=== PATIENT | male | born 1955 | race Caucasian/White ===

== ENCOUNTER 2020-09-14 10:25 | Outpatient (REF) | payer MEDICARE, SELFPAY ==
--- NOTE | 2020-09-14 10:33 | XR_ITS ---
EXAMINATION: XR CHEST CLINICAL INFORMATION: Cough COMPARISON: January 19, 2019 TECHNIQUE: 2 views of the chest were obtained. FINDINGS: No significant abnormality is noted involving the heart, lungs, mediastinum, bony thorax or soft tissues. XR/XR chest 2V IMPRESSION: No acute disease.
== END 2020-09-14 10:26 | disposition home or self-care (01) ==
LOC: HO.XRAY 10:25
PROVIDERS: PCP Internal Medicine; Visit Provider Internal Medicine
DX: R05 Cough (principal)
CPT/HCPCS: 71046

== ENCOUNTER 2022-08-01 10:34 | Day surgery (SDC) | payer MEDICARE, SELFPAY ==
--- NOTE | 2022-07-31 12:19 | P.CONAN_ITS ---
Documented by User: Kim Aguirre NP 07/31/22 12:21 HPI - Anesthesia Eval Consult details Narrative: 67yo M for Colonoscopy [facility] Active Problems Active Problems: All Active Problems (Updated 04/30/22 @ 13:46 by Ridge Kendall MD) Cough (Acute) Physical exam (Acute) Obesity (Acute) Rash (Acute) Hypertension (Acute) Past Medical History Medical History (Updated 04/30/22 @ 13:46 by Ridge Kendall MD) Hypertension Family History Family History Father Past heart attack Mother CAD (coronary artery disease) Surgical History Surgical History (Updated 07/31/22 @ 12:12 by Josephine Hassan RN) H/O left inguinal hernia repair H/O rectal polypectomy History of excision of pilonidal cyst Social History [facility] Alcohol intake: current Alcohol intake frequency: 0-2 drinks per day Patient Tobacco Use Status: Current everyday Tobacco user Tobacco use type: Cigar Cigarettes Per Day: 2 e-Cigarette/Vaping Use: Never Used Date Education Initiated: 08/01/22 Second Hand Smoke Exposure: No Use of substances other than those prescribed or required for medical reasons: No Are you DNR?: No Advance Directives: No Advance Directives Information Provided: Yes service: No Current occupational status: retired Current occupational exposures/hazards: No Cognitive needs: No Hearing needs: No Vision needs: Yes Meds Allergies Allergy/AdvReac Type Severity Reaction Status Date / Time No Known Allergies Allergy Verified 07/06/22 10:36 Exam Exam Date and Time: July 31, 2022 1219 Assessment and Plan Assessment Anesthesia Assessment: Chart Reviewed Documented by User: Saad Stewart MD 08/01/22 16:07 [facility] Past Medical History Medical History (Updated 04/30/22 @ 13:46 by Ridge Kendall MD) Hypertension Family History Family History Father Past heart attack Mother CAD (coronary artery disease) Family history of problems with anesthesia: No Surgical History Surgical History (Updated 07/31/22 @ 12:12 by Josephine Hassan RN) H/O left inguinal hernia repair H/O rectal polypectomy History of excision of pilonidal cyst History of Problems with Anesthesia: No Social History Social History [facility] Alcohol intake: current Alcohol intake frequency: 0-2 drinks per day Patient Tobacco Use Status: Current everyday Tobacco user Tobacco use type: Cigar Cigarettes Per Day: 2 e-Cigarette/Vaping Use: Never Used Date Education Initiated: 08/01/22 Second Hand Smoke Exposure: No Use of substances other than those prescribed or required for medical reasons: No Are you DNR?: No Advance Directives: No Advance Directives Information Provided: Yes service: No Current occupational status: retired Current occupational exposures/hazards: No Cognitive needs: No Hearing needs: No Vision needs: Yes Meds Allergies Allergy/AdvReac Type Severity Reaction Status Date / Time No Known Allergies Allergy Verified 07/06/22 10:36 Exam Airway Mallampati Class: IV TM Dist: >3cm Neck ROM: Full Loose/Missing/Broken Teeth: Yes (Poor dentition overall ) Heart: S1,S2 Lungs: b/l breath sounds Assessment and Plan Assessment Anesthesia Assessment: Anesthesia Plan Discussed Final Anesthetic Review Family History of Problems with Anesthesia: No History of Problems with Anesthesia: No NPO: Yes ASA Class: III Final Preanesthetic Review: Meds/Allgs Chart Reviewed, Consent Obtained/Reviewed and Anes Risks/Benef Reviewed Patient Risk: Intermediate Procedure Risk: Intermediate Anesthetic Plan Anesthetic Plan: MAC: Disposition: Standard PACU
[2022-08-01 10:52] VITALS: BP 175/100; PULSE 101; RESP 16; TEMP 36.3; O2SAT 96; BMI 30.1
[2022-08-01] MEDS: Lactated Ringers 1,000 ML 100 ML IVCONT (11:10)
--- NOTE | 2022-08-01 12:37 | P.BOP_ITS ---
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 Cecal polyp) Condition: stable Disposition: PACU
[2022-08-01 12:39] VITALS: BP 116/75; PULSE 91; RESP 17; TEMP 36.6; O2SAT 100
[2022-08-01 12:54] VITALS: BP 129/86; PULSE 78; RESP 18; TEMP 36.3; O2SAT 100
--- NOTE | 2022-08-02 00:33 | OP_ITS ---
SURGEON: Jayant Aiken MD INDICATIONS: The patient presents for evaluation of personal history of tubular adenoma of the colon and colorectal cancer screening. Full consent was obtained from him for this, including risks of bleeding and perforation. PREOPERATIVE DIAGNOSIS: POSTOPERATIVE DIAGNOSIS: PROCEDURE PERFORMED: Colonoscopy to cecum and terminal ileum with hot snare polypectomy. ESTIMATED BLOOD LOSS: COMPLICATIONS: ANESTHESIA: Monitored anesthesia care. ASSISTANTS: SPECIMENS: PREOPERATIVE DIAGNOSES: Colorectal cancer screening and personal history of tubular adenoma of the colon. POSTOPERATIVE DIAGNOSES: Colorectal cancer screening and personal history of tubular adenoma of the colon, small colon polyp, diverticulosis and internal hemorrhoids. DESCRIPTION OF PROCEDURE: The patient was placed in the left lateral decubitus position. The digital rectal exam revealed no abnormalities. The Olympus video pediatric colonoscope was entered into the rectum and advanced easily to the cecum. Once in the cecum, I did identify a cecal pouch with appendiceal orifice and a normal-appearing ileocecal valve. The terminal ileum was cannulated and appeared normal. Scope was withdrawn back in the colon. The entire cecum and ileocecal valve appeared normal other than an approximately 6 mm polyp, which was removed by hot snare polypectomy and then recovered by suction. The polypectomy site appeared clean, without any sign of residual polyp nor bleeding. The scope was slowly withdrawn assessing all mucosal surfaces carefully. Preparation was excellent. I did not visualize any other polyps, colitis, or angiodysplasia. There was a mild amount of diverticulosis in the ascending colon and a moderate amount of diverticulosis in the descending and sigmoid colon. In the rectum, scope was retroflexed visualizing internal hemorrhoids, but no other pathology. The rectal mucosa appeared normal. The scope was straightened and withdrawn from the patient. He tolerated the procedure well and was returned to the recovery area in stable condition. IMPRESSION: 1. Colon polyp. 2. Diverticulosis. 3. Internal hemorrhoids. PLAN: The results of the pathology will be checked. I would recommend a repeat colonoscopy in 5 years for further surveillance. He was advised not to use any aspirin or NSAIDs for 1 week. MD KHADAR Sun/ALLIE / [id number]
== END 2022-08-01 13:39 | disposition home or self-care (01) ==
PROVIDERS: PCP Internal Medicine; Visit Provider Internal Medicine
PROC: 0DJD8ZZ Inspection of Lower Intestinal Tract, Via Natural or Artificial Opening Endoscopic (ICD-10-PCS; CPT 45378; principal; 2022-08-01 11:30)
DX: Z12.11 Encounter for screening for malignant neoplasm of colon (principal); Z86.010 Personal history of colon polyps; K63.5 Polyp of colon; K57.30 Diverticulosis of large intestine without perforation or abscess without bleeding; K64.8 Other hemorrhoids; I10 Essential (primary) hypertension; Z79.899 Other long term (current) drug therapy; F17.210 Nicotine dependence, cigarettes, uncomplicated
CPT/HCPCS: 45385; 88302; 88305

== ENCOUNTER 2023-09-30 17:49 | Inpatient (IN) | payer MEDICARE, SELFPAY ==
--- NOTE | ~2023-09-30 | CT_ITS ---
CT ANGIOGRAM NECK WITH CONTRAST CT ANGIOGRAM BRAIN WITH CONTRAST CLINICAL INFORMATION: Syncope. COMPARISON: Head and cervical spine CT 09/30/2023. TECHNIQUE: Test bolus sequences followed by intravenous administration 70 mL of Omnipaque 350. Helical imaging was performed in the axial plane from the thoracic inlet to the skull vertex. Delayed postcontrast imaging of the head was also performed. The data was processed at the vascular technologist workstation for generation of MIP sequences. Angled MIPs and volume rendered reformatted images were also generated at an offline 3D workstation under concurrent supervision. Stenoses are assessed in accordance with NASCET criteria unless otherwise indicated. This CT examination was performed using dose optimization techniques as appropriate, variously including the following: *Automated exposure control *Adjustment of mA and/or kV according to patient size (this includes techniques or standardized protocols for targeted exams where dose is matched to indication/reason for exam; i.e. extremities or head) *Use of iterative reconstruction technique FINDINGS: BRAIN: [There is global cerebral volume loss and there is moderate chronic microangiopathy. There is no intracranial hemorrhage, hydrocephalus, extra-axial surface collection, midline shift, or other herniation pattern. Delgado to white matter differentiation is diffusely maintained without evidence of an evolved acute territorial infarct. The basilar cisterns are preserved. No significant soft tissue abnormality. No acute osseous abnormality. The paranasal sinuses and the mastoid air cells are well aerated.] CERVICAL SOFT TISSUES AND LUNG APICES: The imaged upper lungs are clear. There is advanced multilevel cervical spondylosis. 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 NECK CTA: [There is a classic 3 vessel configuration of the aortic arch. Proximal arch vessels are non-stenotic. The vertebral arteries are codominant. No significant ostial stenosis is visualized on either side. Both vertebral arteries are widely patent throughout their extracranial cervical course. Both common carotid arteries are normal in course and caliber.] There is atherosclerotic calcification involving the carotid bifurcations bilaterally without significant stenosis involving the proximal internal carotid arteries on either side. BRAIN CTA: [There is normal opacification of major intracranial arteries. No focal flow-limiting stenosis nor discrete proximal large artery occlusion. There is a 1.5 mm infundibulum versus aneurysm projecting posteriorly from the communicating segment of the left internal carotid artery. Timing of the contrast bolus allows assessment of the major dural venous sinuses, which all opacify normally] CT/CT angio head neck IMPRESSION: - No acute intracranial findings. [There is global cerebral volume loss and there is moderate chronic microangiopathy. - No significant arterial stenoses and no acute arterial occlusions within the head or neck. - There is a 1.5 mm infundibulum versus aneurysm projecting posteriorly from the communicating segment of the left internal carotid artery. - There is advanced multilevel cervical spondylosis.
--- NOTE | ~2023-09-30 | CT_ITS ---
EXAMINATION: CT HEAD WITHOUT CONTRAST CLINICAL INFORMATION: Fall. Head strike. COMPARISON: CT head dated 03/24/2014. TECHNIQUE: Contiguous axial imaging was performed from the skull base to vertex without intravenous administration of contrast. This CT examination was performed using dose optimization techniques as appropriate, variously including the following: *Automated exposure control *Adjustment of mA and/or kV according to patient size (this includes techniques or standardized protocols for targeted exams where dose is matched to indication/reason for exam; i.e. extremities or head) *Use of iterative reconstruction technique DLP: 1464 mGy-cm FINDINGS: There is no intracranial hemorrhage. There is no evidence of acute/subacute cerebral or cerebellar infarction. There is mild to moderate microvascular ischemic change. There is no midline shift or mass effect. No extra-axial fluid collection. There is mild cerebral atrophy. No hydrocephalus. The calvarium is intact. There is a small inferior right mastoid air cell effusion. There is mild right maxillary sinus mucosal thickening. The orbits are symmetric and within normal limits. CT/CT head/brain wo IV con IMPRESSION: No acute intracranial pathology. Mild to moderate microvascular ischemic change. Mild cerebral atrophy.
--- NOTE | ~2023-09-30 | CT_ITS ---
EXAMINATION: CT CERVICAL SPINE WITHOUT CONTRAST CLINICAL INFORMATION: Fall. Head trauma. COMPARISON: Previous CT March 2014 TECHNIQUE: Axial images through the cervical spine without contrast. Sagittal and coronal reconstructions sedation were performed. This CT examination was performed using dose optimization techniques as appropriate, variously including the following: *Automated exposure control *Adjustment of mA and/or kV according to patient size (this includes techniques or standardized protocols for targeted exams where dose is matched to indication/reason for exam; i.e. extremities or head) *Use of iterative reconstruction technique DLP: 567 mGy-cm FINDINGS: Bone alignment is normal. No fracture or dislocation. There is severe multilevel disc space narrowing and degenerative spondylosis from C3 to C7. There is bilateral facet arthritis, left greater than right. There is new erosive change in left C5 superior facet. There are degenerative changes at the C1 dens articulation. Soft tissues are normal. There is bilateral carotid calcification. Lung apices are clear. CT/CT cervical spine wo IV con IMPRESSION: Severe degenerative changes. No fracture or dislocation Fleischner guidelines were followed.
--- NOTE | 2023-09-30 17:57 | ECG_ITS ---
Test Reason : SYNCOPE Blood Pressure : / mmHG Vent. Rate : 092 BPM Atrial Rate : 000 BPM P-R Int : 000 ms QRS Dur : 088 ms QT Int : 366 ms P-R-T Axes : 000 227 144 degrees QTc Int : 452 ms Normal sinus rhythm with frequent Premature atrial complexes Right superior axis deviation Nonspecific ST abnormality Abnormal ECG No previous ECGs available Referred By: Catie Chopra Electronically Signed By:RADHA DSOUZA MD
--- NOTE | 2023-09-30 18:00 | ED.FALL ---
HPI - Fall General Chief Complaint: Fall Stated Complaint: WIT FALL,+HEADSTRIKE, 3 VODKA BEVS B4 FALL. Time Seen by Provider: 09/30/23 17:52 Source: patient and EMS Mode of arrival: EMS Limitations: no limitations History of Present Illness HPI Narrative: Patient is a 68-year-old male who presents emergency department for evaluation after a witnessed fall, patient fell forward striking his head on to the cabinets and then, no loss of consciousness. Per EMS his sister had reported multiple falls recently at the end of August, beginning of September, 1 about a week ago and then today. Typically he is consuming alcohol at the time that these falls occur. When asked, patient states that his neighbors are usually home and are able to help him up, however they were not today, and sister called EMS. When asking the patient why he falls he states ?sometimes I get dizzy?, he does admit that these dizziness episodes are typically during times that he is consuming alcohol but has happened and times that he is not, with onset over the past 6 months. He states he drinks about 3 vodka drinks daily, denies any history of alcohol withdrawal symptoms/seizure. At this time he has no physical complaints. He denies headache, dizziness, vision changes, neck pain, chest pain, shortness of breath, difficulty breathing, numbness or tingling of the extremities, bladder or bowel dysfunction. Related Data Previous Rx's Medication Instructions Recorded blood pressure test kit-large (BPM #1 ea 06/27/22 2 Advanced BP Monitor kit) lisinopril 40 mg tablet 40 mg PO DAILY #90 tabs 07/12/22 hydrochlorothiazide 12.5 mg capsule 12.5 mg PO DAILY #90 caps 12/18/22 Allergies Allergy/AdvReac Type Severity Reaction Status Date / Time No Known Allergies Allergy Verified 09/30/23 18:08 Review of Systems Review of Systems: Yes all other systems are reviewed and are negative PMFSH Past Medical History Attestation statement: The following information was validated with the patient. Source: old records reviewed Medical History Hypertension Surgical History H/O left inguinal hernia repair H/O rectal polypectomy History of excision of pilonidal cyst Family History Family History Father Past heart attack Mother CAD (coronary artery disease) Social History Social History Housing: Condominium Alcohol intake: current Alcohol intake frequency: 0-2 drinks per day Patient Tobacco Use Status: Current everyday Tobacco user Tobacco use type: Cigar Cigarettes Per Day: 2 Smoked in Last 30 Days: No e-Cigarette/Vaping Use: Never Used Second Hand Smoke Exposure: No Use of substances other than those prescribed or required for medical reasons: No Advance Directives: No Advance Directives Information Provided: Yes Nutrition Risks: No Nutritional Risk service: No Current occupational status: retired Current occupational exposures/hazards: No Cognitive needs: No Hearing needs: No Vision needs: Yes Physical Exam Vital Signs: Vital Signs: Last Vital Signs Temp 98.0 F 09/30/23 22:15 Pulse 124 H 09/30/23 22:15 Resp 14 09/30/23 22:15 BP 110/60 09/30/23 22:15 Pulse Ox 96 09/30/23 22:15 O2 Del Method Room Air 09/30/23 22:15 BMI result Body Mass Index 28.6 Appearance: Alert.?Oriented to person, place and time. No acute distress.?Normal affect. Head: Normocephalic Eyes: Pupils equal, round and reactive to light. EOMI. Conjunctiva and sclera normal? No Olsen sign noted. No raccoon eyes noted ENT: No septal hematoma, nares patent bilaterally. External auditory canal normal tympanic membrane pearly talavera and intact bilaterally. Dentition normal, no fractured teeth. No lesions or lacerations of oropharynx. Uvula midline. Moist mucous membranes. Neck: Normal inspection.? Neck supple.??No palpable tenderness, step-off, deformities. Hard cervical spine collar intact CVS: Heart sounds normal. Normal heart rate and rhythm.? Pulses normal.?? Respiratory: No respiratory distress.? Lung sounds clear to auscultation bilaterally?? Abdomen: Soft and non-tender. Normoactive bowel sounds. ?? Skin: Skin warm and dry.? Normal skin color.? Normal skin turgor.?? Extremities: No lower extremity edema.? Neuro: Moves all extremities spontaneously. Sensation intact bilaterally. CN II-XII intact. No focal neuro deficits. Course Reevaluation(s) Reevaluation #1: EKG interpretation of atrial fibrillation, however does not appear irregularly irregular, my impression is noted to have P waves prior to QRS complexes, rate [address] elevation/ST depression, no prior EKGs available for review. Suspect dizziness to be multifactoral. CBC is without leukocytosis. Alcohol level of 38. Hyponatremia of 128, normal renal function, no hyperglycemia, will obtain serum osmolality, urine sodium and urine osmol, may be secondary to HCTZ, ETOH, v. SIADH. Time: 19:00 Reevaluation #2: Urinalysis without evidence of infection or microscopic hematuria. Spoke with hospitalist, Dr. Limon who accepts patient for admission to medicine service Time: 21:11 Reevaluation #3: Advised by nursing staff that pulses noted to be irregular, a monitor noted to be as high as 130s, upon reviewed does appear irregular on telemetry, obtain repeat EKG which reveals first-degree AV block, does not appear consistent with atrial fibrillation Time: 23:52 Medications Administered Generic Name Dose Route Start Last Admin Trade Name Freq PRN Reason Stop Dose Admin Enoxaparin Sodium 40 mg 09/30/23 22:00 09/30/23 22:30 Enoxaparin Sodium 40 Mg/0.4 Ml Syringe SUBCUT 40 mg Q24H ALEE Administration Phenobarbital Sodium 260 mg 10/01/23 01:00 10/01/23 01:06 Phenobarbital Sodium 130 Mg/Ml Vial Im Q3hx2 IM 10/01/23 04:01 260 mg Q3H ALEE Administration Protocol Sodium Chloride 3 ml 10/01/23 00:00 10/01/23 01:07 0.9 % Sodium Chloride Flush 3 Ml Syringe IVFLUSH 3 ml QSHIFT ALEE Administration Discontinued Medications Generic Name Dose Route Start Last Admin Trade Name Freq PRN Reason Stop Dose Admin Magnesium Sulfate 2 gm in 50 mls @ 25 mls/hr 09/30/23 21:38 10/01/23 00:30 Magnesium Sulfate/H2o IV 09/30/23 23:37 Infused ONCE ONE Infusion Phenobarbital Sodium 351 mg 09/30/23 22:00 09/30/23 22:30 Phenobarbital Sodium 130 Mg/Ml Im Once IM 09/30/23 22:01 351 mg ONCE ONE Administration Protocol Thiamine HCl 100 mg 09/30/23 21:56 09/30/23 22:30 Thiamine Hcl 100 Mg Tablet PO 09/30/23 21:57 100 mg ONCE ONE Administration Medical Decision Making Medical Decision Making [facility] Narrative: Patient is a 68-year-old male with past medical history of hypertension, alcohol use who presents emergency department for evaluation of a witnessed fall as per HPI. Patient without physical complaints, physical examination is benign. However, given has been consuming alcohol plan to obtain CT head and cervical spine to ICH/SDH/fracture/subluxation in addition will obtain serum labs to exclude alternative etiology for dizziness aside from alcohol intoxication; CBC to evaluate for leukocytosis/ anemia, CMP and lipase to evaluate for abnormal electrolytes /abnormal renal function/ abnormal hepatic/biliary function, EKG and troponin to evaluate for ischemia/ACS, toxicology, and Urinalysis. Differential Diagnosis Differential Diagnoses: The differential diagnosis associated with the presentation includes (See narrative above) Admission/Observation Consideration of admission/observation: Escalation of care including admission/observation considered (See course narrative; admit new AFib) Consult Healthcare Provider Management of the patient was discussed with: Hospitalist (See course narrative) Lab Data [facility] Lab Attestation statement: I reviewed the patient's lab results. (See course narrative) 09/30/23 18:45 09/30/23 18:45 Labs: Lab Results 09/30/23 09/30/23 09/30/23 Range/Units 18:45 20:41 20:42 WBC 9.6 (4.8-10.8) X10*3/uL RBC 4.12 L (4.60-5.80) X10*6/uL Hgb 14.1 (14.0-18.0) g/dl Hct 39.5 L (42.0-52.0) % MCV 95.9 (80.0-98.0) fL MCH 34.2 H (27.0-33.0) pg MCHC 35.7 (31.0-36.0) g/dl RDW 11.5 (11.0-16.0) % Plt Count 317 (160-400) X10*3/uL MPV 9.5 (9.4-12.4) fL Immature Gran % (Auto) 0.5 H (0.0-0.4) % Neut % (Auto) 77.5 H (45-73) % Lymph % (Auto) 12.8 L (20-40) % [place] % (Auto) 8.6 (2-11) % Eos % (Auto) 0.3 (0-4) % Baso % (Auto) 0.3 (0-2) % Lymph # (Auto) 1.2 (1.2-4.9) X10*3/uL [place] # (Auto) 0.8 (0.1-1.2) X10*3/uL Eos # (Auto) 0.0 (0.0-0.4) X10*3/uL Baso # (Auto) 0.0 (0.0-0.2) X10*3/uL Abs Immat Gran (auto) 0.05 H (0.00-0.03) X10*3/uL Absolute Neuts (auto) 7.5 (2.0-8.3) x10*3/uL Absolute Nucleated RBC 0.000 (0.0-0.012) X10*3/uL Nucleated RBC % (auto) 0.0 (0.0-0.2) /100WBC Sodium 128 L (135-145) mmol/L Potassium 3.5 (3.3-5.1) mmol/L Chloride 97 (96-108) mmol/L Carbon Dioxide 18 L (22-29) mmol/L Anion Gap 17 (12-20) BUN 9 (9-16) mg/dL Creatinine 0.68 (0.5-1.4) mg/dL Estim Creat Clear Calc 114.2 Estimated GFR > 60 Random Glucose 85 (60-115) mg/dL Osmolality 272 L (281-305) mosm/kg Calcium 9.1 (8.4-10.2) mg/dL Magnesium 1.5 L (1.6-2.6) mg/dL Total Bilirubin 0.3 (0.0-1.0) mg/dL AST 22 (5-37) U/L ALT 18 (0-40) U/L Alkaline Phosphatase 80 (39-117) U/L Troponin I High Sens 13.2 (<3.5-35.0) ng/L Total Protein 6.5 (6.5-8.0) g/dL Albumin 3.8 (3.5-5.0) g/dL Lipase 24 (8-78) U/L Urine Color Yellow Urine Appearance Clear Urine pH 5.5 (5.0-9.0) Ur Specific [place] 1.010 (1.005-1.025) Urine Protein Negative (Neg-Trace) mg/dL Urine Glucose (UA) Negative (Negative) mg/dL Urine Ketones Negative (Negative) mg/dL Urine Blood Negative (Negative) Urine Nitrite Negative (Negative) Ur Leukocyte Esterase Negative (Negative) Urine Osmolality (373-1093) mosm/kg Ur Random Sodium mmol/L Urine Opiates Screen Not Detected (Not Detect) Urine Fentanyl Screen Not Detected (Not Detect) Ur Barbiturates Screen Not Detected (Not Detect) Ur Phencyclidine Scrn Not Detected (Not Detect) Ur Amphetamines Screen Not Detected (Not Detect) U Benzodiazepines Scrn Not Detected (Not Detect) Urine Cocaine Screen Not Detected (Not Detect) U Marijuana (THC) Screen Not Detected (Not Detect) Ethyl Alcohol 38 mg/dL 09/30/23 Range/Units 20:55 WBC (4.8-10.8) X10*3/uL RBC (4.60-5.80) X10*6/uL Hgb (14.0-18.0) g/dl Hct (42.0-52.0) % MCV (80.0-98.0) fL MCH (27.0-33.0) pg MCHC (31.0-36.0) g/dl RDW (11.0-16.0) % Plt Count (160-400) X10*3/uL MPV (9.4-12.4) fL Immature Gran % (Auto) (0.0-0.4) % Neut % (Auto) (45-73) % Lymph % (Auto) (20-40) % [place] % (Auto) (2-11) % Eos % (Auto) (0-4) % Baso % (Auto) (0-2) % Lymph # (Auto) (1.2-4.9) X10*3/uL [place] # (Auto) (0.1-1.2) X10*3/uL Eos # (Auto) (0.0-0.4) X10*3/uL Baso # (Auto) (0.0-0.2) X10*3/uL Abs Immat Gran (auto) (0.00-0.03) X10*3/uL Absolute Neuts (auto) (2.0-8.3) x10*3/uL Absolute Nucleated RBC (0.0-0.012) X10*3/uL Nucleated RBC % (auto) (0.0-0.2) /100WBC Sodium (135-145) mmol/L Potassium (3.3-5.1) mmol/L Chloride (96-108) mmol/L Carbon Dioxide (22-29) mmol/L Anion Gap (12-20) BUN (9-16) mg/dL Creatinine (0.5-1.4) mg/dL Estim Creat Clear Calc Estimated GFR Random Glucose (60-115) mg/dL Osmolality (281-305) mosm/kg Calcium (8.4-10.2) mg/dL Magnesium (1.6-2.6) mg/dL Total Bilirubin (0.0-1.0) mg/dL AST (5-37) U/L ALT (0-40) U/L Alkaline Phosphatase (39-117) U/L Troponin I High Sens (<3.5-35.0) ng/L Total Protein (6.5-8.0) g/dL Albumin (3.5-5.0) g/dL Lipase (8-78) U/L Urine Color Urine Appearance Urine pH (5.0-9.0) Ur Specific [place] (1.005-1.025) Urine Protein (Neg-Trace) mg/dL Urine Glucose (UA) (Negative) mg/dL Urine Ketones (Negative) mg/dL Urine Blood (Negative) Urine Nitrite (Negative) Ur Leukocyte Esterase (Negative) Urine Osmolality 213 L (373-1093) mosm/kg Ur Random Sodium 65.0 mmol/L Urine Opiates Screen (Not Detect) Urine Fentanyl Screen (Not Detect) Ur Barbiturates Screen (Not Detect) Ur Phencyclidine Scrn (Not Detect) Ur Amphetamines Screen (Not Detect) U Benzodiazepines Scrn (Not Detect) Urine Cocaine Screen (Not Detect) U Marijuana (THC) Screen (Not Detect) Ethyl Alcohol mg/dL Independent Interpretation I performed an independent interpretation of an: EKG (Course narrative) and CT Scan Radiology Impression Discussion of test interpretation with radiology: I have reviewed the radiologist's reading. Radiologist Impression: CT/CT head/brain wo IV con IMPRESSION: No acute intracranial pathology. Mild to moderate microvascular ischemic change. Mild cerebral atrophy. CT/CT cervical spine wo IV con IMPRESSION: Severe degenerative changes. No fracture or dislocation Fleischner guidelines were followed. Independent Historian Clinical information obtained from an independent historian. History obtained from or confirmed by: EMS External Record Review External record reviewed: Outpatient record Discharge Plan Discharge Clinical Impression: Fall, Alcohol use disorder, Near syncope Patient Disposition: Admitted As Inpatient
[2023-09-30 18:08] VITALS: BP 140/84; BP 152/64; PULSE 108; PULSE 89; RESP 16; TEMP 36.8; O2SAT 97; O2SAT 99; BMI 28.6
--- NOTE | 2023-09-30 18:16 | PC.NURSE ---
a&ox4. vss and up to date. pt presents to the ED d/t witnessed fall at home by sister. pt was standing when sister heard pt say oh no and he fell to the ground. +headstrike on cabinet, -loc, -thinners. c-collar in place. pt has had an increase in falls lately (09/01, 09/06, 09/22). pt states he was not seen post falls. pt admits to drinking 3 beverages of vodka prior to each fall. pt denies pain/any other sx. pt seen by ED provider/aware of plan of care at this time. ekg performed by tech. airway patent. no sob/wob noted. respirations even and unlabored. sister bedside for support.
--- NOTE | 2023-09-30 18:46 | PC.NURSE ---
labs obtained/sent to lab.
[2023-09-30 18:49] LABS: MANUAL DIFF FLAG NO
[2023-09-30 18:54] LABS: Basophils Percent Auto 0.3 % (0-2); Eosinophils Percent Auto 0.3 % (0-4); Hematocrit 39.5 % (42.0-52.0); Hemoglobin 14.1 g/dl (14.0-18.0); Imm Gran Abs Auto 0.05 X10*3/uL (0.00-0.03); Imm Gran Pct Auto 0.5 % (0.0-0.4); Lymphocytes Absolute Auto 1.2 X10*3/uL (1.2-4.9); Lymphocytes Percent Auto 12.8 % (20-40); Mean Corpuscular HGB Conc 35.7 g/dl (31.0-36.0); Mean Corpuscular Hemoglobin 34.2 pg (27.0-33.0); Mean Corpuscular Volume 95.9 fL (80.0-98.0); Mean Platelet Volume 9.5 fL (9.4-12.4); Monocytes Absolute Auto 0.8 X10*3/uL (0.1-1.2); Monocytes Percent Auto 8.6 % (2-11); Neutrophils Absolute Auto 7.5 x10*3/uL (2.0-8.3); Neutrophils Percent Auto 77.5 % (45-73); Platelet Count 317 X10*3/uL (160-400); Red Blood Count 4.12 X10*6/uL (4.60-5.80); Red Cell Distribution Width 11.5 % (11.0-16.0); White Blood Count 9.6 X10*3/uL (4.8-10.8)
--- NOTE | 2023-09-30 18:56 | PC.NURSE ---
pt to CT at this time.
[2023-09-30 19:00] LABS: Ethanol 38 mg/dL
[2023-09-30 19:05] LABS: Alanine Aminotransferase 18 U/L (0-40); Albumin Level 3.8 g/dL (3.5-5.0); Alkaline Phosphatase 80 U/L (39-117); Anion Gap 17 (12-20); Aspartate Amino Transferase 22 U/L (5-37); Bilirubin Total 0.3 mg/dL (0.0-1.0); Blood Urea Nitrogen 9 mg/dL (9-16); Calcium 9.1 mg/dL (8.4-10.2); Carbon Dioxide 18 mmol/L (22-29); Chloride 97 mmol/L (96-108); Creatinine Clr Calc Pharmacy 114.2; Estimated Glomerular Filt Rate > 60; Glucose Random 85 mg/dL (60-115); Lipase 24 U/L (8-78); Magnesium 1.5 mg/dL (1.6-2.6); Potassium 3.5 mmol/L (3.3-5.1); Sodium 128 mmol/L (135-145); Total Protein 6.5 g/dL (6.5-8.0)
[2023-09-30 19:09] LABS: Troponin-I High Sensitivity 13.2 ng/L (<3.5-35.0)
[2023-09-30 21:07] LABS: Appearance Urine Clear; Color Urine Yellow; Glucose Urine UA Negative (Negative); Leukocyte Esterase Urine Negative (Negative); Nitrite Urine Negative (Negative); PH 5.5 (5.0-9.0); Urine Blood Negative (Negative); Urine Ketones Negative (Negative); Urine Protein Negative (Neg-Trace)
[2023-09-30 21:14] LABS: Amphetamine Screen Urine Not Detected (Not Detect); Barbiturates, Urine Not Detected (Not Detect); Benzodiazepines Screen Urine Not Detected (Not Detect); Cannabinoid Screen Urine Not Detected (Not Detect); Cocaine Screen Urine Not Detected (Not Detect); Fentanyl, urine Not Detected (Not Detect); Opiate Screen Urine Not Detected (Not Detect); Phencyclidine Screen Urine Not Detected (Not Detect)
--- NOTE | 2023-09-30 21:16 | PHA.MEDREC ---
Pharmacy Consult ? Medication Reconciliation Pharmacy has completed the medication reconciliation. Patient and spouse confirmed medications. Angelita Emery, JuanD
--- NOTE | 2023-09-30 21:19 | MHC.EDTECH ---
Patient freshened up and reposition
--- NOTE | 2023-09-30 21:20 | MHC.EDTECH ---
Patient given dinner tray
[2023-09-30 21:34] LABS: Osmolality Urine 213 mosm/kg (373-1093)
[2023-09-30 21:34] LABS: Osmolality, Serum 272 mosm/kg (281-305)
--- NOTE | 2023-09-30 21:43 | P.HPHOSP_ITS ---
History of Present Illness Date of Service: 09/30/23 Attending physician on admission: Willy Limon Chief Complaint: fall 68-year-old male with history of hypertension and alcohol dependence who is a 2 cigar per day smoker presents to the ED for evaluation of a witnessed fall around 1630 today. The patient is evaluated in the presence of his sister, Ariadna, with whom he lives and who witnessed this fall. The patient reports experienced an episode of lightheadedness before falling forward striking his head on the cabinets without any loss of consciousness. Per his sister, the patient has had 4 falls since September 01 that have been unwitnessed and per patient have not resulted in any loss of consciousness. He denies any shortness a breath, chest pain, lightheadedness, weakness, paresthesias, or neuropathy related to fall. The patient endorses drinking about 3 unmeasured drinks on a daily basis but his sister states that he drinks at least 4 bloody Berna's every morning and then will typically go out in the afternoon and sometimes at night to drink more. The patient denies any history of withdrawal symptoms including withdrawal seizure or DTs. Denies illicit drug use. On arrival, vital signs stable. Hematology studies unremarkable. Renal function normal. Sodium 128, CO2 18, magnesium 1.5, electrolytes otherwise within normal limits. Hepatic function within normal limits. Serum osmolality 272, urine osmolality 213. Urinalysis unremarkable. Urine sodium 65. Urine tox screen negative with ethyl alcohol 38. CT head negative for any acute intracranial abnormality but shows [id number] microvascular ischemic changes and mild cerebral atrophy. CT of the cervical spine is negative for any acute fracture, subluxation, or dislocation. Review of Systems 2 Review of Systems: General: No fevers, malaise, unintentional weight loss HEENT: No blurred vision, diplopia. No sore throat, nasal congestion, rhinorrhea, sinus pain, ear pain Cardiovascular: No chest pain, palpitations, or leg edema Respiratory: No shortness of breath, wheezing, cough GI: No abdominal pain, nausea, vomiting, diarrhea, constipation, melena, hematochezia : No dysuria, hematuria, increased urinary frequency, decreased urinary output MSK: No myalgia, back pain Neuro: No headaches, weakness, paresthesias, neuropathy. +near syncope Skin: No rashes or lesions [facility] Medical History Hypertension Family History Father Past heart attack Mother CAD (coronary artery disease) Surgical History H/O left inguinal hernia repair H/O rectal polypectomy History of excision of pilonidal cyst Social History [facility]: [facility] Alcohol intake: current Alcohol intake frequency: 0-2 drinks per day Patient Tobacco Use Status: Current everyday Tobacco user Tobacco use type: Cigar Cigarettes Per Day: 2 Smoked in Last 30 Days: No e-Cigarette/Vaping Use: Never Used Second Hand Smoke Exposure: No Use of substances other than those prescribed or required for medical reasons: No Advance Directives: No Advance Directives Information Provided: Yes service: No Current occupational status: retired Current occupational exposures/hazards: No Cognitive needs: No Hearing needs: No Vision needs: Yes Meds Allergies Allergy/AdvReac Type Severity Reaction Status Date / Time No Known Allergies Allergy Verified 09/30/23 18:08 Physical Exam 2 Vital Signs and Narrative: Vital Signs: Last Vital Signs Temp 98.2 F 09/30/23 18:08 Pulse 89 09/30/23 18:08 Resp 16 09/30/23 18:08 BP 152/64 H 09/30/23 18:08 Pulse Ox 97 09/30/23 18:08 O2 Del Method Room Air 09/30/23 18:08 BMI result Body Mass Index 28.6 Constitutional - Awake and Alert, No apparent distress Eyes - PERRLA, EOMI Cardiovascular - S1S2, RRR, No edema Respiratory - Normal lung expansion, Normal respiratory effort, No respiratory distress, CTA bilaterally Gastrointestinal - NT / ND; +BS; No rebound or guarding Extremities - no calf tenderness bilaterally, no swelling Skin - Warm/Dry Neurological - Alert & oriented x3, CN II-XII in tact, 5/5 strength BUE and BLE Results Labs 09/30/23 18:45 09/30/23 18:45 Labs: Laboratory Results - last 24 hr 09/30/23 09/30/23 09/30/23 18:45 20:41 20:42 MCV 95.9 MCH 34.2 H MCHC 35.7 RDW 11.5 Plt Count 317 MPV 9.5 Immature Gran % (Auto) 0.5 H Neut % (Auto) 77.5 H Lymph % (Auto) 12.8 L [place] % (Auto) 8.6 Eos % (Auto) 0.3 Baso % (Auto) 0.3 Lymph # (Auto) 1.2 [place] # (Auto) 0.8 Eos # (Auto) 0.0 Baso # (Auto) 0.0 Abs Immat Gran (auto) 0.05 H Absolute Neuts (auto) 7.5 Absolute Nucleated RBC 0.000 Nucleated RBC % (auto) 0.0 Anion Gap 17 Estim Creat Clear Calc 114.2 Estimated GFR > 60 Random Glucose 85 Osmolality 272 L Calcium 9.1 Magnesium 1.5 L Total Bilirubin 0.3 AST 22 ALT 18 Alkaline Phosphatase 80 Total Protein 6.5 Albumin 3.8 Lipase 24 Urine Color Yellow Urine Appearance Clear Urine pH 5.5 Ur Specific [place] 1.010 Urine Protein Negative Urine Glucose (UA) Negative Urine Ketones Negative Urine Blood Negative Urine Nitrite Negative Ur Leukocyte Esterase Negative Urine Osmolality Ur Random Sodium Urine Opiates Screen Not Detected Urine Fentanyl Screen Not Detected Ur Barbiturates Screen Not Detected Ur Phencyclidine Scrn Not Detected Ur Amphetamines Screen Not Detected U Benzodiazepines Scrn Not Detected Urine Cocaine Screen Not Detected U Marijuana (THC) Screen Not Detected Ethyl Alcohol 38 09/30/23 20:55 MCV MCH MCHC RDW Plt Count MPV Immature Gran % (Auto) Neut % (Auto) Lymph % (Auto) [place] % (Auto) Eos % (Auto) Baso % (Auto) Lymph # (Auto) [place] # (Auto) Eos # (Auto) Baso # (Auto) Abs Immat Gran (auto) Absolute Neuts (auto) Absolute Nucleated RBC Nucleated RBC % (auto) Anion Gap Estim Creat Clear Calc Estimated GFR Random Glucose Osmolality Calcium Magnesium Total Bilirubin AST ALT Alkaline Phosphatase Total Protein Albumin Lipase Urine Color Urine Appearance Urine pH Ur Specific [place] Urine Protein Urine Glucose (UA) Urine Ketones Urine Blood Urine Nitrite Ur Leukocyte Esterase Urine Osmolality 213 L Ur Random Sodium 65.0 Urine Opiates Screen Urine Fentanyl Screen Ur Barbiturates Screen Ur Phencyclidine Scrn Ur Amphetamines Screen U Benzodiazepines Scrn Urine Cocaine Screen U Marijuana (THC) Screen Ethyl Alcohol Imaging Radiologist's Impressions: Impressions Cervical Spine CT 09/30/23 19:28 IMPRESSION: Severe degenerative changes. No fracture or dislocation Fleischner guidelines were followed. Head CT 09/30/23 19:28 IMPRESSION: No acute intracranial pathology. Mild to moderate microvascular ischemic change. Mild cerebral atrophy. Assessment and Plan (1) Near syncope: Status: Acute (2) Fall: Status: Acute (3) Alcohol use disorder: Status: Acute Plan 68-year-old male with history of hypertension and alcohol dependence who is a 2 cigar per day smoker admitted for near syncope and fall related to alcohol use disorder #Near syncope with fall -like r/t etoh use disorder/intoxication -head ct negative for any acute intracranial abnormality. Cervical spine CT negative for any fracture, subluxation, dislocation -monitor on telemetry # alcohol dependence at risk for withdrawal -last alcohol consumed 1600 -monitor on ciwa -initiate phenobarbital per protocol -IV thiamine -IV folic acid -Addiction medicine consult #Acute hypomagnesemia -likely r/t etoh use -2g IV mag ordered -follow mag, bmp #Hyponatremia -likely SIADH r/t thiazide use, however etoh use likely contributory -Serum osm 273, urine osm 213 -Follow BMP #HTN -continue lisinopril. hold hctz due to above #Cigar smoking -cessation advised DVT prophylaxis- lovenox Full code Pt requries inpt stay at least 2 midnights for management of near syncope/fall due to alcohol use in patient at risk for moderate-severe withdrawal desiring detox requiring close monitoring of withdrawal symptoms and initiation of phenobarb per protocol as well as expert consultation Quality Stroke Does the patient have a stroke diagnosis?: No VTE Prior VTE?: No VTE Risk Level:: Medical - moderate - high VTE Device Contraindication: Treatment Not Indicated VTE Drug Contraindication: N/A - Med Ordered
[2023-09-30 22:15] VITALS: BP 110/60; PULSE 124; RESP 14; TEMP 36.7; O2SAT 96
[2023-09-30] MEDS: Enoxaparin Sodium 40 MG/0.4 ML SYRINGE SUBCUT (22:30)
[2023-09-30] MEDS: PHENobarbitaL sodium 130 MG/ML IM ONCE 351 MG IM (22:30)
[2023-09-30] MEDS: Thiamine HCL 100 MG TABLET PO (22:30)
[2023-09-30] MEDS: Magnesium Sulfate/H2O 2 GM/50 ML PIGGYBACK IV (22:30)
--- NOTE | 2023-09-30 23:38 | ECG_ITS ---
Test Reason : TACHYCARDIA Blood Pressure : / mmHG Vent. Rate : 101 BPM Atrial Rate : 113 BPM P-R Int : 216 ms QRS Dur : 080 ms QT Int : 334 ms P-R-T Axes : 072 -48 059 degrees QTc Int : 433 ms Normal sinus rhythm with 1st degree A-V block Premature atrial complexes Left axis deviation Possible Inferior infarct , age undetermined Abnormal ECG When compared with ECG of 30-SEP-2023 18:18, Questionable change in QRS axis Referred By: Catie Chopra Electronically Signed By:RADHA DSOUZA MD
--- NOTE | 2023-10-01 | EEG_ITS ---
FINDINGS: Waking background activity consists of a moderate voltage 7.5 to 8 hertz posterior alpha frequency intermixed with low voltage fast frequencies anteriorly. Drowsiness is characterized by diffuse theta slowing. Photic stimulation is without activation. Hyperventilation was omitted. IMPRESSION: No definite diagnostic abnormalities are seen in this predominantly drowsy EEG. No seizure discharges are seen. MD FRANCES Maynard/ALLIE / [phone]
[2023-10-01] MEDS: PHENobarbitaL sodium 130 MG/ML VIAL IM Q3Hx2 260 MG IM ×2 (01:06→04:30)
[2023-10-01] MEDS: 0.9 % Sodium Chloride Flush 3 ML SYRINGE IVFLUSH ×4 (01:07→21:21)
[2023-10-01 02:51] VITALS: BP 109/86; PULSE 84; RESP 16; TEMP 36.7; O2SAT 95
[2023-10-01 06:00] VITALS: BP 128/79; PULSE 90; RESP 16; TEMP 36.4; O2SAT 100
[2023-10-01 06:28] LABS: MANUAL DIFF FLAG NO
[2023-10-01 06:48] LABS: Basophils Percent Auto 0.4 % (0-2); Eosinophils Absolute Auto 0.1 X10*3/uL (0.0-0.4); Eosinophils Percent Auto 1.1 % (0-4); Hematocrit 40.1 % (42.0-52.0); Hemoglobin 14.3 g/dl (14.0-18.0); Imm Gran Abs Auto 0.03 X10*3/uL (0.00-0.03); Imm Gran Pct Auto 0.4 % (0.0-0.4); Lymphocytes Absolute Auto 1.5 X10*3/uL (1.2-4.9); Lymphocytes Percent Auto 20.6 % (20-40); Mean Corpuscular HGB Conc 35.7 g/dl (31.0-36.0); Mean Corpuscular Hemoglobin 34.5 pg (27.0-33.0); Mean Corpuscular Volume 96.6 fL (80.0-98.0); Mean Platelet Volume 10.3 fL (9.4-12.4); Monocytes Absolute Auto 0.8 X10*3/uL (0.1-1.2); Neutrophils Absolute Auto 4.8 x10*3/uL (2.0-8.3); Neutrophils Percent Auto 66.5 % (45-73); Platelet Count 317 X10*3/uL (160-400); Red Blood Count 4.15 X10*6/uL (4.60-5.80); Red Cell Distribution Width 11.3 % (11.0-16.0); White Blood Count 7.2 X10*3/uL (4.8-10.8)
[2023-10-01 06:55] LABS: Anion Gap 12 (12-20); Blood Urea Nitrogen 10 mg/dL (9-16); Calcium 8.8 mg/dL (8.4-10.2); Carbon Dioxide 25 mmol/L (22-29); Chloride 97 mmol/L (96-108); Creatinine Clr Calc Pharmacy 107.9; Estimated Glomerular Filt Rate > 60; Glucose Random 88 mg/dL (60-115); Magnesium 1.9 mg/dL (1.6-2.6); Potassium 3.6 mmol/L (3.3-5.1); Sodium 130 mmol/L (135-145)
--- NOTE | 2023-10-01 07:00 | CA_ITS ---
Transthoracic Echocardiogram Patient (Last, First, Middle): Abdullahi Mondragon K Gender: Male Date of : 1955 Age: 68 Procedure Date: 10/01/2023 Procedure Type: Transthoracic Echocardiogram Location: ER Height: 172.72 cm Weight: 90.27 kg BSA: 2.04 m2 Heart Rate: bpm BP: 128 / 79 mmHg Croze Machine Operator: Referring MD: Kenny Langley DO Booker: Sami Figueroa MD Symptoms: syncope Study Quality: Technically Difficult due to poor window ECG Rhythm: Sinus with extra beats Conclusions: - 1. Technically limited study despite use of contrast agent due to off axis views 2. LV ejection fraction appears to be normal with LVEF of 55-60% with mild LVH and impaired relaxation filling pattern 3. Poor visualization of cardiac valves with cardiac valvular Dopplers within normal limits Findings Procedure Information Contrast agent, definity, is being given per protocol without apparent complications. Left Ventricle The left ventricle was not well visualized. Normal left ventricular cavity size. There is mildly increased left ventricular wall thickness. The left ventricular systolic function is normal. The visually estimated ejection fraction is between 55-60%. Regional wall motion abnormalities can not be excluded due to suboptimal endocardial definition. Spectral Doppler is indicative of an impaired relaxation filling pattern. Right Ventricle The right ventricle was not well visualized. Atria The left atrium was not well visualized. Interatrial shunt cannot be excluded. The right atrium was not well visualized. Aortic Valve The aortic valve was not well visualized. There is no aortic valve stenosis. There is no aortic valve regurgitation. Mitral Valve The mitral valve was not well visualized. There is no mitral valve regurgitation. There is no mitral valve stenosis. Pulmonic Valve The pulmonic valve was not well visualized. Tricuspid Valve The tricuspid valve was not well visualized. Tricuspid regurgitation envelope is inadequate for calculation of right ventricular systolic pressure. Great Vessels The aorta was not well visualized. The pulmonary artery was not well visualized. Venous The inferior vena cava was not well visualized. Pericardium/Pleural The pericardium was not well visualized. Prior Study Comparison No prior study available for comparison. Measurements 2D Linear Measurements IVSd: 1.22 0.6-0.9/0.6-1.0 cm LVIDd: 4.22 3.9-5.3/4.2-5.9 cm LVIDd Index: 2.07 2.4-3.2/2.2-3.1 cm/m2 LVIDs: 2.89 2.0-3.6 cm LVPWd: 1.25 0.7-1.1 cm Ao Root: 3.40 2.1-3.5 cm LA Diam: 4.10 2.7-3.8/3.0-4.0 cm LAIDs Index: 2.01 1.5-2.3 cm/m2 LV Mass: 233.24 67-162/88-224 g LV Mass Index: 114.33 43-95/49-115 g/m2 LVOT Diam: 2.30 3.0+(-)1.3 cm Mitral Valve MV Pk E: 0.48 MV PK A: 0.74 MV Decel Time: 190.00 E/A: 0.70 E'Lateral: 5.98 E'Medial: 4.46 E/E' Med: 10.90 E/E' Lat: 8.10 PHT: 56.00 MVA PHT: 3.93 Decel Dukes: 2.55 Aortic Valve AoV Pk Otilio: 1.59 AoV Mn Otilio: 1.01 AoV VTI: 0.29 AoV Pk Grad: 10.00 Aov Mn Grad: 5.00 SARAH Cont.VTI: 1.77 LVOT LVOT Pk Otilio: 0.65 LVOT Mn Otilio: 0.42 LVOT VTI: 0.13 LVOT Pk Grad: 2.00 LVOT Mn Grad: 1.00 LVOT Diam: 2.30 LVOT Area: 4.15 Diastolic Function MV Pk E: 0.48 MV Pk A: 0.74 E/A: 0.70 E'Medial: 4.46 E/E' Med: 10.90 E' Laterial: 5.98 E/E' Lat: 8.10 Tricuspid Valve TR Pk Otilio: 1.81 TR Pk Grad: 13.00 Great Vessels Aorta Ao Root-2D: 3.40 2.0-3.7 cm Pulmonary Valve PV Pk Otilio: 0.71 Peak PV Grad: 2.00 Updated in Other Vendor System with Status of Final Sami Figueroa MD electronically signed on 10/03/2023 12:15:50 PM with status of Final
[2023-10-01 08:12] VITALS: BP 138/91; PULSE 95; RESP 14; TEMP 36.7; O2SAT 96
[2023-10-01] MEDS: iohexoL 350 MG/ML 100 ML INFUS..BTL IV (08:45)
--- NOTE | 2023-10-01 08:47 | MHC.CM.PN ---
Patient is unavailable; CM spoke with Sister/HCP/Ariadna @ [phone] and addressed IMM with her (original will be mailed certified letter to Ariadna and a copy placed on the chart). Patient lives in a house with Ariadna and he required no services nor DME INSTRUCTOR FLYING. Home/self care vs Recovery Team intervention r/t ETOH is the tentative plan and CM has initiated and will follow for dc planning. PCP is Dr. Ridge Kendall.
[2023-10-01] MEDS: lisinopriL 40 MG TABLET PO (09:11)
[2023-10-01] MEDS: PHENobarbitaL 15 MG TABLET 45 MG PO ×2 (09:12→21:18)
[2023-10-01] MEDS: Thiamine HCL 100 MG in 0.9 % Sodium Chloride 100 ML 202 MG IV (09:17)
--- NOTE | 2023-10-01 09:30 | PC.NURSE ---
Pt awake and oriented, breathing even and unlabored. Pt denies any pain, CP, headache, nausea or SOB at this time. No tremors or slurred speech noted. Pt medicated per OCT.
[2023-10-01] MEDS: Folic Acid 1 MG in 0.9 % Sodium Chloride 50 ML 100.4 MG IV (09:57)
--- NOTE | 2023-10-01 11:44 | PC.NURSE ---
Pt at EEG.
--- NOTE | 2023-10-01 13:11 | HO.PM.IMPN ---
Subjective Subjective Date of Service: 10/01/23 Interval History: No acute issues overnight. CIWA remains 0. Review of Systems Denies chest pain Denies shortness of breath Denies nausea vomiting diarrhea Denies fever chills Physical Exam Vital Signs: Vital Signs: Last Vital Signs Temp 98.1 F 10/01/23 08:12 Pulse 95 10/01/23 08:12 Resp 14 10/01/23 08:12 BP 138/91 H 10/01/23 08:12 Pulse Ox 96 10/01/23 08:12 O2 Del Method Room Air 10/01/23 08:12 BMI result Body Mass Index 28.6 Const: Other: Somnolent but arousable no acute issues Resp: Other: Clear to auscultation bilaterally no rales rhonchi or wheezes Cardio: Other: No S4; positive S1-S2; no S3 murmurs rubs or gallops Extrem: Other: No edema bilaterally Objective Data Active Medications Acetaminophen (Acetaminophen 325 Mg Tablet) 650 mg PO Q6H PRN PRN Reason: Pain, Mild (Pain Scale 1-3) Enoxaparin Sodium (Enoxaparin Sodium 40 Mg/0.4 Ml Syringe) 40 mg SUBCUT Q24H [facility] Last Admin: 09/30/23 22:30 Dose: 40 mg Documented By: JASON Thiamine HCl 100 mg/ Sodium (Chloride) 101 mls @ 202 mls/hr IV DAILY [facility] Last Infusion: 10/01/23 09:57 Dose: Infused Documented By: ALBA Folic Acid 1 mg/ Sodium (Chloride) 50.2 mls @ 100.4 mls/hr IV DAILY [facility] Stop: 10/03/23 09:29 Last Infusion: 10/01/23 11:48 Dose: Infused Documented By: ALAN Lisinopril (Lisinopril 40 Mg Tablet) 40 mg PO DAILY [facility]; Protocol Last Admin: 10/01/23 09:11 Dose: 40 mg Documented By: ALAN Ondansetron HCl (Ondansetron Hcl 4 Mg/2 Ml Vial) 4 mg IVPUSH Q8H PRN PRN Reason: Nausea and Vomiting Pharmacy Consult (Consult Rx Etoh Phenob Im/Po) 1 each MISCELLANE ONCE PRN; Protocol PRN Reason: Consult order Phenobarbital (Phenobarbital 15 Mg Tablet) 45 mg PO BID [facility]; Protocol Stop: 10/02/23 21:01 Last Admin: 10/01/23 09:12 Dose: 45 mg Documented By: ALAN Phenobarbital (Phenobarbital 30 Mg Tablet) 30 mg PO BID [facility]; Protocol Stop: 10/04/23 21:01 Phenobarbital (Phenobarbital 15 Mg Tablet) 15 mg PO DAILY [facility]; Protocol Stop: 10/06/23 09:01 Senna (Sennosides 8.6 Mg Tablet) 17.2 mg PO BEDTIME PRN PRN Reason: Constipation Sodium Chloride (0.9 % Sodium Chloride Flush 3 Ml Syringe) 3 ml IVFLUSH QSHIFT [facility] Last Admin: 10/01/23 09:21 Dose: 3 ml Documented By: ALAN Labs 10/01/23 06:17 10/01/23 06:17 Labs: Laboratory Results - last 24 hr 09/30/23 09/30/23 09/30/23 18:45 20:41 20:42 MCV 95.9 MCH 34.2 H MCHC 35.7 RDW 11.5 Plt Count 317 MPV 9.5 Immature Gran % (Auto) 0.5 H Neut % (Auto) 77.5 H Lymph % (Auto) 12.8 L [place] % (Auto) 8.6 Eos % (Auto) 0.3 Baso % (Auto) 0.3 Lymph # (Auto) 1.2 [place] # (Auto) 0.8 Eos # (Auto) 0.0 Baso # (Auto) 0.0 Abs Immat Gran (auto) 0.05 H Absolute Neuts (auto) 7.5 Absolute Nucleated RBC 0.000 Nucleated RBC % (auto) 0.0 Anion Gap 17 Estim Creat Clear Calc 114.2 Estimated GFR > 60 Random Glucose 85 Osmolality 272 L Calcium 9.1 Magnesium 1.5 L Total Bilirubin 0.3 AST 22 ALT 18 Alkaline Phosphatase 80 Total Protein 6.5 Albumin 3.8 Lipase 24 Urine Color Yellow Urine Appearance Clear Urine pH 5.5 Ur Specific [place] 1.010 Urine Protein Negative Urine Glucose (UA) Negative Urine Ketones Negative Urine Blood Negative Urine Nitrite Negative Ur Leukocyte Esterase Negative Urine Osmolality Ur Random Sodium Urine Opiates Screen Not Detected Urine Fentanyl Screen Not Detected Ur Barbiturates Screen Not Detected Ur Phencyclidine Scrn Not Detected Ur Amphetamines Screen Not Detected U Benzodiazepines Scrn Not Detected Urine Cocaine Screen Not Detected U Marijuana (THC) Screen Not Detected Ethyl Alcohol 38 09/30/23 10/01/23 20:55 06:17 MCV 96.6 MCH 34.5 H MCHC 35.7 RDW 11.3 Plt Count 317 MPV 10.3 Immature Gran % (Auto) 0.4 Neut % (Auto) 66.5 Lymph % (Auto) 20.6 [place] % (Auto) 11.0 Eos % (Auto) 1.1 Baso % (Auto) 0.4 Lymph # (Auto) 1.5 [place] # (Auto) 0.8 Eos # (Auto) 0.1 Baso # (Auto) 0.0 Abs Immat Gran (auto) 0.03 Absolute Neuts (auto) 4.8 Absolute Nucleated RBC 0.000 Nucleated RBC % (auto) 0.0 Anion Gap 12 Estim Creat Clear Calc 107.9 Estimated GFR > 60 Random Glucose 88 Osmolality Calcium 8.8 Magnesium 1.9 Total Bilirubin AST ALT Alkaline Phosphatase Total Protein Albumin Lipase Urine Color Urine Appearance Urine pH Ur Specific [place] Urine Protein Urine Glucose (UA) Urine Ketones Urine Blood Urine Nitrite Ur Leukocyte Esterase Urine Osmolality 213 L Ur Random Sodium 65.0 Urine Opiates Screen Urine Fentanyl Screen Ur Barbiturates Screen Ur Phencyclidine Scrn Ur Amphetamines Screen U Benzodiazepines Scrn Urine Cocaine Screen U Marijuana (THC) Screen Ethyl Alcohol Assessment and Plan (1) Near syncope: Status: Acute (2) Alcohol use disorder: Status: Acute Plan 68-year-old male with history of hypertension and alcohol dependence who is a 2 cigar per day smoker admitted for near syncope and fall query related to alcohol use disorder 1.Near syncope with fall -like r/t etoh use disorder/intoxication -CTA of head neck negative -EEG/echo pending -continue to monitor on telemetry 2.Alcohol dependence at risk for withdrawal -CIWA 0 -phenobarbital as per protocol -IV thiamine/IV folic acid -Addiction medicine consult 3.Acute hypomagnesemia.. Resolved -follow renals/divalents 4.Hyponatremia -likely secondary to EtOH/thiazide -follow renals/divalents 5.HTN -acceptable control on current therapies -continue lisinopril. hold hctz due to above -adjust as indicated #Cigar smoking -cessation advised lovenox Full code Patient requires ongoing hospitalization for phenobarb protocol and workup of near syncopal episode Quality Stroke Does the patient have a stroke diagnosis?: No VTE Prior VTE?: No VTE Risk Level:: Medical - moderate - high VTE Device Contraindication: Treatment Not Indicated VTE Drug Contraindication: N/A - Med Ordered
--- NOTE | 2023-10-01 15:43 | PC.NURSE ---
Report in for [facility] nurse Barbie.
[2023-10-01 17:06] VITALS: BP 115/68; PULSE 92; RESP 20; TEMP 36.3; O2SAT 97
[2023-10-01 19:42] VITALS: BP 113/72; PULSE 88; RESP 20; TEMP 36.7; O2SAT 99
[2023-10-01] MEDS: Enoxaparin Sodium 40 MG/0.4 ML SYRINGE SUBCUT (21:17)
[2023-10-01 23:34] VITALS: BP 120/71; PULSE 93; RESP 20; TEMP 36.3; O2SAT 96
[2023-10-02 03:19] VITALS: BP 120/85; PULSE 77; RESP 17; TEMP 36.3; O2SAT 100
[2023-10-02 07:12] VITALS: BP 112/70; PULSE 73; RESP 16; TEMP 36.9; O2SAT 98
[2023-10-02 07:13] LABS: MANUAL DIFF FLAG NO
[2023-10-02 07:34] LABS: Basophils Percent Auto 0.4 % (0-2); Eosinophils Absolute Auto 0.2 X10*3/uL (0.0-0.4); Eosinophils Percent Auto 2.2 % (0-4); Hematocrit 37.6 % (42.0-52.0); Hemoglobin 13.3 g/dl (14.0-18.0); Imm Gran Abs Auto 0.04 X10*3/uL (0.00-0.03); Imm Gran Pct Auto 0.6 % (0.0-0.4); Lymphocytes Absolute Auto 1.6 X10*3/uL (1.2-4.9); Lymphocytes Percent Auto 23.4 % (20-40); Mean Corpuscular HGB Conc 35.4 g/dl (31.0-36.0); Mean Corpuscular Hemoglobin 34.4 pg (27.0-33.0); Mean Corpuscular Volume 97.2 fL (80.0-98.0); Mean Platelet Volume 9.8 fL (9.4-12.4); Monocytes Absolute Auto 0.8 X10*3/uL (0.1-1.2); Monocytes Percent Auto 11.6 % (2-11); Neutrophils Absolute Auto 4.2 x10*3/uL (2.0-8.3); Neutrophils Percent Auto 61.8 % (45-73); Platelet Count 304 X10*3/uL (160-400); Red Blood Count 3.87 X10*6/uL (4.60-5.80); Red Cell Distribution Width 11.6 % (11.0-16.0); White Blood Count 6.8 X10*3/uL (4.8-10.8)
[2023-10-02 07:43] LABS: Alanine Aminotransferase 15 U/L (0-40); Albumin Level 3.3 g/dL (3.5-5.0); Alkaline Phosphatase 71 U/L (39-117); Anion Gap 11 (12-20); Aspartate Amino Transferase 21 U/L (5-37); Bilirubin Total 0.4 mg/dL (0.0-1.0); Blood Urea Nitrogen 11 mg/dL (9-16); Carbon Dioxide 28 mmol/L (22-29); Chloride 99 mmol/L (96-108); Creatinine Clr Calc Pharmacy 115.9; Estimated Glomerular Filt Rate > 60; Glucose Fasting 88 mg/dL (60-99); Potassium 3.8 mmol/L (3.3-5.1); Sodium 134 mmol/L (135-145); Total Protein 5.8 g/dL (6.5-8.0)
[2023-10-02] MEDS: lisinopriL 40 MG TABLET PO (10:24)
[2023-10-02] MEDS: Thiamine HCL 100 MG TABLET PO (10:24)
[2023-10-02] MEDS: Folic Acid 1 MG TABLET PO (10:25)
[2023-10-02] MEDS: PHENobarbitaL 15 MG TABLET 45 MG PO ×2 (10:25→20:48)
[2023-10-02] MEDS: 0.9 % Sodium Chloride Flush 3 ML SYRINGE IVFLUSH ×3 (10:28→20:49)
[2023-10-02 12:00] VITALS: BP 126/75; PULSE 80; RESP 16; TEMP 36.1; O2SAT 96
--- NOTE | 2023-10-02 12:53 | MHC.RECOVRN ---
Met with pt in 473 after consult placed to Addiction Medicine for alcohol use. Per triage note, pt had been BIBA from home d/t witnessed fall by sister. +headstrike on cabinet, -loc, -thinners. 3 falls recently (09/01, 09/22, 09/06). pt verbalizes drinking vodka prior to each fall. pt denies pain at this time. c-collar in place. Upon evaluation, pt admitted for near syncope, fall, and AUD. Pt currently on phenobarbital protocol. Pt sitting in bed, awake, alert, difficult to engage in conversation. Sister, Ariadna, present with pts permission. Pt appears comfortable, does not appear to be experiencing withdrawal, is reading the newspaper. Pt reports alcohol use, a few vodka drinks per day, unable to quantify length of time drinking that amount. Pts sister reports pt drinks a few bloody miquel drinks in the morning, a few drinks in the afternoon, and typically a few at night. However, this past week pt did not go out at night. Pt reports he began drinking alcohol in his early 20s and there has not been a period of time without alcohol. Pts sister reports pts longest period of abstinence was 1 week when pt had hernia surgery. Pt denies hx of treatment for AUD/hx interest in treatment. Pt does not currently have concerns about his alcohol use and denies goals to reduce or abstain. Discussed possibility of alcohol being related to falls, pt reports nothing has changed so is doubtful they are related. Discussed recovery support options if patient were to change his mind or have questions or concerns. Provided pt with written resources including inpatient, outpatient, and [facility]. Pt also provided with t/w contact information if needed. Pt and sister deny questions or concerns for t/w. Discussed with Addis Burton APRN.
--- NOTE | 2023-10-02 13:28 | MHC.CM.PN ---
Pt is not yet ready for DC, he requires ongoing treatment and work up for near syncopal episode. CM to follow and assist with DC plan.
--- NOTE | 2023-10-02 14:08 | P.PNIM_ITS ---
Subjective Subjective Date of Service: 10/02/23 Interval History: No acute issues overnight. Monitor with PACs and short bursts of frequent PACs. Review of Systems Denies chest pain Denies shortness of breath Denies nausea vomiting diarrhea Denies fever chills Physical Exam 2 Vital Signs: Vital Signs: Last Vital Signs Temp 96.9 F 10/02/23 12:00 Pulse 80 10/02/23 12:00 Resp 16 10/02/23 12:00 BP 126/75 10/02/23 12:00 Pulse Ox 96 10/02/23 12:00 O2 Del Method Room Air 10/02/23 12:00 BMI result Body Mass Index 28.6 Const: Other: Somnolent but arousable no acute issues Resp: Other: Clear to auscultation bilaterally no rales rhonchi or wheezes Cardio: Other: No S4; positive S1-S2; no S3 murmurs rubs or gallops Extrem: Other: No edema bilaterally Objective Data Active Medications Acetaminophen (Acetaminophen 325 Mg Tablet) 650 mg PO Q6H PRN PRN Reason: Pain, Mild (Pain Scale 1-3) Enoxaparin Sodium (Enoxaparin Sodium 40 Mg/0.4 Ml Syringe) 40 mg SUBCUT Q24H [facility] Last Admin: 10/01/23 21:17 Dose: 40 mg Documented By: JOHN Folic Acid (Folic Acid 1 Mg Tablet) 1 mg PO DAILY [facility] Last Admin: 10/02/23 10:25 Dose: 1 mg Documented By: DALE Lisinopril (Lisinopril 40 Mg Tablet) 40 mg PO DAILY [facility]; Protocol Last Admin: 10/02/23 10:24 Dose: 40 mg Documented By: DALE Ondansetron HCl (Ondansetron Hcl 4 Mg/2 Ml Vial) 4 mg IVPUSH Q8H PRN PRN Reason: Nausea and Vomiting Pharmacy Consult (Consult Rx Etoh Phenob Im/Po) 1 each MISCELLANE ONCE PRN; Protocol PRN Reason: Consult order Phenobarbital (Phenobarbital 15 Mg Tablet) 45 mg PO BID [facility]; Protocol Stop: 10/02/23 21:01 Last Admin: 10/02/23 10:25 Dose: 45 mg Documented By: DALE Phenobarbital (Phenobarbital 30 Mg Tablet) 30 mg PO BID [facility]; Protocol Stop: 10/04/23 21:01 Phenobarbital (Phenobarbital 15 Mg Tablet) 15 mg PO DAILY [facility]; Protocol Stop: 10/06/23 09:01 Senna (Sennosides 8.6 Mg Tablet) 17.2 mg PO BEDTIME PRN PRN Reason: Constipation Sodium Chloride (0.9 % Sodium Chloride Flush 3 Ml Syringe) 3 ml IVFLUSH QSHIFT [facility] Last Admin: 10/02/23 10:28 Dose: 3 ml Documented By: DALE Thiamine HCl (Thiamine Hcl 100 Mg Tablet) 100 mg PO DAILY [facility] Last Admin: 10/02/23 10:24 Dose: 100 mg Documented By: DALE Labs 10/02/23 07:01 10/02/23 07:01 Labs: Laboratory Results - last 24 hr 10/02/23 07:01 MCV 97.2 MCH 34.4 H MCHC 35.4 RDW 11.6 Plt Count 304 MPV 9.8 Immature Gran % (Auto) 0.6 H Neut % (Auto) 61.8 Lymph % (Auto) 23.4 [place] % (Auto) 11.6 H Eos % (Auto) 2.2 Baso % (Auto) 0.4 Lymph # (Auto) 1.6 [place] # (Auto) 0.8 Eos # (Auto) 0.2 Baso # (Auto) 0.0 Abs Immat Gran (auto) 0.04 H Absolute Neuts (auto) 4.2 Absolute Nucleated RBC 0.000 Nucleated RBC % (auto) 0.0 Anion Gap 11 L Estim Creat Clear Calc 115.9 Estimated GFR > 60 Fasting Glucose 88 Calcium 9.0 Total Bilirubin 0.4 AST 21 ALT 15 Alkaline Phosphatase 71 Total Protein 5.8 L Albumin 3.3 L Assessment and Plan (1) Near syncope: Status: Acute (2) Alcohol use disorder: Status: Acute Plan 68-year-old male with history of hypertension and alcohol dependence who is a 2 cigar per day smoker admitted for near syncope and fall query related to alcohol use disorder 1.Near syncope with fall -patient recounts before each episode he feels lightheaded but denies palpitations; monitor with frequent PACs and runs. If workup negative will need outpatient 30 day event monitor as cardiac dysrhythmia thus far the likely culprit -CTA of head neck negative;EEG negative for seizure activity -continue to monitor on telemetry.. Echo pending -neurology consult pending 2.Alcohol dependence at risk for withdrawal -CIWA 0 -phenobarbital as per protocol; has been scoring 0. If continues to score 0 would continue DC and phenobarb protocol -thiamin/folic acid p.o. -Addiction medicine consult 3.Acute hypomagnesemia.. Resolved -follow renals/divalents 4.Hyponatremia -likely secondary to EtOH/thiazide -follow renals/divalents 5.HTN -acceptable control on current therapies -continue lisinopril. hold hctz due to above -adjust as indicated #Cigar smoking -cessation advised lovenox Full code Patient requires ongoing hospitalization for phenobarb protocol and workup of near syncopal episode Quality Stroke Does the patient have a stroke diagnosis?: No VTE Prior VTE?: No VTE Risk Level:: Medical - moderate - high VTE Device Contraindication: Treatment Not Indicated VTE Drug Contraindication: N/A - Med Ordered
--- NOTE | 2023-10-02 14:11 | P.CNNE_ITS ---
History of Present Illness Data of Consult Service Date: 10/02/23 Primary Care Provider: Ridge Kendall MD [facility] Reason for consult: Seizures This is a 68-year-old male with history of hypertension and alcohol dependence who presented with a witnessed fall around 1630 on day of admission. He had an episode of lightheadedness before falling forward striking his head on the cabinets without any loss of consciousness. Per his sister, the patient has had 4 falls since September 01 that have been unwitnessed and per patient have not resulted in any loss of consciousness. He denies any shortness a breath, chest pain, lightheadedness, weakness, paresthesia, or neuropathy related to fall. The patient admits drinking about 3 unmeasured drinks on a daily basis but his sister states that he drinks at least 4 bloody Berna's every morning and then will typically go out in the afternoon and sometimes at night to drink more. The patient denies any history of withdrawal symptoms including withdrawal seizure or DTs. Denies illicit drug use. CT scan of the brain her showed mild atrophy and mild microvascular white matter disease. CTA did not show any significant occlusive disease. Minimal infundibular dilatatioon of 1 intrracranial cooncrete, of questionable significance. He EEG showed drowsy background slowing but no seizure activity. Review of Systems 2 Review of Systems: Denies chest pain Denies shortness of breath Denies nausea vomiting diarrhea Denies fever chills Yes all other systems are reviewed and are negative [facility] Past Medical History Medical History Hypertension Family History Family History Father Past heart attack Mother CAD (coronary artery disease) Surgical History Surgical History H/O left inguinal hernia repair H/O rectal polypectomy History of excision of pilonidal cyst Social History Social History Household Members: Family Household Members Other:: sister Housing: House Do you presently have visiting nurse or other home services: No Alcohol intake: current Alcohol intake frequency: 0-2 drinks per day Patient Tobacco Use Status: Current everyday Tobacco user Tobacco use type: Cigar Cigarettes Per Day: 2 e-Cigarette/Vaping Use: Never Used Second Hand Smoke Exposure: No service: No Current occupational status: retired Current occupational exposures/hazards: No Cognitive needs: No Hearing needs: No Vision needs: Yes Meds Allergies Allergy/AdvReac Type Severity Reaction Status Date / Time No Known Allergies Allergy Verified 09/30/23 18:08 Active Medications: Current Medications Acetaminophen (Acetaminophen 325 Mg Tablet) 650 mg PO Q6H PRN PRN Reason: Pain, Mild (Pain Scale 1-3) Enoxaparin Sodium (Enoxaparin Sodium 40 Mg/0.4 Ml Syringe) 40 mg SUBCUT Q24H [facility] Last Admin: 10/01/23 21:17 Dose: 40 mg Folic Acid (Folic Acid 1 Mg Tablet) 1 mg PO DAILY [facility] Last Admin: 10/02/23 10:25 Dose: 1 mg Lisinopril (Lisinopril 40 Mg Tablet) 40 mg PO DAILY [facility]; Protocol Last Admin: 10/02/23 10:24 Dose: 40 mg Ondansetron HCl (Ondansetron Hcl 4 Mg/2 Ml Vial) 4 mg IVPUSH Q8H PRN PRN Reason: Nausea and Vomiting Pharmacy Consult (Consult Rx Etoh Phenob Im/Po) 1 each MISCELLANE ONCE PRN; Protocol PRN Reason: Consult order Phenobarbital (Phenobarbital 15 Mg Tablet) 45 mg PO BID [facility]; Protocol Stop: 10/02/23 21:01 Last Admin: 10/02/23 10:25 Dose: 45 mg Phenobarbital (Phenobarbital 30 Mg Tablet) 30 mg PO BID [facility]; Protocol Stop: 10/04/23 21:01 Phenobarbital (Phenobarbital 15 Mg Tablet) 15 mg PO DAILY [facility]; Protocol Stop: 10/06/23 09:01 Senna (Sennosides 8.6 Mg Tablet) 17.2 mg PO BEDTIME PRN PRN Reason: Constipation Sodium Chloride (0.9 % Sodium Chloride Flush 3 Ml Syringe) 3 ml IVFLUSH QSHIFT [facility] Last Admin: 10/02/23 10:28 Dose: 3 ml Thiamine HCl (Thiamine Hcl 100 Mg Tablet) 100 mg PO DAILY [facility] Last Admin: 10/02/23 10:24 Dose: 100 mg Physical Exam 2 Vital Signs: Vital Signs: Last Vital Signs Temp 96.9 F 10/02/23 12:00 Pulse 80 10/02/23 12:00 Resp 16 10/02/23 12:00 BP 126/75 10/02/23 12:00 Pulse Ox 96 10/02/23 12:00 O2 Del Method Room Air 10/02/23 12:00 BMI result Body Mass Index 28.6 Const: Other: Somnolent but arousable no acute issues Resp: Other: Clear to auscultation bilaterally no rales rhonchi or wheezes Cardio: Other: No S4; positive S1-S2; no S3 murmurs rubs or gallops Neuro: Other: Normal and nonfocal neurological examination Extrem: Other: No edema bilaterally Results Labs 10/02/23 07:01 10/02/23 07:01 Labs: Short CBC 10/02/23 Range/Units 07:01 WBC 6.8 (4.8-10.8) X10*3/uL Hgb 13.3 L (14.0-18.0) g/dl Hct 37.6 L (42.0-52.0) % Plt Count 304 (160-400) X10*3/uL BMP 10/02/23 07:01 Sodium 134 L Potassium 3.8 Chloride 99 Carbon Dioxide 28 BUN 11 Creatinine 0.67 Calcium 9.0 Liver Function 10/02/23 Range/Units 07:01 Total Bilirubin 0.4 (0.0-1.0) mg/dL AST 21 (5-37) U/L ALT 15 (0-40) U/L Alkaline Phosphatase 71 (39-117) U/L Albumin 3.3 L (3.5-5.0) g/dL Assessment and Plan (1) Near syncope: Status: Acute Possible seizures related to alcohol withdrawal. EEG does not show any epileptiform focus. Recommendation: Alcohol counseling in detox. No indication for starting antiepileptic drugs. (2) Alcohol use disorder: Status: Acute Plan 68-year-old male with history of hypertension and alcohol dependence who is a 2 cigar per day smoker admitted for near syncope and fall query related to alcohol use disorder 1.Near syncope with fall -like r/t etoh use disorder/intoxication -CTA of head neck negative -EEG/echo pending -continue to monitor on telemetry 2.Alcohol dependence at risk for withdrawal -CIWA 0 -phenobarbital as per protocol -IV thiamine/IV folic acid -Addiction medicine consult 3.Acute hypomagnesemia.. Resolved -follow renals/divalents 4.Hyponatremia -likely secondary to EtOH/thiazide -follow renals/divalents 5.HTN -acceptable control on current therapies -continue lisinopril. hold hctz due to above -adjust as indicated #Cigar smoking -cessation advised lovenox Full code Patient requires ongoing hospitalization for phenobarb protocol and workup of near syncopal episode Procedures Date of Service Date of Service: 10/02/23
[2023-10-02 15:34] VITALS: BP 106/62; PULSE 81; RESP 20; TEMP 36.6; O2SAT 98
--- NOTE | 2023-10-02 17:10 | PM.EVENT ---
Event Note Date of Service: 10/02/23 Event Note: Addiction consult placed for patient with AUD Seen by wellness guide, patient declined. Please see RN note for additional details Time Spent With Patient Time: Total time managing care of this patient today ____ minutes.
[2023-10-02 19:30] VITALS: BP 116/72; PULSE 73; RESP 18; TEMP 36.7; O2SAT 99
[2023-10-02] MEDS: Enoxaparin Sodium 40 MG/0.4 ML SYRINGE SUBCUT (20:48)
[2023-10-02 23:18] VITALS: BP 123/67; PULSE 67; RESP 20; TEMP 36.7; O2SAT 98
[2023-10-03 03:35] VITALS: BP 114/70; PULSE 88; RESP 20; TEMP 36.4; O2SAT 96
[2023-10-03 06:52] LABS: MANUAL DIFF FLAG NO
[2023-10-03 07:00] LABS: Basophils Percent Auto 0.7 % (0-2); Eosinophils Absolute Auto 0.2 X10*3/uL (0.0-0.4); Eosinophils Percent Auto 3.3 % (0-4); Hematocrit 36.1 % (42.0-52.0); Hemoglobin 12.9 g/dl (14.0-18.0); Imm Gran Abs Auto 0.02 X10*3/uL (0.00-0.03); Imm Gran Pct Auto 0.3 % (0.0-0.4); Lymphocytes Absolute Auto 1.4 X10*3/uL (1.2-4.9); Lymphocytes Percent Auto 23.6 % (20-40); Mean Corpuscular HGB Conc 35.7 g/dl (31.0-36.0); Mean Corpuscular Hemoglobin 34.8 pg (27.0-33.0); Mean Corpuscular Volume 97.3 fL (80.0-98.0); Mean Platelet Volume 9.7 fL (9.4-12.4); Monocytes Absolute Auto 0.7 X10*3/uL (0.1-1.2); Monocytes Percent Auto 12.1 % (2-11); Neutrophils Absolute Auto 3.4 x10*3/uL (2.0-8.3); Platelet Count 287 X10*3/uL (160-400); Red Blood Count 3.71 X10*6/uL (4.60-5.80); Red Cell Distribution Width 11.4 % (11.0-16.0); White Blood Count 5.7 X10*3/uL (4.8-10.8)
[2023-10-03 07:16] LABS: Alanine Aminotransferase 17 U/L (0-40); Albumin Level 3.4 g/dL (3.5-5.0); Alkaline Phosphatase 77 U/L (39-117); Anion Gap 11 (12-20); Aspartate Amino Transferase 21 U/L (5-37); Bilirubin Total 0.3 mg/dL (0.0-1.0); Blood Urea Nitrogen 9 mg/dL (9-16); Calcium 8.7 mg/dL (8.4-10.2); Carbon Dioxide 26 mmol/L (22-29); Chloride 98 mmol/L (96-108); Creatinine Clr Calc Pharmacy 125.3; Estimated Glomerular Filt Rate > 60; Glucose Fasting 88 mg/dL (60-99); Potassium 3.6 mmol/L (3.3-5.1); Sodium 131 mmol/L (135-145); Total Protein 5.8 g/dL (6.5-8.0)
[2023-10-03 07:22] VITALS: BP 129/73; PULSE 58; RESP 18; TEMP 37.2; O2SAT 99
[2023-10-03 08:38] VITALS: BP 129/73; PULSE 58; O2SAT 99
[2023-10-03] MEDS: Thiamine HCL 100 MG TABLET PO (08:38)
[2023-10-03] MEDS: Folic Acid 1 MG TABLET PO (08:38)
[2023-10-03] MEDS: PHENobarbitaL 30 MG TABLET PO (08:38)
[2023-10-03] MEDS: 0.9 % Sodium Chloride Flush 3 ML SYRINGE IVFLUSH (08:40)
[2023-10-03] MEDS: lisinopriL 40 MG TABLET PO (08:40)
[2023-10-03 10:42] VITALS: BP 131/63; PULSE 72
--- NOTE | 2023-10-03 11:22 | PM.CNCAR ---
History of Present Illness History of Present Illness Date of Service: 10/03/23 Requesting physician: Addie Mayers Consult reason: other (Near syncope) Chief complaint: near syncope, etoh withdrawal Narrative: I was consulted to see Abdullahi due to fall preceded with lightheadedness. Patient said he has been starting to get these symptoms with the last 6 months. He has not had any actual syncopal episodes. However in the last month as per the records and history physical he has had multiple falls. He said the symptoms usually when he is in upright position. A typical symptom would be that he will be working outside they have come back a driving the car and then get back into the house take of his cord any will get lightheaded and fall down, this was this episode. Did not actually lose consciousness. He did not have any chest pain or shortness of breath or rapid heart rate. He has been admitted. He has the history of alcohol abuse and drinks heavily. He also does not drink adequate amount of water. Does drink ICD. He does not have any prior history of neuropathy or diabetes. He does have history of hypertension for which she takes medications. Blood pressure is well optimized. No orthostatic blood pressures have been done. He was noted to have hyponatremia which has improved a bit with management. He feels well right now. Review of Systems Constitutional: Constitutional: Reports no additional constitutional complaints Eyes: Eyes: Reports no additional eye complaints ENT: Reports system reviewed and no additional complaints, except as documented Cardiovascular: Cardiovascular: Denies chest pain, Denies leg edema, Reports lightheadedness, Denies Loss of Consciousness, Denies palpitations and Denies dyspnea Respiratory: Respiratory: Reports no additional respiratory complaints and Denies dyspnea Gastrointestinal: Gastrointestinal: Reports no additional gastrointestinal complaints Musculoskeletal: Musculoskeletal: Reports no additional musculoskeletal complaints Neurologic: Reports system reviewed and no additional complaints, except as documented Psychiatric: Psychiatric: Reports no additional psychiatric complaints Endocrine: Endocrine: Reports no additional endocrine complaints and Denies palpitations Hematologic/Lymphatic: Hematologic/Lymphatic: Reports no additional hematologic/lymphatic complaints [facility] Past Medical History Medical History Hypertension Family History Family History Father Past heart attack Mother CAD (coronary artery disease) Surgical History Surgical History H/O left inguinal hernia repair H/O rectal polypectomy History of excision of pilonidal cyst Social History Social History Household Members: Family Household Members Other:: sister Housing: House Do you presently have visiting nurse or other home services: No Alcohol intake: current Alcohol intake frequency: 0-2 drinks per day Patient Tobacco Use Status: Current everyday Tobacco user Tobacco use type: Cigar Cigarettes Per Day: 2 e-Cigarette/Vaping Use: Never Used Second Hand Smoke Exposure: No service: No Current occupational status: retired Current occupational exposures/hazards: No Cognitive needs: No Hearing needs: No Vision needs: Yes Meds Allergies Allergy/AdvReac Type Severity Reaction Status Date / Time No Known Allergies Allergy Verified 09/30/23 18:08 Active Medications: Current Medications Acetaminophen (Acetaminophen 325 Mg Tablet) 650 mg PO Q6H PRN PRN Reason: Pain, Mild (Pain Scale 1-3) Enoxaparin Sodium (Enoxaparin Sodium 40 Mg/0.4 Ml Syringe) 40 mg SUBCUT Q24H [facility] Last Admin: 10/02/23 20:48 Dose: 40 mg Folic Acid (Folic Acid 1 Mg Tablet) 1 mg PO DAILY [facility] Last Admin: 10/03/23 08:38 Dose: 1 mg Lisinopril (Lisinopril 40 Mg Tablet) 40 mg PO DAILY [facility]; Protocol Last Admin: 10/03/23 08:40 Dose: 40 mg Ondansetron HCl (Ondansetron Hcl 4 Mg/2 Ml Vial) 4 mg IVPUSH Q8H PRN PRN Reason: Nausea and Vomiting Pharmacy Consult (Consult Rx Etoh Phenob Im/Po) 1 each MISCELLANE ONCE PRN; Protocol PRN Reason: Consult order Phenobarbital (Phenobarbital 30 Mg Tablet) 30 mg PO BID [facility]; Protocol Stop: 10/04/23 21:01 Last Admin: 10/03/23 08:38 Dose: 30 mg Phenobarbital (Phenobarbital 15 Mg Tablet) 15 mg PO DAILY [facility]; Protocol Stop: 10/06/23 09:01 Senna (Sennosides 8.6 Mg Tablet) 17.2 mg PO BEDTIME PRN PRN Reason: Constipation Sodium Chloride (0.9 % Sodium Chloride Flush 3 Ml Syringe) 3 ml IVFLUSH QSHIFT [facility] Last Admin: 10/03/23 08:40 Dose: 3 ml Thiamine HCl (Thiamine Hcl 100 Mg Tablet) 100 mg PO DAILY [facility] Last Admin: 10/03/23 08:38 Dose: 100 mg Physical Exam Vital Signs: Vital Signs: Last Vital Signs Temp 98.9 F 10/03/23 07:22 Pulse 58 10/03/23 08:38 Resp 18 10/03/23 07:22 BP 129/73 10/03/23 08:38 Pulse Ox 99 10/03/23 08:38 O2 Del Method Room Air 10/03/23 07:22 BMI result Body Mass Index 28.6 Const: General: cooperative, comfortable, no acute distress, alert and awake Nutritional Appearance: overweight Orientation/consciousness: patient oriented x3 HEENT: Head: Yes normocephalic and Yes atraumatic Neck: Neck: Yes trachea midline, Yes supple and Yes no JVD Resp: Effort & Inspection: normal respiratory effort Auscultation: clear to auscultation bilaterally Cardio: Jugular venous distension: no JVD Palpation: normal PMI Rate: regular rate Rhythm: regular rhythm Heart sounds: S1 normal heart sound present, S2 normal heart sound present, no click, no gallops, no murmurs and no rubs GI: Auscultation: normal bowel sounds Skin: General skin exam: no rashes or lesions noted Neuro: General: patient oriented x3 and no focal motor deficits Extrem: General: Yes no clubbing, cyanosis or edema Psych: Appearance: grossly normal Objective Labs and Meds 10/03/23 06:39 10/03/23 06:39 Lab results: Laboratory Results - last 24 hr 10/03/23 06:39 WBC 5.7 RBC 3.71 L Hgb 12.9 L Hct 36.1 L MCV 97.3 MCH 34.8 H MCHC 35.7 RDW 11.4 Plt Count 287 MPV 9.7 Immature Gran % (Auto) 0.3 Neut % (Auto) 60.0 Lymph % (Auto) 23.6 [place] % (Auto) 12.1 H Eos % (Auto) 3.3 Baso % (Auto) 0.7 Lymph # (Auto) 1.4 [place] # (Auto) 0.7 Eos # (Auto) 0.2 Baso # (Auto) 0.0 Abs Immat Gran (auto) 0.02 Absolute Neuts (auto) 3.4 Absolute Nucleated RBC 0.000 Nucleated RBC % (auto) 0.0 Sodium 131 L Potassium 3.6 Chloride 98 Carbon Dioxide 26 Anion Gap 11 L BUN 9 Creatinine 0.62 Estim Creat Clear Calc 125.3 Estimated GFR > 60 Fasting Glucose 88 Calcium 8.7 Total Bilirubin 0.3 AST 21 ALT 17 Alkaline Phosphatase 77 Total Protein 5.8 L Albumin 3.4 L normal sinus rhythm with frequent PVCs on EKG Assessment and Plan (1) Near syncope: Status: Acute Near-syncope without any concerning arrhythmias noted on cardiac telemetry. Symptoms are suggestive of orthostatic hypotension most likely related to poor oral intake of fluids. He has heavy alcohol intake which probably worsens issues with orthostatic hypertension. Discussed with him about the same. Would consider orthostatic vital sign evaluation. Echocardiogram still pending and can not be reviewed due to technical issues. Advised to increase fluid intake. Orthostatic precautions were discussed. If orthostatic vitals are negative can discharge home with outpatient follow-up after monitoring. Will follow up in the clinic Procedures Date of Service Date of Service: 10/03/23
[2023-10-03 11:28] VITALS: BP 131/63; PULSE 70; RESP 18; TEMP 36.4; O2SAT 99
[2023-10-03 11:37] VITALS: BP 110/70; BP 117/64; PULSE 74; PULSE 86
--- NOTE | 2023-10-03 11:59 | P.DS_ITS ---
DS: Providers Provider Date of Service: 10/03/23 Date of admission: 09/30/23 21:38 Date of discharge: 10/03/23 Primary care physician: Ridge Kendall MD Consults: 09/30/23 21:38 Addiction Medicine Routine Consulting Provider: Addiction Covering Reason for consultation: etoh dependence 10/02/23 07:30 Consult to Neurology Routine Consulting Provider: [facility] Reason for consultation: syncope Has provider been notified: No 10/03/23 07:35 Consult to Cardiology Routine Consulting [place] [facility] [place] [facility] Reason for consultation: near syncope Attending physician on discharge: Sammy Ho Discharging clinician: Addie Mayers DS: Diagnosis Discharge Diagnosis (1) Near syncope: Status: Acute (2) Alcohol use disorder: Status: Acute DS: Summary Hospital Course Hospital Course: From H&P on day of admission 68-year-old male with history of hypertension and alcohol dependence who is a 2 cigar per day smoker presents to the ED for evaluation of a witnessed fall around 0 today. The patient is evaluated in the presence of his sister, Ariadna, with whom he lives and who witnessed this fall. The patient reports experienced an episode of lightheadedness before falling forward striking his head on the cabinets without any loss of consciousness. Per his sister, the patient has had 4 falls since September 01 that have been unwitnessed and per patient have not resulted in any loss of consciousness. He denies any shortness a breath, chest pain, lightheadedness, weakness, paresthesias, or neuropathy related to fall. The patient endorses drinking about 3 unmeasured drinks on a daily basis but his sister states that he drinks at least 4 bloody Berna's every morning and then will typically go out in the afternoon and sometimes at night to drink more. The patient denies any history of withdrawal symptoms including withdrawal seizure or DTs. Denies illicit drug use. On arrival, vital signs stable. Hematology studies unremarkable. Renal function normal. Sodium 128, CO2 18, magnesium 1.5, electrolytes otherwise wit hin normal limits. Hepatic function within normal limits. Serum osmolality 272, urine osmolality 213. Urinalysis unremarkable. Urine sodium 65. Urine tox screen negative with ethyl alcohol 38. CT head negative for any acute intracranial abnormality but shows wqby-on-ottpkyow microvascular ischemic changes and mild cerebral atrophy. CT of the cervical spine is negative for any acute fracture, subluxation, or dislocation. Near syncope with fall patient recounts before each episode he feels lightheaded but denies palpitations; monitor with frequent PACs and runs. CTA of head neck negative; EEG negative for seizure activity. ECHO obtained showing preserved EF without significant valvular abnormalities. . Seen by neurology who felt that etoh was likely contributor to falls. Seen by cardiology, thought component of orthostasis due to inadequate water intake. Orthostatic blood pressures obtained, patient not symptomatic with standing and was able to ambulate in the hallway without dizziness. HCTZ stopped. Orthostatic precautions discussed. Seen by PT - recommended home PT services with front wheeled walker. Alcohol dependence at risk for withdrawal Was treated with phenobarbital as per protocol. No evidence of alcohol withdrawal. Has scored 0 on the CIWA scale. Was supplemented with thiamine and folic acid. Was seen in consultation by addiction medicine however patient declined their services or outpatient follow-up Acute hypomagnesemia.. Resolved with replacement Hyponatremia. likely secondary to EtOH/thiazide. Improved, above 130 HTN. Was continued on lisinopril, hydrochlorothiazide was discontinued due to mild hyponatremia. Blood pressure has remained controlled without hydrochlorothiazide. Will be discharged home with VNA/PT services. patient provided with prescription for walker Time Attestation Discharge coordination time: Greater than 30 minutes Quality: Safe Use of Opioids Does Pt have an Active Cancer Diagnosis on the Problem List?: No Quality: Stroke Does the patient have a stroke diagnosis?: No Physical Exam Vital Signs: Vital Signs: Last Vital Signs Temp 97.6 F 10/03/23 11:28 Pulse 86 10/03/23 11:37 Resp 18 10/03/23 11:28 BP 110/70 10/03/23 11:37 Pulse Ox 99 10/03/23 11:28 O2 Del Method Room Air 10/03/23 11:28 BMI result Body Mass Index 28.6 Const: General: cooperative, comfortable, no acute distress, alert and awake Nutritional Appearance: average body habitus Orientation/consciousness: patient oriented x3 Resp: Effort & Inspection: normal respiratory effort, able to speak in complete sentences, no respiratory distress and no use of accessory muscles Cardio: Rate: regular rate GI: Inspection: No distended Palpation (GI): Soft to palpation and nontender Neuro: General: patient oriented x3, moves all extremities and CN's II-XI intact bilaterally DS: Data Data Completed and Pending Labs on day of discharge: Laboratory Results - last 24 hr 10/03/23 06:39 WBC 5.7 RBC 3.71 L Hgb 12.9 L Hct 36.1 L MCV 97.3 MCH 34.8 H MCHC 35.7 RDW 11.4 Plt Count 287 MPV 9.7 Immature Gran % (Auto) 0.3 Neut % (Auto) 60.0 Lymph % (Auto) 23.6 [place] % (Auto) 12.1 H Eos % (Auto) 3.3 Baso % (Auto) 0.7 Lymph # (Auto) 1.4 [place] # (Auto) 0.7 Eos # (Auto) 0.2 Baso # (Auto) 0.0 Abs Immat Gran (auto) 0.02 Absolute Neuts (auto) 3.4 Absolute Nucleated RBC 0.000 Nucleated RBC % (auto) 0.0 Sodium 131 L Potassium 3.6 Chloride 98 Carbon Dioxide 26 Anion Gap 11 L BUN 9 Creatinine 0.62 Estim Creat Clear Calc 125.3 Estimated GFR > 60 Fasting Glucose 88 Calcium 8.7 Total Bilirubin 0.3 AST 21 ALT 17 Alkaline Phosphatase 77 Total Protein 5.8 L Albumin 3.4 L Discharge Plan Discharge Anticipated Discharge Date/Time: 10/03/23 12:44 Patient Disposition: Home Health Service Discharge Diagnosis: falls, near syncope alcohol use disorder hypomagnesemia Referrals: Ridge Kendall MD [Primary Care Provider] - 1 Week Discharge Medications: New (DME) Ultra-Light Rollator Misc See Rx Instructions .Route Qty: 1 0RF Rx Instructions: As directed Continued lisinopril 40 mg tablet 40 mg PO DAILY Qty: 90 8RF Discontinued hydrochlorothiazide 12.5 mg capsule 12.5 mg PO DAILY Qty: 90 8RF No Action (DME) blood pressure test kit-large [BPM 2 Advanced BP Monitor] Kit See Rx Instructions .Route Qty: 1 0RF Rx Instructions: As directed Discharge Orders: Discharge Order (Routine); Ordered 10/03/23 Ordered By: Addie Mayers Activity on Discharge: As tolerated Stand Alone Forms: Patient Portal Discharge page Care Plan Goals: see below Health Concerns: near syncope hyponatremia alcohol use disorder Plan of Treatment: recommend to abstain from alcohol use you will be discharged home with home physical therapy, recommend to use walk for ambulation stop taking hydrochlorothiazide orthostatic precautions as discussed - staying hydrated, sitting up for a few minutes before standing etc follow up with PCP as scheduled Assessment: see discharge summary
--- NOTE | 2023-10-03 13:04 | P.F2F_ITS ---
Service Date Service Date: 10/03/23 Encounter Date of encounter: 10/03/23 Reasons for Services Signs and symptoms assessed: needs group home for monitoring of blood pressure and PT for frequent falls Reason for physical therapy: home safety and mobility and therapeutic exercises Overseeing Care: Ridge Kendall Homebound: Leaving the home is medically contraindicated at this time without the asist of a device and/or another person due th the listed conditions above and below. Reason homebound: unsteady gait / fall risk Certification: Based on the above findings, I certify that this patient is confined to the home and needs intermittent group home care, physical therapy and/or speech therapy, or continues to need occupational therapy. The patient is under my care, and I have initiated the establishment of the plan of care. The patient will be followed by a physician who will periodically review the plan of care. Time Spent With Patient Time: Total time managing care of this patient today ____ minutes.
--- NOTE | 2023-10-03 13:17 | MHC.CM.PN ---
Pt has been medically cleared for DC, he will go home via family to transport, and have home care services from [facility].
== END 2023-10-03 14:25 | disposition home health service (06) | DRG 312 ==
LOC: HO.ED 20:24 → HO.EDOVER 21:58 → HO.IMC 10-01 15:09
PROVIDERS: Hospitalist; Nurse Practitioner Family; Admitting Provider Physician Assistant; Emergency Provider Emergency Medicine; PCP Internal Medicine; Visit Provider Physician Assistant Medical
DX: I95.1 Orthostatic hypotension (principal); E87.1 Hypo-osmolality and hyponatremia; E83.42 Hypomagnesemia; Y90.1 Blood alcohol level of 20-39 mg/100 ml; F17.290 Nicotine dependence, other tobacco product, uncomplicated; F10.20 Alcohol dependence, uncomplicated; I10 Essential (primary) hypertension; Z71.6 Tobacco abuse counseling; Z23 Encounter for immunization; Z79.899 Other long term (current) drug therapy
CPT/HCPCS: 36415; 70450; 70496; 70498; 72125; 80048; 80053; 80307; 81003; 83690; 83735; 83930; 83935; 84300; 84484; 85025; 90471; 90686; 93005; 93306; 95816; 97162; 99222; 99285; J1650; J2560; J3411; J3475; Q9957; Q9967

== ENCOUNTER → 2023-09-30 17:57 | Outpatient (BNV) | payer MEDICARE, SELFPAY | PROVIDERS: Admitting Provider Physician Assistant; Emergency Provider Emergency Medicine; PCP Internal Medicine; Visit Provider Internal Medicine Cardiovascular Disease | DX: R00.0 Tachycardia, unspecified (principal) | CPT/HCPCS: 93010 ==

== ENCOUNTER 2023-09-30 21:38 | Outpatient (BNV) | payer MEDICARE, SELFPAY | END 2023-10-01 07:00 | PROVIDERS: Admitting Provider Physician Assistant; Emergency Provider Emergency Medicine; PCP Internal Medicine; Visit Provider Internal Medicine Cardiovascular Disease | DX: I44.0 Atrioventricular block, first degree (principal); R94.31 Abnormal electrocardiogram [ECG] [EKG] | CPT/HCPCS: 93306 ==

== ENCOUNTER → 2023-09-30 21:38 | Outpatient (BNV) | payer MEDICARE, SELFPAY | PROVIDERS: Admitting Provider Physician Assistant; Emergency Provider Emergency Medicine; PCP Internal Medicine; Visit Provider Physician Assistant | DX: R55 Syncope and collapse (principal); F10.20 Alcohol dependence, uncomplicated; W19.XXXA Unspecified fall, initial encounter | CPT/HCPCS: 99223; 99232; 99233; 99239; G0180 ==

== ENCOUNTER → 2023-09-30 21:38 | Outpatient (BNV) | payer MEDICARE, SELFPAY | PROVIDERS: Admitting Provider Physician Assistant; Emergency Provider Emergency Medicine; PCP Internal Medicine; Visit Provider Psychiatry & Neurology Neurology | DX: R55 Syncope and collapse (principal); F10.90 Alcohol use, unspecified, uncomplicated | CPT/HCPCS: 99222 ==

== ENCOUNTER → 2023-09-30 21:38 | Outpatient (BNV) | payer MEDICARE, SELFPAY | PROVIDERS: Admitting Provider Physician Assistant; Emergency Provider Emergency Medicine; PCP Internal Medicine; Visit Provider Internal Medicine Cardiovascular Disease | DX: R55 Syncope and collapse (principal) | CPT/HCPCS: 99222 ==

== ENCOUNTER → 2023-10-09 11:13 | Outpatient (REF) | payer MEDICARE, SELFPAY ==
--- NOTE | 2023-10-09 11:20 | HM_ITS ---
* Total monitoring time 3 days 17 hours. * Underlying rhythm is sinus with an average rate of 73/Min. * Frequent supraventricular ectopy with a burden of 3.6%. * Occasional ventricular ectopy with a burden of 0.25%. Rare couplets. * 2 runs of NSVT; 4 beats at 100/Min; 19 beats at 163/Min; monomorphic. * No significant pauses or high-grade AV block. * No patient markers or diary events. MTDD
== END ==
LOC: HO.CARD 11:13
PROVIDERS: PCP Internal Medicine; Visit Provider Internal Medicine Cardiovascular Disease
DX: R55 Syncope and collapse (principal); W19.XXXA Unspecified fall, initial encounter
CPT/HCPCS: 93242

== ENCOUNTER → 2023-10-09 11:20 | Outpatient (BNV) | payer MEDICARE, SELFPAY | PROVIDERS: PCP Internal Medicine; Visit Provider Internal Medicine | DX: I47.10 Supraventricular tachycardia, unspecified (principal) | CPT/HCPCS: 93244 ==

== ENCOUNTER 2023-10-24 13:25 | Outpatient (AMB) | payer MEDICARE, SELFPAY ==
[2023-10-24 13:30] VITALS: BP 136/70; BMI 27.0
--- NOTE | 2023-10-24 13:30 | MHC.PC.OV ---
Vital Signs 10/24/23 13:30 Height 5 ft 10 in Weight 188 lb BMI 27.0 BP 136/70 Blood Pressure Location Lt brachial Position Sitting Pulse Source Pulse Oximeter Oxygen Delivery Method Room Air Intake Visit Reasons: [facility] [place] HDF/Repeat falls Waste Specialist Required: No Construction Contractor: Not Required per policy Accompanied by: Self / Same As Patient Allergies No Known Allergies Allergy (Verified 10/24/23 13:30) Medication List - Last Reconciled 10/25/23 by Ridge Kendall MD blood pressure test kit-large (BPM 2 Advanced BP Monitor kit) As directed lisinopril 40 mg PO DAILY walker (Ultra-Light Rollator misc) As directed Tobacco use date assessed: 10/24/23 Fall risk assessment: 2 + Falls in past year Last assessed Fall Risk: 10/24/23 Dental Screening Dental Screen Date: 10/24/23 Did you have a dental visit in the last 12 months?: Yes Did you have a dental problem in the last 6 months where you did not have access to dental care?: No Was dental information given to patient?: Patient has dentist HPI [facility] [place] HDF/Repeat falls HPI Details admitted with frequent falls and alcoholism; seeing cardiology for cardiac w/u; has decreased his alcohol consumption but still drinking; [facility] Medical History Hypertension Surgical History H/O left inguinal hernia repair H/O rectal polypectomy History of excision of pilonidal cyst Family History Father Past heart attack Mother CAD (coronary artery disease) Social History Household Members: Family Household Members Other:: sister Housing: House Do you presently have visiting nurse or other home services: No Alcohol intake: current Alcohol intake frequency: 0-2 drinks per day Patient Tobacco Use Status: Current everyday Tobacco user Tobacco use type: Cigar Cigarettes Per Day: 2 e-Cigarette/Vaping Use: Never Used Second Hand Smoke Exposure: No service: No Current occupational status: retired Current occupational exposures/hazards: No Cognitive needs: No Hearing needs: No Vision needs: Yes Questionnaire PHQ-9 Over the last 2 weeks, how often have you been bothered by any of the following problems? 1. Little interest or pleasure in doing things: not at all 2. Feeling down, depressed, or hopeless: not at all 3. Trouble falling or staying asleep, or sleeping too much: not at all 4. Feeling tired or having little energy: not at all 5. Poor appetite or overeating: not at all 6. Feeling bad about yourself - or that you are a failure or have let yourself or your family down: not at all 7. Trouble concentrating on things, such as reading the newspaper or watching television: not at all 8. Moving or speaking so slowly that other people could have noticed. Or the opposite - being so fidgety or restless that you have been moving around a lot more than usual: not at all 9. Thoughts that you would be better off or of hurting yourself in some way: not at all Total score: 0 Depression Screening Interpretation: Negative Depression Screening Done: Yes 07422 - PHQ-9 Billing: Yes Source: Developed by Drs. Jayant Chavez, Gilda Rasheed, Sidney Avila and colleagues, with an educational keren from [employer]. Thrive Questionnaire Date Thrive assessed: 10/24/23 AUDIT C Alcohol Use Questionnaire (AUDIT-C) 1. How often do you have a drink containing alcohol?: 2-3 times a week 2. How many drinks containing alcohol do you have on a typical day when you are drinking?: 3 or 4 3. How often do you have six or more drinks on one occasion?: Never Total Score: 4 Score Reviewed/Action Taken: Yes ZAHRAA-7 AMB Questionnaire ZAHRAA-7 Date ZAHRAA - 7 assessed: 10/24/23 Feeling nervous, anxious, or on edge: 0 = Not at all Not being able to stop or control worryin = Not at all Worrying too much about different things: 0 = Not at all Trouble relaxin = Not at all Being so restless that it is hard to sit still: 0 = Not at all Becoming easily annoyed or irritable: 0 = Not at all Feeling afraid as if something awful might happen: 0 = Not at all Total ZAHRAA-7 score (0-4 normal; 5-9 mild; 10-14 moderate; 15-21 severe): 0 Source: Developed by Drs. Jayant Chavez, Gilda Rasheed, Sidney Avila and colleagues, with an educational keren from [employer]. ZAHRAA-7 Assessment Billing ZAHRAA-7 Assessment Tool: ZAHRAA-7 Assessment 44974 Review of Systems Const Denies chills, Denies headache(s) and Denies weight loss ENT Denies headache(s) Card Denies chest pain, Denies syncope, Denies irregular heart rhythm and Denies dyspnea Resp Denies chest congestion, Denies cough and Denies dyspnea GI Denies abdominal pain, Denies change in stool character, Denies nausea and Denies vomiting Musc Denies deformity and Denies joint swelling Neuro Denies syncope and Denies headache(s) Physical exam (Primary Care) Vital Signs: Last Vital Signs BP 136/70 10/24/23 13:30 Oxygen Delivery Method Room Air 10/24/23 13:30 BMI result Body Mass Index 27.0 Tobacco/Smoking Status: Tobacco use Status Tobacco use date assessed 10/24/23 10/24/23 13:31 Patient Tobacco Use Status Current everyday Tobacco 10/24/23 13:31 Tobacco use type Cigar 10/24/23 13:31 e-Cigarette/Vaping Use Never Used 10/24/23 13:31 PHQ-9: PHQ-9 Score PHQ-9: Total score 0 10/24/23 13:31 Depression Screening Interpretation: Negative Thrive Assessment: Date of Thrive Assessment Date Thrive assessed 10/24/23 10/24/23 13:31 Const General: cooperative, comfortable, no acute distress and alert Neck Neck: Yes no lymphadenopathy Thyroid: Thyroid normal Resp Effort & Inspection: normal respiratory effort Auscultation: clear to auscultation bilaterally Percussion: percussion normal Cardio Jugular venous distension: no JVD Palpation: normal PMI Rate: regular rate Rhythm: regular rhythm Heart sounds: S1 normal heart sound present and S2 normal heart sound present GI Inspection: Yes normal to inspection Palpation (GI): No hepatosplenomegaly present Skin General skin exam: no rashes or lesions noted Extrem General: Yes no clubbing, cyanosis or edema Assessment and Plan Assessment & Plan (1) Fall: Code(s): W19.XXXA - Unspecified fall, initial encounter Plan: per cardiology (2) Alcohol use disorder: Code(s): F10.90 - Alcohol use, unspecified, uncomplicated Plan: referred to AA initially; totally abstain from alcohol stressed Coding Level of Care Code Est Pt Level 3 (19197) Diagnoses Fall W19.XXXA Alcohol use disorder F10.90 Additional Codes ZAHRAA-7 Assessment Billing - ZAHRAA-7 Assessment Tool: ZAHRAA-7 Assessment [id number] ([id number])
== END 2023-10-24 14:02 | disposition home or self-care (01) ==
PROVIDERS: PCP Internal Medicine; Visit Provider Internal Medicine
DX: F10.90 Alcohol use, unspecified, uncomplicated (principal); W19.XXXA Unspecified fall, initial encounter
CPT/HCPCS: 99213

== ENCOUNTER 2023-10-31 14:35 | Outpatient (AMB) | payer MEDICARE, SELFPAY ==
[2023-10-31 14:44] VITALS: BP 124/80; PULSE 107; BMI 27.2
--- NOTE | 2023-10-31 14:44 | A.OFFVIS_ITS ---
Intake Vital Signs 10/31/23 14:44 Height 5 ft 10 in Weight 189 lb 9.561 oz BMI 27.2 BP 124/80 Blood Pressure Location Lt brachial Position Sitting Pulse 107 H Pulse Source Monitor Intake Visit Reasons: [facility] discharge follow up Surgical Nurse Practitioner Required: No Project Scheduler: Project Scheduler Present Allergies No Known Allergies Allergy (Verified 10/31/23 14:46) Medication List - Last Reconciled 10/31/23 by Gricelda Clifford NP-C blood pressure test kit-large (BPM 2 Advanced BP Monitor kit) As directed lisinopril 40 mg PO DAILY walker (Ultra-Light Rollator misc) As directed HPI [facility] discharge follow up HPI Lluvia Luu is a 68-year-old male with past medical history of hypertension, obesity, alcohol abuse who was recently admitted to [facility] with a near-syncope episode. He had no arrhythmia noted on telemetry monitoring and echocardiogram showed normal EF. An outpatient Holter monitor and tilt-table test were ordered. Today he reports that he has not had any recurrent episodes since his hospital discharge. He describes his episode as being a full syncopal event not just presyncope. He tells me he had been drinking up to 5 shots of liquor daily and he has cut that back down to 2 shots daily. He denies any chest discomfort at rest or with activity. No shortness of breath, palpitations, lightheadedness, presyncope, syncope, PND, orthopnea or edema. He ambulates with a walker and does admit to being mostly sedentary. Tilt-table test not scheduled till mid October. Sister is present. [facility] Medical History Hypertension Surgical History H/O left inguinal hernia repair H/O rectal polypectomy History of excision of pilonidal cyst Family History Father Past heart attack Mother CAD (coronary artery disease) Social History Household Members: Family Household Members Other:: sister Housing: House Do you presently have visiting nurse or other home services: No Alcohol intake: current Alcohol intake frequency: 0-2 drinks per day Patient Tobacco Use Status: Current everyday Tobacco user Tobacco use type: Cigar Cigarettes Per Day: 2 e-Cigarette/Vaping Use: Never Used Second Hand Smoke Exposure: No service: No Current occupational status: retired Current occupational exposures/hazards: No Cognitive needs: No Hearing needs: No Vision needs: Yes Review of Systems Const All systems reviewed & are unremarkable except as noted in HPI and below ENT Denies dizziness Card Denies chest pain, Denies chest pain at rest, Denies chest pain with activity, Denies rapid heart rate, Denies pedal edema, Denies edema, Denies leg edema, Denies lightheadedness, Denies palpitations, Denies dyspnea, Reports dyspnea on exertion and Denies orthopnea Resp Denies cough, Denies dyspnea and Reports dyspnea on exertion GI Denies hematochezia and Denies change in stool character Musc Details: uses walker Reports abnormal gait, Reports limited range of motion, Denies muscle cramps, Denies muscle weakness, Denies numbness, Denies radiating pain into limb, Denies stiffness and Denies tingling Neuro Reports abnormal gait, Denies dizziness, Denies numbness and Denies tingling Endo Denies palpitations Physical Exam Vital Signs: Last Vital Signs Pulse 107 H 10/31/23 14:44 BP 124/80 10/31/23 14:44 BMI result Body Mass Index 27.2 Const General: cooperative, healthy appearing, comfortable and no acute distress Orientation/consciousness: patient oriented x3 Neck Neck: Yes normal visual inspection Resp Effort & Inspection: normal respiratory effort Auscultation: clear to auscultation bilaterally, no crackles, no rales, no rhonchi and no wheezes Cardio Jugular venous distension: no JVD Rate: regular rate Rhythm: regular rhythm Heart sounds: S1 normal heart sound present, S2 normal heart sound present, no murmurs and no rubs Neuro General: patient oriented x3 Extrem General: Yes normal to inspection, No no pedal edema and No calf tenderness Psych Appearance: grossly normal Mental Status: mental status grossly normal Speech and movement: Normal speech and movement present Office Procedures EKG Details: Today read by me, sinus tach with PACs, left axis deviation, rate 107, QTC 429 milliseconds [id number], Complete Assessment & Plan Assessment & Plan (1) Near syncope: Code(s): R55 - Syncope and collapse Plan: Near syncopal event resulting in [facility] evaluation without acute findings. Patient tells me his episode was a full syncope. No recurrent events since his hospital discharge. Telemetry monitoring while in-house showed no acute abnormalities. Echocardiogram showed EF 55-60%, mild LVH, impaired relaxation. Patient was drinking up to 5 shots of vodka per day. He tells me he has reduce this down to 2 shots daily. A Holter monitor done on 10/09/2023 for 3 and half days showed sinus rhythm with average heart rate 73, SVE 3.6% of time, occasional PVC's with 2 NSVT runs, one 4 beat and one 19 beat, rate 163. Today he reports no recurrent episodes since his hospital discharge. Tilt-table test is ordered however not completed as of yet. He is currently scheduled for 11/19/2023 at [facility]. Reviewed Holter results with Dr. Figueroa. EKG done today showing sinus tachycardia with PACs, rate 107. Will start on metoprolol XL 50 mg daily. Will check a pharmacological nuclear stress test to evaluate for any ischemia. Patient will be unable to walk on a treadmill as he ambulates with a walker. Recent labs reviewed and no significant abnormalities noted. All the above reviewed with him. Cardiology follow-up in 6-8 weeks, sooner if needed. Emergency care if needed for recurrent syncope (2) Alcohol use disorder: Code(s): F10.90 - Alcohol use, unspecified, uncomplicated Plan: As above (3) Hypertension: Code(s): I10 - Essential (primary) hypertension Plan: Normal range at this time. Will be starting on metoprolol. (4) NSVT (nonsustained ventricular tachycardia): Code(s): I47.29 - Other ventricular tachycardia Plan: As above (5) Hospital discharge follow-up: Code(s): Z09 - Encounter for follow-up examination after completed treatment for conditions other than malignant neoplasm Plan: For presyncope. Plan Time spent on chart review, documentation, interview and assessment Orders: Orders CA lexiscan stress w alli Today I47.29 - Other ventricular tachycardia NM cardiolite stress test Today I47.29 - Other ventricular tachycardia Medications: New metoprolol succinate ER 50 mg PO DAILY 30 tabs 5RF Quality Reporting (2019) Adult (CMS 138/2/) Smoking risk assessment performed?: Yes Patient Tobacco Use Status: Current everyday Tobacco user Coding Level of Care Code Est Pt Level 4 (45743) Diagnoses Near syncope R55 Alcohol use disorder F10.90 Hypertension I10 NSVT (nonsustained ventricular tachycardia) I47.29 Hospital discharge follow-up Z09 CPT Codes EKG - CPT: 66508-[id number], Complete ([id number]) Time Spent (min) 30
== END 2023-10-31 15:26 | disposition home or self-care (01) ==
PROVIDERS: PCP Internal Medicine; Visit Provider Nurse Practitioner Family
DX: R55 Syncope and collapse (principal); F10.90 Alcohol use, unspecified, uncomplicated; I10 Essential (primary) hypertension; I47.29 Other ventricular tachycardia; Z09 Encounter for follow-up examination after completed treatment for conditions other than malignant neoplasm
CPT/HCPCS: 93010; 99214

== ENCOUNTER → 2023-10-31 14:35 | Outpatient (BNVA) | payer MEDICARE, SELFPAY | PROVIDERS: PCP Internal Medicine; Visit Provider Nurse Practitioner Family | DX: Z09 Encounter for follow-up examination after completed treatment for conditions other than malignant neoplasm (principal); R55 Syncope and collapse; I47.29 Other ventricular tachycardia; I10 Essential (primary) hypertension; F10.20 Alcohol dependence, uncomplicated | CPT/HCPCS: 93005; 99212 ==

== ENCOUNTER → 2023-12-04 07:45 | Outpatient (REF) | payer MEDICARE, SELFPAY ==
--- NOTE | ~2023-12-04 | NM_ITS ---
Lexiscan Myocardial perfusion study Indication: Near syncope, NSVT, assess for ischemia Technique: The patient was brought in for a Lexiscan perfusion study on 12/04/2023 and was injected 0.4 mg of Lexiscan intravenously. Within a minute of this injection 30 mCi of sestamibi was given intravenously. Images were obtained using the SPECT gamma camera interlaced with the gating device. Images were obtained in supine position. Resting perfusion study was performed on 12/05/2023. Patient was administered 30 mCi of sestamibi intravenously at rest. Images were then obtained in supine position. Images were processed with the software and compared side to side in short axis, horizontal long axis and vertical long axis views. Total DLP 171mGy-cm. Findings: Raw acquisition reviewed. Arms by the patient's side. The stress perfusion study showed diminished tracer uptake along the inferior wall. There is improvement with CT attenuation correction suggestive of diaphragmatic attenuation artifact. The gated study shows normal LV systolic function with calculated LVEF of 59%. LV cavity is normal in size. The gated study shows normal wall thickening and contraction of segments. Resting study shows diminished tracer uptake along the inferior wall, but slightly improved compared to stress acquisition. There is improvement with CT attenuation correction suggestive of diaphragmatic attenuation artifact. Gating at rest reveals normal wall motion with ejection fraction at 52%. The findings are consistent with mixed inferior perfusion defect. NM/NM cardiolite stress test Impression: 1. Myocardial perfusion imaging study shows mixed inferior perfusion defect, probably from diaphragmatic attenuation artifact. Less likely to be inferior infarct/ischemia. 2. Gated LVEF is 59% during stress and 52% during rest. 3. Transient ischemic dilatation not present. EKG component of the test reported separately.
--- NOTE | 2023-12-04 07:48 | CA_ITS ---
Acquisition Time: 2023-12-04 07:55:49 Total Exercise Time: 00:02:00 Test Indications: PVCS, PACS, SYNCOPE Medications: SEE H Protocol: LEXISCAN Max HR: 114 BPM 76% of Pred: 150 BPM Max BP: 128/078 mmHG Max Work Load: 1.0 METS Pharmacological stress test with Lexiscan injection while sitting and marching in place, without anginal symptoms, with isolated PACs, with normotensive response to injection, with nondiagnoisitic EKGs. Aminophylline 75mg IVP given to reverse Lexiscan. Nuclear images pending. Test reviewed with Dr. Figueroa Referred By: Gricelda Clifford Overread By: Marcia Banuelos
== END ==
LOC: HO.CARD 07:45
PROVIDERS: PCP Internal Medicine; Visit Provider Nurse Practitioner Family
DX: I47.19 Other supraventricular tachycardia (principal)
CPT/HCPCS: 78452; 93017; A9500; J0280; J2785

== ENCOUNTER → 2023-12-04 07:48 | Outpatient (BNV) | payer MEDICARE, SELFPAY | PROVIDERS: PCP Internal Medicine; Visit Provider Nurse Practitioner | DX: I49.1 Atrial premature depolarization (principal); I47.29 Other ventricular tachycardia | CPT/HCPCS: 78452; 93016; 93018 ==

== ENCOUNTER 2023-12-20 12:44 | Outpatient (AMB) | payer MEDICARE, SELFPAY ==
[2023-12-20 12:51] VITALS: BP 136/80; PULSE 53; O2SAT 96; BMI 26.0
--- NOTE | 2023-12-20 12:51 | MHC.PC.OV ---
Vital Signs 12/20/23 12:51 Height 5 ft 10 in Weight 181 lb BMI 26.0 BP 136/80 Blood Pressure Location Lt brachial Position Sitting Pulse 53 Pulse Source Pulse Oximeter Pulse Oximetry (%) 96 Oxygen Delivery Method Room Air Intake Visit Reasons: [facility] [employer] Carpenter Required: No Developmental Training Counselor: Not Required per policy Accompanied by: Self / Same As Patient Allergies No Known Allergies Allergy (Verified 12/20/23 12:52) Medication List - Last Reconciled 12/20/23 by Ridge Kendall MD blood pressure test kit-large (BPM 2 Advanced BP Monitor kit) As directed lisinopril 40 mg PO DAILY metoprolol succinate ER 50 mg PO DAILY walker (Ultra-Light Rollator misc) As directed Tobacco use date assessed: 10/24/23 Fall risk assessment: 1 Fall in past year Last assessed Fall Risk: 12/20/23 Dental Screening Dental Screen Date: 10/24/23 HPI PE HPI Details HTN on Rx; compliant; has cut back on alcohol consumption; has epigastric pain PFSH Medical History Hypertension Surgical History H/O left inguinal hernia repair H/O rectal polypectomy History of excision of pilonidal cyst Family History Father Past heart attack Mother CAD (coronary artery disease) Social History Household Members: Family Household Members Other:: sister Housing: House Do you presently have visiting nurse or other home services: No Alcohol intake: current Alcohol intake frequency: 0-2 drinks per day Patient Tobacco Use Status: Current everyday Tobacco user Tobacco use type: Cigar Cigarettes Per Day: 2 e-Cigarette/Vaping Use: Never Used Second Hand Smoke Exposure: No service: No Current occupational status: retired Current occupational exposures/hazards: No Cognitive needs: Yes (cane) Hearing needs: No Vision needs: Yes Questionnaire Thrive Questionnaire Date Thrive assessed: 10/24/23 ZAHRAA-7 AMB Questionnaire ZAHRAA-7 Date ZARHAA - 7 assessed: 10/24/23 Source: Developed by Drs. Jayant Chavez, Gilda Rasheed, Sidney Avila and colleagues, with an educational keren from [employer]. Review of Systems Const Denies chills, Denies fatigue, Denies headache(s) and Denies weight loss Eyes Denies change in vision, Denies diplopia and Denies eye pain ENT Denies vertigo, Denies dizziness, Denies headache(s) and Denies nasal discharge Card Denies chest pain, Denies rapid heart rate and Denies dyspnea on exertion Resp Denies chest congestion, Denies cough, Denies pain with cough and Denies dyspnea on exertion GI Denies abdominal pain, Denies hematochezia and Denies change in bowel habits Musc Denies myalgias, Denies arthralgias and Denies joint swelling Skin/Breast Denies lesions and Denies unusual bruising Neuro Denies vertigo, Denies dizziness, Denies headache(s) and Denies focal weakness Endo Denies fatigue Physical exam (Primary Care) Vital Signs: Last Vital Signs Pulse 53 12/20/23 12:51 BP 136/80 12/20/23 12:51 Pulse Ox 96 12/20/23 12:51 Oxygen Delivery Method Room Air 12/20/23 12:51 BMI result Body Mass Index 26.0 Tobacco/Smoking Status: Tobacco use Status Tobacco use date assessed 10/24/23 12/20/23 12:52 Patient Tobacco Use Status Current everyday Tobacco 12/20/23 12:52 Tobacco use type Cigar 12/20/23 12:52 e-Cigarette/Vaping Use Never Used 12/20/23 12:52 Thrive Assessment: Date of Thrive Assessment Date Thrive assessed 10/24/23 12/20/23 12:52 Const General: cooperative, healthy appearing and no acute distress Orientation/consciousness: oriented to person, oriented to place and oriented to time [facility] Head: Yes normal to inspection, Yes normocephalic and Yes atraumatic Mouth: Normal oral and palatal mucosa present and tongue normal Throat: Yes posterior oropharynx normal and Yes uvula midline Eyes General: appearance normal, both eyes and all related structures Neck Neck: Yes normal visual inspection, Yes full ROM and Yes no lymphadenopathy Thyroid: Thyroid normal Carotids: normal carotid upstroke Chest Chest palpation & inspection: normal inspection of the chest Resp Effort & Inspection: normal respiratory effort and able to speak in complete sentences Auscultation: clear to auscultation bilaterally Cardio Jugular venous distension: no JVD Palpation: normal PMI Rate: regular rate Rhythm: regular rhythm Heart sounds: S1 normal heart sound present and S2 normal heart sound present GI Inspection: Yes normal to inspection Palpation (GI): Soft to palpation and No hepatosplenomegaly present Auscultation: normal bowel sounds General: Yes no CVA tenderness Back/Spine/Pelvis Back: no CVA tenderness Skin General skin exam: no rashes or lesions noted Neuro General: oriented to person, oriented to place and oriented to time Extrem General: Yes normal to inspection and Yes full ROM Assessment and Plan Assessment & Plan (1) Physical exam: Code(s): Z00.00 - Encounter for general adult medical examination without abnormal findings Plan: stable (2) Hypertension: Code(s): I10 - Essential (primary) hypertension Plan: stable; same rx (3) Epigastric pain: Code(s): R10.13 - Epigastric pain Plan: US Orders: Orders US abdomen complete Today R10.9 - Unspecified abdominal pain Coding Level of Care Code Est Pt Prev Care >65y(82130) Diagnoses Physical exam Z00.00 Hypertension I10 Epigastric pain R10.13
== END 2023-12-20 13:11 | disposition home or self-care (01) ==
PROVIDERS: Visit Provider Internal Medicine
DX: Z00.00 Encounter for general adult medical examination without abnormal findings (principal); I10 Essential (primary) hypertension; R10.13 Epigastric pain
CPT/HCPCS: 99397

== ENCOUNTER 2023-12-24 08:57 | Outpatient (AMB) | payer MEDICARE, SELFPAY ==
--- NOTE | 2023-12-24 09:07 | MHC.OFFVIS ---
Vital Signs 12/24/23 09:08 Height 5 ft 10 in Weight 182 lb 1.629 oz BMI 26.1 BP 126/80 Blood Pressure Location Lt brachial Position Sitting Pulse Source Pulse Oximeter Intake Visit Reasons: 6-8 wk follow up Meat Clerk Required: No Accompanied by: Self / Same As Patient Allergies No Known Allergies Allergy (Verified 12/20/23 12:52) Medication List - Last Reconciled 12/24/23 by MECHE Andrews blood pressure test kit-large (BPM 2 Advanced BP Monitor kit) As directed lisinopril 40 mg PO DAILY metoprolol succinate ER 50 mg PO DAILY walker (Ultra-Light Rollator misc) As directed HPI HPI 6-8 wk follow up: Details: Jus is a 68-year-old male with past medical history of hypertension, obesity, alcohol abuse who was admitted to [facility] in October 2023 with a near-syncope episode. He had no arrhythmia noted on telemetry monitoring and echocardiogram showed normal EF. An outpatient Holter monitor and tilt-table test were done in the now presents for follow-up. Today he reports that he has not had any recurrent presyncope/syncope episodes since his hospital discharge. He tells me that he has continued to cut back his alcohol use in only has a few daily. He denies any chest discomfort at rest or with activity. No shortness of breath, palpitations, lightheadedness, PND, orthopnea or edema. He ambulates with a cane today and admit to being mostly sedentary. Tilt-table test completed, results not available at this visit. COUNT INCLUDES [facility] Medical History Hypertension Surgical History H/O left inguinal hernia repair H/O rectal polypectomy History of excision of pilonidal cyst Family History Father Past heart attack Mother CAD (coronary artery disease) Social History Household Members: Family Household Members Other:: sister Housing: House Do you presently have visiting nurse or other home services: No Alcohol intake: current Alcohol intake frequency: 0-2 drinks per day Patient Tobacco Use Status: Current everyday Tobacco user Tobacco use type: Cigar Cigarettes Per Day: 2 e-Cigarette/Vaping Use: Never Used Second Hand Smoke Exposure: No service: No Current occupational status: retired Current occupational exposures/hazards: No Cognitive needs: Yes (cane) Hearing needs: No Vision needs: Yes Review of Systems Const All systems reviewed & are unremarkable except as noted in HPI and below Denies chills, Denies fatigue, Denies fever(s), Denies frequent falls, Denies weakness, Denies weight gain and Denies weight loss ENT Denies dizziness Card Denies chest pain, Denies leg edema, Denies lightheadedness, Denies palpitations, Denies dyspnea and Denies dyspnea on exertion Resp Denies cough, Denies dyspnea and Denies dyspnea on exertion GI Denies hematochezia Musc Denies abnormal gait, Denies muscle weakness, Denies numbness, Denies radiating pain into limb and Denies tingling Neuro Denies abnormal gait, Denies dizziness, Denies frequent falls, Denies numbness, Denies tingling and Denies weakness Endo Denies fatigue and Denies palpitations Physical Exam Vital Signs: Last Vital Signs BP 126/80 12/24/23 09:08 BMI result Body Mass Index 26.1 Const General: cooperative, healthy appearing, comfortable and no acute distress Neck Neck: Yes normal visual inspection and Yes no JVD Resp Effort & Inspection: normal respiratory effort Auscultation: clear to auscultation bilaterally, no rales, no rhonchi and no wheezes Cardio Jugular venous distension: no JVD Rate: regular rate Rhythm: regular rhythm Heart sounds: S1 normal heart sound present, S2 normal heart sound present, no murmurs and no rubs Extrem General: Yes normal to inspection and No no pedal edema Psych Appearance: grossly normal Mental Status: mental status grossly normal Speech and movement: Normal speech and movement present Quality Reporting (2019) Adult ([facility] 138/10/24/68) Smoking risk assessment performed?: Yes Patient Tobacco Use Status: Current everyday Tobacco user Assessment & Plan Assessment & Plan (1) Near syncope: Code(s): R55 - Syncope and collapse Category: Medical Plan: Near syncopal event resulting in [facility] [place] 10/2023 without acute findings. Patient tells me his episode was a full syncope. No recurrent events since his hospital discharge. Telemetry monitoring while in-house showed no acute abnormalities. Echocardiogram showed EF 55-60%, mild LVH, impaired relaxation. Patient was drinking up to 5 shots of vodka per day at that time. He tells me he has reduce this down to a few shots daily. A Holter monitor done on 10/09/2023 for 3 and half days showed sinus rhythm with average heart rate 73, SVE 3.6% of time, occasional PVC's with 2 NSVT runs, one 4 beat and one 19 beat, rate 163. A nuclear stress test was done on 12/05/2023 showing mixed inferior perfusion defect, probable artifact, less likely in infarct or ischemia. Tilt-table test completed however result is not available at this visit. Reaching out to [facility]. Plan to call him with those results. Reviewed stress test results reviewed with him in detail. He denies any anginal sounding symptoms. Offered CTA of the coronary arteries for further evaluation and he declines due to the absence of symptoms. Signs and symptoms of angina reviewed with him. Will have him continue on metoprolol XL 50 mg daily due to the finding of ventricular ectopy. No clear cause of his presyncope/syncopal event. Could be multifactorial with possible dehydration, alcohol abuse. Will update this note with tilt results when available. Reviewed good hydration, alcohol cessation, use caution when sitting to standing, taking meds as directed. Cardiology follow-up in 6 months, sooner if needed. Emergency care if needed for recurrent syncope (2) Alcohol use disorder: Code(s): F10.90 - Alcohol use, unspecified, uncomplicated Category: Medical Plan: As above (3) Hypertension: Code(s): I10 - Essential (primary) hypertension Category: Medical Plan: Normal range at this time. No med changes made (4) NSVT (nonsustained ventricular tachycardia): Code(s): I47.29 - Other ventricular tachycardia Category: Medical Plan: As above Plan Time spent on chart review, documentation, interview and assessment
[2023-12-24 09:08] VITALS: BP 126/80; BMI 26.1
== END 2023-12-24 09:32 | disposition home or self-care (01) ==
PROVIDERS: PCP Internal Medicine; Visit Provider Nurse Practitioner Family
DX: R55 Syncope and collapse (principal); F10.90 Alcohol use, unspecified, uncomplicated; I10 Essential (primary) hypertension; I47.29 Other ventricular tachycardia
CPT/HCPCS: 99213

== ENCOUNTER → 2023-12-24 08:57 | Outpatient (BNVA) | payer MEDICARE, SELFPAY | PROVIDERS: PCP Internal Medicine; Visit Provider Nurse Practitioner Family | DX: I95.1 Orthostatic hypotension (principal); I10 Essential (primary) hypertension; I47.29 Other ventricular tachycardia; F10.20 Alcohol dependence, uncomplicated; Z82.49 Family history of ischemic heart disease and other diseases of the circulatory system | CPT/HCPCS: 99212 ==

== ENCOUNTER 2023-12-31 08:28 | Outpatient (REF) | payer MEDICARE, SELFPAY ==
--- NOTE | ~2023-12-31 | US_ITS ---
EXAMINATION: US ABDOMEN COMPLETE CLINICAL INFORMATION: Abdominal pain. COMPARISON: Abdominal ultrasound 02/10/2019 TECHNIQUE: Real-time imaging of the abdominal viscera. Technically difficult study due to body habitus and overlying bowel gas FINDINGS: PANCREAS: The pancreas is not well seen due to bowel gas. A 0.2 cm pancreatic duct is seen. ABDOMINAL AORTA: The proximal, mid, and distal segments are normal in caliber. Mild atherosclerotic plaque is seen within the mid abdominal aorta. INFERIOR VENA CAVA: Obscured by bowel gas. LIVER: There are limited views of the left lobe due to bowel gas. The liver is normal in size. The liver contour is normal. Parenchymal echogenicity is normal. No focal hepatic lesion. There is no intrahepatic biliary duct dilatation seen. GALLBLADDER: Normal. The gallbladder is physiologically distended without evidence of stones, sludge, polyps, wall thickening or pericholecystic fluid. No sonographic Park's sign. COMMON BILE DUCT: Normal in caliber measuring 0.2 cm in diameter. RIGHT KIDNEY: 0.5 x 0.5 x 0.5 cm simple exophytic cyst extends off the lower pole. No imaging follow-up is recommended. No hydronephrosis. No renal calculi. The kidney measures 11.1 cm in maximum dimension. LEFT KIDNEY: Normal. No hydronephrosis. No renal calculi or focal parenchymal lesions. The kidney measures 11.6 cm in maximum dimension. SPLEEN: The spleen is not seen. FREE FLUID: None. US/US abdomen complete IMPRESSION: . 1. Mild atherosclerotic plaque is seen within the mid abdominal aorta. 2. The pancreas and inferior vena cava are not well seen due to bowel gas. 3. The spleen is not seen.
== END 2023-12-31 08:29 | disposition home or self-care (01) ==
LOC: HO.US 08:28
PROVIDERS: PCP Internal Medicine; Visit Provider Internal Medicine
DX: R10.9 Unspecified abdominal pain (principal)
CPT/HCPCS: 76700

== ENCOUNTER 2024-03-20 12:59 | Outpatient (AMB) | payer MEDICARE, SELFPAY ==
--- NOTE | 2024-03-20 13:01 | MHC.PC.OV ---
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: No Accompanied by: Self / Same As Patient Allergies No Known Allergies Allergy (Verified 03/20/24 13:08) Tobacco use date assessed: 10/24/23 Fall risk assessment: No Falls in past year Last assessed Fall Risk: 03/20/24 Dental Screening Dental Screen Date: 10/24/23 HPI 3mth f/u HPI Details hypertension on rx; doing well and compliant [facility] Medical History Hypertension Surgical History H/O left inguinal hernia repair H/O rectal polypectomy History of excision of pilonidal cyst Family History Father Past heart attack Mother CAD (coronary artery disease) Social History Household Members: Family Household Members Other:: sister Housing: House Do you presently have visiting nurse or other home services: No Alcohol intake: current Alcohol intake frequency: 0-2 drinks per day Patient Tobacco Use Status: Current everyday Tobacco user Tobacco use type: Cigar Cigarettes Per Day: 2 e-Cigarette/Vaping Use: Never Used Second Hand Smoke Exposure: No service: No Current occupational status: retired Current occupational exposures/hazards: No Cognitive needs: Yes (cane) Hearing needs: No Vision needs: Yes Questionnaire Thrive Questionnaire Date Thrive assessed: 10/24/23 ZAHRAA-7 AMB Questionnaire ZAHRAA-7 Date ZAHRAA - 7 assessed: 10/24/23 Source: Developed by Drs. Jayant Chavez, Gilda Rasheed, Sidney Avila and colleagues, with an educational keren from [employer]. Review of Systems Const Denies chills, Denies headache(s) and Denies weight loss ENT Denies headache(s) Card Denies chest pain, Denies syncope, Denies irregular heart rhythm and Denies dyspnea Resp Denies chest congestion, Denies cough and Denies dyspnea GI Denies abdominal pain, Denies change in stool character, Denies nausea and Denies vomiting Musc Denies deformity and Denies joint swelling Neuro Denies syncope and Denies headache(s) Physical exam (Primary Care) Vital Signs: Last Vital Signs Pulse 60 03/20/24 13:07 BP 120/74 03/20/24 13:07 BMI result Body Mass Index 26.5 Tobacco/Smoking Status: Tobacco use Status Tobacco use date assessed 10/24/23 03/20/24 13:02 Patient Tobacco Use Status Current everyday Tobacco 03/20/24 13:02 Tobacco use type Cigar 03/20/24 13:02 e-Cigarette/Vaping Use Never Used 03/20/24 13:02 Thrive Assessment: Date of Thrive Assessment Date Thrive assessed 10/24/23 03/20/24 13:02 Const General: cooperative, comfortable, no acute distress and alert Neck Neck: Yes no lymphadenopathy Thyroid: Thyroid normal Resp Effort & Inspection: normal respiratory effort Auscultation: clear to auscultation bilaterally Percussion: percussion normal Cardio Jugular venous distension: no JVD Palpation: normal PMI Rate: regular rate Rhythm: regular rhythm Heart sounds: S1 normal heart sound present and S2 normal heart sound present GI Inspection: Yes normal to inspection Palpation (GI): No hepatosplenomegaly present Skin General skin exam: no rashes or lesions noted Extrem General: Yes no clubbing, cyanosis or edema Assessment and Plan Assessment & Plan (1) Hypertension: Code(s): I10 - Essential (primary) hypertension Plan: stable; same rx Medications: Refilled lisinopril 40 mg PO DAILY 90 tabs 8RF Coding Level of Care Code Est Pt Level 3 (89024) Diagnoses Hypertension I10
[2024-03-20 13:07] VITALS: BP 120/74; PULSE 60; BMI 26.5
== END 2024-03-20 14:58 | disposition home or self-care (01) ==
PROVIDERS: PCP Internal Medicine; Visit Provider Internal Medicine
DX: I10 Essential (primary) hypertension (principal)
CPT/HCPCS: 99213

== ENCOUNTER 2024-06-24 13:00 | Outpatient (AMB) | payer MEDICARE, SELFPAY ==
--- NOTE | 2024-06-24 13:02 | A.OFFPC_ITS ---
Vital Signs 06/24/24 13:03 Height 5 ft 10 in Weight 193 lb BMI 27.7 BP 116/72 Blood Pressure Location Lt brachial Position Sitting Pulse 60 Pulse Source Pulse Oximeter Oxygen Delivery Method Room Air Intake Visit Reasons: 3mth f/u Allergies No Known Allergies Allergy (Verified 06/24/24 13:16) Medication List - Last Reconciled 06/24/24 by Ridge Kendall MD blood pressure test kit-large (BPM 2 Advanced BP Monitor kit) As directed lisinopril 40 mg PO DAILY metoprolol succinate ER 50 mg PO DAILY walker (Ultra-Light Rollator misc) As directed Tobacco use date assessed: 10/24/23 Fall risk assessment: No Falls in past year Last assessed Fall Risk: 06/24/24 Dental Screening Dental Screen Date: 10/24/23 HPI 3mth f/u HPI Details HTN on Rx; doing well and compliant [facility] Medical History Hypertension Surgical History H/O left inguinal hernia repair H/O rectal polypectomy History of excision of pilonidal cyst Family History Father Past heart attack Mother CAD (coronary artery disease) Social History Household Members: Family Household Members Other:: sister Housing: House Do you presently have visiting nurse or other home services: No Alcohol intake: current Alcohol intake frequency: 0-2 drinks per day Patient Tobacco Use Status: Current everyday Tobacco user Tobacco use type: Cigar Cigarettes Per Day: 2 e-Cigarette/Vaping Use: Never Used Second Hand Smoke Exposure: No service: No Current occupational status: retired Current occupational exposures/hazards: No Cognitive needs: Yes (cane) Hearing needs: No Vision needs: Yes Questionnaire Thrive Questionnaire Date Thrive assessed: 10/24/23 AUDIT C Alcohol Use Questionnaire (AUDIT-C) 1. How often do you have a drink containing alcohol?: 2-3 times a week 2. How many drinks containing alcohol do you have on a typical day when you are drinking?: 3 or 4 3. How often do you have six or more drinks on one occasion?: Never Total Score: 4 Score Reviewed/Action Taken: Yes ZAHRAA-7 AMB Questionnaire ZAHRAA-7 Date ZAHRAA - 7 assessed: 10/24/23 Source: Developed by Drs. Jayant Chavez, Gilda Rasheed, Sidney Avila and colleagues, with an educational keren from [employer]. Review of Systems Const Denies chills, Denies headache(s) and Denies weight loss ENT Denies headache(s) Card Denies chest pain, Denies syncope, Denies irregular heart rhythm and Denies dyspnea Resp Denies chest congestion, Denies cough and Denies dyspnea GI Denies abdominal pain, Denies change in stool character, Denies nausea and Denies vomiting Musc Denies deformity and Denies joint swelling Neuro Denies syncope and Denies headache(s) Physical exam (Primary Care) Vital Signs: Last Vital Signs Pulse 60 06/24/24 13:03 BP 116/72 06/24/24 13:03 Oxygen Delivery Method Room Air 06/24/24 13:03 BMI result Body Mass Index 27.7 Tobacco/Smoking Status: Tobacco use Status Tobacco use date assessed 10/24/23 06/24/24 13:03 Patient Tobacco Use Status Current everyday Tobacco 06/24/24 13:03 Tobacco use type Cigar 06/24/24 13:03 e-Cigarette/Vaping Use Never Used 06/24/24 13:03 Thrive Assessment: Date of Thrive Assessment Date Thrive assessed 10/24/23 06/24/24 13:03 Const General: cooperative, comfortable, no acute distress and alert Neck Neck: Yes no lymphadenopathy Thyroid: Thyroid normal Resp Effort & Inspection: normal respiratory effort Auscultation: clear to auscultation bilaterally Percussion: percussion normal Cardio Jugular venous distension: no JVD Palpation: normal PMI Rate: regular rate Rhythm: regular rhythm Heart sounds: S1 normal heart sound present and S2 normal heart sound present GI Inspection: Yes normal to inspection Palpation (GI): No hepatosplenomegaly present Skin General skin exam: no rashes or lesions noted Extrem General: Yes no clubbing, cyanosis or edema Coding Level of Care Code Est Pt Level 3 (00958) Diagnoses Hypertension I10 Assessment & Plan Assessment & Plan (1) Hypertension: Code(s): I10 - Essential (primary) hypertension Category: Medical Plan: stable; same rx Orders: Orders Lipid Panel Today Z13.220 - Encounter for screening for lipoid disorders Complete Blood Count Auto Diff Today Z13.0 - Encounter for screening for diseases of the blood and blood-forming organs and certain disorders involving the immune mechanism Thyroid Stimulating Hormone Today Z13.29 - Encounter for screening for other suspected endocrine disorder Comprehensive [place]. Panel Fast Today Z13.9 - Encounter for screening, unspecified
[2024-06-24 13:03] VITALS: BP 116/72; PULSE 60; BMI 27.7
== END 2024-06-24 13:18 | disposition home or self-care (01) ==
PROVIDERS: PCP Internal Medicine; Visit Provider Internal Medicine
DX: I10 Essential (primary) hypertension (principal)

== ENCOUNTER → 2024-06-24 13:00 | Outpatient (BNVA) | payer MEDICARE, SELFPAY | PROVIDERS: PCP Internal Medicine; Visit Provider Internal Medicine | DX: I10 Essential (primary) hypertension (principal); Z79.899 Other long term (current) drug therapy | CPT/HCPCS: 99212 ==

== ENCOUNTER 2024-06-25 14:07 | Outpatient (AMB) | payer MEDICARE, SELFPAY ==
[2024-06-25 14:53] VITALS: BP 142/72; PULSE 56; BMI 27.9
--- NOTE | 2024-06-25 14:53 | A.OFFVIS_ITS ---
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 Today he reports that he has had some lightheadedness with quick position changes. He has not had any recent presyncope or syncope. He denies any chest discomfort at rest or with activity. No shortness of breath, palpitations, PND, orthopnea or edema. He drinks 3 vodka shots daily, which is a reduction from 5 shots daily. He ambulates with a cane today and admits to being mostly sedentary. Takes his meds as directed. [facility] Medical History Hypertension Surgical History H/O left inguinal hernia repair H/O rectal polypectomy History of excision of pilonidal cyst Family History Father Past heart attack Mother CAD (coronary artery disease) Social History Household Members: Family Household Members Other:: sister Housing: House Do you presently have visiting nurse or other home services: No Alcohol intake: current Alcohol intake frequency: 0-2 drinks per day Patient Tobacco Use Status: Current everyday Tobacco user Tobacco use type: Cigar Cigarettes Per Day: 2 e-Cigarette/Vaping Use: Never Used Second Hand Smoke Exposure: No service: No Current occupational status: retired Current occupational exposures/hazards: No Cognitive needs: Yes (cane) Hearing needs: No Vision needs: Yes Review of Systems Const All systems reviewed & are unremarkable except as noted in HPI and below ENT Reports dizziness Card Denies chest pain, Denies chest pain at rest, Denies chest pain with activity, Denies rapid heart rate, Denies pedal edema, Denies edema, Denies leg edema, Denies lightheadedness, Denies palpitations, Denies dyspnea, Denies dyspnea on exertion and Denies orthopnea Resp Denies cough, Denies dyspnea and Denies dyspnea on exertion GI Denies hematochezia and Denies change in stool character Musc Denies abnormal gait, Denies limited range of motion, Denies muscle cramps, Denies muscle weakness, Denies numbness, Denies radiating pain into limb, Denies stiffness and Denies tingling Neuro Denies abnormal gait, Reports dizziness, Denies numbness and Denies tingling Endo Denies palpitations Physical Exam Vital Signs: Last Vital Signs Pulse 56 06/25/24 14:53 BP 142/72 H 06/25/24 14:53 BMI result Body Mass Index 27.9 Const General: cooperative, healthy appearing, comfortable and no acute distress Neck Neck: Yes normal visual inspection and Yes no JVD Resp Effort & Inspection: normal respiratory effort Auscultation: clear to auscultation bilaterally, no rales, no rhonchi and no wheezes Cardio Jugular venous distension: no JVD Rate: regular rate Rhythm: regular rhythm Heart sounds: S1 normal heart sound present, S2 normal heart sound present, no murmurs and no rubs Extrem General: Yes normal to inspection and No no pedal edema Psych Appearance: grossly normal Mental Status: mental status grossly normal Speech and movement: Normal speech and movement present Quality Reporting (2020) Adult ([facility] 138/2/) Smoking risk assessment performed?: Yes Patient Tobacco Use Status: Current everyday Tobacco user Assessment & Plan Assessment & Plan (1) Near syncope: Code(s): R55 - Syncope and collapse Category: Medical Plan: Near syncopal event resulting in [facility] evaluation 10/2023 without acute findings. Patient told me his episode was a full syncope. No recurrent events since that time. Telemetry monitoring while in-house showed no acute abnormalities. Echocardiogram showed EF 55-60%, mild LVH, impaired relaxation. Patient was drinking up to 5 shots of vodka per day at that time, which he has reduced down to 3 shots daily. Holter monitor done on 10/09/2023 for 3 and half days showed sinus rhythm with average heart rate 73, SVE 3.6% of time, occasional PVC's with 2 NSVT runs, one 4 beat and one 19 beat, rate 163. A nuclear stress test was done on 12/05/2023 showing mixed inferior perfusion defect, probable artifact, less likely in infarct or ischemia. I had previously recommended CTA of the coronary arteries for further evaluation and he declines due to the absence of symptoms. Tilt-table test done 11/19/2023 showing orthostatic hypotension. He was instructed to increase his fluid intake and cut down alcohol use. At this time he continues to drink alcohol. He has some dizziness with quick position changes and with prolonged standing. He has not had any recurrent presyncope or syncope. Blood pressure not orthostatic on my exam today. Blood pressure sitting 134/72, blood pressure standing 140/88. Reviewed good hydration, use caution when going sitting to standing. If feeling lightheaded be sure to sit or lay down. He is on metoprolol which I will have him continue due to the finding of ventricular ectopy on Holter. In the setting of a normal EF he is less likely to have issues with prolonged episodes of NSVT. Emergency care if ever needed for recurrent presyncope or syncope. Cardiology follow-up in 1 year, sooner if needed. (2) Orthostatic hypotension: Code(s): I95.1 - Orthostatic hypotension Category: Medical Plan: As above (3) Alcohol use disorder: Code(s): F10.90 - Alcohol use, unspecified, uncomplicated Category: Medical Plan: As above (4) Hypertension: Code(s): I10 - Essential (primary) hypertension Category: Medical Plan: Mildly elevated at this visit. Blood pressure is rechecked by me as above. Not orthostatic today. No med changes made. (5) NSVT (nonsustained ventricular tachycardia): Code(s): I47.29 - Other ventricular tachycardia Category: Medical Plan: As above. Episode noted on Holter monitor. EF is normal which is reassuring. Continue beta-elidia. Plan Time spent on chart review, documentation, interview and assessment Coding Level of Care Code Est Pt Level 4 (57836) Complex EM visit Add On G2211 Diagnoses Near syncope R55 Orthostatic hypotension I95.1 Alcohol use disorder F10.90 Hypertension I10 NSVT (nonsustained ventricular tachycardia) I47.29 Time Spent (min) 30
== END 2024-06-25 15:12 | disposition home or self-care (01) ==
PROVIDERS: PCP Internal Medicine; Visit Provider Nurse Practitioner Family
DX: R55 Syncope and collapse (principal); I95.1 Orthostatic hypotension; F10.90 Alcohol use, unspecified, uncomplicated; I10 Essential (primary) hypertension; I47.29 Other ventricular tachycardia
CPT/HCPCS: 99214; G2211

== ENCOUNTER → 2024-06-25 14:07 | Outpatient (BNVA) | payer MEDICARE, SELFPAY | PROVIDERS: PCP Internal Medicine; Visit Provider Nurse Practitioner Family | DX: I95.1 Orthostatic hypotension (principal); I10 Essential (primary) hypertension; F10.90 Alcohol use, unspecified, uncomplicated; I47.29 Other ventricular tachycardia | CPT/HCPCS: 99212 ==

== ENCOUNTER → 2024-09-24 11:01 | Outpatient (BNVA) | payer MEDICARE, SELFPAY | PROVIDERS: PCP Internal Medicine; Visit Provider Internal Medicine | DX: I10 Essential (primary) hypertension (principal); F10.90 Alcohol use, unspecified, uncomplicated | CPT/HCPCS: 99212 ==

== ENCOUNTER 2024-10-30 17:32 | Emergency (ER) | payer MEDICARE, SELFPAY ==
--- NOTE | ~2024-10-30 | CT_ITS ---
CLINICAL HISTORY: fall CT head without contrast Comparison: CT/REG/SR - CT HEAD/BRAIN WO IV CON - 09/30/23 18:57 EST Findings: No intracranial mass, midline shift, hydrocephalus, or acute hemorrhage. There is generalized cerebral and cerebellar volume loss. Rosn-wo-btfpytok nonspecific periventricular and subcortical white matter changes are identified, which may be seen in the setting of chronic small vessel ischemic disease. Mojz-bi-cscfjwuy mucosal thickening identified within the ethmoid air cells with mild mucosal thickening at the right sphenoid sinus. The bilateral mastoid air cells appear clear. No acute skull fracture. Moderate right frontal scalp hematoma, extending into the right periorbital region. Left periorbital hematoma also present. The bilateral globes appear intact. No retrobulbar hematoma. Impression: 1. No acute intracranial abnormality. No acute intracranial hemorrhage. 2. Moderate right frontal scalp hematoma present, extending into the right periorbital region. A left periorbital hematoma is also present. No acute calvarial fracture. This document has been electronically signed by: Rigo Berman MD on 10/30/2024 23:35:45
--- NOTE | ~2024-10-30 | CT_ITS ---
CLINICAL HISTORY: trauma CT abdomen and pelvis with contrast Comparison: US/SR - US ABDOMEN COMPLETE - 12/31/23 09:05 EDT Findings: The gallbladder and solid organs are within normal limits. No hydronephrosis or hydroureter. No bowel obstruction, pneumoperitoneum, or pneumatosis. Small hiatal hernia. There is colonic diverticulosis without CT evidence for acute diverticulitis. Scattered calcifications are present within the prostate gland. No bladder wall thickening. Small, fat containing right inguinal hernia present. A tiny amount of fat is visualized within the left inguinal canal. Normal appendix. No acute fracture or dislocation injury visualized. Multiple old left rib fractures are present. Multilevel sclerotic endplate changes are present at the thoracolumbar spine, possibly degenerative in etiology. 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 IMPRESSION: 1. No acute traumatic injury of the abdomen or pelvis identified. This document has been electronically signed by: Rigo Berman MD on 10/30/2024 23:12:50
--- NOTE | ~2024-10-30 | CT_ITS ---
CLINICAL HISTORY: trauma CT chest with contrast Comparison: CR/AL - XR CHEST 2V - 09/14/20 10:37 EST Findings: Normal heart,size. No significant pericardial effusion. Coronary artery calcifications are present. No thoracic aorta aneurysm. No focal pulmonary consolidation, pneumothorax, or pleural effusion. No acute fractures. Multiple old left rib fractures are present. Impression: 1. No acute traumatic injury of the chest identified. No focal pulmonary consolidation, pneumothorax, or pleural effusion. This document has been electronically signed by: Rigo Berman MD on 10/30/2024 23:19:04
--- NOTE | ~2024-10-30 | XR_ITS ---
CLINICAL HISTORY: lft thumb -dislocated, now relocated. 3 view left thumb. Comparison: 10/30/2024 07:17 PM EST: CR: XR FINGER LT MIN 2V (06:17 PM [employer]) Findings: There is interval reduction in the previously demonstrated dislocation injury involving the 1st interphalangeal joint. There is an overlying splint, obscuring fine bony detail. Subcentimeter calcification visualized along the volar aspect of the 1st interphalangeal joint, suggesting a sesamoid bone. Minimal cortical irregularity present at the base of the 1st distal phalanx, visualized along its dorsal margin on the PA image. Degenerative changes are redemonstrated at the 1st carpometacarpal joint. IMPRESSION: 1. Mildly limited exam related to an overlying splint. There is interval reduction in the previously demonstrated dislocation injury at the 1st interphalangeal joint of the left hand. There appears to be a tiny chip/avulsion fracture at the base of the 1st distal phalanx, along its dorsal margin. This document has been electronically signed by: Rigo Berman MD on 10/31/2024 00:33:55
--- NOTE | ~2024-10-30 | CT_ITS ---
CLINICAL HISTORY: trauma CT cervical spine without contrast Comparison: CT/SR - CT CERVICAL SPINE WO IV CON - 09/30/23 18:57 EST Findings: This examination is mildly degraded by artifact. This mildly limits evaluation of the left C7 transverse process. There is grade 1 anterolisthesis of C2 on C3, of C4 on C5, and also of C7 on T1. Moderate to severe degenerative endplate changes are present at the cervical spine. Bilateral degenerative facet arthropathy also present at the cervical spine , greater on the left. Small curvilinear calcific density visualized along the anterior margin of the C5 vertebral body, extending toward the C5-C6 intervertebral disc space on sagittal image number 27 of series 26, not clearly visualized on the prior exam. 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 Evaluation of the neck soft tissues is degraded by artifact. There is a suggestion of mildly increased attenuation within the prevertebral soft tissues. Impression: 1. Mildly limited examination due to artifact. A subcentimeter curvilinear calcific density is visualized along the anterior margin of the C5 vertebral body extending toward the C5-C6 intervertebral disc space. This is not clearly visualized on the 09/30/2023 examination, possibly consistent with a subtle fracture fragment or degenerative change. There appears to be vague, slightly increased attenuation within the paravertebral soft tissues of the level of the cervical spine, which may represent a small amount of blood in the setting of trauma. This document has been electronically signed by: Rigo Berman MD on 10/30/2024 23:30:49
--- NOTE | ~2024-10-30 | XR_ITS ---
CLINICAL HISTORY: thumb laceration 3 view left 1st digit Comparison: None Findings: There is dorsal dislocation of the distal phalanx of the left 1st digit. Soft tissue laceration noted medially. Suspect flexor tendon injury. Possible fracture involving the base of the distal phalanx. No erosions. No radiopaque foreign body. IMPRESSION: Dorsal dislocation of the distal phalanx of the thumb with probable flexor tendon injury given positioning and laceration. This document has been electronically signed by: Erwin Alicia MD on 10/30/2024 19:48:50
[2024-10-30 18:06] VITALS: BP 154/75; PULSE 56; RESP 18; O2SAT 99
[2024-10-30 18:13] VITALS: BP 144/123; PULSE 63; O2SAT 99
[2024-10-30 18:39] VITALS: BP 155/75; PULSE 56; RESP 18; TEMP 36.8; O2SAT 98; BMI 28.8
--- NOTE | 2024-10-30 18:45 | ECG_ITS ---
Test Reason : FALL Blood Pressure : */* mmHG Vent. 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 rate has decreased by 46 bpm Nonspecific T wave abnormality now evident in Inferior leads Referred By: Alex Thomas Electronically Signed By: Ryan Benavides
--- NOTE | 2024-10-30 18:49 | ED.GENADULT ---
HPI - General Adult General Chief complaint: Fall Stated complaint: mutli injury fall Time Seen by Provider: 10/30/24 18:37 Source: patient Mode of arrival: EMS Limitations: no limitations History of Present Illness ED Provider: Martha HPI narrative: 69-year-old male with past medical history of AFib unclear whether he is on thinners presenting for syncope. Patient states that he had a few drinks of alcohol earlier today when he got home he passed out. He does not remember what he was doing when he lost consciousness. Patient was found by sister who states that he was unconscious for approximately 1 minute. Patient sustained injury to head and thumb. He is currently complaining of head pain. He denies neck pain, chest pain, shortness of breath abdominal pain Related Data Previous Rx's ?Medication ?Instructions ?Recorded blood pressure test kit-large (BPM #1 ea 06/27/22 2 Advanced BP Monitor kit) walker (Ultra-Light Rollator misc) #1 ea 10/03/23 lisinopril 40 mg tablet 40 mg PO DAILY #90 tabs 03/20/24 metoprolol succinate 50 mg 50 mg PO DAILY #90 tabs 04/23/24 tablet,extended release 24 hr Allergies Allergy/AdvReac Type Severity Reaction Status Date / Time No Known Allergies Allergy Verified 10/30/24 18:46 Review of Systems Review of Systems: Yes all other systems are reviewed and are negative PMFSH Past Medical History Medical History Hypertension Surgical History H/O left inguinal hernia repair H/O rectal polypectomy History of excision of pilonidal cyst Family History Family History Father Past heart attack Mother CAD (coronary artery disease) Social History Social History Household Members: Family Household Members Other:: sister Housing: House Do you presently have visiting nurse or other home services: No Alcohol intake: current Alcohol intake frequency: 0-2 drinks per day Patient Tobacco Use Status: Current everyday Tobacco user Tobacco use type: Cigar Cigarettes Per Day: 2 Smoked in Last 30 Days: Yes e-Cigarette/Vaping Use: Never Used Second Hand Smoke Exposure: Yes Use of substances other than those prescribed or required for medical reasons: No Advance Directives: No Advance Directives Information Provided: No service: No Current occupational status: retired Current occupational exposures/hazards: No Cognitive needs: Yes (cane) Hearing needs: No Vision needs: Yes Physical Exam ED Vital Signs: Vital Signs - 24 hr 10/30/24 18:06 10/30/24 18:39 10/30/24 20:00 Temperature 98.2 F Pulse Rate 56 56 54 Respiratory Rate 18 18 18 Blood Pressure 154/75 H 155/75 H 155/75 H Pulse Oximetry 99 98 99 Oxygen Delivery Method Room Air Room Air Room Air 10/30/24 22:00 10/31/24 00:40 10/31/24 00:41 Temperature 98.3 F Pulse Rate 58 60 61 Respiratory Rate 18 12 Blood Pressure 155/77 H 154/75 H 160/70 H Pulse Oximetry 99 96 Oxygen Delivery Method Room Air Room Air 10/31/24 00:45 10/31/24 00:49 Temperature Pulse Rate 74 82 Respiratory Rate Blood Pressure 166/75 H 156/67 H Pulse Oximetry Oxygen Delivery Method BMI result Body Mass Index 28.8 Frontal scalp hematoma; no septal hematoma; oropharynx clear; no midline C-spine tenderness to palpation Bilateral breath sounds present; chest wall stable and nontender Normal S1-S2 irregular rhythm Abdomen is soft nontender nondistended Left thumb laceration with exposed tendon; neuro intact Medications Administered Discontinued Medications Generic Name Dose Route Start Last Admin Trade Name Freq PRN Reason Stop Dose Admin Cefazolin Sodium 1 gm 10/30/24 18:50 10/30/24 19:23 Cefazolin Sodium 1 Gm Vial IVPUSH 10/30/24 18:51 1 gm ONCE ONE Administration Diphtheria/Tetanus/Acell Pertussis 0.5 ml 10/30/24 23:14 10/30/24 23:28 Diphth,Pertus(Acell),Tet Adult 0.5 Ml Syringe IM 10/30/24 23:15 0.5 ml .ONCE ONE Administration Sodium Chloride 500 mls @ 500 mls/hr 10/30/24 19:45 10/30/24 20:41 Ns IV 10/30/24 20:44 Infused .Q1H ALEE Infusion Iohexol 100 ml 10/30/24 22:18 10/30/24 22:18 Iohexol 350 Mg/Ml 100 Ml Infus..Btl IV 10/30/24 22:19 85 ml ONCE ONE Administration Lidocaine HCl 10 ml 10/30/24 20:45 10/30/24 21:01 Lidocaine Hcl 1 % 10 Ml Vial INFILTRATI 10/30/24 20:46 10 ml ONCE ONE Administration Medical Decision Making Medical Decision Making MDM Narrative: 69-year-old male presenting for fall -I am concerned for the following; head bleed, syncope, intoxication, cardiac arrhythmia, left arm laceration/flexor tendon trauma -labs and imaging studies ordered I have an imaging interpretation: -right frontal scalp hematoma; -normal alignment of the cervical spine -stable H&H, no white count, negative troponin x2, mildly elevated lactic acid -left arm x-ray shows dislocation; radiology impression nose dislocation of distal phalanx and probable flexor tendons -reviewed patient's head and neck imaging did not appreciate signs of head bleed or neck fracture; radiologist impression notes possible C5-C6 trauma and no head bleed -I do not appreciate rib fractures or intra-abdominal bleed on CT chest and abdomen is; radiology person is negative for acute trauma on both scan -AFib on EKG I reduced the patient's left thumb and subsequently sutured it. Splint was applied by tech an x-ray was obtained showing improvement in dislocation. I adjusted the splint to place patient's finger in flexed position for optimal tendon healing After reviewing patient's CT results I ordered MRI however there is no MRI imaging over the weekend. Eye contact [facility] who accepted patient for transfer to ED Patient is neuro intact with strength and sensation are equal in both upper and lower extremities Patient agreeable to transfer Lab Data 10/30/24 19:02 10/30/24 21:21 Labs: Lab Results 10/30/24 10/30/24 10/30/24 Range/Units 19:02 19:06 21:21 WBC 10.1 (4.8-10.8) X10*3/uL RBC 4.46 L D (4.60-5.80) X10*6/uL Hgb 14.9 (14.0-18.0) g/dl Hct 41.6 L (42.0-52.0) % MCV 93.3 (80.0-98.0) fL MCH 33.4 H (27.0-33.0) pg MCHC 35.8 (31.0-36.0) g/dl RDW 11.9 (11.0-16.0) % Plt Count 266 (160-400) X10*3/uL MPV 9.3 L (9.4-12.4) fL Immature Gran % (Auto) 0.5 H (0.0-0.4) % Neut % (Auto) 77.1 H (45-73) % Lymph % (Auto) 16.0 L (20-40) % Morehouse % (Auto) 5.2 (2-11) % Eos % (Auto) 1.0 (0-4) % Baso % (Auto) 0.2 (0-2) % Lymph # (Auto) 1.6 (1.2-4.9) X10*3/uL Morehouse # (Auto) 0.5 (0.1-1.2) X10*3/uL Eos # (Auto) 0.1 (0.0-0.4) X10*3/uL Baso # (Auto) 0.0 (0.0-0.2) X10*3/uL Abs Immat Gran (auto) 0.05 H (0.00-0.03) X10*3/uL Absolute Neuts (auto) 7.8 (2.0-8.3) x10*3/uL Absolute Nucleated RBC 0.000 (0.0-0.012) X10*3/uL Nucleated RBC % (auto) 0.0 (0.0-0.2) /100WBC PT 10.2 L (10.9-12.4) SEC INR 0.9 (0.9-1.1) APTT 29.8 (26.0-36.8) SEC Sodium 133 L (135-145) mmol/L Potassium 3.7 (3.3-5.1) mmol/L Chloride 101 (96-108) mmol/L Carbon Dioxide 21 L (22-29) mmol/L Anion Gap 15 (12-20) BUN 5 L (9-16) mg/dL Creatinine 0.60 (0.5-1.4) mg/dL Estim Creat Clear Calc 128.1 Estimated GFR > 60 Random Glucose 82 (60-115) mg/dL Lactic Acid 2.8 H* (0.5-2.0) mmol/L Lactic Acid F/U @ 2Hr 2.2 H* (0.5-2.0) mmol/L Calcium 8.5 (8.4-10.2) mg/dL Troponin I High Sens 5.9 D (<3.5-35.0) ng/L Ethyl Alcohol 131 126 mg/dL 10/30/24 10/31/24 Range/Units 21:59 01:28 WBC (4.8-10.8) X10*3/uL RBC (4.60-5.80) X10*6/uL Hgb (14.0-18.0) g/dl Hct (42.0-52.0) % MCV (80.0-98.0) fL MCH (27.0-33.0) pg MCHC (31.0-36.0) g/dl RDW (11.0-16.0) % Plt Count (160-400) X10*3/uL MPV (9.4-12.4) fL Immature Gran % (Auto) (0.0-0.4) % Neut % (Auto) (45-73) % Lymph % (Auto) (20-40) % Morehouse % (Auto) (2-11) % Eos % (Auto) (0-4) % Baso % (Auto) (0-2) % Lymph # (Auto) (1.2-4.9) X10*3/uL Morehouse # (Auto) (0.1-1.2) X10*3/uL Eos # (Auto) (0.0-0.4) X10*3/uL Baso # (Auto) (0.0-0.2) X10*3/uL Abs Immat Gran (auto) (0.00-0.03) X10*3/uL Absolute Neuts (auto) (2.0-8.3) x10*3/uL Absolute Nucleated RBC (0.0-0.012) X10*3/uL Nucleated RBC % (auto) (0.0-0.2) /100WBC PT (10.9-12.4) SEC INR (0.9-1.1) APTT (26.0-36.8) SEC Sodium (135-145) mmol/L Potassium (3.3-5.1) mmol/L Chloride (96-108) mmol/L Carbon Dioxide (22-29) mmol/L Anion Gap (12-20) BUN (9-16) mg/dL Creatinine (0.5-1.4) mg/dL Estim Creat Clear Calc Estimated GFR Random Glucose (60-115) mg/dL Lactic Acid (0.5-2.0) mmol/L Lactic Acid F/U @ 2Hr (0.5-2.0) mmol/L Calcium (8.4-10.2) mg/dL Troponin I High Sens 11.4 D 12.9 (<3.5-35.0) ng/L Ethyl Alcohol mg/dL Discharge Plan Discharge Clinical Impression: Syncope Qualifiers: Syncope type: unspecified Qualified Code(s): R55 - Syncope and collapse Laceration of thumb Qualifiers: Encounter type: initial encounter Damage to nail status: without damage Foreign body presence: without foreign body Laterality: left Qualified Code(s): S61.012A - Laceration without foreign body of left thumb without damage to nail, initial encounter Cervical spine fracture Qualifiers: Encounter type: initial encounter Cervical vertebra fracture level: C5 Fracture alignment: nondisplaced Patient Disposition: [facility] Transfer Details: Transferred to [facility] Prescriptions: No Action (DME) blood pressure test kit-large [BPM 2 Advanced BP Monitor] Kit See Rx Instructions .Route Qty: 1 0RF Rx Instructions: As directed metoprolol succinate 50 mg tablet extended release 24 hr 50 mg PO DAILY Qty: 90 3RF (DME) Ultra-Light Rollator Misc See Rx Instructions .Route Qty: 1 0RF Rx Instructions: As directed lisinopril 40 mg tablet 40 mg PO DAILY Qty: 90 8RF Referrals: Jin Lynne MD [Physician] - 1 week (Left thumb laceration with concerns for tendon injury) Print Language: Romanian
[2024-10-30 19:12] LABS: MANUAL DIFF FLAG NO
[2024-10-30 19:14] LABS: Basophils Percent Auto 0.2 % (0-2); Eosinophils Absolute Auto 0.1 X10*3/uL (0.0-0.4); Hematocrit 41.6 % (42.0-52.0); Hemoglobin 14.9 g/dl (14.0-18.0); Imm Gran Abs Auto 0.05 X10*3/uL (0.00-0.03); Imm Gran Pct Auto 0.5 % (0.0-0.4); Lymphocytes Absolute Auto 1.6 X10*3/uL (1.2-4.9); Mean Corpuscular HGB Conc 35.8 g/dl (31.0-36.0); Mean Corpuscular Hemoglobin 33.4 pg (27.0-33.0); Mean Corpuscular Volume 93.3 fL (80.0-98.0); Mean Platelet Volume 9.3 fL (9.4-12.4); Monocytes Absolute Auto 0.5 X10*3/uL (0.1-1.2); Monocytes Percent Auto 5.2 % (2-11); Neutrophils Absolute Auto 7.8 x10*3/uL (2.0-8.3); Neutrophils Percent Auto 77.1 % (45-73); Platelet Count 266 X10*3/uL (160-400); Red Blood Count 4.46 X10*6/uL (4.60-5.80); Red Cell Distribution Width 11.9 % (11.0-16.0); White Blood Count 10.1 X10*3/uL (4.8-10.8)
[2024-10-30 19:19] LABS: INTERNATIONAL NORM RATIO 0.9 (0.9-1.1); Prothrombin Time 10.2 SEC (10.9-12.4)
[2024-10-30 19:22] LABS: Partial Thromboplastin Time 29.8 SEC (26.0-36.8)
[2024-10-30] MEDS: ceFAZolin Sodium 1 GM VIAL IVPUSH (19:23)
[2024-10-30 19:26] LABS: Ethanol 131 mg/dL
--- NOTE | 2024-10-30 19:26 | PC.NURSE ---
This RN assumed pt care @ 1900. Pt a&ox4, no signs of distress. Pt with xray. Plan of care ongoing.
[2024-10-30 19:31] LABS: Ethanol 126 mg/dL
[2024-10-30 19:33] LABS: Lactic Acid 2.8 mmol/L (0.5-2.0)
[2024-10-30 19:36] LABS: Troponin-I High Sensitivity 5.9 ng/L (<3.5-35.0)
[2024-10-30] MEDS: 0.9 % Sodium Chloride 500 ML IV (19:41)
--- NOTE | 2024-10-30 19:48 | PC.NURSE ---
Pt remains in C collar Pt denies pain at this time Pt medicated per oct Pt requested and assisted with removal of pants, hospital non slip hospital socks placed on pt. Pt requested and given urinal Plan of care ongoing.
[2024-10-30 20:00] VITALS: BP 155/75; PULSE 54; RESP 18; O2SAT 99
[2024-10-30] MEDS: Lidocaine HCl 1 % 10 ML VIAL INFILTRATI (21:01)
--- NOTE | 2024-10-30 21:09 | PC.NURSE ---
spoke with pt sister- updated on pt condition- advised pt still pending CT imaging- pt sister sts that she is taking a sleeping pill so she may not hear the phone. advised pt is not admitted at this time
[2024-10-30 21:12] LABS: Reflex Lactate? Lactic Acid Added
[2024-10-30 21:44] LABS: Anion Gap 15 (12-20); Blood Urea Nitrogen 5 mg/dL (9-16); Calcium 8.5 mg/dL (8.4-10.2); Carbon Dioxide 21 mmol/L (22-29); Chloride 101 mmol/L (96-108); Creatinine Clr Calc Pharmacy 128.1; Estimated Glomerular Filt Rate > 60; Glucose Random 82 mg/dL (60-115); Potassium 3.7 mmol/L (3.3-5.1); Sodium 133 mmol/L (135-145)
[2024-10-30 21:49] LABS: ~Lactic Acid-LAB USE ONLY 2.2 mmol/L (0.5-2.0)
[2024-10-30 22:00] VITALS: BP 155/77; PULSE 58; RESP 18; O2SAT 99
[2024-10-30] MEDS: iohexoL 350 MG/ML 100 ML INFUS..BTL IV (22:18)
[2024-10-30 22:31] LABS: Troponin-I High Sensitivity 11.4 ng/L (<3.5-35.0)
[2024-10-30 23:27] LABS: Reflex Lactate? 2 Y
[2024-10-30] MEDS: Diphth,Pertus(ACell),Tet Adult 0.5 ML SYRINGE IM (23:28)
--- NOTE | 2024-10-30 23:31 | PC.NURSE ---
Pt medicated per [facility] Plan of care ongoing.
--- NOTE | 2024-10-30 23:54 | PC.NURSE ---
Xray with pt Plan of care ongoing.
[2024-10-31 00:40] VITALS: BP 154/75; PULSE 60; RESP 12; TEMP 36.8; O2SAT 96
[2024-10-31 00:41] VITALS: BP 160/70; PULSE 61
[2024-10-31 00:45] VITALS: BP 166/75; PULSE 74
[2024-10-31 00:49] VITALS: BP 156/67; PULSE 82
[2024-10-31 01:56] LABS: Troponin-I High Sensitivity 12.9 ng/L (<3.5-35.0)
[2024-10-31 03:18] VITALS: BP 156/67; PULSE 82; RESP 14; TEMP 37; O2SAT 98
== END 2024-10-31 03:24 | disposition short-term general hospital (02) ==
PROVIDERS: Emergency Provider Student in an Organized Health Care Education/Training Program
DX: S12.400A Unspecified displaced fracture of fifth cervical vertebra, initial encounter for closed fracture (principal); S61.012A Laceration without foreign body of left thumb without damage to nail, initial encounter; R55 Syncope and collapse; R11.2 Nausea with vomiting, unspecified; M54.2 Cervicalgia; R51.9 Headache, unspecified; R07.89 Other chest pain; R10.2 Pelvic and perineal pain; M79.645 Pain in left finger(s); F10.129 Alcohol abuse with intoxication, unspecified; Y90.6 Blood alcohol level of 120-199 mg/100 ml; W19.XXXA Unspecified fall, initial encounter; Y93.9 Activity, unspecified; Y92.009 Unspecified place in unspecified non-institutional (private) residence as the place of occurrence of the external cause; Y99.8 Other external cause status; Z51.81 Encounter for therapeutic drug level monitoring; Z23 Encounter for immunization; Z79.899 Other long term (current) drug therapy
CPT/HCPCS: 36415; 70450; 71260; 72125; 73140; 74177; 80048; 80307; 83605; 84484; 85025; 85610; 85730; 90471; 90715; 93005; 96361; 96374; 99284; 99285; J0690; J2003; Q9967

== ENCOUNTER → 2024-10-30 18:45 | Outpatient (BNV) | payer MEDICARE, SELFPAY | PROVIDERS: Emergency Provider Student in an Organized Health Care Education/Training Program; Visit Provider Internal Medicine Cardiovascular Disease | DX: R00.1 Bradycardia, unspecified (principal); I25.2 Old myocardial infarction | CPT/HCPCS: 93010 ==

== ENCOUNTER → 2024-10-30 18:50 | Outpatient (BNV) | payer MEDICARE, SELFPAY | PROVIDERS: Emergency Provider Student in an Organized Health Care Education/Training Program; Visit Provider Radiology Vascular & Interventional Radiology | DX: S61.012A Laceration without foreign body of left thumb without damage to nail, initial encounter (principal) | CPT/HCPCS: 70450; 71260; 72125; 73140; 74177 ==

== ENCOUNTER 2024-11-09 14:05 | Outpatient (AMB) | payer MEDICARE, SELFPAY ==
--- NOTE | 2024-11-09 14:07 | A.OFFPC_ITS ---
Vital Signs 11/09/24 14:09 Height 5 ft 10 in Weight 191 lb 4 oz BMI 27.4 BP 120/80 Blood Pressure Location Lt brachial Position Sitting Temp 98.2 F Temp Source Temporal Artery Scan Oxygen Delivery Method Room Air Intake Visit Reasons: [facility] 11/03 Intake Note: Patient is here for hospital discharge follow up. Patient was discharged from [facility] on 11/03/24. Housekeeping Assistant Required: No Hot Baller: Present Accompanied by: Sister Allergies No Known Allergies Allergy (Verified 11/09/24 14:09) Medication List - Last Reconciled 11/10/24 by Ridge Kendall MD blood pressure test kit-large (BPM 2 Advanced BP Monitor kit) As directed folic acid 1 mg PO DAILY lisinopril 40 mg PO DAILY walker (Ultra-Light Rollator misc) As directed Tobacco use date assessed: 11/09/24 Fall risk assessment: 1 Fall in past year Last assessed Fall Risk: 11/09/24 Dental Screening Dental Screen Date: 09/24/24 HPI [facility] 11/03 HPI Details fell due to a combination of alcohol and dehydration; sustained multiple abrasions and contusions along with a dislocated left thumb; has an ortho appt [facility] Medical History Hypertension Surgical History H/O left inguinal hernia repair H/O rectal polypectomy History of excision of pilonidal cyst Family History Father Past heart attack Mother CAD (coronary artery disease) Social History (Updated 11/09/24 @ 14:18 by YAO Daniels) Household Members: Family Household Members Other:: sister Housing: House Do you presently have visiting nurse or other home services: No Alcohol intake: former Patient Tobacco Use Status: Current everyday Tobacco user Tobacco use type: Cigar Cigarettes Per Day: 2 e-Cigarette/Vaping Use: Never Used Second Hand Smoke Exposure: Yes service: No Current occupational status: retired Current occupational exposures/hazards: No Cognitive needs: Yes (cane) Hearing needs: No Vision needs: Yes Questionnaire Thrive Questionnaire Date Thrive assessed: 09/24/24 ZAHRAA-7 AMB Questionnaire ZAHRAA-7 Date ZAHRAA - 7 assessed: 09/24/24 Source: Developed by Drs. Jayant Chavez, Gilda Rasheed, Sidney Avila and colleagues, with an educational keren from [employer]. Review of Systems Const Denies chills, Denies headache(s) and Denies weight loss ENT Denies headache(s) Card Denies chest pain, Denies syncope, Denies irregular heart rhythm and Denies dyspnea Resp Denies chest congestion, Denies cough and Denies dyspnea GI Denies abdominal pain, Denies change in stool character, Denies nausea and Denies vomiting Musc Denies deformity and Denies joint swelling Neuro Denies syncope and Denies headache(s) Physical exam (Primary Care) Vital Signs: Last Vital Signs Temp 98.2 F 11/09/24 14:09 BP 120/80 11/09/24 14:09 Oxygen Delivery Method Room Air 11/09/24 14:09 BMI result Body Mass Index 27.4 Tobacco/Smoking Status: Tobacco use Status Tobacco use date assessed 11/09/24 11/09/24 14:19 Patient Tobacco Use Status Current everyday Tobacco 11/09/24 14:19 Tobacco use type Cigar 11/09/24 14:19 e-Cigarette/Vaping Use Never Used 11/09/24 14:19 Thrive Assessment: Date of Thrive Assessment Date Thrive assessed 09/24/24 11/09/24 14:19 Const General: cooperative, comfortable, no acute distress and alert Neck Neck: Yes no lymphadenopathy Thyroid: Thyroid normal Resp Effort & Inspection: normal respiratory effort Auscultation: clear to auscultation bilaterally Percussion: percussion normal Cardio Jugular venous distension: no JVD Palpation: normal PMI Rate: regular rate Rhythm: regular rhythm Heart sounds: S1 normal heart sound present and S2 normal heart sound present GI Inspection: Yes normal to inspection Palpation (GI): No hepatosplenomegaly present Skin General skin exam: no rashes or lesions noted Extrem General: Yes no clubbing, cyanosis or edema Coding Level of Care Code Est Pt Level 3 (89320) Diagnoses Thumb dislocation S63.106A Assessment & Plan Assessment & Plan (1) Thumb dislocation: Code(s): S63.106A - Unspecified dislocation of unspecified thumb, initial encounter Plan: per ortho
[2024-11-09 14:09] VITALS: BP 120/80; TEMP 36.8; BMI 27.4
--- OUTSIDE RECORDS SUMMARY | 2024-11-09 16:04 | XMS_ITS | Continuity of Care Document ---
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 Role Phone Not on Staff, PCP Primary Care Physician Unavail able Encounter [facility] Date(s): 10/31/24 - 11/03/[address] [address]- Encounter Diagnosis Syncope(Final) - 10/31/24 Discharge Disposition: A-Transfer VNA/Home Health Attending Physician: Cynthia Nick MD Admitting Physician: Raoul Ramirez Sr, MD Referring Physician: Not on Staff, Referring MD Encounter Type: Disch Obv Allergies, Adverse Reactions, Alerts No Known Medication Allergies Medications acamprosate 333 mg oral delayed release tablet 2 tablet = 666 mg, By Mouth, 3 times a day, # 180 tablet, 0 Refills, Maintenance, 11/03/24 12:39:00 PM EST, EC Tablet, [facility], Partial fill upon patient request if the prescription isfor a schedule II opioid drug., 177, cm, 11/03/24 9:53:00 EST, Height, 87.9, kg, 10/31/24 22:29:00 EST, Dry Weight Start Date: 11/03/24 Status: Ordered Quantity: 180.0 Unit: tablet Repeat number: 1 folic acid 1 mg oral tablet 1 mg, By Mouth, Daily, # 90 tablet, Refills 0, Tot. Refills 0, Maintenance, 11/03/24 12:32:00 PM EST,Route to Pharmacy Electronically, [facility], Partial fill upon patient request if the prescription is for a schedule II opioid drug., 177, cm, 11/03/24 9:53:00 EST, Height, 87.9, kg, 10/31/24 22:29:00 EST, Dry Weight Start Date: 11/03/24 Status: Ordered Quantity: 90.0 Unit: tablet Repeat number: 1 lisinopril 20 mg oral tablet 40 mg, Tablet, By Mouth, Hold for: SBP <100, 11/03/24 9:00:00 AM EST Start Date: 11/03/24 Stop Date: 11/03/24 Status: Completed Repeat number: 1 lisinopril 40 mg oral tablet 1 tablet = 40 mg, By Mouth, Daily, Maintenance, 10/31/24 9:11:00 AM EST, Partial fill upon patient request if the prescription is for a schedule II opioid drug. Start Date: 10/31/24 Status: Ordered Repeat number: 1 multivitamin with minerals Antioxidant Multiple Vitamins and Minerals oral capsule See Instructions, By Mouth Daily, # 90 capsule, 0 Refills, Maintenance, 11/03/24 12:32:00 PM EST, Capsule, [facility], Partial fill upon patient request if the prescription is for a schedule II opioid drug., By Mouth Daily, 177, cm, 11/03/24 9:53:00 EST, Height, 87.9, kg, 10/31/24 22:29:00 EST, Dry Weight Start Date: 11/03/24 Status: Ordered Quantity: 90.0 Unit: capsule Repeat number: 1 pyridoxine 50 mg oral tablet 50 mg, By Mouth, Daily, # 90 tablet, Refills 0, Tot. Refills 0, Acute 11/03/25 8:59:00 AM EST, 11/04/2511:32:00 PM EST, Route to Pharmacy Electronically, [facility], Partial fill upon patient request if the prescription is for a schedule II opioid drug., 177, cm, 11/03/24 9:53:00 EST, Height, 87.9, kg, 10/31/24 22:29:00 EST, Dry Weight Start Date: 11/03/24 Stop Date: 11/03/25 Status: Ordered Quantity: 90.0 Unit: tablet Repeat number: 1 thiamine 100 mg oral tablet 100 mg, By Mouth, 2 times a day, # 180 tablet, Refills 0, Tot. Refills 0, Acute 11/03/25 8:59:00 AM EST, 11/03/24 12:33:00 PM EST, Route to Pharmacy Electronically, [facility], Partial fillupon patient request if the prescription is for a schedule II opioid drug., 177, cm, 11/03/24 9:53:00 EST, Height, 87.9, kg, 10/31/24 22:29:00 EST, Dry Weight Start Date: 11/03/24 Stop Date: 11/03/25 Status: Ordered Quantity: 180.0 Unit: tablet Repeat number: 1 Vital Signs Most recent to oldest [Reference Range]: 1 2 3 Height 177 cm (11/03/24 1:21 PM) 177 cm (11/03/24 9:53 AM) 177 cm (11/02/24 12:40 PM) Weight 87.9 kg (10/31/24 9:46 PM) Oxygen Saturation [94-100 %] 100 % (11/03/24 1:21 PM) 100 % (11/03/24 11:00 AM) 100 % (11/03/24 7:59 AM) Pulse Rate [55-90 bpm] 74 bpm (11/03/24 1:21 PM) 53 bpm *L* (11/03/24 11:00 AM) 54 bpm *L* (11/03/24 7:59 AM) Body Mass Index [18.5-24.99 kg/m2] 28.06 kg/m2 *H* (10/31/24 9:46 PM) Blood Pressure [90-138/55-84 mm Hg] 120/97mm Hg (11/03/24 1:21 PM) 150/68mm Hg *H* (11/03/24 11:00 AM) 139/76mm Hg *H* (11/03/24 8:45 AM) Respiratory Rate [16-30 br/min] 18 br/min (11/03/24 1:21 PM) 19 br/min (11/03/24 11:00 AM) 20 br/min (11/03/24 7:59 AM) Temperature [96.8-100.4 DegF] 98.3 DegF (11/03/24 1:21 PM) 97.8 DegF (11/03/24 11:00 AM) 97.6 DegF (11/03/24 7:59 AM) Mode of Delivery (Oxygen) Room air (11/03/24 1:21 PM) Room air (11/03/24 11:00 AM) Room air (11/03/24 7:59 AM) Blood pressure sites Arm, left (11/03/24 1:21 PM) Arm, left (11/03/24 11:00 AM) Arm, left (11/03/24 7:59 AM) Temperature Route Oral (11/03/24 1:21 PM) Temporal (11/03/24 11:00 AM) Temporal (11/03/24 7:59 AM) Dry Weight 87.9 kg (10/31/24 9:46 PM) Consult note * Kayleigh Knutson: MODIFY Kayleigh Knutson: MODIFY, MODIFY, MODIFY Event Display: Consult Authored Date: [id number] Patient: ??MOSHE HEIN ? Age:??69 Years?Sex:??Male?:??1955?? Provider Clinical Summary Addiction Med Consult - Alcohol Use Disorder Requested by Dr. Madera Chief Complaint Unwittnessed fall, L hand and HS with etoh, +c5&c6fx, aspen in place. History of Present Illness Pt is a 69 year old male with a PMHx of heavy alcohol use, alcohol withdrawal seizures, HTN and atrial fibrillation who was brought to the ED following a fall witnessed by his sister. Pt states he atleast three drinks and felt dizzy when he stood up and collapsed. ?? Met with pt on inpatient floor this morning. Pt is here with his sister, who remained for interview with pts permission. Pt endorsed frequent alcohol use but denied any other substance use, no opioids, cocaine, i Pt would like to start medical management of alcohol cravings He has never tried medications for alcohol cravings in the past He marshall like to try Campral for alcohol cravings after discussion No community resources requested at this time - offered programs, therapy and recovery coaching. Pt is in the process of switching PCPs for continued care - sounds like his previous PCP left the practice, but pt will likely be continuing with another MD at the office. Review of Systems Pt endorses bruising from the fall but feels better. Otherwise unremarkable Physical Exam Vitals & Measurements T:??97.6?F?? TMIN:??97.6?F?? TMAX:??97.7?F?? HR:??54??(Peripheral)?? RR:??20?? BP:??139/76?? SpO2:??100%?? General Pt well developed, well nourished, appears stated age. In no acute distress, no diaphoresis. Mental Status Appearance: casual Attitude: cooperative Eye contact: normal Motor activity: calm, no aberrant movements Mood: euthymic Affect: congruent Speech: fluent, unimpaired Judgement: appears intact Insight: appears intact Thought process: linear Reliability: uncertain Fund of Knowledge: intact ?? Assessment/Plan Severe alcohol use disorder Pt is aware of the consequences of senior care excessive ETOH consumption such as damage to the cardiovascular system,memory loss, falls, liver failure or . ?? Pt is currently interested in staring Campral to help with alcohol cravings - can start Campral 666mg PO TID Please continue on DC. 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 ?? No interest in any referrals/resources in the community at this time. Should this change prior to DC, would reach out to social work to see about resource coordination. ?? Sent update via??[facility] to Dr Madera Addiction??Service will sign off at this time. Thank you for allowing us to participate in the careof this patient. Please contact me with any questions or concerns. ?? This note was prepared with assistance of PA student, Samuel Liang. Reviewed by QUINTON Koenig with the addiction med service. Problem List/Past Medical History Ongoing No qualifying data Medications Inpatient acetaminophen 325 mg oral tablet, 650 mg, By Mouth, Every 6 hours, PRN Ativan Inj, 1 mg, IV Push Slowly, Every 2 hours, PRN Ativan Inj, 2 mg, IV Push Slowly, Every 2 hours, PRN Ativan Inj, 2 mg, IV Push Slowly, Every hour, PRN Enoxaparin Inj, 40 mg= 0.4 mL, Subcutaneous Injection, Daily Folic Acid Tablet, 1 mg, By Mouth, Daily lisinopril 20 mg oral tablet, 40 mg, By Mouth, Daily Melatonin Tablet, 3 mg, By Mouth, Daily at bedtime, PRN MiraLax Powder, 17 Gm= 1 pack/packet, By Mouth, Daily, PRN MorPHINE Inj, 2 mg, IV Push Slowly, Every 4 hours, PRN Multivit Therapeutic/Minerals Tablet, 1 tablet, By Mouth, Daily NaCL 0.9% Flush, 3 mL, IV Push, Every 8 hours NaCL 0.9% Flush, 3 mL, IV Push, Every 8 hours, PRN Pyridoxine Tablet, 50 mg, By Mouth, Daily Robitussin DM Liquid, 10 mL, By Mouth, Every 4 hours, PRN Senna Tablet, 8.6 mg= 1 tablet, By Mouth, 2 times a day, PRN Simethicone Tablet, 80 mg, Chew, 3 times a day, PRN Thiamine Tablet, 100 mg, By Mouth, 2 times a day traMADol 50 mg oral tablet, 50 mg, By Mouth, Every 4 hours, PRN Home lisinopril 40 mg oral tablet, 40 mg= 1 tablet, By Mouth, Daily Metoprolol Succinate ER 50 mg oral tablet, extended release, 50 mg= 1 tablet, By Mouth, Daily Allergies No Known Medication Allergies Immunizations Vaccine Date Status influenza virus vaccine, inactivated - Not Given Comments : Patient Refuses * Francesco tSeven MD: PERFORM, SIGN, VERIFY Event Display: Consultation Note Authored Date: [id number] Patient: MOSHE HEIN Age: 69 years Sex: Male : 1955 Associated Diagnoses: None Author: Francesco Steven MD This 69-year-old gentleman comes in for an episode of syncope. He was out with friends drinking. Hedrinks frequently. Said he had 3 drinks and he came home. Admits he was feeling somewhat tipsy . When he suddenly fell. His sister was home and came to his aid. He has bruises over the right thigh and abrasion on the left nostril and he fractured his left thumb. He is a heavy drinker and according to notes has had alcohol withdrawal seizures in the past. He is obese and smokes cigars. He is on some medication for blood pressure. Lisinopril 40 also metoprolol 50 daily. He has had a couple of minor operations in the past but otherwise a benign history. He has been seen in consultation by addiction medicine and seems willing to try medications to reduce alcohol cravings. It seems as though each of his fainting spells occur after drinking. But he apparently drinks daily. The last admission for fainting was a few months ago at [facility]. Review of his monitor here shows episodes of bradycardia and junctional escape rhythms but nothing severe. And they occurred about 2 or 3:00 in the morning when asleep. No other arrhythmias noted. He had a normal looking echocardiogram. His electrocardiogram shows sinus rhythm at 69 with normalintervals and leftward axis deviation. . Denies dyspnea or any history of COPD or asthma or emphysema. He has no history of chest pain or chest pressure. Does not know if he snores.. He lives with his sister. He is retired. He has done a variety of jobs in his life. His laboratories are notable for a normal CBC. He came in hyponatremic and the sodium is stated about 132 with otherwise normal electrolytes. Slightly low chloride normal renal function. Normal TSH. Normal high-sensitivity troponin. Physical Examination Exam Neurological: alert, nonfocal. Pulmonary/Lungs: clear. Cardiovascular: S1, S2, NSR. Gastrointestinal: Abdomen (soft, non-tender, non-distended, bowel sounds present). Extremities: Edema 0. Results Review Today's Results CICU Vital Signs 11/03/2024 8:45 EST Systolic Blood Pressure 139 mm Hg H Diastolic Blood Pressure 76 mm Hg 11/03/2024 7:59 EST Systolic Blood Pressure 136 mm Hg Diastolic Blood Pressure 86 mm Hg H Medications reviewed. Impression and Plan Most likely this gentleman faints because of intoxication orthostasis however 1 cannot rule out other rhythm disorder. I agree with stopping the metoprolol. I agree with continuing to monitor him. I will see if we can get an implantable loop recorder put in before he goes home. And as an outpatienthe should have a sleep study. The bradycardia we are seeing at night is likely due to or linked to sleep apnea. * Symone SENA, Yusfu Cintron: PERFORM, MODIFY Event Display: Consult Authored Date: [id number] Patient: ??MOSHE HEIN ? Age:??69 Years?Sex:??Male?:??1955?? Chief Complaint/Reason for Consultation Unwittnessed fall, L hand and HS with etoh, +c5&c6fx, aspen in place. History of Present Illness 69-year-old male??trauma consult status post??mechanical fall. ??Negative LOC, negative AC, positive EtOH, GCS 15. ??Per discussion with patient,??ED provider and review of electronic medical record.??He reports last evening while intoxicated??he had a mechanical fall from standing.?? He reports??he has no recollection of any symptoms prior to fall or the events??after the fall.?? Reports that he??awoke on a carpeted floor. ??He is unclear if there was head strike.?? He initially presented to [facility] he underwent CT imaging of the head and cervical spine as well as plain film x-rays of the left??hand which identified a possible C5/C6??fracture. ??And a left thumb fracture.??The left??extremity fracture was splinted??and patient??is scheduled for outpatient follow-up with orthopedic surgery.?? Given??the possible cervical spine fracture he was transferred to [facility] for further evaluation. ?? Upon initial evaluation the patient is noted to be sitting upright in ED stretcher with cervicalcollar in place. ??Alert and oriented x 3 with a GCS of 15 (E4, V5, M6).?? All available laboratory, hemodynamic, and radiologic data reviewed prior to evaluation. ??He currently denies headache,??chest pain, shortness of breath, nausea, vomiting, diarrhea, head neck or back discomfort, weakness ornumbness in his extremities.?? The patient provides a history of present illness as above, and physical exam is as noted below: Review of Systems Negative accept as noted above?? Objective Vital Signs?? Temperature: 98.4 DegF (10/31/24 08:42:00) Temperature Route: Oral (10/31/24 08:42:00) Pulse Rate: 70 bpm (10/31/24 16:47:00) Respiratory Rate: 16 br/min (10/31/24 16:47:00) Systolic Blood Pressure:??154 mm Hg??High (10/31/24 16:47:00) Diastolic Blood Pressure: 70 mm Hg (10/31/24 16:47:00) Pulse Pressure: 84 mm Hg (10/31/24 16:47:00) Oxygen Saturation: 98 % (10/31/24 16:47:00) Mode of Delivery (Oxygen): Room air (10/31/24 16:47:00) Early Warning Score: 1 (10/31/24 16:47:24). ? Alondra Coma Scale Alondra Coma Score: 15 (10/31/24 04:38:00) Motor Response-Adult: Obeys commands (10/31/24 04:38:00) Response Eye Opening: Spontaneously (10/31/24 04:38:00) Verbal Response-Adult: Oriented and converses (10/31/24 04:38:00) ? Physical Exam General: calm, comfortable-appearing, no acute distress Head: atraumatic, no hematoma, ??no wounds Face: Ecchymosis noted over the left upper eyelid otherwise??no ecchymosis, no abrasions, no wounds Eyes: pupils are equal, round, and reactive; extraocular movement intact Nose: ??no deformity Mandible: ??no malocclusion Neck: no hematoma, no ecchymosis, no wounds, trachea midline Chest: symmetric, no deformity, sternum, chest wall, and clavicles are nontender to palpation Heart: regular rate?? Lungs: No increased WOB, RR even/unlabored Abdomen: soft, nondistended, nontender, no wounds, no ecchymosis, no hematoma Pelvis: stable, nontender Back: no ecchymosis, hematoma or wounds,?? Cervical/Thoracic/Lumbar spine: no deformities or stepoffs, no tenderness, normal active range of motion Extremities: no long bone deformities, no wounds, no ecchymosis, no hematomas, full active range ofmotion Neuro: GCS15. Strength is 5/5 in upper and lower extremities bilaterally. ??Sensation is intact ??in all upper and lower extremities bilaterally. ??Cranial nerves II-XII are intact and symmetric. Assessment/Plan Diagnoses 1. ??Syncope ??(R55) 1. ??Syncope ??(R55) 2. ??Ground-level fall ??(W18.30XA) 3. ??Thumb injury ??(S69.90XA) 4. ??Essential hypertension ??(I10) 5. ??Heavy alcohol use ??(F10.90) 6. ??Hyponatremia ??(E87.1) ?? Assessment:??69-year-old male status post mechanical fall.??Transferred to [facility] for evaluation of possible cervical spine injury.??Review of imaging by??neurosurgery notes no evidence of fracture and??he is appropriate for clinical clearance of cervical collar??by primary team.??Head to toe exam notes no additional traumatic injuries to warrant further evaluation or workup by the trauma service.??Trauma surgery will sign off at this time.??Please refer stone??as needed. ? Case discussed with ??[facility] Please page [phone] with additional questions. ? Histories Allergies Allergies ?(Active and Proposed Allergies Only) No Known Medication Allergies? (Severity: Unknown severity, Onset: Unknown) ? Past Medical History/Problem List No problems documented. ? Past Surgical History No surgery history documented. ? Social History No social history documented. ? Family History No Family History documented. ? Results Recent Labs BLOOD COUNT & DIFF WBC 8.8 k/mm3 ()?? 10/31/2024 04:31 RBC 4.57 m/mm3 (Low)?? 10/31/2024 04:31 Hgb 15.2 Gm/dL ()?? 10/31/2024 04:31 Hct 42.6 % ()?? 10/31/2024 04:31 MCV 93.2 femtoliters ()?? 10/31/2024 04:31 MCH 33.3 pg ()?? 10/31/2024 04:31 MCHC 35.7 Gm/dL ()?? 10/31/2024 04:31 Platelet Count 280 k/mm3 ()?? 10/31/2024 04:31 RDW-SD 40.5 femtoliters ()?? 10/31/2024 04:31 MPV 9.5 femtoliters ()?? 10/31/2024 04:31 Nucleated RBC (Automated) 0.0 #/100 WBC'S ()?? 10/31/2024 04:31 Abs. NRBC 0.0 k/mm3 ()?? 10/31/2024 04:31 Abs. Neut 7.0 k/mm3 ()?? 10/31/2024 04:31 Abs. Lymph 1.2 k/mm3 ()?? 10/31/2024 04:31 Abs. Perkins 0.5 k/mm3 ()?? 10/31/2024 04:31 Abs. Eo 0.0 k/mm3 ()?? 10/31/2024 04:31 Abs. Baso 0.0 k/mm3 ()?? 10/31/2024 04:31 Neut % 79.3 % (High)?? 10/31/2024 04:31 Lymph % 13.3 % (Low)?? 10/31/2024 04:31 Perkins % 6.1 % ()?? 10/31/2024 04:31 Eos % 0.5 % ()?? 10/31/2024 04:31 Baso % 0.2 % ()?? 10/31/2024 04:31 Imm Gran 0.6 % ()?? 10/31/2024 04:31 Abs. Imm Gran 0.1 k/mm3 ()?? 10/31/2024 04:31 ?? CARDIAC High Sensitivity Troponin (HSTnT) 20 ng/L ()?? 10/31/2024 13:48 ?? CHEM GENERAL Sodium 132 mmol/L (Low)?? 10/31/2024 04:31 Potassium 4.1 mmol/L ()?? 10/31/2024 04:31 Chloride 97 mmol/L (Low)?? 10/31/2024 04:31 Bicarbonate Level 22 mmol/L ()?? 10/31/2024 04:31 Anion Gap 13 mmol/L ()?? 10/31/2024 04:31 Glucose Level 89 mg/dL ()?? 10/31/2024 04:31 BUN 5 mg/dL (Low)?? 10/31/2024 04:31 Creatinine-Blood 0.59 mg/dL (Low)?? 10/31/2024 04:31 Estimated GFR Creatinine 104 ML/MIN/1.73 M2 ()?? 10/31/2024 04:31 Osmolality 268 mOs/kg (Low)?? 10/31/2024 13:48 Calcium 8.5 mg/dL (Low)?? 10/31/2024 04:31 Calcium, Ionized pH Corrected 1.17 mmol/L ()?? 10/31/2024 04:31 Phosphorus 3.3 mg/dL ()?? 10/31/2024 04:31 Magnesium 1.7 mg/dL ()?? 10/31/2024 04:31 ?? ENDOCRINE/TUMOR MARKER TSH 1.98 uIU/mL ()?? 10/31/2024 04:31 ?? UA/URINALYSIS Appear/Color, Urine YELLOW ()?? 10/31/2024 15:31 Specific [place], Urine 1.031 (High)?? 10/31/2024 15:31 pH, Urine 7.0 ()?? 10/31/2024 15:31 Albumin, Urine TRACE (Abnormal)?? 10/31/2024 15:31 Glucose, Urine NEGATIVE ()?? 10/31/2024 15:31 Ketones, Urine TRACE (Abnormal)?? 10/31/2024 15:31 Bilirubin, Urine NEGATIVE ()?? 10/31/2024 15:31 Hemoglobin, Urine NEGATIVE ()?? 10/31/2024 15:31 Nitrite, Urine NEGATIVE ()?? 10/31/2024 15:31 Leukocyte, Urine NEGATIVE ()?? 10/31/2024 15:31 Urobilinogen 2 mg/dL (Abnormal)?? 10/31/2024 15:31 WBC's, Urine <1 /HPF ()?? 10/31/2024 15:31 RBC's, Urine 1 /HPF ()?? 10/31/2024 15:31 Mucus SLIGHT /LPF ()?? 10/31/2024 15:31 ?? URINE OTHER Sodium, Urine Random 87 mmol/L ()?? 10/31/2024 15:31 Osmolality, Urine Random 552 mOsm/kg ()?? 10/31/2024 15:31 ? * Samuel ALCANTARA, Miguel Angel Arrieta: PERFORM, MODIFY Event Display: Consultation Note Authored Date: [id number] Patient: ??MOSHE HEIN ? Age:??69 Years?Sex:??Male?:??1955?? Chief Complaint/Reason for Consult Unwittnessed fall, L hand and HS with etoh, +c5&c6fx, aspen in place. 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 He was transferred to us for question of a C5-6 fracture. ?? At the time of my examination, he reports a bifrontal headache??however denies neck pain as wellas motor/sensory changes in the extremities. Review of Systems All ROS negative except what is mentioned in HPI Above Physical Exam Vitals & Measurements HR:??76??(Peripheral)?? RR:??19?? BP:??134/84?? SpO2:??96%?? Pleasant awake alert oriented 69-year-old gentleman no acute distress Pupils equal round reactive, EOMs full, visual acuity colindres intact to gross confrontation Speech is fluent and appropriate, facial movements are symmetric, tongue is midline, hearing??intact to voice Bilateral upper and lower extremity strength and sensation are intact Cervical spine is nontender to palpation. Assessment/Plan W19.XXXA Fall, initial encounter R51.9 Acute nonintractable headache, unspecified headache type R93.[address] scan, cervical spine? -[facility]??any significant fracture which would require??stabilization or surgical decompression/fusion.?? There is multilevel degenerative changes. ?? Recommendations No need for collar Safe for activity as tolerated No need for further neurodiagnostic imaging or routine neurosurgical follow-up Signing off for now however page [phone] with any concerns ?? d/w Lyness Total Time Spent I personally spent a total of _ minutes, including both [id number] and ohk-wctp-ow-face time on the date of the encounter, addressing the above diagnoses.60 Problem List/Past Medical History Ongoing No qualifying data Procedure/Surgical History No qualifying data available. Home Medications No qualifying data available. Allergies No active allergies Family History No family history recorded. * Leonora Machado DO: PERFORM Event Display: Consultation Note Authored Date: [id number] - I don't see any fracture, just lucencies in the joints related to arthritic bony overgrowth ?? Admission evaluation note * Haritha Velasquez: PERFORM, MODIFY, MODIFY, MODIFY, MODIFY Event Display: Admission Note Authored Date: Patient: ??MOSHE HEIN ? Age:??69 Years?Sex:??Male?:??1955?? Chief Complaint/Reason for Consultation Unwittnessed fall, L hand and HS with etoh, +c5&c6fx, aspen in place. History of Present Illness Patient is a 69-year-old male with past medical history of atrial fibrillation (per [facility] [place], but patient denies), essential hypertension, heavy alcohol use (on average admits to drinking 4???5 drinks per day) with prior history of alcohol withdrawal seizures. ?? Patient was transferred from [facility] for a formal trauma surgery evaluation given concern for possible C5 vertebral body fracture after??suffering an unwitnessed syncopal event with??ground level collapse.?He was brought into [facility] ED yesterday afternoon,??10/30, after??unwitnessed syncopal event with??floor level collapse. ??Patient reported that on average he drinks about 5 bloody meters per day (2 in the morning and 3 in the afternoon).?Yesterday he??returned home after having a few drinks but not more than average for daily intake, reported that whenhe was standing up in the kitchen he felt dizzy/lightheaded and subsequently passed out. ??He denied preceding/associated chest pain/acute abdominal/back/headache which may contribute to or??associated with the fall. ??He admitted prior episodes of fainting with similar circumstances??while??intoxicated with alcohol. ??It seems that his sister found him on the floor, and reportedly he was unconscious for approximately 1 minute prior to recovering??to his baseline.??His??only complaint after thefall was headache and left thumb pain.? Per review of accompanying paperwork from [facility]??twelve-lead EKG showed sinus bradycardia with some nonspecific T wave abnormality in the inferior leads;??patient was??moderately hypertensive, without hypoxia. Basic lab-work??was??grossly reassuring, only with mild hyponatremia to Na 133.??HS troponin was WNL 5.9/11.4/12. (nl range perlab reference <3.5-35.0). BAL 131 (no available lab range). ??Radiology impression of the CT??head??showed: no acute intracranial abnormality....??No acute intracranial hemorrhage...??Moderate right frontal scalp hematoma??present, extending into the right periorbital region. ??A left periorbital hematoma also present. ??No acute calvarial fracture.?? . ??CT of the cervical spine, per radiology impression showed : ??Mildly limited examination due to artifact. ??With possible??C5??vertebral body??fracture vs degenerative change... ??.?CT of the chest/abdomen and pelvis showed no acute??process. ??Plain films of the left hand showed dorsal dislocation of the distal phalanx of the thumb with??flexor tendon injury. ??ED provider reduced the thumb and sutured??it, splint was applied.??tDAP??and Cefazolin were administered.?Given that the no MRIs available at [facility]? ?over the weekend??and need for formal neurosurgery evaluation, patient was transferred to [facility]. ?? On arrival to [facility] ED he remained borderline hypertensive--normotensive.?? No tachycardia, tachypnea, hypoxia.?? No fevers.?? Initial lab work showed no leukocytosis or left shift.?? Unremarkable H/H and platelet counts.?? General chemistry showed good renal function creatinine 0.59/BUN of 5; mild hyponatremia Na+ 132; no electrolyte derangements otherwise.?? TSH unremarkable 1.98. ?? Twelve-lead EKG, on personal review showed sinus rhythm with first-degree AV block at a rate of 71 bpm. ??No evidence of acute ischemic changes. ??QTc unremarkable 423.?? No prior studies are able for comparison. ?? ED provider spoke with trauma team who stated that no need for trauma consultation.?? ED also reached out to neurosurgery team who assessed the patient, reviewed outside imaging and per NSG note imaging did not show fracture which would require stabilization of surgical intervention.... joints related to arthritic bony overgrowth. ?? Patient will be admitted to medicine team for syncope workup. Review of Systems Constitutional symptoms: ??Negative except as documented in HPI.?? Respiratory symptoms:?Negative Cardiovascular symptoms:??As per HPI Gastrointestinal symptoms: ??Negative Genitourinary symptoms: ??Negative Musculoskeletal symptoms:? per HPI Neurologic symptoms:?Negative ? Objective Vital Signs?? Temperature: 98.4 DegF (10/31/24 08:42:00) Temperature Route: Oral (10/31/24 08:42:00) Pulse Rate: 70 bpm (10/31/24 11:51:00) Respiratory Rate: 16 br/min (10/31/24 11:51:00) Systolic Blood Pressure: 136 mm Hg (10/31/24 11:51:00) Diastolic Blood Pressure:??86 mm Hg??High (10/31/24 11:51:00) Pulse Pressure: 50 mm Hg (10/31/24 11:51:00) Oxygen Saturation: 96 % (10/31/24 11:51:00) Mode of Delivery (Oxygen): Room air (10/31/24 11:51:00) Early Warning Score: 1 (10/31/24 11:51:52) vs ? Pain Scores?? No qualifying data available. ? Intake/Output? No Data Available ? Physical Exam GEN:??Elderly gentleman, appears stated age.?? MELENDEZ x 3, provides good history.?? Answers questions appropriately. ??[place] collar still on. HEENT: Noted bilateral periorbital ecchymoses. CV: Regular rate and rhythm. S1 and S2 normal . No murmurs. PULM: ??BS clear to auscultation BL. BACK:??No spinal or paraspinal tenderness, including C spine without any tenderness. ABD: Soft. Non-distended. Normal bowel sounds present x4 quadrants. Nontender. EXT:?//Left thumb is splinted. NEURO: No gross neurologic focal deficits.?? Face symmetric. ??Speech is clear and well paces. ??Responses are appropriate. Tongue is midline, no deviation. Extremity strength is 5/5 x4. ??Meeras-wy-iecg is unremarkable throughout. ??Sensation to light touch is unremarkable. SKIN: No rashes seen on chest, abdomen, or back.? PSYCH: Patient is calm and pleasant.? Assessment/Plan Patient is a 69-year-old male with past medical history of atrial fibrillation (per [facility] paperwork, but patient denies), essential hypertension, heavy alcohol use (on average admits to drinking 4???5 drinks per day) with prior history of alcohol withdrawal seizures. ?? Diagnoses 1. ??Syncope ??(R55) 1. ??Syncope ??(R55) 2. ??Ground-level fall ??(W18.30XA) 3. ??Thumb injury ??(S69.90XA) 4. ??Essential hypertension ??(I10) 5. ??Heavy alcohol use ??(F10.90) 6. ??Hyponatremia ??(E87.1) ?? Syncope (R55):?? likely due to orthostatic hypotension event Suspect in the setting of intoxication and orthostatic hypotension (dehydration due to drinking alcohol).?? He reported that he came home after having a few alcoholic drinks, and felt lightheaded when he stood up from the chair and subsequently passed out.?? He denied preceding/associated complaints grossly concerning for ACS/cardiopulmonary event.?? Twelve-lead EKG repeated at [facility] ED was reassuring, although per review of notes from the [facility] he was noted to be borderlinebradycardic but with stable BPs.?? Lab work overall is reassuring only with mild hyponatremia. -Admit to acute care medical floor ??? Telemetry monitoring ??? Will obtain orthostatic vitals, when can be done so safely -Will hold off with cardiac echo at this time, can follow-up PCP who can decide whether needs to bedone on outpatient basis ??? Will order troponin, pending ??? Requested PT evaluation ?? Ground-level fall (W18.30XA): due to syncopal event Thumb injury (S69.90XA): . Please refer to HPI regarding details of the imaging done at [facility].?? But as a pertinent history CT of the cervical spine done at [facility] was concern for possible C5 vertebral body fracture versus degenerative changes, and given no access to MRI over the weekend, patient was transferred to [facility] for neurosurgery evaluation.?? Patient was evaluated by neurosurgery team, who after reviewing images did not appreciate evidence concerning for fracture, only lucencies inthe joints related to arthritic bony overgrowth.?? Per neurosurgery, patient does not require any stabilization no surgical intervention.?? No need for further neurodiagnostic imaging or neurosurgical follow-up.?? Neurosurgery team recommendations very much appreciated. -per NSG,?? Okay to remove c-collar???MD to RN orders placed -PT evaluation ??? As needed Tylenol -Re: Left thumb dislocation with tendon injury. S/p splinting and suture by ED provider at [facility].?? He was given Tdap in cefazolin prophylactically.?? Should follow-up PCP after discharge. ?? Heavy alcohol use (F10.90): . Admits that on average drinks 2 bloody Berna's in the morning and 3 in the afternoon.?? Denied priorhistory of alcohol withdrawal seizures.?? Advised that his alcohol intake is excessive. ??? Will start on [facility] protocol with as needed benzodiazepines -Multivitamins, thiamine, pyridoxine???per [facility] protocol ?? Hyponatremia (E87.1): . Na+ 132 on arrival, without prior values available for comparison as patient receives all his care at [facility].?? Suspicion for poor nutritional intake due to alcohol consumption vs other, however he does take a lot of bloody Berna's. ??? Will check urinalysis, urine osmolality, urine sodium and serum osmolality???pending ??? Will trial with sodium chloride 75 will/hour for several hours (750ml) -Repeat BMP/electrolytes in the morning ?? Essential hypertension (I10): . -Continue lisinopril and metoprolol, per medication list ?? Cigar smoker (F17.290): On average consumes 2 cigars/day.?? Attempted to provide smoking cessation discussion, patient not interested. ?? Quality Measures: DVT prophylaxis: Lovenox SQ Diet: Regular diet Code Status: FULL CODE - as discussed with patient at bedside Medication list: confirmed with??patient at bedside. ?? I personally spent a total of??75 minutes reviewing the chart, notes, images, and labs, speakingwith nurses, examining and interviewing the patient,??reviewing outside paperwork and updating records, placing orders, reconciling medications, and documenting in the medical record.? Date of service:??10/31/24 ?? Histories Allergies Allergies ?(Active and Proposed Allergies Only) No Known Medication Allergies? (Severity: Unknown severity, Onset: Unknown) ? Past Medical History/Problem List No problems documented. ? Past Surgical History s/p left inguinal hernia repair s/p rectal polypectomy s/p pilonidal cyst excision ?? Social History Daily cigar smoker on average 2/day Moderate alcohol user on average consuming??5 bloody beers per day Denies recreational drug use ? Psychosocial History ? Family History Father: (): Heart attack Mother (alive) CAD ?? Medications Home Medications Lisinopril (lisinopril 40 mg oral tablet)??1 tab(s) 40 Milligram By Mouth Daily Metoprolol (Metoprolol Succinate ER 50 mg oral tablet, extended release)??50 Milligram 1 tablet By Mouth Daily ? Results Recent Labs BLOOD COUNT & DIFF WBC 8.8 k/mm3 ()?? 10/31/2024 04:31 RBC 4.57 m/mm3 (Low)?? 10/31/2024 04:31 Hgb 15.2 Gm/dL ()?? 10/31/2024 04:31 Hct 42.6 % ()?? 10/31/2024 04:31 MCV 93.2 femtoliters ()?? 10/31/2024 04:31 MCH 33.3 pg ()?? 10/31/2024 04:31 MCHC 35.7 Gm/dL ()?? 10/31/2024 04:31 Platelet Count 280 k/mm3 ()?? 10/31/2024 04:31 RDW-SD 40.5 femtoliters ()?? 10/31/2024 04:31 MPV 9.5 femtoliters ()?? 10/31/2024 04:31 Nucleated RBC (Automated) 0.0 #/100 WBC'S ()?? 10/31/2024 04:31 Abs. NRBC 0.0 k/mm3 ()?? 10/31/2024 04:31 Abs. Neut 7.0 k/mm3 ()?? 10/31/2024 04:31 Abs. Lymph 1.2 k/mm3 ()?? 10/31/2024 04:31 Abs. Perkins 0.5 k/mm3 ()?? 10/31/2024 04:31 Abs. Eo 0.0 k/mm3 ()?? 10/31/2024 04:31 Abs. Baso 0.0 k/mm3 ()?? 10/31/2024 04:31 Neut % 79.3 % (High)?? 10/31/2024 04:31 Lymph % 13.3 % (Low)?? 10/31/2024 04:31 Perkins % 6.1 % ()?? 10/31/2024 04:31 Eos % 0.5 % ()?? 10/31/2024 04:31 Baso % 0.2 % ()?? 10/31/2024 04:31 Imm Gran 0.6 % ()?? 10/31/2024 04:31 Abs. Imm Gran 0.1 k/mm3 ()?? 10/31/2024 04:31 ?? CHEM GENERAL Sodium 132 mmol/L (Low)?? 10/31/2024 04:31 Potassium 4.1 mmol/L ()?? 10/31/2024 04:31 Chloride 97 mmol/L (Low)?? 10/31/2024 04:31 Bicarbonate Level 22 mmol/L ()?? 10/31/2024 04:31 Anion Gap 13 mmol/L ()?? 10/31/2024 04:31 Glucose Level 89 mg/dL ()?? 10/31/2024 04:31 BUN 5 mg/dL (Low)?? 10/31/2024 04:31 Creatinine-Blood 0.59 mg/dL (Low)?? 10/31/2024 04:31 Estimated GFR Creatinine 104 ML/MIN/1.73 M2 ()?? 10/31/2024 04:31 Calcium 8.5 mg/dL (Low)?? 10/31/2024 04:31 Calcium, Ionized pH Corrected 1.17 mmol/L ()?? 10/31/2024 04:31 Phosphorus 3.3 mg/dL ()?? 10/31/2024 04:31 Magnesium 1.7 mg/dL ()?? 10/31/2024 04:31 ?? ENDOCRINE/TUMOR MARKER TSH 1.98 uIU/mL ()?? 10/31/2024 04:31 ? EKG study * Event Display: ECG 12-Lead Authored Date: Please click on pdf link to open report * Event Display: ECG 12-Lead Authored Date: Ventricular Rate: 55 BPM Atrial Rate: 55 BPM P-R Interval: 194 ms QRS Duration: 84 ms Q-T Interval: 434 ms QTC Calculation(Bazett): 415 ms P [place]: 98 degrees R [place]: -32 degrees T [place]: 42 degrees Sinus bradycardia Left axis deviation Nonspecific ST abnormality Abnormal ECG When compared with ECG of 31-Oct-2024 05:08, No significant change was found Confirmed by Shane Guzman ([id number]) on 11/03/2024 11:52:06 AM [place]: Shane Guzman * Event Display: ECG 12-Lead Authored Date: Please click on pdf link to open report * Event Display: ECG 12-Lead Authored Date: Ventricular Rate: 71 BPM Atrial Rate: 71 BPM P-R Interval: 210 ms QRS Duration: 82 ms Q-T Interval: 390 ms QTC Calculation(Bazett): 423 ms P [place]: 94 degrees R [place]: -35 degrees T [place]: 36 degrees Sinus rhythm with 1st degree A-V block Left axis deviation Pulmonary disease pattern Abnormal ECG No previous ECGs available Confirmed by Shane Guzman ([id number]) on 11/02/2024 11:42:34 AM [place]: Shane Guzman Heart * Event Display: Echocardiogram - Complete Authored Date: [id number] Transthoracic Echocardiography Report (TTE) Patient Demographics Patient Name MOSHE HEIN Date of Study 11/02/2024 Corporate Gender Male Facility Race Unknown Ethnicity Date of 1955 Height: 69.69 inches Age 69 year(s) Weight: 194.01 pounds Accession Number [id number] BSA: 2.05 m2 Room Number [id number] BMI: 28.09 kg/m2 Referring Physician UNASSIGNED Interpreting Shahab SHEPHERD,Dawna UNASSIGNED Physician Agronomy Instructor Chang Li Fellow Trinh Moran DO Indications Arrhythmia and Syncope. Clinical History Atrial fibrillation. Hypertension. ETOH Study Data Type of Study TTE procedure:Echo Complete-Doppler, Colorflow, M-Mode. Study Date11/02/2024 Start Time: 08:14 AM Study Location: [facility] Adult Echo Study Status: Echo lab Patient Status: Routine Technical Quality: Technically difficult due to restricted mobility. Blood Pressure:149/81 mmHg EKG: Sinus bradycardia HR: 55 bpm 2D Measurements LV Diastolic Dimension: 4.4 cm LV Systolic Dimension: 3.4 cm LV Septum Diastolic: 1.4 cm LV PW Diastolic: 1 cm AO Root Dimension: 3.5 cm LVOT: 2.3 cm Doppler Measurements AV Peak Velocity: 143 cm/s MV Peak E-Wave: 88.3 cm/s AV Peak Gradient: 8.18 mmHg MV Peak A-Wave: 74.1 cm/s AV Mean Gradient: 4 mmHg MV E/A Ratio: 1.19 AV VTI:26.2 cm MV P1/2t: 67 msec MV Deceleration Time: 227 msec MV Area (PHT): 3.28 cm2 E' Septal Velocity: 4.57 cm/s E' Lateral Velocity: 5.66 cm/s E/Med E':19.98272 E/Lat E':15.21129 Cardiac Anatomy Left Ventricle/Interventricular Septum The left ventricle is poorly visualized. The left ventricular size is normal. There is mild septal hypertrophy. The LV systolic function is probably normal. Cannot assess LV ejection fraction. Cannot assess regional wall motion abnormalities. LV filling pressures are indeterminate. Left Atrium/Interatrial Septum The left atrium is poorly visualized. Aortic Valve The aortic valve is poorly visualized, appears calcified. There is no evidence of aortic regurgitation. There is no evidence of aortic stenosis. Mitral Valve There is mild mitral annular calcification. There is no significant mitral regurgitation. There is no evidence of mitral stenosis. Aorta The ascending aorta is normal in size. The ascending aorta is poorly visualized. Right Ventricle The right ventricle is poorly visualized. Right ventricular systolic function appears preserved. Right Atrium The right atrium is poorly visualized. Pulmonic Valve The pulmonic valve is poorly visualized. Tricuspid Valve The tricuspid valve is poorly visualized. The tricuspid valve is grossly normal. There is no significant tricuspid valve regurgitation. Pumonary Artery An accurate pulmonary artery pressure could not be obtained. Venous Structures The inferior vena cava is poorly visualized. Pericardium/Extracardiac There is no significant pericardial effusion. Summary The left ventricle is poorly visualized. The left ventricular size is normal. There is mild septal hypertrophy. The LV systolic function is probably normal. Cannot assess LV ejection fraction. Cannot assess regional wall motion abnormalities. LV filling pressures are indeterminate. The right ventricle is poorly visualized. Right ventricular systolic function appears preserved. Comparison No prior study available for comparison. Signature * Event Display: Echocardiogram - Complete Authored Date: [id number] Cardiology * Event Display: Cardiac Rhythm Strips Authored Date: * Event Display: Cardiac Rhythm Strips Authored Date: Hospital Progress note * Pamela Burroughs RN: PERFORM, SIGN, VERIFY Event Display: Progress Note Hospital Authored Date: Patient: MOSHE HEIN Age: 69 years Sex: Male : 1955 Associated Diagnoses: None Author: Pamela Burroughs RN Findings Problem Related to Alteration in Neurological : Alteration in Neurological Function/new 11/03/2024 9:00 EST Alteration in Neuro status Related to Other: C5-C6 fx, syncope Goals & Outcomes, Neurological Lab studies/diagnostic tests within pt specific limits, Pt is safe with transfers & activities, Pt will be discharged without infection, Pt will be Neurologically stable, Pt will become pain free with appropriate intervention, Pt will maintain intact skin integrity, Pt will remain free from injury, Pt/caregiver will receive psychosocial support as needed, Pt/ caregiver will state understanding of rehab plan, Pt/caregiver will state strategies to reduce riskfactors, Pt/caregiver will state understanding of plan/goals of care, Pt will be free from complications r/t seizure activity Interventions, Neurological Assess/monitor neurologic status, Assess/monitor VS per unit standards & prn, Call/Report variances in assessments to provider, Collaborate w/ provider to implement appropriate guidelines, Collaborate with Nutrition, Collaborate with provider re: medication regime, Identify psychosocial issues related to diagnosis/illness, If no bowel movement in 3 days activate bowel regime, Keep patient's head & body in good alignment, Maintain patient safety if unsteady gait, Physical assessment per unit standards, Provide emotional support to Pt/caregiver, Assess & monitor for seizure activity BH Goals/Interventions, Neurological Yes Neurological, Problem Start 11/01/2024 8:00 Reviewed plan with, Neurological Patient Patient Progression, Neurological Pt progressing according to plan . Nursing Data Neurological Data. : Neurological Data. 11/03/2024 8:59 EST Tongue Disposition Midline Neurological Symptoms History of seizures, Unsteady gait/Ataxia Level of Consciousness Full Consciousness Orientated to person, place, time Person, Place, Time, Event Hallucinations None Facial Symmetry Intact Characteristics of Speech Clear and normal Swallowing Difficulty None Pupil description, left Round Pupil description, right Round Pupil Size, Left 2 mm Pupil Size, Right 2 mm Strength LUE 5-Active movement against gravity & full resistance Strength RUE 5-Active movement against gravity & full resistance Strength LLE 5-Active movement against gravity & full resistance Strength RLE 5-Active movement against gravity & full resistance Tone LUE Normal Tone RUE Normal Tone LLE Normal Tone RLE Normal Sensation LUE Intact Sensation RUE Intact Sensation LLE Intact Sensation RLE Intact Movement LUE Spontaneous, To command Movement RUE Spontaneous, To command Movement LLE Spontaneous, To command Movement RLE Spontaneous, To command Gait Unsteady Tremors Toxic Response Eye Opening Spontaneously Motor Response-Adult Obeys commands Verbal Response-Adult Oriented and converses Alondra Coma Score 15 Neuro WNL except Headache None Memory Intact Swallow - Neuro Normal . Evaluation Pending transfer to discharge unit. AO 4. Speech clear. PERRLA. Denies pain, LARSEN, dizziness, visual changes, numbness, tingling. L arm skin tear covered w/ dsg. DURAN 01/04. Ambulates to BR w/ stdby and walker. LBM 03-04. Tele 1, SB/1st deg HB. On RA, satting 100%. Lungs clear. Denies CP, SOB, cough. Noseizure activity noted or reported. Seizure protocols in place. Bed in lowest position, rails up, wheels locked, bed alarm on. Call segura within reach. Hourly rounding maintained, will continue to monitor and document changes in CIS. . * Lisseth Faria RN: PERFORM, SIGN, VERIFY, MODIFY, SIGN Event Display: Progress Note Hospital Authored Date: Patient: MOSHE HEIN Age: 69 years Sex: Male : 1955 Associated Diagnoses: None Author: Lisseth Faria RN Findings Problem Related to Alteration in Neurological : Alteration in Neurological Function/new 11/02/2024 20:00 EST Alteration in Neuro status Related to Other: C5-C6 fx, syncope Goals & Outcomes, Neurological Lab studies/diagnostic tests within pt specific limits, Pt is safe with transfers & activities, Pt will be discharged without infection, Pt will be Neurologically stable, Pt will become pain free with appropriate intervention, Pt will maintain intact skin integrity, Pt will remain free from injury, Pt/caregiver will receive psychosocial support as needed, Pt/ caregiver will state understanding of rehab plan, Pt/caregiver will state strategies to reduce riskfactors, Pt/caregiver will state understanding of plan/goals of care, Pt will be free from complications r/t seizure activity Interventions, Neurological Assess/monitor neurologic status, Assess/monitor VS per unit standards & prn, Call/Report variances in assessments to provider, Collaborate w/ provider to implement appropriate guidelines, Monitor for headaches, nausea, vomiting, Monitor speech fluency, aphasia, wordfinding difficulty, Physical assessment per unit standards, Provide emotional support to Pt/caregiver Goals/Interventions, Neurological Yes Neurological, Problem Start 11/01/2024 8:00 Reviewed plan with, Neurological Patient Patient Progression, Neurological Pt progressing according to plan . Nursing Data Neurological Data. : Neurological Data. 11/02/2024 20:00 EST Neurological Symptoms Weakness or loss of muscle strength Level of Consciousness Full Consciousness Orientated to person, place, time Person, Place, Time, Event Hallucinations None Facial Symmetry Intact Pupil description, left Regular Pupil description, right Regular Pupil reaction, left Brisk Pupil reaction, right Brisk Strength LUE 5-Active movement against gravity & full resistance Strength RUE 5-Active movement against gravity & full resistance Strength LLE 5-Active movement against gravity & full resistance Strength RLE 5-Active movement against gravity & full resistance Tone LUE Normal Tone RUE Normal Tone LLE Normal Tone RLE Normal Sensation LUE Intact Sensation RUE Intact Sensation LLE Intact Sensation RLE Intact Movement LUE Spontaneous, To command Movement RUE Spontaneous, To command Movement LLE Spontaneous, To command Movement RLE Spontaneous, To command Gait Steady Response Eye Opening Spontaneously Motor Response-Adult Obeys commands Verbal Response-Adult Oriented and converses [place] Coma Score 15 Neuro WNL except Eyes and Movements Conjugate gaze: Move in same direction at same speed Memory Intact Swallow - Neuro Normal . Evaluation Patient alert and oriented x4. Face symmetrical. tongue midline. Speech clear. PERRL. Denies headache, numbness/ tingling, vision changes. DURAN 5/5 strength. L arm skin shear injury. Dressing changed.Cleaned and elevated. WA protocol. tele box 1. sb with 1st degree heart block. lung sounds clear on room air. Continent. Denying pain at this time. Bed in lowest locked position. Call segura within reach. LR bolus completed. Patient had a 2 second pause 11/03 at approx 0400. Denied chest pain/tightness. . . * Pamela Burroughs RN: VERIFY, PERFORM, SIGN Event Display: Progress Note Hospital Authored Date: Patient: MOSHE HEIN Age: 69 years Sex: Male : 1955 Associated Diagnoses: None Author: Pamela Burroughs RN Findings Problem Related to Alteration in Neurological : Alteration in Neurological Function/new 11/02/2024 11:00 EST Alteration in Neuro status Related to Other: C5-C6 fx, syncope Goals & Outcomes, Neurological Lab studies/diagnostic tests within pt specific limits, Pt is safe with transfers & activities, Pt will be discharged without infection, Pt will be Neurologically stable, Pt will become pain free with appropriate intervention, Pt will maintain intact skin integrity, Pt will remain free from injury, Pt/caregiver will receive psychosocial support as needed, Pt/ caregiver will state understanding of rehab plan, Pt/caregiver will state strategies to reduce riskfactors, Pt/caregiver will state understanding of plan/goals of care, Pt will be free from complications r/t seizure activity Interventions, Neurological Assess/monitor neurologic status, Assess/monitor VS per unit standards & prn, Call/Report variances in assessments to provider, Collaborate w/ provider to implement appropriate guidelines, Collaborate with Nutrition, Collaborate with provider re: medication regime, Identify psychosocial issues related to diagnosis/illness, If no bowel movement in 3 days activate bowel regime, Keep patient's head & body in good alignment, Maintain patient safety if unsteady gait, Physical assessment per unit standards, Provide emotional support to Pt/caregiver, Assess & monitor for seizure activity BH Goals/Interventions, Neurological Yes Neurological, Problem Start 11/01/2024 8:00 Reviewed plan with, Neurological Patient Patient Progression, Neurological Pt progressing according to plan . Nursing Data Neurological Data. : Neurological Data. 11/02/2024 11:30 EST Tongue Disposition Midline Neurological Symptoms Back pain, Unsteady gait/Ataxia Level of Consciousness Full Consciousness Orientated to person, place, time Person, Place, Time, Event Facial Symmetry Intact Characteristics of Speech Clear and normal Swallowing Difficulty None Strength LUE 5-Active movement against gravity & full resistance Strength RUE 5-Active movement against gravity & full resistance Strength LLE 5-Active movement against gravity & full resistance Strength RLE 5-Active movement against gravity & full resistance Tone LUE Normal Tone RUE Normal Tone LLE Normal Tone RLE Normal Sensation LUE Intact Sensation RUE Intact Sensation LLE Intact Sensation RLE Intact Movement LUE Spontaneous, To command Movement RUE Spontaneous, To command Movement LLE Spontaneous, To command Movement RLE Spontaneous, To command Gait Unsteady Tremors None Response Eye Opening Spontaneously Motor Response-Adult Obeys commands Verbal Response-Adult Oriented and converses Alondra Coma Score 15 Neuro WNL except Headache None Memory Intact Swallow - Neuro Normal . Evaluation ao 4. Speech clear. PERRLA. DURAN 01/04. Amb to [facility] w/ walker + stdby. ECHO completed. Bolus LR x 1. . Note * Yadira Mendoza RN: PERFORM Event Display: Discharge/Transfer Note Hospital Authored Date: [id number] Nursing Discharge Note Entered On: 11/03/2024 16:08 EST Performed On: 11/03/2024 16:07 EST by Yadira Mendoza RN Nursing Discharge Note 2 Discharge Time : 11/03/2024 15:13 EST Discharge Level of Care at Discharge : Homehealth/VNA Discharge VNA/Hospice/Home Care(v001) : [facility] Patient Left Unit Via : Wheelchair Patient Accompanied Off Unit with : Responsible adult DC Instructions Provided & Signed by Pt : Yes Patient Understands D/C Instructions : Yes Verbalized Understanding of D/C Plan By : Family, Patient Patient Instructions Discharge Signed : Yes Discharge Comments : patient home with instructions, meds from pharmacy, home with sister Did Pt have Specialty Bed or Wound Vac : No Yadira Mendoza RN - 11/03/2024 16:07 EST * Cassy SHEPHERD, Андрей: MODIFY, MODIFY, MODIFY, MODIFY, PERFORM Event Display: Discharge/Transfer Note Hospital Authored Date: [id number] Patient: ??MOSHE HEIN ? Age:??69 Years?Sex:??Male?:??1955?? Patient Information Discharge Location: D5A Primary Care Physician: Not on Staff, PCP Admit Date/Time: 10/31/2024 03:42 Discharge Disposition Discharge Disposition: Home: No Services Discharge Diagnosis Syncope (R55) Syncope (R55) Ground-level fall (W18.30XA) Thumb injury (S69.90XA) Essential hypertension (I10) Heavy alcohol use (F10.90) Hyponatremia (E87.1) Fall ([id number]) _ Discharge Medications Acamprosate (acamprosate 333 mg oral delayed release tablet)??2 tab(s) 666 Milligram By Mouth 3 times a day Folic Acid (folic acid 1 mg oral tablet)??1 Milligram By Mouth Daily Lisinopril (lisinopril 40 mg oral tablet)??1 tab(s) 40 Milligram By Mouth Daily Multivitamin With Minerals (multivitamin with minerals Antioxidant Multiple Vitamins and Minerals oral capsule)??See Instructions By Mouth Daily Pyridoxine (pyridoxine 50 mg oral tablet)??50 Milligram By Mouth Daily Thiamine (thiamine 100 mg oral tablet)??100 Milligram By Mouth 2 times a day ? Medications Started Acamprosate (acamprosate 333 mg oral delayed release tablet)??2 tab(s) 666 Milligram By Mouth 3 times a day Folic Acid (folic acid 1 mg oral tablet)??1 Milligram By Mouth Daily Multivitamin With Minerals (multivitamin with minerals Antioxidant Multiple Vitamins and Minerals oral capsule)??See Instructions By Mouth Daily Pyridoxine (pyridoxine 50 mg oral tablet)??50 Milligram By Mouth Daily Thiamine (thiamine 100 mg oral tablet)??100 Milligram By Mouth 2 times a day ?? Medications Discontinued Metoprolol (Metoprolol Succinate ER 50 mg oral tablet, extended release)??50 Milligram 1 tablet By Mouth Daily Doses Changed None Allergies Allergies ?(Active and Proposed Allergies Only) No Known Medication Allergies? (Severity: Unknown severity, Onset: Unknown) ? PCP Follow-Up/Heads-Up 1. ??Patient was noted to have mild hyponatremia with a sodium of 131???132. ??He was completely asymptomatic, please??follow-up on this in the outpatient setting ?? 2.?? Patient was noted to have sinus pauses of 2 seconds??during his sleep with concerns of FREDDIE, please order a sleep study in the outpatient setting.?? Given his sinus pauses and syncope,??his metoprolol was discontinued permanently and??he will be set up for an implantable loop recorder with??[facility] cardiology. ?? 3.?? He was also noted to have some injury??with some dislocation and tendon injury on??admission,??he got it splinted and sutured by ED provider at [facility] and given Tdap??and cefazolin prophylactically. ??Please follow- up on this. Hospital Course Moshe is a??69 year old male with alcohol use disorder with reported history of withdrawal seizures, hypertension was admitted for evaluation of syncope after fall from home.??Patient previously reported getting lightheaded when he stood up, told this provider he did not remember anything between putting on evening clothes after coming home from drinking and ending up in the hospital. EKG with sinus bradycardia with 1st degree AV block. Troponins flat on presentation.??Telemetry with sinus pauses as long as 2.1. Echo 11/02 poorly visualized, however LV function is probably normal. Seen by cardiology, given inability to fully rule out an arrhythmia, he will have an implantable loop recorder inthe outpatient setting. ?? Syncope (R55) Ground-level fall (W18.30XA) ?Discontinue metoprolol as above ?Needs sleep study to evaluate for sinus pauses as above ?? Orthostatic hypotension - Resolved Orthostatic vitals positive??on 11/02, received a liter of LR with resolution. ?? Chronic medical conditions Thumb injury (S69.90XA):?? Left thumb dislocation with tendon injury. S/p splinting and suture by ED provider at [facility].??He was given Tdap in cefazolin prophylactically.??Should follow-up PCP after discharge. ?? Essential hypertension (I10): Continue lisinopril.?? Hold metoprolol as above ?? Heavy alcohol use (F10.90):?? Admits that on average drinks 2 bloody Berna's in the morning and 3 in the afternoon. Possible priorhistory of alcohol withdrawal seizures (endorsed to me but not previous providers) ??? Continue multivitamins, thiamine, pyridoxine, folic acid ?Seen by addiction medicine, interested in trying campral 666 TID ?? Hyponatremia (E87.1):??Sodium 131-132. Stable, asymptomatic, will need outpatient follow up ?? Objective Vital Signs?? Temperature: 97.6 DegF (11/03/24 07:59:00) Temperature Route: Temporal (11/03/24 07:59:00) Pulse Rate:??54 bpm??Low (11/03/24 07:59:00) Pulse Rate, Lyin bpm (11/03/24 09:53:00) Systolic Blood Pressure, Lyin mm Hg (11/03/24 09:53:00) Diastolic Blood Pressure, Lyin mm Hg (11/03/24 09:53:00) Pulse Rate, Sittin bpm (11/03/24 09:53:00) Systolic Blood Pressure, Sittin mm Hg (11/03/24 09:53:00) Diastolic Blood Pressure, Sittin mm Hg (11/03/24 09:53:00) Pulse Rate, Standin bpm (11/03/24 09:53:00) Systolic Blood Pressure, Standin mm Hg (11/03/24 09:53:00) Diastolic Blood Pressure, Standin mm Hg (11/03/24 09:53:00) Respiratory Rate: 20 br/min (11/03/24 07:59:00) Systolic Blood Pressure:??139 mm Hg??High (11/03/24 08:45:00) Diastolic Blood Pressure: 76 mm Hg (11/03/24 08:45:00) Blood pressure sites: Arm, left (11/03/24 07:59:00) Mean Arterial Pressure: 103 mm Hg (11/03/24 07:59:00) Pulse Pressure: 50 mm Hg (11/03/24 07:59:00) Oxygen Saturation: 100 % (11/03/24 07:59:00) Mode of Delivery (Oxygen): Room air (11/03/24 07:59:00) Early Warning Score: 3 (11/03/24 09:00:07) ? . Physical Exam General:??No acute distress Respiratory:??Clear to auscultation bilaterally, no increased work of breathing Cardiovascular:??Normal rate, regular rhythm Abdomen:??No tenderness Neurologic:??Alert & Oriented Psychiatric:??Normal mood/affect ?? Consultants Maurizio SHEPHERD, Francesco Gregg - Cardiology [facility] Patient Education Titles WebMD Ignite Patient Education - Understanding Loop Recorder Implantation?? [employer] Patient Education - Acamprosate?? [employer] Patient Education - Alcohol Use Disorder: Myths and Facts?? Web[employer] Patient Education - Understanding Alcohol Use Disorder (AUD)?? Follow-Up Appointments Added Follow Up ?Time Frame ?Comments Not on Staff, PCP?1 to 2 weeks Patient Instructions please contact your primary care's office to see who they transferred you to after your primary care provider retired. Post Discharge Care Diet: ??Regular Diet ?? Activity: ??As tolerated ?? Code Status: ??FULL ?? Results Discharge Labs BLOOD COUNT & DIFF WBC 7.2 k/mm3 ()?? 11/02/2024 09:57 RBC 4.19 m/mm3 (Low)?? 11/02/2024 09:57 Hgb 14.0 Gm/dL ()?? 11/02/2024 09:57 Hct 40.3 % (Low)?? 11/02/2024 09:57 MCV 96.2 femtoliters (High)?? 11/02/2024 09:57 MCH 33.4 pg ()?? 11/02/2024 09:57 MCHC 34.7 Gm/dL ()?? 11/02/2024 09:57 Platelet Count 250 k/mm3 ()?? 11/02/2024 09:57 RDW-SD 42.1 femtoliters ()?? 11/02/2024 09:57 MPV 9.6 femtoliters ()?? 11/02/2024 09:57 Nucleated RBC (Automated) 0.0 #/100 WBC'S ()?? 11/02/2024 09:57 Abs. NRBC 0.0 k/mm3 ()?? 11/02/2024 09:57 Abs. Neut 7.0 k/mm3 ()?? 10/31/2024 04:31 Abs. Lymph 1.2 k/mm3 ()?? 10/31/2024 04:31 Abs. Perkins 0.5 k/mm3 ()?? 10/31/2024 04:31 Abs. Eo 0.0 k/mm3 ()?? 10/31/2024 04:31 Abs. Baso 0.0 k/mm3 ()?? 10/31/2024 04:31 Neut % 79.3 % (High)?? 10/31/2024 04:31 Lymph % 13.3 % (Low)?? 10/31/2024 04:31 Perkins % 6.1 % ()?? 10/31/2024 04:31 Eos % 0.5 % ()?? 10/31/2024 04:31 Baso % 0.2 % ()?? 10/31/2024 04:31 Imm Gran 0.6 % ()?? 10/31/2024 04:31 Abs. Imm Gran 0.1 k/mm3 ()?? 10/31/2024 04:31 ?? CARDIAC High Sensitivity Troponin (HSTnT) 20 ng/L ()?? 10/31/2024 13:48 ? CHEM GENERAL Sodium 131 mmol/L (Low)?? 11/03/2024 03:47 Potassium 4.6 mmol/L ()?? 11/03/2024 03:47 Chloride 95 mmol/L (Low)?? 11/03/2024 03:47 Bicarbonate Level 27 mmol/L ()?? 11/03/2024 03:47 Anion Gap 9 mmol/L ()?? 11/03/2024 03:47 Glucose Level 80 mg/dL ()?? 11/03/2024 03:47 BUN 10 mg/dL ()?? 11/03/2024 03:47 Creatinine-Blood 0.71 mg/dL ()?? 11/03/2024 03:47 Estimated GFR Creatinine 98 ML/MIN/1.73 M2 ()?? 11/03/2024 03:47 Osmolality 268 mOs/kg (Low)?? 10/31/2024 13:48 Calcium 9.0 mg/dL ()?? 11/03/2024 03:47 Calcium, Ionized pH Corrected 1.17 mmol/L ()?? 10/31/2024 04:31 Phosphorus 2.8 mg/dL ()?? 11/02/2024 09:57 Magnesium 1.9 mg/dL ()?? 11/02/2024 09:57 ?? ENDOCRINE/TUMOR MARKER TSH 1.98 uIU/mL ()?? 10/31/2024 04:31 ? UA/URINALYSIS Appear/Color, Urine YELLOW ()?? 10/31/2024 15:31 Specific [place], Urine 1.031 (High)?? 10/31/2024 15:31 pH, Urine 7.0 ()?? 10/31/2024 15:31 Albumin, Urine TRACE (Abnormal)?? 10/31/2024 15:31 Glucose, Urine NEGATIVE ()?? 10/31/2024 15:31 Ketones, Urine TRACE (Abnormal)?? 10/31/2024 15:31 Bilirubin, Urine NEGATIVE ()?? 10/31/2024 15:31 Hemoglobin, Urine NEGATIVE ()?? 10/31/2024 15:31 Nitrite, Urine NEGATIVE ()?? 10/31/2024 15:31 Leukocyte, Urine NEGATIVE ()?? 10/31/2024 15:31 Urobilinogen 2 mg/dL (Abnormal)?? 10/31/2024 15:31 WBC's, Urine <1 /HPF ()?? 10/31/2024 15:31 RBC's, Urine 1 /HPF ()?? 10/31/2024 15:31 Mucus SLIGHT /LPF ()?? 10/31/2024 15:31 Hold Urine Culture Testing available 48 hours from time of collection. ()?? 10/31/2024 15:31 ? URINE OTHER Sodium, Urine Random 87 mmol/L ()?? 10/31/2024 15:31 Osmolality, Urine Random 552 mOsm/kg ()?? 10/31/2024 15:31 Est Creatinine Clearance 97.56 mL/min ()?? 11/03/2024 04:37 ? Image ?Echo Complete-Doppler, Colorflow, M-Mode??11/02/2024 08:14 by Dawna Gudino MD ?Summary ??The left ventricle is poorly visualized. The left ventricular size is ??normal. There is mild septal hypertrophy. The LV systolic function is ??probably normal. Cannot assess LV ejection fraction. Cannot assess regional ??wall motion abnormalities. LV filling pressures are indeterminate. ??The right ventricle is poorly visualized. Right ventricular systolic function appears preserved ?? 30??minutes spent on discharge ?? Patient has been??seen and discussed with Dr. Sandoval Chiang??MD [facility] ?? * Cynthia Nick MD: PERFORM Event Display: Discharge/Transfer Note Hospital Authored Date: [id number] I have seen and evaluated the patient on the day of service. I have discussed the case and its management with medical staff director and I agree with assessment and plan as documented in resident's note * Reji GARCES, Yadira Arrieta: PERFORM Event Display: Patient Education/Instruction Authored Date: [id number] Inpatient Adult Discharge Instructions. [address] [id number] Name: MOSHE HEIN : 1955?? Visit: 10/31/2024 03:42?? Current Date: 11/03/2024 14:26 ?? Account: [id number]?? Inpatient Adult Discharge Instructions We would like to thank you for allowing us to assist you with your healthcare needs. The following includes patient education materials and information regarding your injury/illness. Our entire staffstrives to provide an excellent experience for our patients and their families. PLEASE ENSURE YOU FOLLOW-UP PER THE INSTRUCTIONS BELOW! ?? YOUR OPINION IS IMPORTANT TO US! Please complete the survey you may receive by mail or email. Your feedback will be used to make improvements to the healthcare experiences of our patients and their families. Surveys are administered by [employer] ?? If further treatment with your primary care physician or another doctor is recommended, it is important for you to keep the appointment. Call your primary care physician or return to the Emergency Department immediately if your condition worsens, fails to improve, or new symptoms develop. If you need to find a doctor, you can call [facility] Link for a referral at [phone] or toll free at [phone] or log in to [email or web address].. ?? [facility], in keeping with [facility] guidance, no longer requires face masks for staff, patientsor visitors in most situations. Similiar to time spent indoors at other locations, there is the chance that you were exposed to repiratory viruses during your time with us (such as flu or COVID-19). If you develop symptoms concerning for a viral respiratory infection, please seek testing (and treatment if indicated) from your medical provider or home test kit. ?? You can view and manage your care through the patient portal or by using a health care qi of your choosing. [employer] is a website that allows you to securely view your medical information including your hospital discharge summary, office visit summaries, medications and follow-up visits. You can also request appointments, renew medications, and request access to your medical information using a health care qi of your choosing, or just ask a question. You are entitled to know the individuals who participated in your treatment. This information is available within your medical record and will be provided upon your request. You can enroll at [email or web address] or register d uring your next office visit. You have been discharged from [facility], Patient Care Unit: S15??. If you have any questions regarding these instructions, including results of studies pending, afteryou leave, please call us and we will be happy to assist you 25/03. [facility] Your Care Team Attending Physician Cynthia Nick MD?? Consulting Providers Cynthia Nick MD?? Discharging Providers Андрей Madera MD Reason for Your Visit Unwittnessed fall, L hand and HS with etoh, +c5&c6fx, aspen in place.?? Your Diagnosis Syncope Ground-level fall Thumb injury Essential hypertension Heavy alcohol use Hyponatremia Fall Tests Performed Below is a partial list of the tests performed during your hospitalization. You may have had other tests and procedures not included in this list. Please discuss all test results with your provider. Basic Metabolic Panel Calcium Ionized CBC CBC w/ Differential HOLD URINE CULTURE Magnesium Level OSMOLALITY, SERUM Phosphorus Level Troponin T, High Sensitivity TSH WITH REFLEX TO FT4 Urinalysis Complete Urine Osmolality Urine Sodium Add On Lab Order?? Basic Metabolic Panel?? CBC?? CBC w/ Differential?? Complete Urinalysis (Urinalysis Complete)?? High??Sensitivity??Troponin T (Troponin T, High Sensitivity)?? Hold Urine Culture?? Ionized Calcium (Calcium Ionized)?? Magnesium Level?? Osmolality (OSMOLALITY, SERUM)?? Osmolality Urine (Urine Osmolality)?? Phosphorus Level?? Sodium Urine (Urine Sodium)?? TSH with T4 Reflex (Adults Only) (TSH WITH REFLEX TO FT4)?? Primary Care Provider Not on Staff, PCP?? Advance Directive Health Care Proxy on File Yes - Health Care Proxy Discharge Vitals Temperature: 98.3 DegF Height: 177 cm Pulse Rate: 74 bpm Weight: 87.9 kg Respiratory Rate: 18 br/min Body Mass Index:??28.06 kg/m2??High Systolic Blood Pressure: 120 mm Hg Body surface area: 2.08 Diastolic Blood Pressure:??97 mm Hg??High ?? Oxygen Saturation: 100 % ?? Studies Pending All studies ordered during this hospital stay have been completed unless listed below. Please discuss all pending results with your provider listed above in these instructions. ?? Add On Lab Order?? What to do next Instructions From Your Doctor please contact your primary care's office to see who they transferred you to after your primary care provider retired. ?? Orders??:Regular Diet :As tolerated Status:FULL? 11/03/24 12:40:00 EST?? You Need to Schedule the Following Appointments Follow Up with??Not on Staff, PCP When:??Within 1 to 2 weeks Discharge Medications ANGEL LUISMOSHE GILMAN :1955 Visit Date:10/31/2024 Medications: Please continue your medications until treatment is completed or stopped by your provider. Medications not listed below should be discontinued. Discuss any questions related to medications with your provider. What How Much When Instructions Next Dose New Acamprosate (acamprosate 333 mg oral delayed release tablet) 2 tab(s) Oral 3 times a day Pickup at [place] [address] next dose due 11/03 at 9pm New Folic Acid (folic acid 1 mg oral tablet) 1 Milligram Oral Daily Pickup at [place] [address] next dose due tomorrow 11/04 at 9am New Multivitamin With Minerals (multivitamin with minerals Antioxidant Multiple Vitamins and Minerals oral capsule) See instructions By Mouth Daily ?? Pickup at [place] [address] next dose due tomorrow 11/04 at 9am New Pyridoxine (pyridoxine 50 mg oral tablet) 50 Milligram Oral Daily Pickup at [place] [address] due tomorrow 11/04 at 9am New Thiamine (thiamine 100 mg oral tablet) 100 Milligram Oral Twice a day Pickup at [place] [address] due 11/03 at 9pm Unchanged Lisinopril (lisinopril 40 mg oral tablet) 1 tab(s) Oral Daily due tomorr11/04 at 9am Pharmacy Information [facility] 3: [address] [place] [address] [phone] ?? What How Much When Comments Stop Taking Metoprolol (Metoprolol Succinate ER 50 mg oral tablet, extended release) 1 tab(s) Oral Daily Prescription Given During Visit Acamprosate (acamprosate 333 mg oral delayed release tablet) - 2 tablet = 666 mg, By Mouth, 3 timesa day, # 180 tablet, 0 Refills, [place] [address] [phone]?? Folic Acid (folic acid 1 mg oral tablet) - 1 mg, By Mouth, Daily, # 90 tablet, 0 Refills, [place] [address], [address] [place] [phone]?? Multivitamin With Minerals (multivitamin with minerals Antioxidant Multiple Vitamins and Minerals oral capsule) - , # 90 capsule, 0 Refills, By Mouth Daily, [place] [address], [address] [place] [phone]?? Pyridoxine (pyridoxine 50 mg oral tablet) - 50 mg, By Mouth, Daily, # 90 tablet, 0 Refills, [place] [address], [address] [place] [address] [phone]?? Thiamine (thiamine 100 mg oral tablet) - 100 mg, By Mouth, 2 times a day, # 180 tablet, 0 Refills, [facility], [address] [place] [address] [phone]?? Laboratory Results Below is a partial list of the most recent Laboratory test results done prior to this discharge. You may have had other tests and procedures not included in this list. Please discuss all test resultswith your provider. Est Creatinine Clearance - 97.56 mL/min (11/03/2024) Basic Metabolic Panel (11/03/2024) ???Sodium - 131 mmol/L???Potassium - 4.6 mmol/L???Chloride - 95 mmol/L???Bicarbonate Level - 27 mmol/L???Anion Gap - 9 mmol/L???Glucose Level - 80 mg/dL???BUN - 10 mg/dL???Creatinine-Blood - 0.71 mg/dL???Estimated GFR Creatinine - 98 ML/MIN/1.73 M2???Calcium - 9.0 mg/dL Calcium Ionized (10/31/2024) ???Calcium, Ionized pH Corrected - 1.17 mmol/L CBC (11/02/2024) ???WBC - 7.2 k/mm3???RBC - 4.19 m/mm3???Hgb - 14.0 Gm/dL???Hct - 40.3 %???MCV - 96.2 femtoliters???MCH - 33.4 pg???MCHC - 34.7 Gm/dL???Platelet Count - 250 k/mm3???RDW-SD - 42.1 femtoliters???MPV - 9.6 femtoliters???Nucleated RBC (Automated) - 0.0 #/100 WBC'S???Abs. NRBC - 0.0 k/mm3 CBC w/ Differential (10/31/2024) ???WBC - 8.8 k/mm3???RBC - 4.57 m/mm3???Hgb - 15.2 Gm/dL???Hct - 42.6 %???MCV - 93.2 femtoliters???MCH - 33.3 pg???MCHC - 35.7 Gm/dL???Platelet Count - 280 k/mm3???RDW-SD - 40.5 femtoliters???MPV - 9.5 femtoliters???Nucleated RBC (Automated) - 0.0 #/100 WBC'S???Abs. NRBC - 0.0 k/mm3???Abs. Neut - 7.0 k/mm3???Abs. Lymph - 1.2 k/mm3???Abs. Perkins - 0.5 k/mm3???Abs. Eo - 0.0 k/mm3???Abs. Baso - 0.0 k/mm3???Neut % - 79.3 %???Lymph % - 13.3 %???Perkins % - 6.1 %???Eos % - 0.5 %???Baso % - 0.2 %???Imm Gran - 0.6 %???Abs. Imm Gran - 0.1 k/mm3 HOLD URINE CULTURE (10/31/2024) ???Hold Urine Culture - Testing available 48 hours from time of collection. Magnesium Level (11/02/2024) ???Magnesium - 1.9 mg/dL OSMOLALITY, SERUM (10/31/2024) ???Osmolality - 268 mOs/kg Phosphorus Level (11/02/2024) ???Phosphorus - 2.8 mg/dL Troponin T, High Sensitivity (10/31/2024) ???High Sensitivity Troponin (HSTnT) - 20 ng/L TSH WITH REFLEX TO FT4 (10/31/2024) ???TSH - 1.98 uIU/mL Urinalysis Complete (10/31/2024) ???Appear/Color, Urine - YELLOW???Specific [place], Urine - 1.031???pH, Urine - 7.0???Albumin, Urine - TRACE???Glucose, Urine - NEGATIVE???Ketones, Urine - TRACE???Bilirubin, Urine - NEGATIVE???Hemoglobin, Urine - NEGATIVE???Nitrite, Urine - NEGATIVE???Leukocyte, Urine - NEGATIVE???Urobilinogen - 2mg/dL? ?WBC's, Urine - <1 /HPF? ?RBC's, Urine - 1 /HPF? ?Mucus - SLIGHT Urine Osmolality (10/31/2024) ???Osmolality, Urine Random - 552 mOsm/kg Urine Sodium (10/31/2024) ???Sodium, Urine Random - 87 mmol/L You will be contacted within 72 hours with your results. Immunizations This Visit Not Given Vaccine Commentsinfluenza virus vaccine, inactivated Patient Refuses Allergies (NKA means No Known Allergies) No Known Medication Allergies Problems No qualifying data available Education Materials Below is the list of Educational Leaflet Providered with your Discharge Instructions. [employer] Patient Education - Understanding Loop Recorder Implantation?? [employer] Patient Education - Acamprosate?? [employer] Patient Education - Alcohol Use Disorder: Myths and Facts?? [employer] Patient Education - Understanding Alcohol Use Disorder (AUD)?? Valuables and Belongings I fully understand and agree that [facility] accepts no responsibility for all my personal property including clothing, toilet articles, radios, jewelry, dentures, hearing aids, rings, money, or any other property that is in my possession or is brought to me after admission. I understand certain valuables may be placed in a hospital safe for a short period of time. I understand that the hospital is not liable for loss or damage due to accident, fire, or other natural occurrence while said property is in the safe. I accept full responsibility for any personal property that I keep with me, and will not hold the hospital responsible in case of loss or disappearance. I acknowledge that i have been encouraged to send valuables and belongings home. ?? Review of Valuable and Belonging List: With patient Possessions released to: No Personal Devices. Date for Pt to Sign Valuables/Belongings: 11/03/24 13:21:00 ?? Other Discharge Information ? Case Management Discharge Plan?? Discharge Plan?? Discharge Agency Information?? Discharge Level of Care at Discharge: Homehealth/VNA Name of Agency #1: [facility]Hospice/Home Care: [facility] Categories #1: Physical Therapy, Retirement ?? Service Comments #1: [facility] will call you to set up visit. If you do not hear from them please call ?? Pulmonary Rehab Status?? Pulmonary Rehab Discharge Status?? Respiratory Rate: 18 br/min ? Common Emergency Awareness Tips IS IT A STROKE? Act FAST and Check for these signs: FACE Does the face look uneven? ARM Does one arm drift down? SPEECH Does their speech sound strange? TIME Call at any sign of stroke ?? Heart Attack Signs Chest discomfort: Most heart attacks involve discomfort in the center of the chest and lasts more than a few minutes, or goes away and comes back. It can feel like uncomfortable pressure, squeezing, fullness or pain. Discomfort in upper body: Symptoms can include pain or discomfort in one or both arms, back, neck, jaw or stomach. Shortness of breath: With or without discomfort. Other signs: Breaking out in a cold sweat, nausea, or lightheaded. Remember, MINUTES DO MATTER. If you experience any of these heart attack warning signs, call to get immediate medical attention! ?? Smoking can increase your chances of developing chronic health problems and can cause harmful effects to other family members in your house. If you smoke, you are strongly encouraged to quit. Please call [facility] [employer] Link at [phone] or [phone] ([phone]) or log in to [email or web address] for referrals to smoking cessation programs. ?? 849 Suicide & Crisis Lifeline is available 25/03 if you or someone you know needs to find a reason to keep living. By calling 832 you'll be connected to a skilled, trained counselor at a crisis center in your area. INPATIENT DISCHARGE INSTRUCTIONS SIGNATURE MOSHE MELTON Location:[facility] Registration Date and Time:10/31/2024 03:42 EST Primary Care Physician: Not on Staff, PCP Attending Physician: Cynthia Nick MD, I ANGEL LUISMOSHE, have received the above patient education materials/instructions and have verbalized understanding. If ambulance or transport services are being used I further acknowledge being given a choice of service. ?? If you need to contact me, please call me at this number: . Patient/Auditing Manager Name: Patient/Auditing Manager Signature: Relationship to Patient: Witness Name/Signature: Date: * Андрей Madera MD: PERFORM Event Display: Patient Education Leaflets Authored Date: [id number] Understanding Loop Recorder Implantation ?? 55580 Understanding Loop Recorder Implantation An implantable loop recorder (ILR) is a device that records how your heart is working. A loop recorder may be implanted if: ??? You have fainting, dizziness, or lightheadedness. ??? You have heart palpitations. ??? Your heartbeat is very fast or slow. ??? You have unexplained falls. ??? You have possible hidden heart rhythm problems that can cause a stroke, such as atrial fibrillation. ??? You have certain gene disorders. During implantation, a small device is placed under the skin on your chest, over your heart. The device works as an electrocardiogram. It constantly picks up electrical signals from your heart and records them so your health care provider can evaluate them. In most cases, an ILR works for up to 3 years. How a loop recorder helps You may need an ILR if other tests haven???t found the cause of your symptoms. An ILR constantly records your heart???s electrical activity. For example, if you faint because of an arrhythmia, the device records your heart???s activity before, during, and after you faint. Then your provider can seewhat was going on with your heart rhythm during that time. Or you may need to set off your ILR with an activator. This is a small, handheld device. You press a button on the activator when you are feeling symptoms. The ILR then records your heart???s activity. This device is very useful when you don't have symptoms often. Or you may use one if your provider needs to look at information about your heart over a longer period of time. Also, a monitoring device may be set up at your home to send data to your provider. It is either set off by you or works automatically. Some devices can also link to an qi on your smartphone. Once the cause of your symptoms are found, then you can be correctly treated. You may need another small device implanted to help control your heart rhythm. This may be a pacemaker or an implantable cardioverter-defibrillator (ICD). ?? How loop recorder implantation is done The health care provider will first clean the area and inject local numbing medicine. They will then make a small cut (incision) in your skin just to the left of your breastbone (sternum). You will be covered with sterile cloths (drapes) to protect the area from infection during the procedure. An insertion tool will then be placed under the skin where the cut was made. This makes a pocket for therecorder to sit in. The recorder is then placed under the skin and the tool is taken out. After, the cut is often closed with either surgical glue, stitches (sutures), jazmin, or steri-strips. The ILR is about the size of a AAA battery. It can be felt when pressing on the skin over it. And it may stick out slightly. Usually, it is not noticeable. Your provider can take out the recorder in a similar way once enough data has been recorded or whenthe battery life ends. ?? Risks of loop recorder implantation All procedures have some risks. The risks of this procedure may include: ??? Bleeding or bruising. ??? Infection that may lead to the ILR being taken out. ??? Mild pain at the insertion site. Your own risks will depend on your age, your health, and other factors. Talk with your health care provider about the risks that most apply to you and when you should notify them of any problems or concerns. ?? Last Reviewed Date: 2024 ?? 9549-7715 [employer]. All rights reserved. This information is not intended as a substitute for professional medical care. Always follow your healthcare professional's instructions. ?? * Андрей Madera MD: PERFORM Event Display: Patient Education Leaflets Authored Date: [id number] Acamprosate ?? [id number] Acamprosate Brand Name(s): Campral??; also available generically ?? WHY is this medicine prescribed? Acamprosate is used along with counseling and social support to help people who have stopped drinking large amounts of alcohol (alcoholism) to avoid drinking alcohol again. Drinking alcohol for a long time changes the way the brain works. Acamprosate works by helping the brains of people who have drunk large amounts of alcohol to work normally again. Acamprosate does not prevent the withdrawal symptoms that people may experience when they stop drinking alcohol. Acamprosate has not been shown towork in people who have not stopped drinking alcohol or in people who drink large amounts of alcohol and also overuse or abuse other substances such as street drugs or prescription medications. HOW should this medicine be used? Acamprosate comes as a delayed-release (releases the medication in the intestine) tablet to take bymouth. It is usually taken with or without food three times a day. To help you remember to take acamprosate, take it around the same times every day. Taking acamprosate with breakfast, lunch, and dinner may help you to remember all three doses. Follow the directions on your prescription label carefully, and ask your doctor or pharmacist to explain any part you do not understand. Take acamprosate exactly as directed. Do not take more or less of it or take it more often than prescribed by your doctor. Swallow the tablets whole; do not split, chew, or crush them. Acamprosate helps to prevent you from drinking alcohol only as long as you are taking it. Continue to take acamprosate even if you do not think you are likely to start drinking alcohol again. Do not stop taking acamprosate without talking to your doctor. If you drink alcohol while you are taking acamprosate, continue to take the medication and call your doctor. Acamprosate will not cause you to have an unpleasant reaction if you drink alcohol during treatment. Are there OTHER USES for this medicine? This medication may be prescribed for other uses; ask your doctor or pharmacist for more information. What SPECIAL PRECAUTIONS should I follow? Before taking acamprosate, ??? tell your doctor and pharmacist if you are allergic to acamprosate, any other medications, sulfites, or any of the ingredients in acamprosate tablets. Ask your pharmacist for a list of the ingredients. ??? tell your doctor and pharmacist what prescription and nonprescription medications, vitamins, nutritional supplements, and herbal products you are taking. Be sure to mention antidepressants ('mood elevators'). Your doctor may need to change the doses of your medications or monitor you carefully for side effects. ??? tell your doctor if you are thinking of, or have ever thought of, harming or killing yourself, if you have ever tried to do so, or if you use or have ever used street drugsor have overused prescription medications. Also tell your doctor if you have or have ever had depression or kidney disease. ??? tell your doctor if you are , plan to become , or are breast-feeding. If you become while taking acamprosate, call your doctor. ??? if you are having surgery, including dental surgery, tell the doctor or dentist that you are taking acamprosate. ??? you should know that acamprosate may affect your thinking, ability to make decisions, and coordination. Do not drive a car or operate machinery until you know how this medication affects you. ??? you should know that people who drink large amounts of alcohol often become depressed and sometimes try to harm or kill themselves. Taking acamprosate does not decrease and may increase the risk that you will try to harm yourself. You may develop depression while you are taking acamprosate even if you do not go back to drinking. You or your family should call the doctor right away if you experience symptoms of depression such as feelings of sadness, anxiousness, hopelessness, guilt, worthlessness, or helplessness; loss of interest or pleasure in activities you once enjoyed; lack of energy; difficulty concentrating, making decisions, or remembering; irritability; sleep problems; changes in appetite or weight; restlessness; or thinking about harming or killing yourself or planning or trying to do so. Be sure that your family knows which symptoms may be serious so they can call the doctor right away if you are unable to seek treatment on your own. What SPECIAL DIETARY instructions should I follow? Unless your doctor tells you otherwise, continue your normal diet. What should I do IF I FORGET to take a dose? Take the missed dose as soon as you remember it. However, if it is almost time for the next dose, skip the missed dose and continue your regular dosing schedule. Do not take a double dose to make up for a missed one. What SIDE EFFECTS can this medicine cause? Some side effects can be serious. The following symptoms are uncommon, but if you experience eitherof them or those mentioned in the SPECIAL PRECAUTIONS section, call your doctor immediately: ??? burning, tingling, or numbness in the hands, feet, arms, or legs ??? rash Acamprosate may cause other side effects. Call your doctor if you have any unusual problems while taking this medication. If you experience a serious side effect, you or your doctor may send a report to the Food and Drug Administration's (FDA) MedWatch Adverse Event Reporting program online (https://www.fda.gov/Safety/MedWatch) or by phone ( ). What should I know about STORAGE and DISPOSAL of this medication? Keep this medication in the container it came in, tightly closed, and out of reach of children. Store it at room temperature and away from excess heat and moisture (not in the bathroom). Unneeded medications should be disposed of in special ways to ensure that pets, children, and otherpeople cannot consume them. However, you should not flush this medication down the toilet. Instead,the best way to dispose of your medication is through a medicine take-back program. Talk to your pharmacist or contact your local garbage/recycling department to learn about take-back programs in your community. See the FDA's Safe Disposal of Medicines website (https://goo.gl/c4Rm4p) for more information if you do not have access to a take-back program. It is important to keep all medication out of sight and reach of children as many containers (such as weekly pill minders and those for eye drops, creams, patches, and inhalers) are not child-resistant and young children can open them easily. To protect young children from poisoning, always lock safety caps and immediately place the medication in a safe location ??? one that is up and away and out of their sight and reach. https://www.upandaway.org What should I do in case of OVERDOSE? In case of overdose, call the poison control helpline at . Information is also available online at https://www.poisonhelp.org/help. If the victim has collapsed, had a seizure, has trouble breathing, or can't be awakened, immediately call emergency services at 651. Symptoms of overdose may include: ??? diarrhea If you take too much acamprosate regularly for a long time, you may experience certain symptoms. Call your doctor if you experience any of these symptoms: ??? loss of appetite ??? upset stomach ??? constipation ??? extreme thirst ??? tiredness ??? muscleweakness ??? restlessness ??? confusion What OTHER INFORMATION should I know? Keep all appointments with your doctor and counselor or support group. Do not let anyone else take your medication. Ask your pharmacist any questions you have about refilling your prescription. It is important for you to keep a written list of all of the prescription and nonprescription (rezr-ilx-bowyexf) medicines you are taking, as well as any products such as vitamins, minerals, or otherdietary supplements. You should bring this list with you each time you visit a doctor or if you areadmitted to a hospital. It is also important information to carry with you in case of emergencies. This report on medications is for your information only, and is not considered individual patient advice. Because of the changing nature of drug information, please consult your physician or pharmacist about specific clinical use. The [employer] [employer] represents that the information provided hereunder was formulated with a reasonable standard of care, and in conformity with professional standards in the field. The [employer] [employer] makes no representations or warranties, express or implied, including, but not limited to, any implied warranty of merchantability and/or fitness for a particular purpose, with respect to such information and specifically disclaims all such warranties. Users are advised that decisions regarding drug therapy are complex medical decisions requiring the independent, informed decision of an appropriate health career professional, and the information is provided for informational purposes only. The entire monograph for a drug should be reviewed for a thorough understanding of the drug's actions, uses and side effects. The [employer] [employer] does not endorse or recommend the use of any drug.The information is not a substitute for medical care. AHFS?? Patient Medication Information???. ?? Copyright, 2023. The [employer]??, [address] [facility], [address], [place], [place]. All Rights Reserved. Duplication for commercial use must be authorized by [facility]. Selected Revisions: January 15, 2016. AHFS?? Patient Medication Information???. ?? Copyright, 2024 ?? * Андрей Madera MD: PERFORM Event Display: Patient Education Leaflets Authored Date: [id number] Alcohol Use Disorder: Myths and Facts ?? 18442 Alcohol Use Disorder: Myths and Facts Alcohol use disorder (AUD) is a medical condition in which a person is dependent on a drug???alcohol. AUD also includes a level of abuse called alcoholism. The disease can harm a person???s physical and mental health. It can also affect their behavior. AUD isn't a character flaw. It's not a moral failure. Untreated, it's a disease that gets worse over time. Untreated, it can also lead to brain damage and . Recovery is possible if drinking is stopped. Most of us believe things about AUD that aren???t really true. This keeps us from thinking clearly.It keeps us from seeing AUD in our families and friends, or at our jobs. It's important to cut through the AUD myths and learn the facts. Then we can see AUD???and do something about it. Myth: But she???s not always drunk. Fact: Most people with AUD aren't always drunk. But it???s what happens when they do drink that matters. Myth: But he has such a nice family. Fact: A person with AUD can have a nice family. And most people with AUD can take care of their families for a long time. Myth: But she doesn???t look like a person with AUD. Fact: People with AUD don't look a certain way. And many people with AUD take great care with how they look. They don't want other people to think they're alcoholics. Myth: But he only drinks beer. Fact: Alcohol is alcohol. A can of beer equals a shot of whiskey. Or a glass of wine. Myth: He makes it to work every day. So he can't be an alcoholic. Fact: Many people with AUD rarely miss work. They may be hung over. But they still show up. Myth: But he comes from such a good background. Fact: AUD can happen to anyone. Family background, social position, and income don't matter. Myth: But he has a good job. Fact: Most people with AUD have jobs. And most are responsible people. Many are professionals and executives. Myth: She???s too nice to have AUD Fact: Many people with AUD are good people. There's no such thing as an AUD personality. But a person???s behavior can change after drinking. Myth: But I never see her drink. Fact: People with AUD often keep their drinking habits secret. They often hide this from people at work. Myth: People with AUD are all bums. Fact: Most people with AUD are ordinary, decent people. ?? Last Reviewed Date: 2023 ?? 5738-6971 [employer]. All rights reserved. This information is not intended as a substitute for professional medical care. Always follow your healthcare professional's instructions. ?? Patient Care team information Care Team Personnel Name: Not on Staff, PCP Position: S Physician (General Medicine) Member Role: PCP Name: Geena Bellamy RN Position: S RN Member Role: Primary Care Nurse Insurance Providers Guarantor name: CLAUDINE Health Plan Information #: 1 Payer: [facility] [employer] Member Number: [id number] Policy Number: CLAUDINE Group Number: [id number] Health Plan Information #: 2 Payer: [employer] Member Number: [id number] Policy Number: NA Group Number: NA
== END 2024-11-09 14:42 | disposition home or self-care (01) ==
PROVIDERS: PCP Internal Medicine; Visit Provider Internal Medicine
DX: S63.106A Unspecified dislocation of unspecified thumb, initial encounter (principal)

== ENCOUNTER → 2024-11-09 14:05 | Outpatient (BNVA) | payer MEDICARE, SELFPAY | PROVIDERS: PCP Internal Medicine; Visit Provider Internal Medicine | DX: S63.10 Unspecified subluxation and dislocation of thumb (principal) | CPT/HCPCS: 99212 ==

== ENCOUNTER 2024-11-11 08:38 | Outpatient (REF) | payer MEDICARE, SELFPAY ==
--- NOTE | ~2024-11-11 | XR_ITS ---
EXAMINATION: XR HAND 3 OR MORE VIEWS LEFT HISTORY: M79.642 - Pain in left hand COMPARISON: Correlation is made with the prior examination of the left thumb dated 10/30/2024. FINDINGS: Three views of the left hand are submitted. Osseous mineralization is normal. There is no fracture or dislocation. There is severe osteoarthritis of the 1st carpometacarpal joint, with joint space narrowing and osteophyte formation. The soft tissues are unremarkable. XR/XR hand LT min 3V IMPRESSION: Severe osteoarthritis of the 1st carpometacarpal joint. Electronically signed by: Jayant Griffin MD 11/11/2024 09:44 AM EDT
--- OUTSIDE RECORDS SUMMARY | 2024-11-12 09:20 | XMS_ITS | Clinical Summary ---
Author Organization [facility] it Address [address] [place] [address] Care Team Providers Care Child Welfare Counselor Name Role Phone Unavailable Primary Care Provider Unavailabl e Encounters Date Type Department Care Team Description 11/10/2024 Telephone [facility] - [address] [place] [address] Patrick Estrada MD from Last [...]
--- OUTSIDE RECORDS SUMMARY | 2024-11-12 09:20 | XMS_ITS | Encounter Summary ---
Author Organization [facility] Address [address] [place] [address] Care Team Providers Care Chief Supply Chain Officer Name Role Phone Unavailable Primary Care Provider Unavailabl e Encounter Details Date Type Department Care Team (Late st Contact Info) Description 11/10/2024 Telephone [facility] - [address] [place] [address] Patrick Estrada MD [address] [place] [address] Social History Tobacco Use Types Packs/Day Years Used Date Smoking Tobacco: Never Assessed Sex and Gender Information Value Date Recorded Sex Assigned at Not on file Legal Sex Male 1:37 PM EDT Gender Identity Not on file Sexual Orientation Not on file documented as of this encounter Progress Notes * Macy Peres - 11/10/2024 10:[address] Estrada saw patient at [facility] consult ordered a ILR implant. Spoke with patient he is holding off with moving forward with ILR implant documented in this encounter Plan of Treatment Not on file documented as of this encounter Visit Diagnoses Not on filedocumented in this encounter
== END 2024-11-11 08:39 | disposition home or self-care (01) ==
LOC: HO.HOSX 08:38
PROVIDERS: Visit Provider Orthopaedic Surgery
DX: M79.642 Pain in left hand (principal); S61.012A Laceration without foreign body of left thumb without damage to nail, initial encounter; M25.642 Stiffness of left hand, not elsewhere classified
CPT/HCPCS: 73130; 99202

== ENCOUNTER 2024-11-11 08:44 | Outpatient (AMB) | payer MEDICARE, SELFPAY ==
[2024-11-11 08:59] VITALS: BMI 27.4
--- NOTE | 2024-11-11 08:59 | MHC.OFFVIS ---
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 As per ED note, patient had a few drinks and passed out at home. He was found unconscious by his sister and was bought to ED where xrays were taken and his thumb was sutured, reduced, splinted and transferred to [facility] for further evaluation for his cervical vertebra fracture. Currently states he has no pain just stiffness and is doing well. Denies numbness tingling or locking if any finger. 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 After drinking some alcohol, he fainted on 10/30/24, falling in his home and injuring himself. He was seen in the ED where his thumb was sutured, reduced, splinted, and he was transferred to [facility] for a C5 fracture. He is seen today with his sister. He denies any pain but says he has issues with stiffness & limited ROM of his thumb He denies any numbness or tingling PFSH Medical History Hypertension Surgical History H/O left inguinal hernia repair H/O rectal polypectomy History of excision of pilonidal cyst Family History Father Past heart attack Mother CAD (coronary artery disease) Social History (Updated 11/11/24 @ 09:06 by BONNIE Perez) Household Members: Family Household Members Other:: sister Housing: House Do you presently have visiting nurse or other home services: No Alcohol intake: former Patient Tobacco Use Status: Current everyday Tobacco user Tobacco use type: Cigar Cigarettes Per Day: 2 e-Cigarette/Vaping Use: Never Used Second Hand Smoke Exposure: Yes service: No Current occupational status: 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 Current occupational exposures/hazards: No Cognitive needs: Yes (cane) Hearing needs: No Vision needs: Yes Review of Systems Const All systems reviewed & are unremarkable except as noted in HPI and below Physical Exam Vital Signs: BMI result Body Mass Index 27.4 Const General: cooperative, healthy appearing and no acute distress Orientation/consciousness: patient oriented x3 HEENT Head: Yes normocephalic and Yes atraumatic Eyes EOM: EOMs intact bilaterally Resp Effort & Inspection: normal respiratory effort and able to speak in complete sentences Cardio Jugular venous distension: no JVD Skin General skin exam: turgor normal Rashes: no rashes Neuro General: patient oriented x3 Extrem Other: Evaluation of Left Upper Extremity: The patient is alert, oriented, and in no acute distress Neuro: Median, Ulnar, Radial nerves motor and sensory intact and sensation is normal to the tips of all digits Vascular: Cap refill brisk ROM: He can bring his four fingers closed to a fist and back into full extension He can actively bring the IP joint of the thumb from ~40 degrees hyperextension to neutral, he has pain when trying to go beyond neutral. He can also hold the thumb flex to neutral position against resistance. This would appear to indicate his FPL tendon is likely intact. He can oppose his thumb to the tips of all digits, but cannot flex to the base of his fingers Skin: Transverse laceration to the left thumb IP flexion crease, measuring 1.5cm in length. Sutures removed today This appears to be healing well, and with no erythema drainage or evidence of infection. The skin about the proximal phalanx appears to be healing circumferentially. I clear whether he had some kind of a blister around this part of his thumb, or if this is due to some kind of adhesive as the patient says that he had some tape on his thumb. Again it does not appear to be infected, and there is no drainage. Radiographs: 3 views of the left hand were taken and viewed by me today in clinic. They show no fractures or dislocations. The thumb IP joint is held in ~40 degrees of hyperextension. 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 & significant osteophyte formation Psych Appearance: grossly normal Affect: normal affect Attitude: cooperative Quality Reporting (2020) Adult ([facility] 138/10/24/68) Smoking risk assessment performed?: Yes Patient Tobacco Use Status: Current everyday Tobacco user Assessment & Plan Assessment & Plan (1) Stiffness of thumb joint: Code(s): M25.649 - Stiffness of unspecified hand, not elsewhere classified Category: Medical (2) Laceration of left thumb: Code(s): S61.012A - Laceration without foreign body of left thumb without damage to nail, initial encounter Category: Medical Plan Assessment & Plan: 1. Left thumb stiffness, S/P laceration From a fainting injury, DOI: 10/30/24 FPL tendon function appears intact but limited at this time, possibly secondary to stiffness I educated him about this condition I discussed operative and non-operative treatment options He will discontinue his splint at this time I recommend OT hand therapy & activity modification, and he is in agreement. I ordered OT hand therapy to work on stretching & ROM. I discussed activity modification, he should use his hands for lightweight activities for the next few weeks He will follow up in 4 weeks for a ROM check. Scribed for Kelsey Wilkerson MD by Carlos Harper, medical social worker, on 11/11/24 at 9:15 AM, EST. Orders: Orders XR hand LT min 3V Today M79.642 - Pain in left hand OT Evaluation and Treatment Today M25.649 - Stiffness of unspecified hand, not elsewhere classified, S61.012A - Laceration without foreign body of left thumb without damage to nail, initial encounter Coding Level of Care Code New Pt Level 4 (53281) Diagnoses Stiffness of thumb joint M25.649 Laceration of left thumb S61.012A
--- OUTSIDE RECORDS SUMMARY | 2024-11-11 09:16 | XMS_ITS | Encounter Summary ---
Author Organization [facility] Address [address] [place] [address] Care Team Providers Care Senior Linux Systems Administrator Name Role Phone Unavailable Primary Care Provider Unavailabl e Encounter Details Date Type Department Care Team (Late st Contact Info) Description 11/10/2024 Telephone [facility] - [address] [place] [address] Patrick Estrada MD [address] [place] [address] Social History Tobacco Use Types Packs/Day Years Used Date Smoking Tobacco: Never Assessed Sex and Gender Information Value Date Recorded Sex Assigned at Not on file Legal Sex Male 1:37 PM EDT Gender Identity Not on file Sexual Orientation Not on file documented as of this encounter Progress Notes * Macy Peres - 11/10/2024 10:[address] Estrada saw patient at [facility] consult ordered a ILR implant. Spoke with patient he is holding off with moving forward with ILR implant documented in this encounter Plan of Treatment Not on file documented as of this encounter Visit Diagnoses Not on filedocumented in this encounter
--- OUTSIDE RECORDS SUMMARY | 2024-11-11 09:16 | XMS_ITS | Clinical Summary ---
Author Organization [facility] it Address [address] [place] [address] Care Team Providers Care Diagnostic Sales Specialist Name Role Phone Unavailable Primary Care Provider Unavailabl e Encounters Date Type Department Care Team Description 11/10/2024 Telephone [facility] - [address] [place] [address] Patrick Estrada MD from Last 3 Months Social History Tobacco Use Types Packs/Day Years Used Date Smoking Tobacco: Never Assessed Sex and Gender Information Value Date Recorded Sex Assigned at Not on file Legal Sex Male 1:37 PM EDT Gender Identity Not on file Sexual Orientation Not on file Plan of Treatment Health Maintenance Due Date Last Done Comments DTaP,Tdap,and Td Vaccines (1 - Tdap) 1972 Pneumococcal Vaccine: 50+ Ye ars (1 of 1 - PCV) 2003 Zoster Vaccines (1 of 2) 2003 Abdominal Aortic Aneurysm (A AA) Screen 03/31/2024 Cholesterol Screening (Lipid Panel) 03/31/2024 Colorectal Cancer Screening: Colonoscopy 03/31/2024 Depression Screening 03/31/2024 Falls Risk Assessment 03/31/2024 Hepatitis C Screening 03/31/2024 Social Influencers of Health Screening 03/31/2024 COVID-19 Vaccine ( - 2023-2 5 season) 2024 Influenza Vaccine (#1) 2024 RSV Immunization Patients 60 + Years Old (1 - 1-dose 75+ series) 2028 HIB Vaccines Aged Out No longer eligi ble based on patient's age to complete this topic HPV Vaccines Aged Out No longer eligi ble based on patient's age to complete this topic Hepatitis A Vaccines Aged Out No long er eligible based on patient's age to complete this topic Hepatitis B Vaccines Aged Out No long er eligible based on patient's age to complete this topic IPV Vaccines Aged Out No longer eligi ble based on patient's age to complete this topic MMR Vaccines Aged Out No longer eligi ble based on patient's age to complete this topic Meningococcal ACWY Vaccine Aged Out N o longer eligible based on patient's age to complete this topic Meningococcal B Vacine Aged Out No lo nger eligible based on patient's age to complete this topic RSV Immunization Patients Un tristan 20 months Aged Out No longer eligible b ased on patient's age to complete this topic Varicella Vaccines Aged Out No longer eligible based on patient's age to complete this topic
== END 2024-11-11 09:28 | disposition home or self-care (01) ==
LOC: HO.HOS 08:44
PROVIDERS: Visit Provider Orthopaedic Surgery
DX: M25.642 Stiffness of left hand, not elsewhere classified (principal); S61.012A Laceration without foreign body of left thumb without damage to nail, initial encounter
CPT/HCPCS: 99203

== ENCOUNTER → 2024-11-11 08:46 | Outpatient (BNV) | payer MEDICARE, SELFPAY | PROVIDERS: Visit Provider Radiology Diagnostic Radiology | DX: M79.642 Pain in left hand (principal) | CPT/HCPCS: 73130 ==

== ENCOUNTER 2024-12-04 12:31 | Outpatient (RCR) | payer MEDICARE, SELFPAY ==
--- NOTE | 2024-11-18 14:29 | MHC.OT.EP ---
[address] [phone] Occupational Therapy Plan of Care Patient Name: Abdullahi Hein Date of Evaluation: 11/18/24 Diagnosis: L THUMB LACERATION Pain Location: PAINFREE AT REST 3/10 DORSAL IPj OF L THUMB, ACHY Pain Score: 0-3/10 Pain Scale Used: Numeric (0 - 10) Aggravating Factors: END RANGE FLEXION Alleviating Factors: HEAT, TYLENOL Assessment: MR HEIN SUSTAINED A FALL ON OCTOBER 30, 2024 CARDIAC VS ETOH USE, LACERATING HIS L THUMB. XRAYS NEGATIVE. SUTURES APPLIED IN THE ED. HE REPORTS STIFFNESS AND MILD DIFFICULTIES WITH ADLs/IADLs. A 30% LIMITATION IS REPORTED PER THE QUICK DASH ASSESSMENT. ONGOING SKILLED OT SERVICES WARRANTED TO ADDRESS ROM, STRENGTH, COORDINATION AND ADLs/IADLs. Frequency and Duration: The patient will be seen 2X/WEEK FOR 4 WEEKS Short Term Goals: IND HEP IND JT PROTECTION/ ACTIVITY MODIFICATION IND USE OF HEAT/ COLD MODALITIES KAPANDJI SCORE 9/10 Long-Term Goals: QUICK DASH <15% IND EDEMA MANAGEMENT STRATEGIES TOLERATE LIFTING >10 POUNDS FOR SIMULATED IADLs WITH <2/10 PAIN Treatment Plan: Therapeutic Exercise Therapeutic Activity Home Exercise Program Splinting Neuro Re-ed Patient Education Desensitization/Sensory Re-ed Edema Control ADL Training Ultrasound NMES Iontophoresis Paraffin Fluidotherapy MHP Cold Packs Joint Mobilization Soft Tissue Mobilization Kinesiotaping Other (see comments) Electronically Signed By: ALICIA PHIPPS OTR/L Please Sign and return to therapist. Thank you once again for your referral.
--- NOTE | 2024-12-04 13:29 | MHC.OT.DC ---
[address] [phone] F: [phone] Occupational Therapy Discharge Note Patient Name: Abdullahi Hein Provider: Kelsey Wilkerson Diagnosis: L THUMB LACERATION Date of Evaluation: 11/18/24 Date of Discharge: 12/04/24 Treatments to Date: 6 Cancellations to Date: 0 No Shows to Date: 0 Discharge Status: Achieved Goals Improved Function Discharge Summary: MR HEIN HAS MET HIS GOALS AND READY TO TRANSITION TO A HOME BASED PROGRAM. HE HAS FUNCTIONAL ROM AND STRENGTH IN HIS NON DOMINANT LUE. HE DOES STILL EXPERIENCE SOME HYPERSENSITIVITY TO HIS L THUMB, YET GOOD UNDERSTANDING OF DESENSITIZATION STRATEGIES AND PROGRESSION OF HEP. NO FURTHER OT WARRANTED - D/C OT SERVICES. Electronically Signed By: LAILA LEI/Sabino Reviewed/agree with student documentation: N/A Therapist: Please Sign and return to therapist, thank you for your referral.
== END 2024-12-04 13:25 | disposition home or self-care (01) ==
LOC: HO.OT 12:31
PROVIDERS: PCP Internal Medicine; Visit Provider Orthopaedic Surgery
DX: S61.012D Laceration without foreign body of left thumb without damage to nail, subsequent encounter (principal); M25.642 Stiffness of left hand, not elsewhere classified
CPT/HCPCS: 97110; 97140; 97165; 97530

== ENCOUNTER 2024-12-08 12:17 | Outpatient (AMB) | payer MEDICARE, SELFPAY ==
[2024-12-08 12:42] VITALS: BMI 27.4
--- NOTE | 2024-12-08 12:42 | A.OFFVIS_ITS ---
Vital Signs 12/08/24 12:42 Height 5 ft 10 in Weight 191 lb BMI 27.4 Intake Visit Reasons: LT thumb lac. with concerns for tendon injury Intake Note: Abdullahi 69 yr old male presents today for his follow up visit for his left thumb stiffness, S/P laceration from a fainting injury, DOI: 10/30/24 ROM check. States he continues to have swelling and limited ROM. Allergies No Known Allergies Allergy (Verified 12/08/24 12:46) HPI HPI LT thumb lac. with concerns for tendon injury: Details: Abdullahi is a 69 year old right hand dominant man who returns for his left thumb stiffness, S/P laceration, DOI: 10/30/24. He complains of swelling & continued limited ROM of his thumb. He has completed his course of OT hand therapy and has been working on his ROM exercises at home. He denies any numbness or tingling. He says he had frostbite to his left hand when he was a child, and continues to have difficulty with sensitivity to cold. [facility] Medical History Hypertension Surgical History H/O left inguinal hernia repair H/O rectal polypectomy History of excision of pilonidal cyst Family History Father Past heart attack Mother CAD (coronary artery disease) Social History Household Members: Family Household Members Other:: sister Housing: House Do you presently have visiting nurse or other home services: No Alcohol intake: former Patient Tobacco Use Status: Current everyday Tobacco user Tobacco use type: Cigar Cigarettes Per Day: 2 e-Cigarette/Vaping Use: Never Used Second Hand Smoke Exposure: Yes service: No Current occupational status: 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 Sensation intact to the radial and ulnar digital nerves to the tip of the thumb. Vascular: There was slow cap refill to all his left fingertips when compared to the right. And they all appear purple in color today in clinic. He says this is normal when his hands get cold, since he developed frostbite as a child ROM: He can bring his four fingers closed to a fist and back into full extension He can actively bring the IP joint of the thumb to ~35 degrees of flexion which is a significant improvement from last visit when he can only actively bring the IP joint from hyper extension to neutral. When I have him flex the IP joint against resistance, I can feel the FPL tendon on the volar side of the IP joint. He can oppose his thumb to the tips of all digits, , and can now flex to touch to about the PIP joint of the small finger. Skin: Healed transverse laceration to the left thumb IP flexion crease, measuring 1.5cm in length. Assessment & Plan Assessment & Plan (1) Stiffness of thumb joint: Code(s): M25.649 - Stiffness of unspecified hand, not elsewhere classified Category: Medical (2) Laceration of left thumb: Code(s): S61.012A - Laceration without foreign body of left thumb without damage to nail, initial encounter Category: Medical Plan Assessment & Plan: 1. Left thumb stiffness, S/P laceration From a fainting injury, DOI: 10/30/24 FPL tendon function appears intact with improved range of motion following OT He appears to be improving well. I educated him about this condition He has completed his course of OT hand therapy I recommend he continue to work on ROM exercises at home I discussed activity modification, he should use his hands for more medium- weight activities activities for the next few weeks, slowly increasing as tolerated. He will follow up prn Scribed for Kelsey Wilkerson MD by Carlos Harper, medical insurance coder, on 12/08/24 at 1:10 PM, EST. Coding Level of Care Code Est Pt Level 3 (33969) Diagnoses Stiffness of thumb joint M25.649 Laceration of left thumb S61.012A
--- OUTSIDE RECORDS SUMMARY | 2024-12-08 14:53 | XMS_ITS | Clinical Summary ---
Author Organization [facility] it Address [address] [place] [address] Care Team Providers Care Organ Recovery Coordinator Name Role Phone Unavailable Primary Care Provider Unavailabl e Encounters Date Type Department Care Team Description 11/10/2024 Telephone [facility] - [address] [place] [address] Patrick Estrada MD from Last [...] 2024 Influenza Vaccine (#1) 2024 RSV Immunization Adult Patie nts (1 - 1-dose 75+ series) 2028 HIB [...] age to complete this topic Meningococcal B Vaccine Aged Out No l onger eligible based on patient's age to complete this topic RSV Immunization Patients Un tristan 20 months Aged Out No longer eligible b ased on patient's age to complete this topic Varicella Vaccines Aged Out No longer eligible based on patient's age to complete this topic
== END 2024-12-08 13:13 | disposition home or self-care (01) ==
LOC: HO.HOS 12:17
PROVIDERS: PCP Internal Medicine; Visit Provider Orthopaedic Surgery
DX: M25.642 Stiffness of left hand, not elsewhere classified (principal); S61.012A Laceration without foreign body of left thumb without damage to nail, initial encounter
CPT/HCPCS: 99213

== ENCOUNTER → 2024-12-08 12:17 | Outpatient (BNVA) | payer MEDICARE, SELFPAY | PROVIDERS: PCP Internal Medicine; Visit Provider Orthopaedic Surgery | DX: S61.012D Laceration without foreign body of left thumb without damage to nail, subsequent encounter (principal); M25.649 Stiffness of unspecified hand, not elsewhere classified | CPT/HCPCS: 99212 ==

== ENCOUNTER 2024-12-23 10:08 | Outpatient (AMB) | payer MEDICARE, SELFPAY ==
[2024-12-23 10:14] VITALS: BP 106/68; PULSE 76; RESP 18; TEMP 36.9; BMI 27.1
--- NOTE | 2024-12-23 10:14 | MHC.PC.OV ---
Vital Signs 12/23/24 10:14 Height 5 ft 10 in Weight 189 lb 3.2 oz BMI 27.1 BP 106/68 Blood Pressure Location Lt brachial Position Sitting Respiration 18 Pulse 76 Pulse Source Palpation Temp 98.4 F Temp Source Oral Intake Visit Reasons: Transfer from [address] F/ First Assistant Required: No Accompanied by: Self / Same As Patient Allergies No Known Allergies Allergy (Verified 12/23/24 10:35) Medication List - Last Reconciled 12/23/24 by JAYE Bello acamprosate mg PO TID blood pressure test kit-large (BPM 2 Advanced BP Monitor kit) As directed folic acid 1 mg PO DAILY lisinopril 40 mg PO DAILY multivitamin 1 tab PO DAILY pyridoxine (vitamin B6) 50 mg PO DAILY thiamine HCl (vitamin B1) 100 mg PO BID walker (Ultra-Light Rollator misc) As directed Tobacco use date assessed: 12/23/24 Fall risk assessment: 2 + Falls in past year Last assessed Fall Risk: 12/23/24 Dental Screening Dental Screen Date: 12/23/24 Did you have a dental visit in the last 12 months?: No Did you have a dental problem in the last 6 months where you did not have access to dental care?: No Was dental information given to patient?: No HPI Transfer from [address]/ HPI Details The patient is a 69-year-old male presenting with a routine follow-up for hypertension management and discussion of recent falls. He has managed essential hypertension, currently controlled with lisinopril. In October, he experienced a fall leading to his metoprolol being stopped. Since then, he reports no further falls, attributing the believed previous falls to alcohol use. The patient has remained abstinent from alcohol since that time. He underwent necessary evaluations, including hospitalization, following the fall, with no change in his cardiac diagnosis. A previous history of cardiac arrhythmias was present but currently resolved, and the patient reports no associated cardiovascular symptoms. Additionally, the patient has a long history of smoking cigars, a habit since high school, smoking approximately three per day. [facility] Medical History Hypertension Surgical History H/O left inguinal hernia repair H/O rectal polypectomy History of excision of pilonidal cyst Family History Father Past heart attack Mother CAD (coronary artery disease) Social History Household Members: Family Household Members Other:: sister Housing: House Do you presently have visiting nurse or other home services: No Alcohol intake: former Patient Tobacco Use Status: Current everyday Tobacco user Tobacco use type: Cigar Cigarettes Per Day: 2 e-Cigarette/Vaping Use: Never Used Second Hand Smoke Exposure: Yes service: No Current occupational status: 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 Current occupational exposures/hazards: No Cognitive needs: No Hearing needs: No Vision needs: Yes (Reading glasses) Questionnaire Thrive Questionnaire Date Thrive assessed: 12/23/24 I am a: Patient What is your living situation today?: I have a steady place to live Within the past 12 months, did the food you bought not last and you didn't have the money to get more?: Never true Within the past 12 months, did you worry whether your food would run out before you got money to buy more?: Never true Do you have trouble paying for medicines?: No Do you have trouble getting transportation to medical appointments?: No Do you have trouble paying your heating and electricity bill?: No Do you have trouble taking care of your child, family member or friend?: No Do you have trouble with day-to-day activities such as bathing, preparing meals, shopping, managing finances, etc.?: No Are you currently unemployed and looking for a job?: No Are you interested in more education?: No Please select the resources that you would like help with: None Currently or been in a relationship where the following occur: No concerns reported THRIVE Score: 0 AUDIT C Alcohol Use Questionnaire (AUDIT-C) 1. How often do you have a drink containing alcohol?: Never Total Score: 0 Score Reviewed/Action Taken: No ZAHRAA-7 AMB Questionnaire ZAHRAA-7 Date ZAHRAA - 7 assessed: 09/24/24 Source: Developed by Drs. Jayant Chavez, Gilda Rasheed, Sidney Avila and colleagues, with an educational keren from [employer]. Review of Systems Const Details: - Cardiovascular: Denies palpitations, chest pain, or shortness of breath. - Respiratory: Denies cough, reports occasional symptoms relating to past frostbite. - Gastrointestinal: Denies heartburn, abdominal pain. - Musculoskeletal: Denies mobility issues; reports quicker movements since starting medication. - Neurological: Denies dizziness, vertigo. - Hematologic/Lymphatic: Denies unusual bleeding or bruising. - Genitourinary: Reports frequent nighttime urination. - Head, Eyes, Ears, Nose: Denies tinnitus, reports occasional cerumen accumulation. - Endocrine: Reports no history of diabetes mellitus. - Psychiatric: Reports no current symptoms. - Lifestyle: Reports improved health after ceasing alcohol consumption. Reports frequent falls (resolved since last hospitalization) and Denies headache(s) Eyes Denies loss of vision ENT Denies vertigo, Denies dizziness, Denies headache(s) and Denies sore throat Card Denies chest pain, Denies leg edema and Denies lightheadedness Resp Denies cough, Denies hemoptysis and Denies wheezing GI Denies abdominal pain, Denies melena, Denies constipation, Denies diarrhea and Denies vomiting Denies dysuria, Reports nocturia, Denies urinary frequency and Denies urinary urgency Musc Denies arthralgias, Denies joint swelling, Denies numbness, Denies tingling and Reports other (reports occasional symptoms relating to past frostbite (reddened fingers)) Neuro Denies Abnormal speech present, Denies behavioral changes, Denies vertigo, Denies dizziness, Reports frequent falls (resolved since last hospitalization), Denies headache(s), Denies loss of vision, Denies memory loss, Denies numbness and Denies tingling Psych Denies anxiety, Denies behavioral changes, Denies depression, Denies memory loss and Denies panic attacks Anatoliy/Lymph Denies easy bleeding and Denies easy bruising Aller/Immun Denies wheezing Physical exam (Primary Care) Vital Signs: Last Vital Signs Temp 98.4 F 12/23/24 10:14 Pulse 76 12/23/24 10:14 Resp 18 12/23/24 10:14 BP 106/68 12/23/24 10:14 BMI result Body Mass Index 27.1 Tobacco/Smoking Status: Tobacco use Status Tobacco use date assessed 12/23/24 12/23/24 10:30 Patient Tobacco Use Status Current everyday Tobacco 12/23/24 10:30 Tobacco use type Cigar 12/23/24 10:30 e-Cigarette/Vaping Use Never Used 12/23/24 10:30 Thrive Assessment: Date of Thrive Assessment Date Thrive assessed 12/23/24 12/23/24 10:30 Currently or been in a relationship where the following occur: No concerns reported Const General: healthy appearing, no acute distress, alert and awake Nutritional Appearance: well nourished Orientation/consciousness: oriented to person, oriented to place and oriented to time HENMT Ears: Abnormal EAC present excessive cerumen bilateral General nose exam: Abnormal mucous membranes and turbinates present erythematous Eyes Conjunctivae: conjunctivae normal Sclerae: sclerae normal Pupils: Equal, round and reactive pupils present Neck Neck: Yes no lymphadenopathy and Yes no JVD Thyroid: Thyroid normal Carotids: no bruits Resp Effort & Inspection: normal respiratory effort and not tachypneic Auscultation: no crackles, no rales, no rhonchi and no wheezes Cardio Rate: regular rate Rhythm: regular rhythm Heart sounds: no murmurs and normal S1 and S2 GI Palpation (GI): Soft to palpation, nontender, no hepatomegaly and no splenomegaly Auscultation: normal bowel sounds Skin General skin exam: no rashes or lesions noted and dry skin Neuro General: oriented to person, oriented to place and oriented to time Cranial nerves: Yes Equal, round and reactive pupils present Speech: No Abnormal speech present Gait exam (Neuro): Normal gait present Motor exam (neuro): no tremor noted Extrem Right upper extremity: full ROM and Extremity exam: right hand Left upper extremity: full ROM Right lower extremity: full ROM; no edema Left lower extremity: full ROM; no edema Psych Mental Status: mental status grossly normal Speech and movement: Normal speech and movement present Affect: normal affect Attitude: cooperative Thought process: Normal thought process present Results Reviewed Results Reviewed: Laboratory Tests 10/30/24 10/30/24 19:02 21:21 RBC 4.46 L D Hgb 14.9 Hct 41.6 L MCV 93.3 MCH 33.4 H MCHC 35.8 RDW 11.9 Plt Count 266 MPV 9.3 L Immature Gran % (Auto) 0.5 H Neut % (Auto) 77.1 H Lymph % (Auto) 16.0 L [place] % (Auto) 5.2 Eos % (Auto) 1.0 Baso % (Auto) 0.2 Sodium 133 L Potassium 3.7 Chloride 101 Carbon Dioxide 21 L Anion Gap 15 BUN 5 L Creatinine 0.60 Estim Creat Clear Calc 128.1 Estimated GFR > 60 Random Glucose 82 Lactic Acid F/U @ 2Hr 2.2 H* Calcium 8.5 Coding Level of Care Code Est Pt Level 4 (07283) Diagnoses Orthostatic hypotension I95.1 Hospital discharge follow-up Z09 NSVT (nonsustained ventricular tachycardia) I47.29 Alcohol use disorder F10.90 Fall, subsequent encounter W19.XXXD Encounter type: subsequent encounter Time Spent (min) 38 Assessment & Plan Assessment & Plan (1) Orthostatic hypotension: Code(s): I95.1 - Orthostatic hypotension Category: Medical (2) Hospital discharge follow-up: Code(s): Z09 - Encounter for follow-up examination after completed treatment for conditions other than malignant neoplasm Category: Medical (3) NSVT (nonsustained ventricular tachycardia): Code(s): I47.29 - Other ventricular tachycardia Category: Medical (4) Alcohol use disorder: Code(s): F10.90 - Alcohol use, unspecified, uncomplicated Category: Medical (5) Fall: Code(s): W19.XXXA - Unspecified fall, initial encounter Category: Medical Qualifiers: Encounter type: subsequent encounter Qualified Code(s): W19.XXXD - Unspecified fall, subsequent encounter Plan I will continue managing the patient's essential hypertension with lisinopril. He remains abstinent from alcohol, which aligns with the reduction in fall occurrences. Smoking reduction was advised, given the patient's long history of cigar use. He will be instructed on ear hygiene practices to prevent impaction-related issues. PSA testing will monitor any prostate issues contributing to urinary frequency. 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 Patient was informed and verbally consented to the use of an ambient scribe for clinic note documentation during this visit. Orders: Orders Comprehensive [place]. Panel Fast 3 Months E66.9 - Obesity, unspecified, F10.90 - Alcohol use, unspecified, uncomplicated, I10 - Essential (primary) hypertension, M25.649 - Stiffness of unspecified hand, not elsewhere classified, R55 - Syncope and collapse, W19.XXXA - Unspecified fall, initial encounter PSA,Total (Free>4and<10) 3 Months E66.9 - Obesity, unspecified, F10.90 - Alcohol use, unspecified, uncomplicated, I10 - Essential (primary) hypertension, M25.649 - Stiffness of unspecified hand, not elsewhere classified, R55 - Syncope and collapse, W19.XXXA - Unspecified fall, initial encounter Complete Blood Count Auto Diff 3 Months E66.9 - Obesity, unspecified, F10.90 - Alcohol use, unspecified, uncomplicated, I10 - Essential (primary) hypertension, M25.649 - Stiffness of unspecified hand, not elsewhere classified, R55 - Syncope and collapse, W19.XXXA - Unspecified fall, initial encounter Glucose Fasting 3 Months E66.9 - Obesity, unspecified, F10.90 - Alcohol use, unspecified, uncomplicated, I10 - Essential (primary) hypertension, M25.649 - Stiffness of unspecified hand, not elsewhere classified, R55 - Syncope and collapse, W19.XXXA - Unspecified fall, initial encounter Vitamin D 25-OH Total 3 Months E66.9 - Obesity, unspecified, F10.90 - Alcohol use, unspecified, uncomplicated, I10 - Essential (primary) hypertension, M25.649 - Stiffness of unspecified hand, not elsewhere classified, R55 - Syncope and collapse, W19.XXXA - Unspecified fall, initial encounter Vitamin B6 3 Months E66.9 - Obesity, unspecified, F10.90 - Alcohol use, unspecified, uncomplicated, I10 - Essential (primary) hypertension, M25.649 - Stiffness of unspecified hand, not elsewhere classified, R55 - Syncope and collapse, W19.XXXA - Unspecified fall, initial encounter Vitamin B12 and Folate 3 Months E66.9 - Obesity, unspecified, F10.90 - Alcohol use, unspecified, uncomplicated, I10 - Essential (primary) hypertension, M25.649 - Stiffness of unspecified hand, not elsewhere classified, R55 - Syncope and collapse, W19.XXXA - Unspecified fall, initial encounter UA CC w/rflx Micro + Cult 3 Months E66.9 - Obesity, unspecified, F10.90 - Alcohol use, unspecified, uncomplicated, I10 - Essential (primary) hypertension, M25.649 - Stiffness of unspecified hand, not elsewhere classified, R55 - Syncope and collapse, W19.XXXA - Unspecified fall, initial encounter TSH reflex Free T4 3 Months E66.9 - Obesity, unspecified, F10.90 - Alcohol use, unspecified, uncomplicated, I10 - Essential (primary) hypertension, M25.649 - Stiffness of unspecified hand, not elsewhere classified, R55 - Syncope and collapse, W19.XXXA - Unspecified fall, initial encounter Lipid Panel 3 Months E66.9 - Obesity, unspecified, F10.90 - Alcohol use, unspecified, uncomplicated, I10 - Essential (primary) hypertension, M25.649 - Stiffness of unspecified hand, not elsewhere classified, R55 - Syncope and collapse, W19.XXXA - Unspecified fall, initial encounter Patient Instructions: - Continue taking lisinopril as prescribed. - Abstain from alcohol consumption. - Reduce cigar smoking, attempt cessation. - Maintain ear cleanliness with [id number] earwax softeners. - Report any new symptoms or changes in health. - Follow up as scheduled for PSA testing and cardiology review. - Monitor for fall occurrences and notify the clinician if resumed. - Limit fluid intake close to bedtime to reduce nighttime urination.
--- OUTSIDE RECORDS SUMMARY | 2024-12-23 11:46 | XMS_ITS | Clinical Summary ---
Author Organization [facility] it Address [address] [place] [address] Care Team Providers Care Test Skein Winder Name Role Phone Unavailable Primary Care Provider Unavailabl e Encounters Date Type Department Care Team Description 11/10/2024 Telephone [facility] [address] [place] [address] Patrick Estrada MD from Last [...] - 2023-2 5 season) 2024 Influenza Vaccine (Season Ended) 2025 RSV Immunization Adult Patie nts (1 - [...]
== END 2024-12-23 10:53 | disposition home or self-care (01) ==
LOC: HO.HMCH 10:08
PROVIDERS: PCP Internal Medicine
DX: I95.1 Orthostatic hypotension (principal); Z09 Encounter for follow-up examination after completed treatment for conditions other than malignant neoplasm; I47.29 Other ventricular tachycardia; F10.90 Alcohol use, unspecified, uncomplicated; W19.XXXD Unspecified fall, subsequent encounter

== ENCOUNTER → 2024-12-23 10:08 | Outpatient (BNVA) | payer MEDICARE, SELFPAY | PROVIDERS: PCP Internal Medicine | DX: Z09 Encounter for follow-up examination after completed treatment for conditions other than malignant neoplasm (principal); I95.1 Orthostatic hypotension; I47.29 Other ventricular tachycardia; F10.90 Alcohol use, unspecified, uncomplicated | CPT/HCPCS: 99212 ==

== ENCOUNTER 2025-01-26 08:50 | Outpatient (AMB) | payer MEDICARE, SELFPAY ==
[2025-01-26 09:11] VITALS: BP 124/72; BMI 27.4
--- NOTE | 2025-01-26 09:11 | MHC.OFFVIS ---
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: No Allergies No Known Allergies Allergy (Verified 01/26/25 09:14) Medication List - Last Reconciled 01/26/25 by Gricelda Clifford NP-Katia acamprosate mg PO TID blood pressure test kit-large (BPM 2 Advanced BP Monitor kit) As directed folic acid 1 mg PO DAILY lisinopril 40 mg PO DAILY multivitamin 1 tab PO DAILY pyridoxine (vitamin B6) 50 mg PO DAILY thiamine HCl (vitamin B1) 100 mg PO BID walker (Ultra-Light Rollator misc) As directed HPI HPI fu [facility] dc: Details: Abdullahi is a 69-year-old male with past medical history of hypertension, alcohol abuse, episode of presyncope, orthostatic hypotension who had recurrent syncopal event and now presents for follow-up. Following his event he was initially cared for at [facility] and transferred to [facility] for further testing and evaluation. There was initially some concern for possible C-spine injury. While at [facility] he was noted to have to sinus pauses lasting 2 seconds each. His metoprolol was stopped and outpatient ILR was recommended. Today he reports that he has been doing well since his hospital discharge. He tells me he has not consumed any alcohol since that time. He has not had any recent presyncope or syncope. He denies any chest discomfort at rest or with activity. No shortness of breath, palpitations, PND, orthopnea or edema. No lightheadedness, falls. He does have daytime fatigue and is mostly sedentary. Takes his meds as directed. [facility] Medical History Hypertension Surgical History H/O left inguinal hernia repair H/O rectal polypectomy History of excision of pilonidal cyst Family History Father Past heart attack Mother CAD (coronary artery disease) Social History Household Members: Family Household Members Other:: sister Housing: House Do you presently have visiting nurse or other home services: No Alcohol intake: former Patient Tobacco Use Status: Current everyday Tobacco user Tobacco use type: Cigar Cigarettes Per Day: 2 e-Cigarette/Vaping Use: Never Used Second Hand Smoke Exposure: Yes service: No Current occupational status: 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 Current occupational exposures/hazards: No Cognitive needs: No Hearing needs: No Vision needs: Yes (Reading glasses) Review of Systems Const All systems reviewed & are unremarkable except as noted in HPI and below ENT Denies dizziness Card Denies chest pain, Denies chest pain at rest, Denies chest pain with activity, Reports syncope, Denies rapid heart rate, Denies pedal edema, Denies edema, Denies leg edema, Denies lightheadedness, Denies palpitations, Denies dyspnea, Denies dyspnea on exertion and Denies orthopnea Resp Denies cough, Denies dyspnea and Denies dyspnea on exertion GI Denies hematochezia and Denies change in stool character Musc Denies abnormal gait, Denies limited range of motion, Denies muscle cramps, Denies muscle weakness, Denies numbness, Denies radiating pain into limb, Denies stiffness and Denies tingling Neuro Denies abnormal gait, Denies dizziness, Reports syncope, Denies numbness and Denies tingling Endo Denies palpitations Physical Exam Vital Signs: Last Vital Signs BP 124/72 01/26/25 09:11 BMI result Body Mass Index 27.4 Const General: cooperative, healthy appearing, comfortable and no acute distress Orientation/consciousness: patient oriented x3 Neck Neck: Yes normal visual inspection Resp Effort & Inspection: normal respiratory effort Auscultation: clear to auscultation bilaterally, no rales, no rhonchi and no wheezes Cardio Rate: regular rate Rhythm: regular rhythm Heart sounds: S1 normal heart sound present, S2 normal heart sound present, no gallops, no murmurs and no rubs Neuro General: patient oriented x3 Extrem General: Yes normal to inspection and No no pedal edema Psych Appearance: grossly normal Mental Status: mental status grossly normal Speech and movement: Normal speech and movement present Assessment & Plan Assessment & Plan (1) Syncope: Code(s): R55 - Syncope and collapse Category: Medical Qualifiers: Syncope type: unspecified Qualified Code(s): R55 - Syncope and collapse Plan: Recent Syncopal event, occurred at home. Had scalp and arm injuries including dislocated thumb. ETOH level 131. Syncope could be related to alcohol intoxication, orthostatic hypotension, arrhythmia. Prior cardiac testing for presyncopal event had confirmed orthostatic hypotension. He is currently asymptomatic and has stopped all alcohol consumption. 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 (2) Near syncope: Code(s): R55 - Syncope and collapse Category: Medical Plan: Near syncopal event resulting in [facility] evaluation 10/2023 without acute findings. Echocardiogram showed EF 55-60%, mild LVH, impaired relaxation. Holter monitor done on 10/09/2023 for 3 and half days showed sinus rhythm with average heart rate 73, SVE 3.6% of time, occasional PVC's with 2 NSVT runs, one 4 beat and one 19 beat, rate 163. A nuclear stress test was done on 12/05/2023 showing mixed inferior perfusion defect, probable artifact, less likely in infarct or ischemia. I had previously recommended CTA of the coronary arteries for further evaluation and he declined due to the absence of symptoms. Tilt-table test done 11/19/2023 showing orthostatic hypotension. He was instructed to increase his fluid intake and cut down alcohol use. At the time of his presyncope he was drinking 5 alcoholic shots per day. (3) Orthostatic hypotension: Code(s): I95.1 - Orthostatic hypotension Category: Medical Plan: As above. Asymptomatic at this time. Blood pressure normal range, orthostatics not assessed. (4) Alcohol use disorder: Code(s): F10.90 - Alcohol use, unspecified, uncomplicated Category: Medical Plan: He tells me he stopped drinking alcohol following recent hospital discharge. (5) Hypertension: Code(s): I10 - Essential (primary) hypertension Category: Medical Plan: Blood pressure goal less than 130/80. Normal at present. No med changes made. (6) NSVT (nonsustained ventricular tachycardia): Code(s): I47.29 - Other ventricular tachycardia Category: Medical Plan: As above. Episode noted on Holter monitor. EF is normal which is reassuring. He was on beta-elidia however it was stopped during recent [facility] admission due to concern for brief sinus pauses. Further cardiac monitoring is planned. (7) Hypersomnia: Code(s): G47.10 - Hypersomnia, unspecified Category: Medical Plan: Recommendation for home sleep study. He is agreeable. Plan Time spent on chart review, documentation, interview and assessment I discussed the significance of identifying the precise etiology of syncope, focusing on cardiac causes such as rhythm disturbances . The patient was informed about possible implanted device monitoring and external monitoring, including their duration, advantages, and procedural simplicity. The necessity of a home sleep study, its procedure, and expected outcomes were outlined, emphasizing its utility in detecting apnea. We discussed the requirement for ongoing follow-up, particularly after monitoring results, and the patient expressed understanding and agreeability. Risks such as procedure-associated infections and the importance of monitoring as preventive strategies for potential falls and injuries from syncope were reviewed. Orders: Orders RT home sleep study Today G47.10 - Hypersomnia, unspecified Patient Instructions: - Undergo a home sleep study as scheduled - Stay hydrated and active - Continue abstaining from alcohol - Monitor for and report any new symptoms or repeated fainting - Follow up with cardiology as discussed for heart monitoring options - Continue medications as prescribed without changes until further notice Patient was informed and verbally consented to the use of an ambient scribe for clinic note documentation during this visit. Coding Level of Care Code Est Pt Level 4 (75510) Complex EM visit Add On G2211 Diagnoses Syncope R55 Syncope type: unspecified Near syncope R55 Orthostatic hypotension I95.1 Alcohol use disorder F10.90 Hypertension I10 NSVT (nonsustained ventricular tachycardia) I47.29 Hypersomnia G47.10
--- OUTSIDE RECORDS SUMMARY | 2025-01-26 09:12 | XMS_ITS | Clinical Summary ---
Author Organization [address] [place] [address] Address [address] [place] [address] Phone Care Team Providers Care Pneumatic Tool Operator Name Role Phone Peng Eduardo Primary Care Provider [phone] Allergies No known active allergies Active Problems Problem Noted Date Diagnosed Date Syncope 01/11/2025 Encounters Date Type Department Care Team Description 01/04/2025 Telephone [facility] [address] [facility] [address] [place] [address] Francesco Steven MD called pt to book HFU visit with Cami Lombardi 11/10/2024 Telephone [facility] [address] [facility] [address] [place] [address] Patrick Estrada MD from Last 3 Months Medical History Medical History Date Comments Ground-level fall Thumb injury Hypertension Hyponatremia Social History Tobacco Use Types Packs/Day Years Used Date Smoking Tobacco: Every Day Cigars Tobacco Cessation:Ready to Q uit: Not Asked; Counseling Given: Not Answered Alcohol Use Standard Drinks/Week Comments Not Currently 0 (1 standard drink = 0.6 oz pur e alcohol) Sex and Gender Information Value Date Recorded Sex Assigned at Not on file Legal Sex Male 1:37 PM EDT Gender Identity Not on file Sexual Orientation Not on file Obstetrics History Last Filed Vital Signs Vital Sign Reading Time Taken Comments Blood Pressure 124/84 01/12/2025 12:41 PM EDT Pulse - - Temperature - - Respiratory Rate - - Oxygen Saturation - - Inhaled Oxygen Concentration - - Weight 86.6 kg (191 lb) 01/12/2025 12:41 PM EDT Height 177.8 cm (5' 10 ) 01/12/2025 12:41 PM EDT Body Mass Index 27.41 01/12/2025 12:41 PM EDT Plan of Treatment Health Maintenance Due Date Last Done Comments Pneumococcal Vaccine: 50+ Years (1 of 2 - PCV) 1972 Zoster Vaccines (1 of 2) 2003 Abdominal Aortic Aneurysm (AAA) Screen 03/31/2024 Cholesterol Screening (Lipid Panel) 03/31/2024 Colorectal Cancer Screening: Colonoscopy 03/31/2024 Depression Screening 03/31/2024 Falls Risk Assessment 03/31/2024 Hepatitis C Screening 03/31/2024 Medicare Annual Wellness Visit 03/31/2024 Social Influencers of Health Screening 03/31/2024 COVID-19 Vaccine (4 - 2023-2 5 season) 2024 08/09/2021, 12/21/2020, 11/28/2020 Influenza Vaccine (Season Ended) 2025 10/01/2023 RSV Immunization Adult Patients (1 - 1-dose 75+ series) 2028 DTaP,Tdap,and Td Vaccines (4 - Td or Tdap) 10/30/2034 10/30/2024, 02/01/2014, 05/12/2012 HIB Vaccines Aged Out No longer eligi [...] to complete this topic RSV Immunization Patients Under 20 months Aged Out No longer eligible b ased on patient's age to complete this topic Varicella Vaccines Aged Out No longer eligible based on patient's age to complete this topic Procedures Procedure Name Priority Date/Time Associated Diagnosis Comments EXTERNAL ECHO Routine 11/02/2024 1:36 PM EST from Last 3 Months Results * External Echo (11/02/2024 1:36 PM EST) Anatomical Region Laterality Modality Ultrasound us Historical Provider CV ECHO PROCEDURES Final Result from Last 3 Months Insurance [employer] MEDICARE MEDICARE ADVANTAGE GENERIC on file Care Teams Pneumatic Tool Operator Relationship Specialty Start Date End Date Peng Eduarod [address], [address] [place] [address] PCP - General Family Medicine 01/04/25
== END 2025-01-26 09:43 | disposition home or self-care (01) ==
LOC: HO.HCS 08:51
PROVIDERS: Visit Provider Nurse Practitioner Family
DX: R55 Syncope and collapse (principal); I95.1 Orthostatic hypotension; F10.90 Alcohol use, unspecified, uncomplicated; I10 Essential (primary) hypertension; I47.29 Other ventricular tachycardia; G47.10 Hypersomnia, unspecified
CPT/HCPCS: 99214; G2211

== ENCOUNTER → 2025-01-26 08:50 | Outpatient (BNVA) | payer MEDICARE, SELFPAY | PROVIDERS: Visit Provider Nurse Practitioner Family | DX: R55 Syncope and collapse (principal); I95.1 Orthostatic hypotension; I10 Essential (primary) hypertension; I47.29 Other ventricular tachycardia; G47.10 Hypersomnia, unspecified; F10.90 Alcohol use, unspecified, uncomplicated | CPT/HCPCS: 99212 ==

== ENCOUNTER 2025-02-10 13:35 | Outpatient (REF) | payer MEDICARE, SELFPAY ==
[2025-02-10 14:12] VITALS: BP 172/77; PULSE 86; RESP 16; TEMP 36.3; O2SAT 99; BMI 27.3
--- NOTE | 2025-02-10 15:10 | PM.OP ---
Brief Operative Note Date of Service: 02/10/25 Pre-op diagnosis: Syncope Post-op diagnosis: same Procedure: Placement of implantable loop recorder Implants: After obtaining informed consent patient was brought to the minor surgery suite and laid on the table in supine position. Patient is precordial area was then prepped and draped in a sterile fashion. Patient was then given 2% lidocaine with epinephrine intradermally and subcutaneously in the 4th intercostal space. A Medtronic implantable loop recorder initially placed but was with poor R-wave signal as well as measurement. This was then replaced with a different Medtronic implantable loop recorder with serial number [id number]. Good R-waves were identified. R-wave measured up to 0.18 mV. The wound was then closed with Steri-Strips and pressure dressing applied. Surgeon: Sami Figueroa MD Anesthesia: local Was an Mechanical Car Checker used for this Procedure?: No Estimated blood loss (mL): 5 Pathology: none sent Condition: stable Disposition: same day
--- OUTSIDE RECORDS SUMMARY | 2025-02-10 15:23 | XMS_ITS | Clinical Summary ---
Author Organization [address] [place] [address] Address [address] [place] [address] Phone Care Team Providers Care Drawing Operator Name Role Phone Peng Eduardo Primary Care Provider [phone] Allergies No known active allergies Active Problems Problem Noted Date Diagnosed Date Syncope 01/11/2025 Encounters Date Type Department Care Team Description 01/04/2025 Telephone [facility] [address] [facility] [address] [place] [address] Francesco Steven MD called pt to book HFU visit with Cami Lombardi 11/10/2024 Telephone [facility] - [facility] [address] [facility] [address] [place] [address] Patrick Estrada MD from Last [...] on patient's age to complete this topic Insurance [facility] MEDICARE MEDICARE ADVANTAGE GENERIC on file Care Teams Drawing Operator Relationship Specialty Start Date End Date Peng Eduardo [address] [place] [address], [address] [place], [place] [id number] PCP - General Family Medicine 01/04/25
== END 2025-02-10 13:36 | disposition home or self-care (01) ==
LOC: HO.MS 13:35
PROVIDERS: Visit Provider Internal Medicine Cardiovascular Disease
PROC: (CPT 33285; principal; 2025-02-10 14:30)
DX: R55 Syncope and collapse (principal)
CPT/HCPCS: 33285; C1764; J2004

== ENCOUNTER → 2025-02-10 13:35 | Outpatient (BNV) | payer MEDICARE, SELFPAY | PROVIDERS: Visit Provider Internal Medicine Cardiovascular Disease | DX: Z45.09 Encounter for adjustment and management of other cardiac device (principal) | CPT/HCPCS: 33285 ==

== ENCOUNTER 2025-02-19 12:45 | Outpatient (AMB) | payer MEDICARE, SELFPAY ==
--- NOTE | 2025-02-19 13:02 | A.OFFVIS_ITS ---
Vital Signs 02/19/25 13:03 Height 5 ft 10 in Weight 189 lb 9.561 oz BMI 27.2 BP 110/60 Blood Pressure Location Lt brachial Position Sitting Pulse 72 Pulse Source Pulse Oximeter Intake Visit Reasons: Wound check/Post ILR placement Allergies No Known Allergies Allergy (Verified 01/26/25 09:14) Medication List - Last Reconciled 02/19/25 by Gricelda Clifford, JAIDA-C blood pressure test kit-large (BPM 2 Advanced BP Monitor kit) As directed lisinopril 40 mg PO DAILY walker (Ultra-Light Rollator misc) As directed HPI HPI Wound check/Post ILR placement: Details: Abdullahi is a 69-year-old male with past medical history of hypertension, alcohol abuse, episode of presyncope, orthostatic hypotension who had recurrent syncopal event. He was initially cared for at [facility] and transferred to [facility] for further testing and evaluation. There was initially some concern for possible C-spine injury. While at [facility] he was noted to have to sinus pauses lasting 2 seconds each. His metoprolol was stopped. He underwent implanted loop recorder placement on 02/10/2025 and now presents for wound check. Today he reports that he has been doing well since his his last visit. He has not had a recurrent syncopal event. He tells me he is not consuming any alcohol. No lightheadedness, presyncope, chest discomfort, shortness of breath, palpitations, edema. ILR site is feeling good. Takes his meds as directed. [facility] Medical History Hypertension Surgical History H/O left inguinal hernia repair H/O rectal polypectomy History of excision of pilonidal cyst Family History Father Past heart attack Mother CAD (coronary artery disease) Social History Household Members: Family Household Members Other:: sister Housing: House Do you presently have visiting nurse or other home services: No Alcohol intake: former Patient Tobacco Use Status: Current everyday Tobacco user Tobacco use type: Cigar Cigarettes Per Day: 2 e-Cigarette/Vaping Use: Never Used Second Hand Smoke Exposure: Yes service: No Current occupational status: 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 Current occupational exposures/hazards: No Cognitive needs: No Hearing needs: No Vision needs: Yes (Reading glasses) Review of Systems Const All systems reviewed & are unremarkable except as noted in HPI and below Denies weakness ENT Denies dizziness Card Denies chest pain, Denies chest pain with activity, Denies syncope, Denies rapid heart rate, Denies pedal edema, Denies edema, Denies leg edema, Denies lightheadedness, Denies palpitations, Denies dyspnea, Denies dyspnea on exertion and Denies orthopnea Resp Denies cough, Denies dyspnea and Denies dyspnea on exertion GI Denies hematochezia and Denies change in stool character Musc Denies abnormal gait, Denies muscle cramps, Denies muscle weakness, Denies numbness, Denies radiating pain into limb and Denies tingling Neuro Denies abnormal gait, Denies dizziness, Denies syncope, Denies numbness, Denies tingling and Denies weakness Endo Denies palpitations Physical Exam Vital Signs: Last Vital Signs Pulse 72 02/19/25 13:03 BP 110/60 02/19/25 13:03 BMI result Body Mass Index 27.2 Const General: cooperative, healthy appearing, comfortable and no acute distress Orientation/consciousness: patient oriented x3 Neck Neck: Yes normal visual inspection Chest Other: ILR site to left of mid sternal border - dressing removed and incision fully approximated, no redness, swelling or drainage. No bruising noted. Resp Effort & Inspection: normal respiratory effort Auscultation: clear to auscultation bilaterally, no rales, no rhonchi and no wheezes Cardio Rate: regular rate Rhythm: regular rhythm Heart sounds: S1 normal heart sound present, S2 normal heart sound present, no gallops, no murmurs and no rubs Neuro General: patient oriented x3 Extrem General: Yes normal to inspection and No no pedal edema Psych Appearance: grossly normal Mental Status: mental status grossly normal Speech and movement: Normal speech and movement present Assessment & Plan Assessment & Plan (1) Visit for wound check: Code(s): Z51.89 - Encounter for other specified aftercare Category: Medical Plan: Implanted loop recorder placed 02/10/2025. Wound check today shows incision is well-approximated and healing without any signs of infection. Site care reviewed with him. (2) Syncope: Code(s): R55 - Syncope and collapse Category: Medical Qualifiers: Syncope type: unspecified Qualified Code(s): R55 - Syncope and collapse Plan: Recent Syncopal event, occurred at home with scalp and arm injuries including dislocated thumb. ETOH level 131. Syncope could be related to alcohol intoxication, orthostatic hypotension, arrhythmia. Prior cardiac testing for presyncopal event had confirmed orthostatic hypotension. While at [facility] he was noted to have brief sinus pauses and metoprolol was stopped. He is currently asymptomatic and has stopped all alcohol consumption. Implanted loop recorder placed to assess for pauses or arrhythmia. His device will be monitored remotely. Will arrange for office visit in 6 months for re-evaluation and device check. (3) Near syncope: Code(s): R55 - Syncope and collapse Category: Medical Plan: Near syncopal event resulting in [facility] evaluation 10/2023 without acute findings. Echocardiogram showed EF 55-60%, mild LVH, impaired relaxation. Holter monitor done on 10/09/2023 for 3 and half days showed sinus rhythm with average heart rate 73, SVE 3.6% of time, occasional PVC's with 2 NSVT runs, one 4 beat and one 19 beat, rate 163. A nuclear stress test was done on 12/05/2023 showing mixed inferior perfusion defect, probable artifact, less likely in infarct or ischemia. I had previously recommended CTA of the coronary arteries for further evaluation and he declined due to the absence of symptoms. Tilt-table test done 11/19/2023 showing orthostatic hypotension. He was instructed to increase his fluid intake and cut down alcohol use. At the time of his presyncope he was drinking 5 alcoholic shots per day. Recurrent syncope as above. (4) Orthostatic hypotension: Code(s): I95.1 - Orthostatic hypotension Category: Medical Plan: As above. Asymptomatic at this time. Blood pressure normal range, asymptomatic, orthostatics not assessed. (5) Alcohol use disorder: Code(s): F10.90 - Alcohol use, unspecified, uncomplicated Category: Medical Plan: He tells me he stopped drinking alcohol following recent hospital discharge. (6) Hypertension: Code(s): I10 - Essential (primary) hypertension Category: Medical Plan: Blood pressure goal less than 130/80. Normal at present. No med changes made. (7) NSVT (nonsustained ventricular tachycardia): Code(s): I47.29 - Other ventricular tachycardia Category: Medical Plan: As above. Episode noted on Holter monitor. EF is normal which is reassuring. He was on beta-elidia however it was stopped during recent [facility] admission due to concern for brief sinus pauses. Further cardiac monitoring is planned. (8) Hypersomnia: Code(s): G47.10 - Hypersomnia, unspecified Category: Medical Plan: Home sleep study ordered. 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 Plan I discussed with the patient the importance of the loop recorder in monitoring heart rhythms and the need for remote monitoring to alert us of any abnormalities. We reviewed the plan for a follow-up in six months and the pending sleep study due to scheduling delays. Patient Instructions: - Keep the loop recorder monitor within 4 feet while sleeping for optimal remote monitoring. - Report any new symptoms or concerns immediately. - Attend the follow-up appointment in six months. - Complete the sleep study as soon as it is scheduled. Patient was informed and verbally consented to the use of an ambient scribe for clinic note documentation during this visit. Visit time spent on chart review, interview, assessment, orders, documentation. Coding Level of Care Code Est Pt Level 3 (66198) Complex EM visit Add On G2211 Diagnoses Visit for wound check Z51.89 Syncope R55 Syncope type: unspecified Near syncope R55 Orthostatic hypotension I95.1 Alcohol use disorder F10.90 Hypertension I10 NSVT (nonsustained ventricular tachycardia) I47.29 Hypersomnia G47.10 Time Spent (min) 24
[2025-02-19 13:03] VITALS: BP 110/60; PULSE 72; BMI 27.2
== END 2025-02-19 13:22 | disposition home or self-care (01) ==
LOC: HO.HCS 12:46
PROVIDERS: Visit Provider Nurse Practitioner Family
DX: Z51.89 Encounter for other specified aftercare (principal); R55 Syncope and collapse; I95.1 Orthostatic hypotension; F10.90 Alcohol use, unspecified, uncomplicated; I10 Essential (primary) hypertension; I47.29 Other ventricular tachycardia; G47.10 Hypersomnia, unspecified
CPT/HCPCS: 99213; G2211

== ENCOUNTER → 2025-02-19 12:45 | Outpatient (BNVA) | payer MEDICARE, SELFPAY | PROVIDERS: Visit Provider Nurse Practitioner Family | DX: Z51.89 Encounter for other specified aftercare (principal); R55 Syncope and collapse; I95.1 Orthostatic hypotension; F10.90 Alcohol use, unspecified, uncomplicated; I10 Essential (primary) hypertension; I47.29 Other ventricular tachycardia; G47.10 Hypersomnia, unspecified | CPT/HCPCS: 99212 ==

== ENCOUNTER → 2025-03-02 23:59 | Outpatient (BNV) | payer MEDICARE, SELFPAY ==
--- NOTE | 2025-03-08 13:13 | MHC.OFFVIS ---
Intake Visit Reasons: Remote ILR check- Medtronic Allergies No Known Allergies Allergy (Verified 01/26/25 09:14) PFSH Medical History Hypertension Surgical History H/O left inguinal hernia repair H/O rectal polypectomy History of excision of pilonidal cyst Family History Father Past heart attack Mother CAD (coronary artery disease) Social History Household Members: Family Household Members Other:: sister Housing: House Do you presently have visiting nurse or other home services: No Alcohol intake: former Patient Tobacco Use Status: Current everyday Tobacco user Tobacco use type: Cigar Cigarettes Per Day: 2 e-Cigarette/Vaping Use: Never Used Second Hand Smoke Exposure: Yes service: No Current occupational status: 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 No pauses noted. No episodes of atrial fibrillation nonsustained ventricular tachycardia noted. Two short lasting episodes of SVT noted [id number] Cardiac Interrogation, subcut cardiac rhythm monitor Procedure code (CPT) selection complete Assessment & Plan Assessment & Plan (1) Status post placement of implantable loop recorder: Code(s): Z95.818 - Presence of other cardiac implants and grafts Category: Medical Plan: See above Coding Level of Care Code Procedure Only Diagnoses Status post placement of implantable loop recorder Z95.818 CPT Codes Cardiac Device Check - Cardiac Device 16: [id number] Cardiac Interrogation, subcut cardiac rhythm monitor ([id number])
== END ==
PROVIDERS: Visit Provider Internal Medicine Cardiovascular Disease
DX: I47.10 Supraventricular tachycardia, unspecified (principal); Z95.818 Presence of other cardiac implants and grafts
CPT/HCPCS: 93298

== ENCOUNTER → 2025-03-08 23:59 | Outpatient (BNV) | payer MEDICARE, SELFPAY ==
--- NOTE | 2025-03-10 14:58 | MHC.OFFVIS ---
Intake Visit Reasons: Remote ILR check- Medtronic Allergies No Known Allergies Allergy (Verified 01/26/25 09:14) PFSH Medical History Hypertension Surgical History H/O left inguinal hernia repair H/O rectal polypectomy History of excision of pilonidal cyst Family History Father Past heart attack Mother CAD (coronary artery disease) Social History Household Members: Family Household Members Other:: sister Housing: House Do you presently have visiting nurse or other home services: No Alcohol intake: former Patient Tobacco Use Status: Current everyday Tobacco user Tobacco use type: Cigar Cigarettes Per Day: 2 e-Cigarette/Vaping Use: Never Used Second Hand Smoke Exposure: Yes service: No 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 Rare PVCs noted. No episodes of atrial fibrillation or pauses noted. One episode of SVT noted [id number] Cardiac Interrogation, subcut cardiac rhythm monitor Procedure code (CPT) selection complete Assessment & Plan Assessment & Plan (1) Status post placement of implantable loop recorder: Code(s): Z95.818 - Presence of other cardiac implants and grafts Category: Medical Plan: See above Coding Level of Care Code Procedure Only Diagnoses Status post placement of implantable loop recorder Z95.818 CPT Codes Cardiac Device Check - Cardiac Device 16: [id number] Cardiac Interrogation, subcut cardiac rhythm monitor ([id number])
== END ==
PROVIDERS: Visit Provider Internal Medicine Cardiovascular Disease
DX: I47.10 Supraventricular tachycardia, unspecified (principal); Z95.818 Presence of other cardiac implants and grafts
CPT/HCPCS: 93298

== ENCOUNTER → 2025-03-12 23:59 | Outpatient (BNV) | payer MEDICARE, SELFPAY ==
--- NOTE | 2025-03-18 11:54 | MHC.OFFVIS ---
Intake Visit Reasons: Remote ILR check- Medtronic Allergies No Known Allergies Allergy (Verified 01/26/25 09:14) PFSH Medical History Hypertension Surgical History H/O left inguinal hernia repair H/O rectal polypectomy History of excision of pilonidal cyst Family History Father Past heart attack Mother CAD (coronary artery disease) Social History Household Members: Family Household Members Other:: sister Housing: House Do you presently have visiting nurse or other home services: No Alcohol intake: former Patient Tobacco Use Status: Current everyday Tobacco user Tobacco use type: Cigar Cigarettes Per Day: 2 e-Cigarette/Vaping Use: Never Used Second Hand Smoke Exposure: Yes service: No 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 Multiple short episodes of SVT noted with fastest heart rate of 194 beats per minute. No pauses or other significant arrhythmias noted [id number] Cardiac Interrogation, subcut cardiac rhythm monitor Procedure code (CPT) selection complete Assessment & Plan Assessment & Plan (1) Status post placement of implantable loop recorder: Code(s): Z95.818 - Presence of other cardiac implants and grafts Category: Medical Plan: See above Medications: Discontinued metoprolol succinate ER Discontinued Reason: Doctor's Order 25 mg PO DAILY 90 tabs 3RF Coding Level of Care Code Procedure Only Diagnoses Status post placement of implantable loop recorder Z95.818 CPT Codes Cardiac Device Check - Cardiac Device 16: [id number] Cardiac Interrogation, subcut cardiac rhythm monitor ([id number])
== END ==
PROVIDERS: Visit Provider Internal Medicine Cardiovascular Disease
DX: I47.10 Supraventricular tachycardia, unspecified (principal); Z95.818 Presence of other cardiac implants and grafts
CPT/HCPCS: 93298

== ENCOUNTER 2025-03-16 07:18 | Outpatient (REF) | payer MEDICARE, SELFPAY ==
--- OUTSIDE RECORDS SUMMARY | 2025-03-16 07:21 | XMS_ITS | Clinical Summary ---
Author Organization [address] [facility] Address [address] [place] [address] Phone Care Team Providers Care Landscape Account Manager Name Role Phone Peng Eduardo Pretty BRANCH Primary Care Provider [phone] Allergies No known active allergies Active Problems Problem Noted Date Diagnosed Date Syncope 01/11/2025 Encounters Date Type Department Care Team Description 01/04/2025 Telephone [facility] - [facility] [address] [facility] [address] [place] [address] Francesco Steven MD called pt to book HFU visit with Cami Lombardi from Last 3 Months Medical History Medical [...] season) 2024 08/09/2021, 12/21/2020, 11/28/2020 Influenza Vaccine (#1) 2025 10/01/2023 RSV Immunization Adult Patients (1 [...] patient's age to complete this topic Insurance [employer] MEDICARE MEDICARE ADVANTAGE GENERIC on file Care Teams Landscape Account Manager Relationship Specialty Start Date End Date Peng Eduardo FNP [address] [place] [address] PCP - General Family Medicine 01/04/25
[2025-03-16 07:46] LABS: Hematocrit 45.0 % (42.0-52.0); Hemoglobin 15.2 g/dl (14.0-18.0); Imm Gran Abs Auto 0.02 X10*3/uL (0.00-0.03); Imm Gran Pct Auto 0.3 % (0.0-0.4); Lymphocytes Absolute Auto 2.5 X10*3/uL (1.2-4.9); MANUAL DIFF FLAG NO; Mean Corpuscular HGB Conc 33.8 g/dl (31.0-36.0); Mean Corpuscular Hemoglobin 31.2 pg (27.0-33.0); Mean Corpuscular Volume 92.4 fL (80.0-98.0); NRBC Abs Auto 0.000 X10*3/uL (0.0-0.012); NRBC Pct Auto 0.0 /100WBC (0.0-0.2); Platelet Count 338 X10*3/uL (160-400); Red Blood Count 4.87 X10*6/uL (4.60-5.80); White Blood Count 7.6 X10*3/uL (4.8-10.8)
[2025-03-16 08:41] LABS: Alanine Aminotransferase 13 U/L (0-40); Albumin Level 4.5 g/dL (3.5-5.0); Alkaline Phosphatase 91 U/L (39-117); Anion Gap 12 (12-20); Aspartate Amino Transferase 21 U/L (5-37); Blood Urea Nitrogen 11 mg/dL (9-16); Calcium 9.6 mg/dL (8.4-10.2); Carbon Dioxide 26 mmol/L (22-29); Chloride 104 mmol/L (96-108); Cholesterol 163 mg/dL (<200); Estimated Glomerular Filt Rate > 60; HDL Cholesterol 41 mg/dL (>40); Potassium 4.3 mmol/L (3.3-5.1); Sodium 138 mmol/L (135-145); Total Protein 7.4 g/dL (6.5-8.0); Triglycerides 118 mg/dL (<150)
[2025-03-16 08:51] LABS: PSA,Total (Free>4and<10) 1.03 ng/mL (0.00-4.00)
[2025-03-16 09:01] LABS: Thyroid Stimulating Hormone 2.80 uIU/mL (0.32-4.0)
[2025-03-16 09:11] LABS: Folate 14.0 ng/mL (> or = 4.0); Vitamin B12 201 pg/mL (200-900)
[2025-03-17 15:14] LABS: Appearance Urine Clear; Glucose Urine UA Negative (Negative); PH 7.0 (5.0-9.0); Specific Gravity - Urine <= 1.005 (1.005-1.025)
== END 2025-03-16 07:19 | disposition home or self-care (01) ==
LOC: HO.LAB 07:18
PROVIDERS: Internal Medicine
DX: Z13.220 Encounter for screening for lipoid disorders (principal); Z13.0 Encounter for screening for diseases of the blood and blood-forming organs and certain disorders involving the immune mechanism; Z13.29 Encounter for screening for other suspected endocrine disorder; F10.90 Alcohol use, unspecified, uncomplicated; R55 Syncope and collapse; E66.9 Obesity, unspecified; I10 Essential (primary) hypertension; M25.649 Stiffness of unspecified hand, not elsewhere classified; W19.XXXA Unspecified fall, initial encounter; Y92.89 Other specified places as the place of occurrence of the external cause; Y93.89 Activity, other specified; Y99.8 Other external cause status
CPT/HCPCS: 36415; 80053; 80061; 81003; 82306; 82607; 82746; 84153; 84207; 84443; 85025

== ENCOUNTER 2025-03-24 13:01 | Outpatient (AMB) | payer MEDICARE, SELFPAY ==
--- NOTE | 2025-03-24 13:10 | MHC.PC.OV ---
Vital Signs 03/24/25 13:11 Height 5 ft 10 in Weight 190 lb 4 oz BMI 27.3 BP 110/74 Blood Pressure Location Lt brachial Position Sitting Temp 97.3 F Temp Source Temporal Artery Scan Pulse Oximetry (%) 100 Oxygen Delivery Method Room Air Intake Visit Reasons: annual exam htn/falls/obesity - see comments Instructional Technology Coordinator Required: No Accompanied by: Self / Same As Patient Allergies No Known Allergies Allergy (Verified 03/24/25 13:35) Medication List - Last Reconciled 03/24/25 by JAYE Bello blood pressure test kit-large (BPM 2 Advanced BP Monitor kit) As directed lisinopril 40 mg PO DAILY metoprolol succinate ER 50 mg PO DAILY 30 days walker (Ultra-Light Rollator misc) As directed Tobacco use date assessed: 03/24/25 Fall risk assessment: No Falls in past year Last assessed Fall Risk: 03/24/25 Dental Screening Dental Screen Date: 03/24/25 Did you have a dental visit in the last 12 months?: No Did you have a dental problem in the last 6 months where you did not have access to dental care?: No Was dental information given to patient?: Patient declined HPI annual exam htn/falls/obesity - see comments HPI Details The patient is presenting for annual physical. Reports that he is feeling ok overall. Dentist: about 15 years, Eye: Snellen: Right: Left: Corrected vision: readers has not gotten his eyes checked in a while STI screening: Colonoscopy: 06/2024-report that said to repeat this in 5 years PPV: 2018 Flu:did not get it previously COVID: x3 Tdap:10/2024 Diet:regular, low salt diet Exercise: Just yard work He is presenting with supraventricular tachycardia and a possible inguinal hernia. The patient experienced multiple short episodes of supraventricular tachycardia with a heart rate reaching up to 194 beats per minute, as noted in a cardiology report generated on the of the month. The episodes were reported to have occurred after physical exertion, such as cutting the lawn, which may have been a contributing factor. There is no reported chest pain or dyspnea associated with these episodes. The patient reports discomfort in the right groin area, which occasionally feels stiff and presents as a lump, particularly when sitting for extended periods. The patient has a history of a left-sided hernia repair performed a few years ago, raising concerns about a possible recurrence on the right side. Physical examination revealed discomfort upon palpation of the right groin area, suggestive of a possible hernia. The patient has not visited a dentist in over 15 years due to previous dentists retiring or passing away, and there is a recommendation for dental evaluation due to the presence of a cardiac implant. The patient has not had a recent eye examination and uses reading glasses. The patient has received the pneumonia vaccine in the past and has a history of chickenpox during childhood, with a recommendation for the shingles vaccine due to the potential severity of shingles. The patient reports a regular diet with low salt intake and limited physical activity, primarily walking short distances such as to the car or around the parking lot. The patient plans to engage in a hike soon, indicating some level of physical activity. The patient smokes two cigars per night and denies alcohol consumption. The patient reports frequent urination, approximately every half hour to an hour, and soft stools every couple of days. The patient's PSA levels were checked and found to be normal, and there is no indication of a urinary tract infection. The patient consumes a significant amount of iced tea, which may contribute to the frequent urination. Laboratory results indicate a low vitamin D level, and the patient has not been taking vitamin D supplements. The patient's LDL cholesterol is 99 mg/dL, which is within normal limits, although cardiology may prefer it to be lower. [facility] Medical History Hypertension Surgical History H/O left inguinal hernia repair H/O rectal polypectomy History of excision of pilonidal cyst Family History Father Past heart attack Mother CAD (coronary artery disease) Social History Household Members: Family Household Members Other:: sister Housing: House Do you presently have visiting nurse or other home services: No Alcohol intake: former Patient Tobacco Use Status: Current everyday Tobacco user Tobacco use type: Cigar Cigarettes Per Day: 2 e-Cigarette/Vaping Use: Never Used Second Hand Smoke Exposure: Yes service: No Current occupational status: 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 Jayant Chavez, Gilda Rasheed, Sidney Avila and colleagues, with an educational kerne from [employer]. Review of Systems Const Denies headache(s) Eyes Denies loss of vision ENT Denies vertigo, Denies dizziness, Denies headache(s) and Denies sore throat Card Denies chest pain, Denies leg edema and Denies lightheadedness Resp Denies cough, Denies hemoptysis and Denies wheezing GI Denies abdominal pain, Denies melena, Denies constipation, Denies diarrhea and Denies vomiting Denies dysuria, Denies urinary frequency, Denies urinary urgency and Reports other (right groin lump-causing some pressure.) Musc Denies arthralgias, Denies joint swelling, Denies numbness and Denies tingling Skin/Breast Reports dry skin and Reports rash (face) Neuro Denies Abnormal speech present, Denies behavioral changes, Denies vertigo, Denies dizziness, Denies headache(s), Denies loss of vision, Denies memory loss, Denies numbness and Denies tingling Psych Denies anxiety, Denies behavioral changes, Denies depression, Denies memory loss and Denies panic attacks Anatoliy/Lymph Denies easy bleeding and Denies easy bruising Aller/Immun Denies wheezing Physical exam (Primary Care) Vital Signs: Last Vital Signs Temp 97.3 F 03/24/25 13:11 BP 110/74 03/24/25 13:11 Pulse Ox 100 03/24/25 13:11 Oxygen Delivery Method Room Air 03/24/25 13:11 BMI result Body Mass Index 27.3 Tobacco/Smoking Status: Tobacco use Status Tobacco use date assessed 03/24/25 03/24/25 13:16 Patient Tobacco Use Status Current everyday Tobacco 03/24/25 13:16 Tobacco use type Cigar 03/24/25 13:16 e-Cigarette/Vaping Use Never Used 03/24/25 13:16 Thrive Assessment: Date of Thrive Assessment Date Thrive assessed 03/24/25 03/24/25 13:16 Const General: healthy appearing, no acute distress, alert and awake Nutritional Appearance: well nourished Orientation/consciousness: oriented to person, oriented to place and oriented to time HENMT Ears: TM's normal bilaterally and Abnormal EAC present excessive cerumen; no erythema, no edema and no EA tenderness General nose exam: Normal nasal mucous membranes and turbinates present Teeth and gingiva: poor dentition Eyes Conjunctivae: conjunctivae normal Sclerae: sclerae normal Pupils: Equal, round and reactive pupils present Neck Neck: Yes no lymphadenopathy and Yes no JVD Thyroid: Thyroid normal Carotids: no bruits Resp Effort & Inspection: normal respiratory effort and not tachypneic Auscultation: no crackles, no rales, no rhonchi and no wheezes Cardio Rate: regular rate Rhythm: regular rhythm Heart sounds: S1 normal heart sound present, no murmurs and normal S1 and S2 GI Palpation (GI): Soft to palpation, nontender, no hepatomegaly and no splenomegaly Auscultation: normal bowel sounds General: Yes no CVA tenderness Scrotum: inguinal hernia on the right Back/Spine/Pelvis Back: no CVA tenderness Skin General skin exam: dry skin Rashes: rashes noted (red, scaly, patches, dry appearing) Neuro General: oriented to person, oriented to place and oriented to time Cranial nerves: Yes Equal, round and reactive pupils present Speech: No Abnormal speech present Gait exam (Neuro): Normal gait present Motor exam (neuro): no tremor noted Deep tendon reflexes (DTR's): Right triceps reflex intensity grade: 2+, Left triceps reflex intensity grade: 2+, Rt Biceps (C5, C6): 2+, Left biceps reflex intensity grade: 2+, Right brachioradialis reflex intensity grade: 2+, Left brachioradialis reflex intensity grade: 2+, Right patellar reflex intensity grade: 1+ and Left patellar reflex intensity grade: 1+ Extrem Right upper extremity: full ROM Left upper extremity: full ROM Right lower extremity: full ROM; no edema Left lower extremity: full ROM; no edema Psych Mental Status: mental status grossly normal Speech and movement: Normal speech and movement present Affect: normal affect Attitude: cooperative Thought process: Normal thought process present Results Reviewed Results Reviewed: Laboratory Tests 03/16/25 03/16/25 07:32 20:00 WBC 7.6 RBC 4.87 Hgb 15.2 Hct 45.0 MCV 92.4 MCH 31.2 MCHC 33.8 RDW 12.7 Plt Count 338 D MPV 9.1 L Immature Gran % (Auto) 0.3 Neut % (Auto) 55.6 Lymph % (Auto) 32.5 [place] % (Auto) 9.4 Eos % (Auto) 1.8 Baso % (Auto) 0.4 Sodium 138 Potassium 4.3 Chloride 104 Carbon Dioxide 26 Anion Gap 12 BUN 11 Creatinine 0.90 Estim Creat Clear Calc Not Reportable Estimated GFR > 60 Fasting Glucose 86 Calcium 9.6 D Total Bilirubin 0.6 AST 21 ALT 13 Alkaline Phosphatase 91 Total Protein 7.4 Albumin 4.5 Triglycerides 118 Cholesterol 163 LDL Cholesterol, Calc 99 HDL Cholesterol 41 Total PSA 1.03 Vitamin B6 8.5 Vitamin B12 201 25-OH Vitamin D Total 21.3 L Folate 14.0 TSH 2.76 Urine Color Yellow Urine Appearance Clear Urine pH 7.0 Ur Specific Peculiar <= 1.005 Urine Protein Negative Urine Glucose (UA) Negative Urine Ketones Negative Urine Blood Negative Urine Nitrite Negative Ur Leukocyte Esterase Negative Coding Level of Care Code Est Pt Prev Care >65y(81877) Diagnoses Physical exam Z00.00 Rash R21 Hypersomnia G47.10 Vitamin D deficiency E55.9 Status post placement of implantable loop recorder Z95.818 NSVT (nonsustained ventricular tachycardia) I47.29 Hypertension, unspecified type I10 Hypertension type: unspecified Alcohol use disorder F10.90 Right inguinal hernia K40.90 Overweight (BMI 25.0-29.9) E66.3 Time Spent (min) 41 Assessment & Plan Assessment & Plan (1) Physical exam: Code(s): Z00.00 - Encounter for general adult medical examination without abnormal findings Category: Medical Plan: Preventative guidelines and recent labs reviewed with patient - Shingles vaccine recommended due to history of chickenpox and potential severity of shingles - Dental evaluation recommended due to cardiac implant device and lack of dental visits in over 15 years - Eye examination recommended as the patient has not had a recent check-up - Vitamin D supplementation recommended due to low levels (2) Rash: Code(s): R21 - Rash and other nonspecific skin eruption Category: Medical (3) Hypersomnia: Code(s): G47.10 - Hypersomnia, unspecified Category: Medical (4) Vitamin D deficiency: Code(s): E55.9 - Vitamin D deficiency, unspecified Category: Medical Plan: Cholecalciferol 50 mcg daily ordered (5) Status post placement of implantable loop recorder: Code(s): Z95.818 - Presence of other cardiac implants and grafts Category: Medical (6) NSVT (nonsustained ventricular tachycardia): Code(s): I47.29 - Other ventricular tachycardia Category: Medical (7) Hypertension: Code(s): I10 - Essential (primary) hypertension Category: Medical Qualifiers: Hypertension type: unspecified Qualified Code(s): I10 - Essential (primary) hypertension Plan: Blood pressure 110/74. Reinforced low-salt diet. Continue metoprolol succinate ER 50 mg daily, lisinopril 40 mg daily (8) Alcohol use disorder: Code(s): F10.90 - Alcohol use, unspecified, uncomplicated Category: Medical Plan: Reports maintaining abstinence from alcohol. Encouraged sobriety. (9) Right inguinal hernia: Code(s): K40.90 - Unilateral inguinal hernia, without obstruction or gangrene, not specified as recurrent Category: Medical Plan: The patient c/o pressure in his right groin area but reports that this is not causing any pain. Palpable mass in right groin on exam. Chart review showed that the patient had a CT of abdomen and pelvis in 10/30/24 that showed a small fat container hernia in the right groin. The reports that he does not want to be referred to surgery at this time but this is not painful. The patient is to seek medical attention if this becomes painful. (10) Overweight (BMI 25.0-29.9): Code(s): E66.3 - Overweight Category: Medical Plan: Discussed lifestyle modifications including dietary changes and physical activity Plan The patient is a 69-year-old male presenting with supraventricular tachycardia and a possible inguinal hernia. The patient experienced multiple short episodes of supraventricular tachycardia with a heart rate reaching up to 194 beats per minute, as noted in a cardiology report generated on the of the month. The episodes were reported to have occurred after physical exertion, such as cutting the lawn, which may have been a contributing factor. There is no reported chest pain or dyspnea associated with these episodes. The patient reports discomfort in the right groin area, which occasionally feels stiff and presents as a lump, particularly when sitting for extended periods. The patient has a history of a left-sided hernia repair performed a few years ago, raising concerns about a possible recurrence on the right side. Physical examination revealed discomfort upon palpation of the right groin area, suggestive of a possible hernia. The patient has not visited a dentist in over 15 years due to previous dentists retiring or passing away, and there is a recommendation for dental evaluation due to the presence of a cardiac implant. The patient has not had a recent eye examination and uses reading glasses. The patient has received the pneumonia vaccine in the past and has a history of chickenpox during childhood, with a recommendation for the shingles vaccine due to the potential severity of shingles. The patient reports a regular diet with low salt intake and limited physical activity, primarily walking short distances such as to the car or around the parking lot. The patient plans to engage in a hike soon, indicating some level of physical activity. The patient smokes two cigars per night and denies alcohol consumption. The patient reports frequent urination, approximately every half hour to an hour, and soft stools every couple of days. The patient's PSA levels were checked and found to be normal, and there is no indication of a urinary tract infection. The patient consumes a significant amount of iced tea, which may contribute to the frequent urination. Laboratory results indicate a low vitamin D level, and the patient has not been taking vitamin D supplements. The patient's LDL cholesterol is 99 mg/dL, which is within normal limits, although cardiology may prefer it to be lower. Orders: Orders Complete Blood Count Auto Diff 3 Months E55.9 - Vitamin D deficiency, unspecified, E78.5 - Hyperlipidemia, unspecified, F10.90 - Alcohol use, unspecified, uncomplicated, I10 - Essential (primary) hypertension, I47.29 - Other ventricular tachycardia, I95.1 - Orthostatic hypotension Comprehensive Carbon. Panel Fast 3 Months E55.9 - Vitamin D deficiency, unspecified, E78.5 - Hyperlipidemia, unspecified, F10.90 - Alcohol use, unspecified, uncomplicated, I10 - Essential (primary) hypertension, I47.29 - Other ventricular tachycardia, I95.1 - Orthostatic hypotension Lipid Panel 3 Months E55.9 - Vitamin D deficiency, unspecified, E78.5 - Hyperlipidemia, unspecified, F10.90 - Alcohol use, unspecified, uncomplicated, I10 - Essential (primary) hypertension, I47.29 - Other ventricular tachycardia, I95.1 - Orthostatic hypotension TSH reflex Free T4 3 Months E55.9 - Vitamin D deficiency, unspecified, E78.5 - Hyperlipidemia, unspecified, F10.90 - Alcohol use, unspecified, uncomplicated, I10 - Essential (primary) hypertension, I47.29 - Other ventricular tachycardia, I95.1 - Orthostatic hypotension Vitamin D 25-OH Total 3 Months E55.9 - Vitamin D deficiency, unspecified, E78.5 - Hyperlipidemia, unspecified, F10.90 - Alcohol use, unspecified, uncomplicated, I10 - Essential (primary) hypertension, I47.29 - Other ventricular tachycardia, I95.1 - Orthostatic hypotension UA CC w/rflx Micro + Cult 3 Months E55.9 - Vitamin D deficiency, unspecified, E78.5 - Hyperlipidemia, unspecified, F10.90 - Alcohol use, unspecified, uncomplicated, I10 - Essential (primary) hypertension, I47.29 - Other ventricular tachycardia, I95.1 - Orthostatic hypotension Medications: New cholecalciferol (vitamin D3) 50 mcg PO DAILY 90 caps 3RF
[2025-03-24 13:11] VITALS: BP 110/74; TEMP 36.3; O2SAT 100; BMI 27.3
--- OUTSIDE RECORDS SUMMARY | 2025-03-24 13:29 | XMS_ITS | Clinical Summary ---
Author Organization [address] [facility] Address [address] [place] [address] Phone Care Team Providers Care Hospice Superintendent Name Role Phone Peng Eduardo Pretty BRANCH Primary Care Provider [phone] Allergies No known active allergies Active Problems Problem Noted Date Diagnosed Date Syncope 01/11/2025 Encounters Date Type Department Care Team Description 01/04/2025 Telephone [facility] [address] [facility] [address] [place] [address] Francesco Steven MD called pt [...] Panel) 03/31/2024 Colorectal Cancer Screening: Colonoscopy 03/31/2024 Falls Risk Assessment 03/31/2024 Hepatitis C Screening 03/31/2024 Medicare Annual Wellness Visit 03/31/2024 Social Influencers of Health Screening 03/31/2024 COVID-19 Vaccine (4 - 2023-2 5 season) 2024 08/09/2021, 12/21/2020, 11/28/2020 Depression Screening 09/02/2024 Influenza Vaccine (#1) 2025 10/01/2023 RSV Immunization [...] MEDICARE ADVANTAGE GENERIC on file Care Teams Hospice Superintendent Relationship Specialty Start Date End Date Peng Eduardo FNP [address] [place] [address] PCP - General Family Medicine 01/04/25
== END 2025-03-24 14:01 | disposition home or self-care (01) ==
LOC: HO.HMCH 13:02
DX: Z00.00 Encounter for general adult medical examination without abnormal findings (principal); I47.29 Other ventricular tachycardia; Z68.27 Body mass index [BMI] 27.0-27.9, adult; E66.3 Overweight; R21 Rash and other nonspecific skin eruption; G47.10 Hypersomnia, unspecified; E55.9 Vitamin D deficiency, unspecified; Z95.818 Presence of other cardiac implants and grafts; I10 Essential (primary) hypertension; F10.90 Alcohol use, unspecified, uncomplicated; K40.90 Unilateral inguinal hernia, without obstruction or gangrene, not specified as recurrent

== ENCOUNTER → 2025-03-24 13:01 | Outpatient (BNVA) | payer MEDICARE, SELFPAY | DX: Z00.00 Encounter for general adult medical examination without abnormal findings (principal); R21 Rash and other nonspecific skin eruption; G47.10 Hypersomnia, unspecified; E55.9 Vitamin D deficiency, unspecified; I47.29 Other ventricular tachycardia; I10 Essential (primary) hypertension; Z95.818 Presence of other cardiac implants and grafts; F10.90 Alcohol use, unspecified, uncomplicated; K40.90 Unilateral inguinal hernia, without obstruction or gangrene, not specified as recurrent; E66.3 Overweight; Z68.27 Body mass index [BMI] 27.0-27.9, adult; Z71.3 Dietary counseling and surveillance | CPT/HCPCS: 99397 ==

== ENCOUNTER → 2025-04-05 23:59 | Outpatient (BNV) | payer MEDICARE, SELFPAY ==
--- NOTE | 2025-04-06 15:52 | MHC.OFFVIS ---
Intake Visit Reasons: Remote ILR check- [employer] Allergies No Known Allergies Allergy (Verified 03/24/25 13:35) PFSH Medical History Hypertension Surgical History H/O left inguinal hernia repair H/O rectal polypectomy History of excision of pilonidal cyst Family History Father Past heart attack Mother CAD (coronary artery disease) Social History Household Members: Family Household Members Other:: sister Housing: House Do you presently have visiting nurse or other home services: No Alcohol intake: former Patient Tobacco Use Status: Current everyday Tobacco user Tobacco use type: Cigar Cigarettes Per Day: 2 e-Cigarette/Vaping Use: Never Used Second Hand Smoke Exposure: Yes service: No Current occupational status: 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 One episode of SVT noted at 162 beats per minute lasting 12 seconds [id number] Cardiac Interrogation, subcut cardiac rhythm monitor Procedure code (CPT) selection complete Assessment & Plan Assessment & Plan (1) Status post placement of implantable loop recorder: Code(s): Z95.818 - Presence of other cardiac implants and grafts Category: Medical Plan: See above Coding Level of Care Code Procedure Only Diagnoses Status post placement of implantable loop recorder Z95.818 CPT Codes Cardiac Device Check - Cardiac Device 16: [id number] Cardiac Interrogation, subcut cardiac rhythm monitor ([id number])
== END ==
PROVIDERS: Visit Provider Internal Medicine Cardiovascular Disease
DX: I47.10 Supraventricular tachycardia, unspecified (principal); Z95.818 Presence of other cardiac implants and grafts
CPT/HCPCS: 93298

== ENCOUNTER → 2025-04-11 23:59 | Outpatient (BNV) | payer MEDICARE, SELFPAY ==
--- NOTE | 2025-04-20 12:16 | MHC.OFFVIS ---
Intake Visit Reasons: Remote ILR check- [employer] Allergies No Known Allergies Allergy (Verified 03/24/25 13:35) PFSH Medical History Hypertension Surgical History H/O left inguinal hernia repair H/O rectal polypectomy History of excision of pilonidal cyst Family History Father Past heart attack Mother CAD (coronary artery disease) Social History Household Members: Family Household Members Other:: sister Housing: House Do you presently have visiting nurse or other home services: No Alcohol intake: former Patient Tobacco Use Status: Current everyday Tobacco user Tobacco use type: Cigar Cigarettes Per Day: 2 e-Cigarette/Vaping Use: Never Used Second Hand Smoke Exposure: Yes service: No Current occupational status: 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 Triple narrow complex tachycardia episodes noted, total of 59, longest lasting 6 minutes and 46 seconds with heart rate at predominantly 162 beats per minute but sometimes up to 200 beats per minute. Symptoms reported [id number] Cardiac Interrogation, subcut cardiac rhythm monitor Procedure code (CPT) selection complete Assessment & Plan Assessment & Plan (1) Status post placement of implantable loop recorder: Code(s): Z95.818 - Presence of other cardiac implants and grafts Category: Medical Plan: See above Coding Level of Care Code Procedure Only Diagnoses Status post placement of implantable loop recorder Z95.818 CPT Codes Cardiac Device Check - Cardiac Device 16: [id number] Cardiac Interrogation, subcut cardiac rhythm monitor ([id number])
== END ==
PROVIDERS: Visit Provider Internal Medicine Cardiovascular Disease
DX: R00.0 Tachycardia, unspecified (principal); Z95.818 Presence of other cardiac implants and grafts
CPT/HCPCS: 93298

== ENCOUNTER → 2025-05-04 10:27 | Outpatient (REF) | payer MEDICARE, SELFPAY ==
--- NOTE | 2025-05-04 10:30 | CA_ITS ---
Transthoracic Echocardiogram Patient (Last, First, Middle): Abdullahi Mondragon K Gender: M Date of : 1955 Age: 70 Procedure Date: 05/04/2025 Procedure Type: Transthoracic Echocardiogram Location: OP Height: 175.26 cm Weight: 86.18 kg BSA: 2.02 m2 Heart Rate: 58 bpm BP: 110 / 74 mmHg Recreation Facility Attendant: SB Referring MD: Gricelda Clifford ADMINISTRATOR-C Symptoms: I47.29 - Other ventricular tachycardia Study Quality: Fair ECG Rhythm: Bradycardia Conclusions: - The left ventricular systolic function is normal. The visually estimated ejection fraction is between 60-65%. - Possible basal inferolateral hypokinesis. - Aortic valve calcification with possibly mild stenosis. - Moderate plaque is seen in the sinuses of Valsalva. Findings Procedure Information Contrast agent, definity, is being given per protocol without apparent complications. The quality of the study was technically difficult. The study quality is limited by patients body habitus and lung artifact. Left Ventricle Normal left ventricular cavity size. The left ventricular systolic function is normal. The visually estimated ejection fraction is between 60-65%. Diastolic function is normal for age. There is mild septal and mild basal asymmetric hypertrophy. Possible basal inferolateral hypokinesis. Atria Both atria are normal in size. Aortic Valve There is moderate calcification of the aortic valve. There is no aortic valve regurgitation. Possible mild aortic stenosis. Mitral Valve The mitral valve appears normal. There is mild mitral annular calcification. There is no mitral valve regurgitation. There is no mitral valve stenosis. Pulmonic Valve The pulmonic valve is likely normal. Tricuspid Valve There is trace tricuspid valve regurgitation. There is no evidence of pulmonary hypertension. Great Vessels The aorta was not well visualized. The sinuses of valsalva is normal in size. Moderate plaque is seen in the sinuses of Valsalva. Venous The inferior vena cava was not well visualized. Pericardium/Pleural There is no evidence of pericardial effusion. Prior Study Comparison Changes noted compared to prior study dated: 10/01/2023. See comment on wall motion. Measurements 2D Linear Measurements IVSd: 0.64 0.6-0.9/0.6-1.0 cm LVIDd: 5.35 3.9-5.3/4.2-5.9 cm LVIDd Index: 2.65 2.4-3.2/2.2-3.1 cm/m2 LVIDs: 3.62 2.0-3.6 cm LVPWd: 0.84 0.7-1.1 cm LA Diam: 3.70 2.7-3.8/3.0-4.0 cm LAIDs Index: 1.83 1.5-2.3 cm/m2 LV Mass: 172.54 67-162/88-224 g LV Mass Index: 85.41 43-95/49-115 g/m2 LVOT Diam: 2.30 3.0+(-)1.3 cm 2D Systolic Function EF 4C: 75.30 >55% Mitral Valve MV Pk E: 0.85 MV PK A: 0.94 MV Decel Time: 251.00 E/A: 0.90 E'Lateral: 9.14 E'Medial: 6.31 E/E' Med: 13.40 E/E' Lat: 9.30 PHT: 74.00 MVA PHT: 2.97 Decel Stoddard: 3.38 Aortic Valve AoV Pk Otilio: 1.86 AoV Mn Otilio: 1.16 AoV VTI: 0.37 AoV Pk Grad: 14.00 Aov Mn Grad: 6.00 SARAH Cont.VTI: 1.79 LVOT LVOT Pk Otilio: 0.77 LVOT Mn Toilio: 0.51 LVOT VTI: 0.16 LVOT Pk Grad: 2.00 LVOT Mn Grad: 1.00 LVOT Diam: 2.30 LVOT Area: 4.15 Diastolic Function MV Pk E: 0.85 MV Pk A: 0.94 E/A: 0.90 E'Medial: 6.31 E/E' Med: 13.40 E' Laterial: 9.14 E/E' Lat: 9.30 Tricuspid Valve TV Pk Otilio: 0.56 TV Mn Otilio: 0.35 TV Pk Grad: 1.00 TV Mn Grad: 1.00 TR Pk Otilio: 2.14 TR Pk Grad: 18.00 RA Press: 3.00 RVSP: 21.00 Great Vessels Aorta Sinus of Valsalva: 3.50 2.0-3.5 cm Pulmonary Valve PV Pk Otilio: 0.85 Peak PV Grad: 3.00 Updated in Other Vendor System with Status of Final Deep Mathias MD electronically signed on 05/04/2025 2:43:19 PM with status of Final
--- OUTSIDE RECORDS SUMMARY | 2025-05-04 11:58 | XMS_ITS | Clinical Summary ---
Author Organization [address] [place] [address] [place] [phone] Phone Care Team Providers Care Newspaper Carriers Supervisor Name Role Phone Peng Eduardo Pretty BRANCH Primary Care Provider +1- [phone] Allergies No known active allergies Active Problems Problem Noted Date Diagnosed Date Syncope 01/11/2025 Medical History Medical History Date Comments Ground-level [...] 03/31/2024 Social Influencers of Health Screening 03/31/2024 Depression Screening 09/02/2024 COVID-19 Vaccine (4 - 2024-2 6 season) 2025 08/09/2021, 12/21/2020, 11/28/2020 Influenza Vaccine (#1) 2025 [...] MEDICARE ADVANTAGE GENERIC on file Care Teams Newspaper Carriers Supervisor Relationship Specialty Start Date End Date Peng Eduardo FNP [address] [place] [address] [place] [id number] PCP - General Family Medicine 01/04/25
== END ==
LOC: HO.CARD 10:27
PROVIDERS: Visit Provider Nurse Practitioner Family
DX: I47.29 Other ventricular tachycardia (principal); I47.10 Supraventricular tachycardia, unspecified
CPT/HCPCS: 93306; Q9957

== ENCOUNTER → 2025-05-04 10:30 | Outpatient (BNV) | payer MEDICARE, SELFPAY | PROVIDERS: Visit Provider Internal Medicine | DX: I35.8 Other nonrheumatic aortic valve disorders (principal); I42.2 Other hypertrophic cardiomyopathy; I34.81 Nonrheumatic mitral (valve) annulus calcification | CPT/HCPCS: 93306 ==

== ENCOUNTER → 2025-05-11 23:59 | Outpatient (BNV) | payer MEDICARE, SELFPAY ==
--- NOTE | 2025-05-26 12:44 | MHC.OFFVIS ---
Intake Visit Reasons: Remote ILR check- [employer] Allergies No Known Allergies Allergy (Verified 03/24/25 13:35) PFSH Medical History Hypertension Surgical History H/O left inguinal hernia repair H/O rectal polypectomy History of excision of pilonidal cyst Family History Father Past heart attack Mother CAD (coronary artery disease) Social History Household Members: Family Household Members Other:: sister Housing: House Do you presently have visiting nurse or other home services: No Alcohol intake: former Patient Tobacco Use Status: Current everyday Tobacco user Tobacco use type: Cigar Cigarettes Per Day: 2 e-Cigarette/Vaping Use: Never Used Second Hand Smoke Exposure: Yes service: No Current occupational status: 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 Multiple narrow complex episodes of tachycardia noted at 162 beats per minute consistent with SVT. One episode of wide complex tachycardia lasting for 5 seconds at a at 220 beats per minute noted suggestive of nonsustained ventricular tachycardia. Patient did not report any symptoms [id number] Cardiac Interrogation, subcut cardiac rhythm monitor Procedure code (CPT) selection complete Assessment & Plan Assessment & Plan (1) Status post placement of implantable loop recorder: Code(s): Z95.818 - Presence of other cardiac implants and grafts Category: Medical Plan: See above Coding Level of Care Code Procedure Only Diagnoses Status post placement of implantable loop recorder Z95.818 CPT Codes Cardiac Device Check - Cardiac Device 16: [id number] Cardiac Interrogation, subcut cardiac rhythm monitor ([id number])
== END ==
PROVIDERS: Visit Provider Internal Medicine Cardiovascular Disease
DX: I47.10 Supraventricular tachycardia, unspecified (principal); Z95.818 Presence of other cardiac implants and grafts
CPT/HCPCS: 93298

== ENCOUNTER → 2025-06-10 23:59 | Outpatient (BNV) | payer MEDICARE, SELFPAY ==
--- NOTE | 2025-06-16 10:12 | MHC.OFFVIS ---
Intake Visit Reasons: Remote ILR check- [employer] Allergies No Known Allergies Allergy (Verified 03/24/25 13:35) PFSH Medical History Hypertension Surgical History H/O left inguinal hernia repair H/O rectal polypectomy History of excision of pilonidal cyst Family History Father Past heart attack Mother CAD (coronary artery disease) Social History Household Members: Family Household Members Other:: sister Housing: House Do you presently have visiting nurse or other home services: No Alcohol intake: former Patient Tobacco Use Status: Current everyday Tobacco user Tobacco use type: Cigar Cigarettes Per Day: 2 e-Cigarette/Vaping Use: Never Used Second Hand Smoke Exposure: Yes service: No Current occupational status: 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 No significant arrhythmias or pauses noted [id number] Cardiac Interrogation, subcut cardiac rhythm monitor Procedure code (CPT) selection complete Assessment & Plan Assessment & Plan (1) Status post placement of implantable loop recorder: Code(s): Z95.818 - Presence of other cardiac implants and grafts Category: Medical Plan: See above Coding Level of Care Code Procedure Only Diagnoses Status post placement of implantable loop recorder Z95.818 CPT Codes Cardiac Device Check - Cardiac Device 16: [id number] Cardiac Interrogation, subcut cardiac rhythm monitor ([id number])
== END ==
PROVIDERS: Visit Provider Internal Medicine Cardiovascular Disease
DX: Z45.09 Encounter for adjustment and management of other cardiac device (principal)
CPT/HCPCS: 93298

== ENCOUNTER 2025-06-17 07:43 | Outpatient (REF) | payer MEDICARE, SELFPAY ==
--- OUTSIDE RECORDS SUMMARY | 2025-06-17 07:47 | XMS_ITS | Clinical Summary ---
Author Organization [address] [place] [address] [place] [phone] Phone Care Team Providers Care Gaming Host Name Role Phone Peng Eduardo Pretty BRANCH Primary Care Provider +1- [phone] Allergies No known active allergies Active Problems [...] Health Maintenance Due Date Last Done Comments Colorectal Cancer Screening: Colonoscopy 1955 Pneumococcal Vaccine: 50+ Years (1 of 2 - PCV) 1972 Zoster Vaccines (1 of 2) 2003 Abdominal Aortic Aneurysm (AAA) Screen 03/31/2024 Cholesterol Screening (Lipid Panel) 03/31/2024 Falls Risk Assessment 03/31/2024 Hepatitis C [...] MEDICARE ADVANTAGE GENERIC on file Care Teams Gaming Host Relationship Specialty Start Date End Date Peng Eduardo FNP [address] [place] [address] [place] [id number] PCP - General Family Medicine 01/04/25
[2025-06-17 07:53] LABS: MANUAL DIFF FLAG NO
[2025-06-17 08:16] LABS: Hematocrit 47.3 % (42.0-52.0); Hemoglobin 15.7 g/dl (14.0-18.0); Imm Gran Abs Auto 0.03 X10*3/uL (0.00-0.03); Imm Gran Pct Auto 0.3 % (0.0-0.4); Lymphocytes Absolute Auto 2.8 X10*3/uL (1.2-4.9); Mean Corpuscular HGB Conc 33.2 g/dl (31.0-36.0); Mean Corpuscular Hemoglobin 30.8 pg (27.0-33.0); Mean Corpuscular Volume 92.9 fL (80.0-98.0); NRBC Abs Auto 0.000 X10*3/uL (0.0-0.012); NRBC Pct Auto 0.0 /100WBC (0.0-0.2); Platelet Count 323 X10*3/uL (160-400); Red Blood Count 5.09 X10*6/uL (4.60-5.80); White Blood Count 9.0 X10*3/uL (4.8-10.8)
[2025-06-17 08:47] LABS: Alanine Aminotransferase 23 U/L (0-40); Albumin Level 4.6 g/dL (3.5-5.0); Alkaline Phosphatase 87 U/L (39-117); Anion Gap 12 (12-20); Aspartate Amino Transferase 21 U/L (5-37); Blood Urea Nitrogen 10 mg/dL (9-16); Calcium 9.7 mg/dL (8.4-10.2); Carbon Dioxide 29 mmol/L (22-29); Chloride 102 mmol/L (96-108); Cholesterol 155 mg/dL (<200); Estimated Glomerular Filt Rate > 60; HDL Cholesterol 42 mg/dL (>40); Potassium 4.3 mmol/L (3.3-5.1); Sodium 139 mmol/L (135-145); Total Protein 7.2 g/dL (6.5-8.0); Triglycerides 100 mg/dL (<150)
== END 2025-06-17 07:44 | disposition home or self-care (01) ==
LOC: HO.LAB 07:43
DX: I10 Essential (primary) hypertension (principal); I95.1 Orthostatic hypotension; I47.29 Other ventricular tachycardia; F10.90 Alcohol use, unspecified, uncomplicated; E78.5 Hyperlipidemia, unspecified; E55.9 Vitamin D deficiency, unspecified
CPT/HCPCS: 36415; 80053; 80061; 82306; 84443; 85025

== ENCOUNTER 2025-06-18 12:30 | Outpatient (REF) | payer MEDICARE, SELFPAY ==
[2025-06-18 15:20] LABS: Appearance Urine Clear; Glucose Urine UA Negative (Negative); PH 7.0 (5.0-9.0); Specific Gravity - Urine 1.015 (1.005-1.025)
--- OUTSIDE RECORDS SUMMARY | 2025-06-25 17:04 | XMS_ITS | Clinical Summary ---
Author Organization [address] [place] [address] [place] [phone] Phone Care Team Providers Care Counter Supply Worker Name Role Phone Peng Eduardo Pretty BRANCH Primary Care Provider +1- [phone] Allergies No known active allergies Active Problems [...] MEDICARE ADVANTAGE GENERIC on file Care Teams Counter Supply Worker Relationship Specialty Start Date End Date Peng Eduardo FNP [address] [place] [address] [place] [id number] PCP - General Family Medicine 01/04/25
== END 2025-06-18 12:31 | disposition home or self-care (01) ==
LOC: HO.LNP 12:30
DX: I10 Essential (primary) hypertension (principal); I95.1 Orthostatic hypotension; I47.29 Other ventricular tachycardia; E78.5 Hyperlipidemia, unspecified; E55.9 Vitamin D deficiency, unspecified; F10.90 Alcohol use, unspecified, uncomplicated
CPT/HCPCS: 81003

== ENCOUNTER 2025-06-28 12:28 | Outpatient (AMB) | payer MEDICARE, SELFPAY ==
[2025-06-28 12:58] VITALS: BP 100/62; PULSE 53; BMI 26.6
--- NOTE | 2025-06-28 12:58 | A.OFFVIS_ITS ---
Vital Signs 06/28/25 12:58 Height 5 ft 10 in Weight 185 lb 10.067 oz BMI 26.6 BP 100/62 Blood Pressure Location Lt brachial Position Sitting Pulse 53 Pulse Source Monitor Intake Visit Reasons: 1 yr follow up Icing And Glaze Maker Required: No Allergies No Known Allergies Allergy (Verified 06/28/25 13:00) Medication List - Last Reconciled 06/28/25 by Gricelda Clifford, JAIDA-C blood pressure test kit-large (BPM 2 Advanced BP Monitor kit) As directed cholecalciferol (vitamin D3) 50 mcg PO DAILY lisinopril 40 mg PO DAILY metoprolol succinate ER 50 mg PO DAILY 30 days walker (Ultra-Light Rollator misc) As directed HPI HPI 1 yr follow up: Details: Abdullahi is a 70-year-old male with past medical history of hypertension, alcohol abuse, episode of presyncope, orthostatic hypotension who had recurrent syncopal event 01/2025. He was initially cared for at [facility] and transferred to [facility] for further testing and evaluation. There was initially some concern for possible C-spine injury. While at [facility] he was noted to have to sinus pauses lasting 2 seconds each. His metoprolol was stopped. He underwent implanted loop recorder placement on 02/10/2025. Loop recorder transmissions did show episodes of asymptomatic SVT. His metoprolol was restarted. He now presents for follow-up. Today he reports that he has been feeling well with no concerning symptoms. He denies any recurrent presyncope, syncope, no falls. He says he is not drinking alcohol. He is drinking nonalcoholic beer and reports good hydration. No heart palpitations, shortness of breath, chest discomfort, edema. He will feel some brief lightheadedness if he bends over and stands up quickly. ILR site is feeling good. Takes his meds as directed. Admits to being mostly sedentary. [facility] Medical History Hypertension Surgical History H/O left inguinal hernia repair H/O rectal polypectomy History of excision of pilonidal cyst Family History Father Past heart attack Mother CAD (coronary artery disease) Social History Household Members: Family Household Members Other:: sister Housing: House Do you presently have visiting nurse or other home services: No Alcohol intake: former Patient Tobacco Use Status: Current everyday Tobacco user Tobacco use type: Cigar Cigarettes Per Day: 2 e-Cigarette/Vaping Use: Never Used Second Hand Smoke Exposure: Yes service: No Current occupational status: 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 Current occupational exposures/hazards: No Cognitive needs: No Hearing needs: No Vision needs: Yes (Reading glasses) Review of Systems Const All systems reviewed & are unremarkable except as noted in HPI and below ENT Reports dizziness (only if he bends over) Card Denies chest pain, Denies chest pain at rest, Denies chest pain with activity, Denies rapid heart rate, Denies pedal edema, Denies edema, Denies leg edema, Denies lightheadedness, Denies palpitations, Denies dyspnea, Denies dyspnea on exertion and Denies orthopnea Resp Denies cough, Denies dyspnea and Denies dyspnea on exertion GI Denies hematochezia and Denies change in stool character Musc Denies abnormal gait, Denies limited range of motion, Denies muscle cramps, Denies muscle weakness, Denies numbness, Denies radiating pain into limb, Denies stiffness and Denies tingling Neuro Denies abnormal gait, Reports dizziness (only if he bends over), Denies numbness and Denies tingling Endo Denies palpitations Physical Exam Vital Signs: Last Vital Signs Pulse 53 06/28/25 12:58 BP 100/62 06/28/25 12:58 BMI result Body Mass Index 26.6 Const General: cooperative, healthy appearing, comfortable and no acute distress Orientation/consciousness: patient oriented x3 Neck Neck: Yes normal visual inspection Resp Effort & Inspection: normal respiratory effort Auscultation: clear to auscultation bilaterally, no rales, no rhonchi and no wheezes Cardio Rate: regular rate Rhythm: regular rhythm Heart sounds: S1 normal heart sound present, S2 normal heart sound present, no gallops, no murmurs and no rubs Neuro General: patient oriented x3 Extrem General: Yes normal to inspection and No no pedal edema Psych Appearance: grossly normal Mental Status: mental status grossly normal Speech and movement: Normal speech and movement present Office Procedures EKG Details: Today, read by me, sinus bradycardia, first-degree AV block, left axis deviation, QTC 375 milliseconds, [place] interval 214 milliseconds, rate 53. [id number], Complete Assessment & Plan Assessment & Plan (1) Syncope: Code(s): R55 - Syncope and collapse Category: Medical Qualifiers: Syncope type: unspecified Qualified Code(s): R55 - Syncope and collapse Plan: Recent Syncopal event, January 2025, occurred at home with scalp and arm injuries including dislocated thumb. ETOH level 131. Syncope could be related to alcohol intoxication, orthostatic hypotension, arrhythmia. Prior cardiac testing for presyncopal event had confirmed orthostatic hypotension. While at [facility] he was noted to have brief sinus pauses and metoprolol was stopped. Implanted loop recorder placed to assess for pauses or arrhythmia. No Cameron arrhythmia alerts as of yet. He has had tachy arrhythmia/SVT and metoprolol has been restarted. We will continue to monitor ILR remotely. Cardiology follow- up 6 months, sooner if needed. (2) SVT (supraventricular tachycardia): Code(s): I47.10 - Supraventricular tachycardia, unspecified Category: Medical Plan: ILR interrogations showing short SVT episodes, rate up to 170s, asymptomatic when called. Now on metoprolol XL 50 mg daily. (3) Status post placement of implantable loop recorder: Code(s): Z95.818 - Presence of other cardiac implants and grafts Category: Medical Plan: Loop recorder site benign. Following with DNA SEQ system. (4) Near syncope: Code(s): R55 - Syncope and collapse Category: Medical Plan: Prior presyncopal event, 10/2023 with cardiac testing including Echocardiogram showed EF 55-60%, mild LVH, impaired relaxation. Holter monitor done on 10/09/2023 for 3 and half days showed sinus rhythm with average heart rate 73, SVE 3.6% of time, occasional PVC's with 2 NSVT runs, one 4 beat and one 19 beat, rate 163. A nuclear stress test was done on 12/05/2023 showing mixed inferior perfusion defect, probable artifact, less likely in infarct or ischemia. I had previously recommended CTA of the coronary arteries for further evaluation and he declined due to the absence of symptoms. Tilt-table test done 11/19/2023 showing orthostatic hypotension. He was instructed to increase his fluid intake and cut down alcohol use. At the time of his presyncope he was drinking 5 alcoholic shots per day. Recurrent syncope as above. - now reports that he is no longer drinking alcohol. (5) Orthostatic hypotension: Code(s): I95.1 - Orthostatic hypotension Category: Medical Plan: As above. Asymptomatic at this time. Blood pressure normal range, asymptomatic, orthostatics not assessed. (6) Alcohol use disorder: Code(s): F10.90 - Alcohol use, unspecified, uncomplicated Category: Medical Plan: He tells me he stopped drinking alcohol following last hospital discharge. He is drinking nonalcoholic beer instead. (7) Hypertension: Code(s): I10 - Essential (primary) hypertension Category: Medical Qualifiers: Hypertension type: unspecified Qualified Code(s): I10 - Essential (primary) hypertension Plan: Blood pressure goal less than 130/80. Blood pressure on low side today. Will reduce his lisinopril down to 20 mg daily, continue metoprolol. (8) NSVT (nonsustained ventricular tachycardia): Code(s): I47.29 - Other ventricular tachycardia Category: Medical Plan: As above. Episode noted on Holter monitor. EF is normal which is reassuring. He was on beta-elidia however it was stopped during recent [facility] admission due to concern for brief sinus pauses. Then restarted due to SVT on ILR monitoring. We will continue to follow with his ILR. (9) Hypersomnia: Code(s): G47.10 - Hypersomnia, unspecified Category: Medical Plan: Home sleep study previously ordered and not completed as of yet. Plan Time spent on chart review, documentation, interview and assessment Medications: New lisinopril Dose reduced 20 mg PO DAILY 90 tabs 1RF Discontinued lisinopril Discontinued Reason: Doctor's Order 40 mg PO DAILY 90 tabs 2RF Coding Level of Care Code Est Pt Level 4 (38254) Complex EM visit Add On G2211 Diagnoses Syncope R55 Syncope type: unspecified SVT (supraventricular tachycardia) I47.10 Status post placement of implantable loop recorder Z95.818 Near syncope R55 Orthostatic hypotension I95.1 Alcohol use disorder F10.90 Hypertension, unspecified type I10 Hypertension type: unspecified NSVT (nonsustained ventricular tachycardia) I47.29 Hypersomnia G47.10 CPT Codes EKG - CPT: 98525-[id number], Complete ([id number]) Time Spent (min) 28
--- OUTSIDE RECORDS SUMMARY | 2025-06-28 15:48 | XMS_ITS | Clinical Summary ---
Author Organization [address] [place] [address] [place] [phone] Phone Care Team Providers Care Roller Staker Name Role Phone Nanci Eduardodrew BRANCH Primary Care Provider +1- [phone] Allergies No known active allergies Active Problems [...] MEDICARE ADVANTAGE GENERIC on file Care Teams Roller Staker Relationship Specialty Start Date End Date Peng Eduardo FNP [address] [place] [address] [place] [phone] PCP - General Family Medicine 01/04/25
== END 2025-06-28 13:27 | disposition home or self-care (01) ==
LOC: HO.HCS 12:29
PROVIDERS: PCP Internal Medicine; Visit Provider Nurse Practitioner Family
DX: R55 Syncope and collapse (principal); I47.10 Supraventricular tachycardia, unspecified; Z95.818 Presence of other cardiac implants and grafts; I95.1 Orthostatic hypotension; F10.90 Alcohol use, unspecified, uncomplicated; I10 Essential (primary) hypertension; I47.29 Other ventricular tachycardia; G47.10 Hypersomnia, unspecified
CPT/HCPCS: 93010; 99214; G2211

== ENCOUNTER → 2025-06-28 12:28 | Outpatient (BNVA) | payer MEDICARE, SELFPAY | PROVIDERS: PCP Internal Medicine; Visit Provider Nurse Practitioner Family | DX: I47.10 Supraventricular tachycardia, unspecified (principal); Z95.818 Presence of other cardiac implants and grafts; I95.1 Orthostatic hypotension; F10.11 Alcohol abuse, in remission; I47.29 Other ventricular tachycardia; G47.10 Hypersomnia, unspecified | CPT/HCPCS: 93005; 99212 ==

== ENCOUNTER 2025-07-02 13:00 | Outpatient (AMB) | payer MEDICARE, SELFPAY ==
--- NOTE | 2025-07-02 13:03 | MHC.PC.OV ---
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 Accompanied by: Self / Same As Patient Allergies No Known Allergies Allergy (Verified 07/02/25 13:30) Medication List - Last Reconciled 07/02/25 by JAYE Bello blood pressure test kit-large (BPM 2 Advanced BP Monitor kit) As directed cholecalciferol (vitamin D3) 50 mcg PO DAILY lisinopril 20 mg PO DAILY metoprolol succinate ER 50 mg PO DAILY 30 days walker (Ultra-Light Rollator misc) As directed Tobacco use date assessed: 07/02/25 Fall risk assessment: No Falls in past year Last assessed Fall Risk: 07/02/25 Dental Screening Dental Screen Date: 07/02/25 Did you have a dental visit in the last 12 months?: No Did you have a dental problem in the last 6 months where you did not have access to dental care?: No Was dental information given to patient?: No HPI htn/svt/alcohol use/smoker HPI Details The patient is a 70-year-old male presenting for HTN, history of supraventricular tachycardia status post placement of implantable loop recorder, obesity, vitamin-D deficiency, alcohol use, right groin hernia follow up appointment Patient had recent blood work that was reviewed with him. Patient reports that his right groin hernia has been bothering him more recently and would like to be referred to General surgery. Reports that they did his left groin hernia before and it went well. Patient denies chest pain, shortness of breath, heart palpitation or dizziness Denies abdominal pain or change in bowel habits [facility]LY [facility] Medical History Hypertension Surgical History H/O left inguinal hernia repair H/O rectal polypectomy History of excision of pilonidal cyst Family History Father Past heart attack Mother CAD (coronary artery disease) Social History Household Members: Family Household Members Other:: sister Housing: House Do you presently have visiting nurse or other home services: No Alcohol intake: former Patient Tobacco Use Status: Current everyday Tobacco user Tobacco use type: Cigar Cigarettes Per Day: 2 e-Cigarette/Vaping Use: Never Used Second Hand Smoke Exposure: Yes service: No Current occupational status: 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 Jayant Chavez, Gilda Rasheed, Sidney Avila and colleagues, with an educational keren from [employer]. Review of Systems Const All systems reviewed & are unremarkable except as noted in HPI and below ENT Reports dizziness (only if he bends over) Card Denies chest pain, Denies chest pain at rest, Denies chest pain with activity, Denies rapid heart rate, Denies pedal edema, Denies edema, Denies leg edema, Denies lightheadedness, Denies palpitations, Denies dyspnea, Denies dyspnea on exertion and Denies orthopnea Resp Denies cough, Denies dyspnea and Denies dyspnea on exertion GI Denies hematochezia and Denies change in stool character Musc Denies abnormal gait, Denies limited range of motion, Denies muscle cramps, Denies muscle weakness, Denies numbness, Denies radiating pain into limb, Denies stiffness and Denies tingling Neuro Denies Abnormal speech present, Denies abnormal gait, Reports dizziness (only if he bends over), Denies numbness and Denies tingling Endo Denies palpitations Physical exam (Primary Care) Vital Signs: Last Vital Signs Temp 97.3 F 07/02/25 13:04 Pulse 76 07/02/25 13:04 Resp 18 07/02/25 13:04 BP 130/62 07/02/25 13:04 Oxygen Delivery Method Room Air 07/02/25 13:04 BMI result Body Mass Index 26.9 Tobacco/Smoking Status: Tobacco use Status Tobacco use date assessed 07/02/25 07/02/25 13:14 Patient Tobacco Use Status Current everyday Tobacco 07/02/25 13:14 Tobacco use type Cigar 07/02/25 13:14 e-Cigarette/Vaping Use Never Used 07/02/25 13:14 Thrive Assessment: Date of Thrive Assessment Date Thrive assessed 03/24/25 07/02/25 13:14 Const General: healthy appearing, no acute distress, alert and awake Nutritional Appearance: well nourished Orientation/consciousness: oriented to person, oriented to place and oriented to time HENMT Ears: TM's normal bilaterally General nose exam: Normal nasal mucous membranes and turbinates present Teeth and gingiva: poor dentition Eyes Conjunctivae: conjunctivae normal Sclerae: sclerae normal Pupils: Equal, round and reactive pupils present Neck Neck: Yes no lymphadenopathy and Yes no JVD Thyroid: Thyroid normal Carotids: no bruits Resp Effort & Inspection: normal respiratory effort and not tachypneic Auscultation: no crackles, no rales, no rhonchi and no wheezes Cardio Rate: regular rate Rhythm: regular rhythm Heart sounds: S1 normal heart sound present, S2 normal heart sound present, no murmurs and normal S1 and S2 GI Palpation (GI): Soft to palpation, nontender, no hepatomegaly and no splenomegaly Auscultation: normal bowel sounds General: Yes no CVA tenderness Scrotum: inguinal hernia on the right Back/Spine/Pelvis Back: no CVA tenderness Skin General skin exam: dry skin Rashes: rashes noted (red, scaly, patches, dry appearing) Neuro General: oriented to person, oriented to place and oriented to time Cranial nerves: Yes Equal, round and reactive pupils present Speech: No Abnormal speech present Gait exam (Neuro): Normal gait present Motor exam (neuro): no tremor noted Extrem Right upper extremity: full ROM Left upper extremity: full ROM Right lower extremity: full ROM; no edema Left lower extremity: full ROM; no edema Psych Mental Status: mental status grossly normal Speech and movement: Normal speech and movement present Affect: normal affect Attitude: cooperative Thought process: Normal thought process present Results Reviewed Results Reviewed: Laboratory Tests 06/17/25 06/18/25 07:51 12:30 WBC 9.0 RBC 5.09 Hgb 15.7 Hct 47.3 MCV 92.9 MCH 30.8 MCHC 33.2 RDW 12.8 Plt Count 323 Sodium 139 Potassium 4.3 Chloride 102 Carbon Dioxide 29 Anion Gap 12 BUN 10 Creatinine 0.82 Estimated GFR > 60 Fasting Glucose 85 Calcium 9.7 Total Bilirubin 0.6 AST 21 ALT 23 Alkaline Phosphatase 87 Total Protein 7.2 Albumin 4.6 Triglycerides 100 Cholesterol 155 LDL Cholesterol, Calc 93 HDL Cholesterol 42 25-OH Vitamin D Total 34.8 TSH 3.49 Urine Color Yellow Urine Appearance Clear Urine pH 7.0 Ur Specific Truman 1.015 Urine Protein Negative Urine Glucose (UA) Negative Urine Ketones Negative Urine Blood Negative Urine Nitrite Negative Ur Leukocyte Esterase Negative Coding Level of Care Code Est Pt Level 4 (82024) Diagnoses Rash R21 Hypersomnia G47.10 Vitamin D deficiency E55.9 Status post placement of implantable loop recorder Z95.818 NSVT (nonsustained ventricular tachycardia) I47.29 Hypertension, unspecified type I10 Hypertension type: unspecified Alcohol use disorder F10.90 Right inguinal hernia K40.90 Overweight (BMI 25.0-29.9) E66.3 Smoker F17.200 Time Spent (min) 38 Assessment & Plan Assessment & Plan (1) Rash: Code(s): R21 - Rash and other nonspecific skin eruption Category: Medical Plan: Patient reports that he has used in the rash and isn't looking for any treatments unless it becomes bothersome. (2) Hypersomnia: Code(s): G47.10 - Hypersomnia, unspecified Category: Medical Plan: Patient labs are unremarkable. Encouraged proper sleep hygiene. (3) Vitamin D deficiency: Code(s): E55.9 - Vitamin D deficiency, unspecified Category: Medical Plan: Vitamin-D normalized. Continue cholecalciferol 50 mcg daily (4) Status post placement of implantable loop recorder: Code(s): Z95.818 - Presence of other cardiac implants and grafts Category: Medical Plan: ILR interrogations showing short SVT episodes, rate up to 170s, asymptomatic when called. Now on metoprolol XL 50 mg daily. Follow up with Cardiology as scheduled (5) NSVT (nonsustained ventricular tachycardia): Code(s): I47.29 - Other ventricular tachycardia Category: Medical Plan: ILR interrogations showing short SVT episodes, rate up to 170s, asymptomatic when called. Now on metoprolol XL 50 mg daily. Follow up with Cardiology as scheduled (6) Hypertension: Code(s): I10 - Essential (primary) hypertension Category: Medical Qualifiers: Hypertension type: unspecified Qualified Code(s): I10 - Essential (primary) hypertension Plan: Blood pressure 130/62. Reinforced low-salt diet. Continue metoprolol succinate ER 50 mg daily, lisinopril 20 mg daily. Follow up with Cardiology as scheduled. (7) Alcohol use disorder: Code(s): F10.90 - Alcohol use, unspecified, uncomplicated Category: Medical Plan: Reports maintaining abstinence from alcohol. Encouraged sobriety. (8) Right inguinal hernia: Code(s): K40.90 - Unilateral inguinal hernia, without obstruction or gangrene, not specified as recurrent Category: Medical Plan: The patient c/o pressure in his right groin area but reports that this is not causing any pain. Palpable mass in right groin on exam. Chart review showed that the patient had a CT of abdomen and pelvis in 10/30/24 that showed a small fat container hernia in the right groin. The patient changes mind about seeing General surgery about this. Referral was placed. The patient is to seek medical attention if this becomes painful. (9) Overweight (BMI 25.0-29.9): Code(s): E66.3 - Overweight Category: Medical Plan: Discussed lifestyle modifications including dietary changes and physical activity (10) Smoker: Code(s): F17.200 - Nicotine dependence, unspecified, uncomplicated Category: Social Hx Plan: Patient reports that he is smoking 2 cigars a day. Encouraged smoking cessation Orders: Orders Complete Blood Count Auto Diff 4 Months E55.9 - Vitamin D deficiency, unspecified, E66.3 - Overweight, E66.9 - Obesity, unspecified, F10.90 - Alcohol use, unspecified, uncomplicated, I10 - Essential (primary) hypertension, I47.29 - Other ventricular tachycardia, I95.1 - Orthostatic hypotension, K40.90 - Unilateral inguinal hernia, without obstruction or gangrene, not specified as recurrent, Z95.818 - Presence of other cardiac implants and grafts UA CC w/rflx Micro + Cult 4 Months E55.9 - Vitamin D deficiency, unspecified, E66.3 - Overweight, E66.9 - Obesity, unspecified, F10.90 - Alcohol use, unspecified, uncomplicated, I10 - Essential (primary) hypertension, I47.29 - Other ventricular tachycardia, I95.1 - Orthostatic hypotension, K40.90 - Unilateral inguinal hernia, without obstruction or gangrene, not specified as recurrent, Z95.818 - Presence of other cardiac implants and grafts Vitamin D 25-OH Total 4 Months E55.9 - Vitamin D deficiency, unspecified, E66.3 - Overweight, E66.9 - Obesity, unspecified, F10.90 - Alcohol use, unspecified, uncomplicated, I10 - Essential (primary) hypertension, I47.29 - Other ventricular tachycardia, I95.1 - Orthostatic hypotension, K40.90 - Unilateral inguinal hernia, without obstruction or gangrene, not specified as recurrent, Z95.818 - Presence of other cardiac implants and grafts Comprehensive [place]. Panel Fast 4 Months E55.9 - Vitamin D deficiency, unspecified, E66.3 - Overweight, E66.9 - Obesity, unspecified, F10.90 - Alcohol use, unspecified, uncomplicated, I10 - Essential (primary) hypertension, I47.29 - Other ventricular tachycardia, I95.1 - Orthostatic hypotension, K40.90 - Unilateral inguinal hernia, without obstruction or gangrene, not specified as recurrent, Z95.818 - Presence of other cardiac implants and grafts TSH reflex Free T4 4 Months E55.9 - Vitamin D deficiency, unspecified, E66.3 - Overweight, E66.9 - Obesity, unspecified, F10.90 - Alcohol use, unspecified, uncomplicated, I10 - Essential (primary) hypertension, I47.29 - Other ventricular tachycardia, I95.1 - Orthostatic hypotension, K40.90 - Unilateral inguinal hernia, without obstruction or gangrene, not specified as recurrent, Z95.818 - Presence of other cardiac implants and grafts Referrals General Surgery Referral K40.90 - Unilateral inguinal hernia, without obstruction or gangrene, not specified as recurrent
[2025-07-02 13:04] VITALS: BP 130/62; PULSE 76; RESP 18; TEMP 36.3; BMI 26.9
== END 2025-07-02 13:42 | disposition home or self-care (01) ==
LOC: HO.HMCH 13:01
DX: R21 Rash and other nonspecific skin eruption (principal); I47.29 Other ventricular tachycardia; Z68.26 Body mass index [BMI] 26.0-26.9, adult; E66.3 Overweight; G47.10 Hypersomnia, unspecified; E55.9 Vitamin D deficiency, unspecified; Z95.818 Presence of other cardiac implants and grafts; I10 Essential (primary) hypertension; F10.90 Alcohol use, unspecified, uncomplicated; K40.90 Unilateral inguinal hernia, without obstruction or gangrene, not specified as recurrent; F17.200 Nicotine dependence, unspecified, uncomplicated

== ENCOUNTER → 2025-07-02 13:00 | Outpatient (BNVA) | payer MEDICARE, SELFPAY | DX: R21 Rash and other nonspecific skin eruption (principal); G47.10 Hypersomnia, unspecified; E55.9 Vitamin D deficiency, unspecified; I47.29 Other ventricular tachycardia; I10 Essential (primary) hypertension; F10.90 Alcohol use, unspecified, uncomplicated; K40.90 Unilateral inguinal hernia, without obstruction or gangrene, not specified as recurrent; E66.3 Overweight; Z68.26 Body mass index [BMI] 26.0-26.9, adult; F17.200 Nicotine dependence, unspecified, uncomplicated; Z95.818 Presence of other cardiac implants and grafts; Z71.6 Tobacco abuse counseling; Z71.3 Dietary counseling and surveillance | CPT/HCPCS: 99212 ==

== ENCOUNTER → 2025-07-12 10:37 | Outpatient (REF) | payer MEDICARE, SELFPAY ==
--- NOTE | 2025-07-12 10:41 | HM_ITS ---
* Total monitoring time 3 days. * Underlying rhythm is sinus with an average rate of 51/Min. About 89% of the time, rate < 60/Min. * Supraventricular ectopy noted with a burden of 1.4%. * Rare ventricular ectopy. Two brief runs. Longest 7 beats. * No significant pauses or high-grade AV blocks. * No patient markers or diary events. MTDD
--- OUTSIDE RECORDS SUMMARY | 2025-07-12 12:30 | XMS_ITS | Clinical Summary ---
Author Organization [address] [place] [address] [place] [id number] Phone Care Team Providers Care Carton Stapler Name Role Phone Nanci Eduardodrew BRANCH Primary Care Provider [phone] Allergies No known active allergies Active Problems [...] MEDICARE ADVANTAGE GENERIC on file Care Teams Carton Stapler Relationship Specialty Start Date End Date Peng Eduardo FNP [address] [place] [address] [place] [id number] PCP - General Family Medicine 01/04/25
== END ==
LOC: HO.CARD 10:37
PROVIDERS: Visit Provider Nurse Practitioner Family
DX: I47.10 Supraventricular tachycardia, unspecified (principal); Z95.818 Presence of other cardiac implants and grafts
CPT/HCPCS: 93242

== ENCOUNTER → 2025-07-12 10:41 | Outpatient (BNV) | payer MEDICARE, SELFPAY | PROVIDERS: Visit Provider Internal Medicine | DX: I49.49 Other premature depolarization (principal) | CPT/HCPCS: 93244 ==

== ENCOUNTER → 2025-07-22 12:43 | Outpatient (BNV) | payer MEDICARE, SELFPAY | DX: I47.10 Supraventricular tachycardia, unspecified (principal); R00.0 Tachycardia, unspecified; Z45.09 Encounter for adjustment and management of other cardiac device | CPT/HCPCS: 93298 ==

== ENCOUNTER → 2025-08-27 16:06 | Outpatient (BNV) | payer MEDICARE, SELFPAY | PROVIDERS: Visit Provider Internal Medicine Cardiovascular Disease | DX: I47.10 Supraventricular tachycardia, unspecified (principal); R00.0 Tachycardia, unspecified; Z45.09 Encounter for adjustment and management of other cardiac device | CPT/HCPCS: 93298 ==